=== PATIENT | female | born 1985 | race Caucasian/White ===

== ENCOUNTER 2021-04-01 01:41 | Emergency (ER) | payer MEDICAID, SELFPAY ==
--- NOTE | 2021-04-01 | ECG_ITS ---
Test Reason : CHEST PRESSURE Blood Pressure : / mmHG Vent. Rate : 072 BPM Atrial Rate : 072 BPM P-R Int : 154 ms QRS Dur : 072 ms QT Int : 384 ms P-R-T Axes : 022 015 022 degrees QTc Int : 420 ms Normal sinus rhythm Normal ECG No previous ECGs available Referred By: Sugar Lares Electronically Signed By:CINDY EASON
--- NOTE | ~2021-04-01 | XR_ITS ---
EXAMINATION: XR CHEST CLINICAL INFORMATION: Chest pain COMPARISON: None TECHNIQUE: Frontal view of the chest was obtained. FINDINGS: Multiple external artifacts overlie the thorax. The cardiomediastinal silhouette is normal in appearance. No effusions or pneumothoraces are visualized. A normal pattern of pulmonary vasculature is noted. No skeletal abnormalities identified. XR/XR chest 1V IMPRESSION: Normal chest.
[2021-04-01 02:39] VITALS: BP 148/74; PULSE 75; RESP 18; TEMP 37.2; O2SAT 98; BMI 29.2
--- NOTE | 2021-04-01 04:19 | ED_ITS ---
HPI - Chest Pain General Chief Complaint: Chest Pain Stated Complaint: Chest pressure Time Seen by Provider: 04/01/21 04:19 Source: patient and neighborhood coordinator Mode of arrival: ambulatory History of Present Illness HPI narrative: 35-year-old female who presents with complaints left-sided chest pain, nonradiating for 3 days and denies any association with fever, chills, shortness of breath, dizziness/headache but states that when she pushes on her chest it hurts more. Patient states that at approximately 1:00 a.m. this morning the pain became worse. She denies any associated GI symptoms such as nausea, vomiting, or diarrhea. Related Data Previous Rx's Medication Instructions Recorded omeprazole 40 mg capsule,delayed 40 mg PO DAILY 30 Days #30 cap 04/01/21 release Allergies Allergy/AdvReac Type Severity Reaction Status Date / Time No Known Allergies Allergy Unverified 04/01/21 04:21 Review of Systems Review of Systems: Pertinent positives and negatives as stated in HPI 10 point review of systems is otherwise negative. [facility] Past Medical History Source: nursing notes reviewed Social History Social History Alcohol intake: unknown Patient Tobacco Use Status: Never used Tobacco Use of substances other than those prescribed or required for medical reasons: No Advance Directives: No Patient : No Physical Exam Vital Signs: Vital Signs: Last Vital Signs Temp 98.9 F 04/01/21 02:39 Pulse 71 04/01/21 05:35 Resp 16 04/01/21 05:35 BP 134/66 04/01/21 05:35 Pulse Ox 97 04/01/21 05:35 Body Mass Index 29.2 VITAL SIGNS: Reviewed. GENERAL: Well developed, well nourished, in no acute distress. HEAD: Normocephalic/atraumatic EYES: PERRLA, EOMI LUNGS: Normal breath sounds. SpO2<97> CARDIOVASCULAR: Regular rate and rhythm without noted murmurs ABDOMEN: Soft, non-tender, non-distended with bowel sounds. SKIN: Inspection of the skin reveals no rashes NEUROLOGIC: Alert and oriented x 4. Course Course Course Narrative: 35-year-old female with history and clinical presentation suggestive of possible GERD/costochondritis but will rule out cardiopulmonary etiology. Low clinical suspicion for PE. On review of all investigations there are no acute findings to suggest infectious, anemia, or cardiac etiologies. Patient received a GI cocktail and noted improvement of her symptoms thereafter. Results were discussed with her bedside and she will be discharged home with a prescription for Protonix and recommendations to follow-up with her primary care provider. MDM - Chest Pain Lab Data Result diagrams: 04/01/21 04:37 04/01/21 04:37 Labs: Lab Results 04/01/21 04/01/21 04/01/21 Range/Units 04:37 04:37 04:37 WBC 7.0 (4.8-10.8) X10*3/uL RBC 4.46 (4.20-5.50) X10*6/uL Hgb 12.8 (12.0-16.0) g/dl Hct 37.5 (37-47) % MCV 84.1 (80-98) fL MCH 28.7 (27.0-33.0) pg MCHC 34.1 (31.0-35.0) g/dl RDW 11.8 (11.0-16.0) % Plt Count 278 (160-400) X10*3/uL MPV 10.3 (9.4-12.3) fL Immature Gran % (Auto) 0.3 (0.0-0.4) % Neut % (Auto) 50.9 (45-73) % Lymph % (Auto) 40.9 H (20-40) % [place] % (Auto) 6.3 (2-11) % Eos % (Auto) 1.3 (0-4) % Baso % (Auto) 0.3 (0-2) % Lymph # (Auto) 2.9 (1.2-4.9) X10*3/uL [place] # (Auto) 0.4 (0.1-1.2) X10*3/uL Eos # (Auto) 0.1 (0.0-0.4) X10*3/uL Baso # (Auto) 0.0 (0.0-0.2) X10*3/uL Abs Immat Gran (auto) 0.02 (0.00-0.03) X10*3/uL Absolute Neuts (auto) 3.5 (2.0-8.3) X10*3/uL Absolute Nucleated RBC 0.000 (0.0-0.012) X10*3/uL Nucleated RBC % (auto) 0.0 (0.0-0.2) /100WBC Sodium 141 (135-145) mmol/L Potassium 4.0 (3.3-5.1) mmol/L Chloride 109 H (96-108) mmol/L Carbon Dioxide 25 (22-29) mmol/L Anion Gap 11 L (12-20) BUN 12 (9-16) mg/dL Creatinine 0.75 (0.5-1.4) mg/dL Estim Creat Clear Calc 92.1 Estimated GFR > 60 Random Glucose 78 (60-115) mg/dL Calcium 9.3 (8.4-10.2) mg/dL Total Bilirubin 0.7 (0.0-1.0) mg/dL AST 12 (5-31) U/L ALT 17 (0-31) U/L Alkaline Phosphatase 54 (39-117) U/L Troponin I High Sens < 3.5 (<3.5-17.0) ng/L Total Protein 7.2 (6.5-8.0) g/dL Albumin 4.2 (3.5-5.0) g/dL Lipase 29 (8-78) U/L TSH 0.97 (0.32-4.0) uIU/mL Urine Color Urine Appearance Urine pH (5.0-8.0) Ur Specific [place] (1.005-1.025) Urine Protein (NEG-TRACE) MG/DL Urine Glucose (UA) (NEG) MG/DL Urine Ketones (NEG) MG/DL Urine Blood (NEG) Urine Nitrite (NEG) Ur Leukocyte Esterase (NEG) Urine Test (NEGATIVE) 04/01/21 04/01/21 Range/Units 05:49 05:49 WBC (4.8-10.8) X10*3/uL RBC (4.20-5.50) X10*6/uL Hgb (12.0-16.0) g/dl Hct (37-47) % MCV (80-98) fL MCH (27.0-33.0) pg MCHC (31.0-35.0) g/dl RDW (11.0-16.0) % Plt Count (160-400) X10*3/uL MPV (9.4-12.3) fL Immature Gran % (Auto) (0.0-0.4) % Neut % (Auto) (45-73) % Lymph % (Auto) (20-40) % [place] % (Auto) (2-11) % Eos % (Auto) (0-4) % Baso % (Auto) (0-2) % Lymph # (Auto) (1.2-4.9) X10*3/uL [place] # (Auto) (0.1-1.2) X10*3/uL Eos # (Auto) (0.0-0.4) X10*3/uL Baso # (Auto) (0.0-0.2) X10*3/uL Abs Immat Gran (auto) (0.00-0.03) X10*3/uL Absolute Neuts (auto) (2.0-8.3) X10*3/uL Absolute Nucleated RBC (0.0-0.012) X10*3/uL Nucleated RBC % (auto) (0.0-0.2) /100WBC Sodium (135-145) mmol/L Potassium (3.3-5.1) mmol/L Chloride (96-108) mmol/L Carbon Dioxide (22-29) mmol/L Anion Gap (12-20) BUN (9-16) mg/dL Creatinine (0.5-1.4) mg/dL Estim Creat Clear Calc Estimated GFR Random Glucose (60-115) mg/dL Calcium (8.4-10.2) mg/dL Total Bilirubin (0.0-1.0) mg/dL AST (5-31) U/L ALT (0-31) U/L Alkaline Phosphatase (39-117) U/L Troponin I High Sens (<3.5-17.0) ng/L Total Protein (6.5-8.0) g/dL Albumin (3.5-5.0) g/dL Lipase (8-78) U/L TSH (0.32-4.0) uIU/mL Urine Color STRAW Urine Appearance CLEAR Urine pH 6.0 (5.0-8.0) Ur Specific [place] 1.010 (1.005-1.025) Urine Protein NEG (NEG-TRACE) MG/DL Urine Glucose (UA) NEG (NEG) MG/DL Urine Ketones NEG (NEG) MG/DL Urine Blood NEG (NEG) Urine Nitrite NEG (NEG) Ur Leukocyte Esterase NEG (NEG) Urine Test NEGATIVE (NEGATIVE) ECG Data ECG #1: Attestation: I personally reviewed and interpreted this ECG as follows: Prior ECG tracings: not available for review Interpretation: Normal sinus rhythm, HR-72, no STEMI, MS/QRS/QTC are within normal limits. Discharge Plan Discharge Clinical Impression: Atypical chest pain, Gastroesophageal reflux disease Patient Disposition: Home, Self-Care Instructions: Diet for Stomach Ulcers and Gastritis (ED), Gastroesophageal Reflux Disease (ED) Additional Instructions: 1. Palak un seguimiento con balderrama proveedor de atenci?n primaria en los pr?ximos 1-2 d?as para oliver reevaluaci?n. Regrese a la holley de emergencias por un empeoramiento cassie de los s?ntomas. Prescriptions: New omeprazole 40 mg capsule,delayed release(DR/EC) 40 mg PO DAILY 30 Days Qty: 30 RF: 0 Referrals: Physician,Unknown [Primary Care Provider] - 2 days Print Language: Nepali
[2021-04-01 04:41] LABS: MANUAL DIFF FLAG NO
[2021-04-01 04:42] LABS: Basophils Percent Auto 0.3 % (0-2); Eosinophils Absolute Auto 0.1 X10*3/uL (0.0-0.4); Eosinophils Percent Auto 1.3 % (0-4); Hematocrit 37.5 % (37-47); Hemoglobin 12.8 g/dl (12.0-16.0); Imm Gran Abs Auto 0.02 X10*3/uL (0.00-0.03); Imm Gran Pct Auto 0.3 % (0.0-0.4); Lymphocytes Absolute Auto 2.9 X10*3/uL (1.2-4.9); Lymphocytes Percent Auto 40.9 % (20-40); Mean Corpuscular HGB Conc 34.1 g/dl (31.0-35.0); Mean Corpuscular Hemoglobin 28.7 pg (27.0-33.0); Mean Corpuscular Volume 84.1 fL (80-98); Mean Platelet Volume 10.3 fL (9.4-12.3); Monocytes Absolute Auto 0.4 X10*3/uL (0.1-1.2); Monocytes Percent Auto 6.3 % (2-11); Neutrophils Absolute Auto 3.5 X10*3/uL (2.0-8.3); Neutrophils Percent Auto 50.9 % (45-73); Platelet Count 278 X10*3/uL (160-400); Red Blood Count 4.46 X10*6/uL (4.20-5.50); Red Cell Distribution Width 11.8 % (11.0-16.0)
[2021-04-01 05:01] LABS: Troponin-I High Sensitivity < 3.5 ng/L (<3.5-17.0)
[2021-04-01 05:05] LABS: Alanine Aminotransferase 17 U/L (0-31); Albumin Level 4.2 g/dL (3.5-5.0); Alkaline Phosphatase 54 U/L (39-117); Anion Gap 11 (12-20); Aspartate Amino Transferase 12 U/L (5-31); Bilirubin Total 0.7 mg/dL (0.0-1.0); Blood Urea Nitrogen 12 mg/dL (9-16); Calcium 9.3 mg/dL (8.4-10.2); Carbon Dioxide 25 mmol/L (22-29); Chloride 109 mmol/L (96-108); Creatinine Clr Calc Pharmacy 92.1; Estimated Glomerular Filt Rate > 60; Glucose Random 78 mg/dL (60-115); Lipase 29 U/L (8-78); Sodium 141 mmol/L (135-145); Total Protein 7.2 g/dL (6.5-8.0)
[2021-04-01 05:24] LABS: Thyroid Stimulating Hormone 0.97 uIU/mL (0.32-4.0)
[2021-04-01] MEDS: Lidocaine HCl Viscous 2 % 15 ML SOLUTION 10 ML MUCOUS MEM (05:33)
[2021-04-01] MEDS: Magnesium Hydrox/Alum Hydrox 30 ML ORAL.SUSP PO (05:33)
[2021-04-01 05:35] VITALS: BP 134/66; PULSE 71; RESP 16; O2SAT 97
--- NOTE | 2021-04-01 05:37 | PC.NURSE ---
pt oob to the bathroom with a steady gait, no sob or dizziness.
[2021-04-01 06:08] LABS: Appearance Urine CLEAR; Color Urine STRAW; Glucose Urine UA NEG (NEG); Leukocyte Esterase Urine NEG (NEG); Nitrite Urine NEG (NEG); Urine Blood NEG (NEG); Urine Ketones NEG (NEG); Urine Protein NEG (NEG-TRACE)
[2021-04-01 06:10] LABS: UPreg QC Valid YES; Urine Pregnancy NEGATIVE (NEGATIVE)
[2021-04-01 07:26] VITALS: BP 111/59; PULSE 65; RESP 13; TEMP 36.7; O2SAT 97
== END 2021-04-01 07:27 | disposition home or self-care (01) ==
PROVIDERS: Emergency Provider Student in an Organized Health Care Education/Training Program
DX: R07.89 Other chest pain (principal); K21.9 Gastro-esophageal reflux disease without esophagitis; Z79.899 Other long term (current) drug therapy
CPT/HCPCS: 36415; 71045; 80053; 81003; 81025; 83690; 84443; 84484; 85025; 93005; 99283; 99284

== ENCOUNTER → 2021-06-21 14:03 | Outpatient (BNVA) | payer MEDICAID, SELFPAY | PROVIDERS: PCP Nurse Practitioner Family; Referring Provider Nurse Practitioner Family; Visit Provider Internal Medicine | DX: R07.2 Precordial pain (principal); I10 Essential (primary) hypertension; M62.442 Contracture of muscle, left hand; M62.441 Contracture of muscle, right hand; E89.0 Postprocedural hypothyroidism; Z90.49 Acquired absence of other specified parts of digestive tract; Z90.710 Acquired absence of both cervix and uterus; Z79.899 Other long term (current) drug therapy | CPT/HCPCS: 93005; 99202 ==

== ENCOUNTER → 2021-08-19 08:13 | Outpatient (REF) | payer MEDICAID, SELFPAY ==
--- NOTE | 2021-08-19 08:18 | CA_ITS ---
Transthoracic Echocardiogram Patient (Last, First, Middle): Janine Keller, Gender: Female Date of : 1985 Age: 36 Procedure Date: 08/19/2021 Procedure Type: Transthoracic Echocardiogram Location: OP Height: 154.94 cm Weight: 72.58 kg BSA: 1.72 m2 Heart Rate: bpm BP: 136 / 70 mmHg Registration Scheduling Specialist: ABBY Clemente MD: Drew Wyatt MD Manufacturing Director: Elmer Hall MD Symptoms: R07.2 - Precordial pain Study Quality: Good ECG Rhythm: Sinus Conclusions: - Normal study Findings Left Ventricle Normal left ventricular size, thickness, and systolic function. The visually estimated ejection fraction is between 60-65%. Spectral Doppler is indicative of a normal filling pattern. Calculated peak global longitudinal endocardial strain is -21.8%, within normal limits Right Ventricle Normal right ventricular cavity size and systolic function. Atria Both atria are normal in size. There is no evidence of interatrial shunt. Aortic Valve Normal aortic valve structure and function. There is no aortic valve stenosis. There is no aortic valve regurgitation. Mitral Valve Normal mitral valve structure and function. There is trace mitral valve regurgitation. There is no mitral valve stenosis. Pulmonic Valve The pulmonic valve is likely normal. Tricuspid Valve Normal tricuspid valve structure. There is trace tricuspid valve regurgitation. The right ventricular systolic pressure is normal. The right ventricular systolic pressure is 21 mmHg. Normal right atrial pressure. There is no evidence of pulmonary hypertension. Great Vessels All visible segments of the aorta are normal in size. The pulmonary artery was not well visualized. Venous The inferior vena cava is normal in size and collapses greater than 50% with inspiration. Pericardium/Pleural There is no evidence of pericardial effusion. Prior Study Comparison No prior study available for comparison. Measurements 2D Linear Measurements IVSd: 0.89 0.6-0.9/0.6-1.0 cm LVIDd: 4.25 3.9-5.3/4.2-5.9 cm LVIDd Index: 2.47 2.4-3.2/2.2-3.1 cm/m2 LVIDs: 2.53 2.0-3.6 cm LVPWd: 0.82 0.7-1.1 cm Ao Root: 2.80 2.1-3.5 cm LA Diam: 3.80 2.7-3.8/3.0-4.0 cm LAIDs Index: 2.21 1.5-2.3 cm/m2 LV Mass: 140.12 67-162/88-224 g LV Mass Index: 81.46 43-95/49-115 g/m2 LVOT Diam: 2.00 3.0+(-)1.3 cm 2D Systolic Function EF 4C: 59.60 >55% EF 2C: 59.60 >55% EF BiP: 60.20 >55% Mitral Valve MV Pk E: 0.84 MV PK A: 0.54 MV Decel Time: 218.00 E/A: 1.50 E'Lateral: 17.00 E'Medial: 10.40 E/E' Med: 8.00 E/E' Lat: 4.90 PHT: 64.00 MVA PHT: 3.44 Decel Hernando: 3.83 Aortic Valve AoV Pk Reddy: 1.42 AoV Mn Reddy: 0.89 AoV VTI: 0.27 AoV Pk Grad: 8.00 Aov Mn Grad: 4.00 SALAS Cont.VTI: 2.55 LVOT LVOT Pk Reddy: 1.14 LVOT Mn Reddy: 0.73 LVOT VTI: 0.22 LVOT Pk Grad: 5.00 LVOT Mn Grad: 3.00 LVOT Diam: 2.00 LVOT Area: 3.14 Diastolic Function MV Pk E: 0.84 MV Pk A: 0.54 E/A: 1.50 E'Medial: 10.40 E/E' Med: 8.00 E' Laterial: 17.00 E/E' Lat: 4.90 Right Ventricle TAPSE (mm): 21.00 TVS' Reddy: 17.20 Tricuspid Valve TR Pk Reddy: 2.14 TR Pk Grad: 18.00 RA Press: 3.00 RVSP: 21.00 Great Vessels Aorta Ao Root-2D: 2.80 2.0-3.7 cm Ao Asc: 2.80 2.1-3.4 cm Ao Arch: 2.40 Updated in Other Vendor System with Status of Final Elmer Hall MD electronically signed on 08/20/2021 8:36:13 AM with status of Final
== END ==
LOC: HO.CARD 08:13
PROVIDERS: Visit Provider Internal Medicine
DX: R07.2 Precordial pain (principal)
CPT/HCPCS: 93306; 93356

== ENCOUNTER → 2021-08-26 07:43 | Outpatient (REF) | payer MEDICAID, SELFPAY ==
--- NOTE | 2021-08-26 07:48 | CA_ITS ---
Acquisition Time: 2021-08-26 08:54:57 Total Exercise Time: 00:10:12 Test Indications: CP Medications: SEE CHART Protocol: RAMON Max HR: 162 BPM 89% of Pred: 182 BPM Max BP: 154/098 mmHG Max Work Load: 12.0 METS Exercise stress test with exercise 10 min 12 sec of Ramon protocol, without anginal symptoms, without arrythmia, with normotensive response to exercise, without EKG changes meeting criteria for ischemia. Early recovery, once sitting in chair, she reported a sharp pressure to left chest which lasted 3-4 minutes and then resolved. EKGs remained normal. She states this is the pain that spoke with Dr about. Test reviewed with Dr Wyatt. Referred By: Drew Wyatt Overread By: ARVIND MEZA
== END ==
LOC: HO.CARD 07:43
PROVIDERS: Visit Provider Internal Medicine
DX: R07.2 Precordial pain (principal)
CPT/HCPCS: 93017

== ENCOUNTER → 2021-08-30 14:10 | Outpatient (BNVA) | payer MEDICAID, SELFPAY | PROVIDERS: PCP Nurse Practitioner Family; Referring Provider Nurse Practitioner Family; Visit Provider Nurse Practitioner Family | DX: R07.2 Precordial pain (principal); I10 Essential (primary) hypertension | CPT/HCPCS: 99212 ==

== ENCOUNTER 2021-09-29 11:28 | Outpatient (REF) | payer MEDICAID, SELFPAY ==
[2021-09-30 14:25] LABS: H Pylori Breath Test Negative (Negative)
== END 2021-09-29 11:29 | disposition home or self-care (01) ==
LOC: HO.LNP 11:28
PROVIDERS: PCP Nurse Practitioner Family; Referring Provider Nurse Practitioner Family; Visit Provider Nurse Practitioner Family
DX: R13.12 Dysphagia, oropharyngeal phase (principal); R10.13 Epigastric pain; K21.9 Gastro-esophageal reflux disease without esophagitis; K59.04 Chronic idiopathic constipation
CPT/HCPCS: 83013; 99202

== ENCOUNTER 2021-10-05 21:06 | Emergency (ER) | payer MEDICAID, SELFPAY ==
[2021-10-05 21:16] VITALS: BP 138/81; PULSE 75; RESP 16; TEMP 36.7; O2SAT 98; BMI 29.8
--- NOTE | 2021-10-05 22:52 | ED_ITS ---
HPI - Dental/Oral General Chief complaint: Dental/Oral Stated complaint: teeth removed c/o of bleeding and pain Time Seen by Provider: 10/05/21 21:28 Source: patient Mode of arrival: ambulatory Limitations: no limitations History of Present Illness HPI Narrative: Patient is a 28-year-old female with history of hypertension. Reports having a root canal to 2 right upper molars at 1500 today, the history is unclear as to why to canals are needed however she reports there was concern of infection, and difficulty in removing 1 of the roots. She was sent home with a prescription for amoxicillin and ibuprofen. She presents to the emergency department for evaluation of 04/01 pain after numbness wore off and concern about the amount of bleeding, she is needing to use 2 x 2 gauze to absorb the bleeding. MD Complaint: tooth pain Related Data Home Medications Medication Instructions Recorded Confirmed carvedilol 3.125 mg tablet 3.125 mg PO BID 06/21/21 09/01/21 cholecalciferol (vitamin D3) 50 50 mcg PO DAILY 06/21/21 09/01/21 mcg (2,000 unit) capsule levothyroxine 112 mcg tablet 112 mcg PO DAILY 06/21/21 09/01/21 (Synthroid) losartan 100 mg tablet 100 mg PO DAILY 06/21/21 09/01/21 Previous Rx's Medication Instructions Recorded docusate sodium 100 mg capsule 100 mg PO BEDTIME #30 cap 09/29/21 hydrocortisone 2.5 % topical cream 1 appl HI BID-QID PRN #30 g 09/29/21 with perineal applicator (Proctosol HC) pantoprazole 40 mg tablet,delayed 40 mg PO DAILY #30 tab 09/29/21 release sennosides 8.6 mg tablet (Natural 8.6 mg PO BEDTIME #30 tab 09/29/21 Senna Laxative) hydrocodone 10 mg-acetaminophen 1 tab PO Q8H PRN #7 tab 10/05/21 300 mg tablet (Vicodin HP) Allergies Allergy/AdvReac Type Severity Reaction Status Date / Time No Known Allergies Allergy Verified 09/29/21 11:37 Review of Systems Review of Systems: Constitutional: No weight loss, fever, chills, weakness or fatigue. Skin: No rash or itching. Mouth: Dental pain/ bleeding Cardiovascular: No chest pain, chest pressure or chest discomfort. No palpitations or pedal edema. Respiratory: No shortness of breath, cough or sputum production. Gastrointestinal: No anorexia, nausea, vomiting or diarrhea. No abdominal pain or blood in stool. Genitourinary: No burning micturition. No urinary frequency or incontinence. Musculoskeletal: No muscle pain, back pain, joint pain or stiffness. Psychiatric: No depression or anxiety. [facility] Past Medical History Medical History Chest pain Hypertension Surgical History H/O thyroidectomy H/O: hysterectomy History of esophagogastroduodenoscopy (EGD) Hx of cholecystectomy Family History Family History Father Hypertension Hypercholesteremia Social History Social History Alcohol intake: never Patient Tobacco Use Status: Never used Tobacco Advance Directives: No Advance Directives Information Provided: No Patient : No Physical Exam Vital Signs: Vital Signs: Last Vital Signs Temp 98.1 F 10/05/21 21:16 Pulse 75 10/05/21 21:16 Resp 17 10/06/21 00:20 BP 138/81 10/05/21 21:16 Pulse Ox 98 10/05/21 21:16 BMI result Body Mass Index 29.8 Vital signs have been reviewed as normal and appeared to be correct. Blood pressure normal.? Heart rate normal.? Respiration rate normal. Temperature normal.? Oxygen saturation normal. Appearance: Alert.?Oriented to person, place and time. No acute distress.?Normal affect. Eyes: Pupils equal, round and reactive to light.? ENT: Tooth socket 4 and 5 with minimal bleeding, blood clot intact, sutures intact, localized swelling of the gums. No trismus. Pharynx normal.?? Neck: Normal inspection.? Neck supple.?? CVS: Heart sounds normal. Normal heart rate and rhythm.? Pulses normal.?? Respiratory: No respiratory distress.? Lung sounds clear to auscultation bilaterally?? Abdomen: Soft and non-tender. ? Skin: Skin warm and dry.? Normal skin color.? Normal skin turgor.?? Extremities: No lower extremity edema.? Neuro: Moves all extremities spontaneously. Sensation intact bilaterally. CN II- XII intact. No focal neuro deficits. Ambulates with normal steady gait. Course Course Course Narrative: Patient is a 36-year-old female being evaluated for dental pain after extraction today. She does appear uncomfortable, but is overall well, hemodynamically stable, afebrile, non tachycardic, bleeding is controlled on physical with no concern for alveolar osteitis, do not visualize any remainder of the tooth. Applied topical Benzocaine 20%. Took ibuprofen 4 hours prior to evaluation here. She is able to open and close her mouth without difficulty. No visible abscess. Will provide dose of oxycodone here, as she has a ride home. Discussed plan of care for discharge home, measures to avoid dry socket, leaving clot intact, discussed was to return to the emergency, advised to follow-up with dentist as scheduled, continue amoxicillin and ibuprofen as prescribed by dentist, provided a short course by Vicodin to use for severe pain only needed. Discharge Plan Discharge Clinical Impression: Pain, dental Patient Disposition: Home, Self-Care Instructions: Toothache (ED) Additional Instructions: Use amoxicillin and ibuprofen as prescribed by your dentist. You have been given a new prescription for Vicodin to use only as needed for severe pain, you must use caution while using this medication as can make you drowsy, do not drive while taking this medication, it is an opiate medication which can be addicting, again only use this for severe pain. Please contact your dentist tomorrow to schedule follow-up appointment 1-2 days. Return to emergency department for any new or worsening symptoms or concerns. Prescriptions: New hydrocodone-acetaminophen [Vicodin HP] 10-300 mg tablet 1 tab PO Q8H PRN (Reason: pain) Qty: 7 0RF No Action carvedilol 3.125 mg tablet 3.125 mg PO BID 0RF Rx Instructions: must administer with a meal/food losartan 100 mg tablet 100 mg PO DAILY 0RF cholecalciferol (vitamin D3) 50 mcg (2,000 unit) capsule 50 mcg PO DAILY 0RF levothyroxine [Synthroid] 112 mcg tablet 112 mcg PO DAILY 0RF docusate sodium 100 mg capsule 100 mg PO BEDTIME Qty: 30 3RF sennosides [Natural Senna Laxative] 8.6 mg tablet 8.6 mg PO BEDTIME Qty: 30 3RF pantoprazole 40 mg tablet,delayed release (DR/EC) 40 mg PO DAILY Qty: 30 2RF Rx Instructions: take one tablet half an hour before breakfast hydrocortisone [Proctosol HC] 2.5 % cream with perineal applicator 1 appl HI BID-QID PRN (Reason: hemorrhoids) Qty: 30 2RF Interventions: ED Discharge Assessment Last Done: 10/06/21 00:10 Discharge Date/Time: 10/06/21 00:20
[2021-10-05] MEDS: oxyCODONE HCl Immed Release 5 MG TABLET PO (23:09)
[2021-10-06 00:20] VITALS: RESP 17
== END 2021-10-06 00:20 | disposition home or self-care (01) ==
PROVIDERS: Emergency Provider Emergency Medicine
DX: K08.89 Other specified disorders of teeth and supporting structures (principal)
CPT/HCPCS: 99283; 99284

== ENCOUNTER 2021-11-01 13:26 | Outpatient (REF) | payer MEDICAID, SELFPAY ==
[2021-11-01 16:14] LABS: Vitamin B12 274 pg/mL (200-900)
[2021-11-02 21:16] LABS: Transglutaminase Ab IgG <1.0 U/mL; Transglutaminase IgA <1.0 U/mL
[2021-11-06 13:25] LABS: Vitamin D 25-OH, D2 <4 ng/mL; Vitamin D 25-OH, D3 27 ng/mL; Vitamin D 25-OH, Total 27 ng/mL (30-100)
== END 2021-11-01 13:27 | disposition home or self-care (01) ==
LOC: HO.LAB 13:26
PROVIDERS: Visit Provider Nurse Practitioner Family
DX: R10.13 Epigastric pain (principal); R10.9 Unspecified abdominal pain; R19.7 Diarrhea, unspecified; K21.9 Gastro-esophageal reflux disease without esophagitis; K59.04 Chronic idiopathic constipation; E55.9 Vitamin D deficiency, unspecified
CPT/HCPCS: 36415; 82306; 82607; 82746; 86364; 99212

== ENCOUNTER 2022-01-18 10:55 | Outpatient (REF) | payer MEDICAID, SELFPAY ==
--- NOTE | ~2022-01-18 | XR_ITS ---
EXAMINATION: XR CHEST CLINICAL INFORMATION: Chest pain COMPARISON: Chest 04/01/2021 TECHNIQUE: 2 views of the chest were obtained. FINDINGS: No significant abnormality is noted involving the heart, lungs, mediastinum, bony thorax or soft tissues. XR/XR chest 2V IMPRESSION: Unremarkable chest examination.
== END 2022-01-18 10:56 | disposition home or self-care (01) ==
LOC: HO.XRAY 10:55
PROVIDERS: Absent Provider Nurse Practitioner Family; PCP Nurse Practitioner Family; Visit Provider Emergency Medicine
DX: R07.9 Chest pain, unspecified (principal); R22.2 Localized swelling, mass and lump, trunk
CPT/HCPCS: 71046

== ENCOUNTER 2022-02-10 12:28 | Day surgery (SDC) | payer MEDICAID, SELFPAY ==
[2022-02-06 13:35] VITALS: BMI 29.8
--- NOTE | 2022-02-09 11:59 | HO.ANESPROP2 ---
Documented by User: Ally Champion NP 02/09/22 12:00 HPI - Anesthesia Eval Consult details Narrative: 36yo F for Upper Endoscopy 07/2021 cardiac w/u for atypical CP, no cardiac etiology and only prn f/u with cardiology [facility] Active Problems Active Problems: All Active Problems (Updated 02/06/22 @ 13:32 by Radha Mccullough RN) Precordial chest pain (Acute) Essential hypertension (Acute) Past Medical History Medical History (Updated 02/06/22 @ 13:32 by Radha Mccullough RN) Chest pain Hypertension Family History Family History Father Hypertension Hypercholesteremia Surgical History Surgical History H/O thyroidectomy H/O: hysterectomy History of esophagogastroduodenoscopy (EGD) Hx of cholecystectomy Social History Social History Alcohol intake: never Patient Tobacco Use Status: Never used Tobacco Second Hand Smoke Exposure: No Use of substances other than those prescribed or required for medical reasons: No Are you DNR?: No Advance Directives: No Advance Directives Information Provided: Yes Advance Directives on File: No Meds Allergies Allergy/AdvReac Type Severity Reaction Status Date / Time No Known Allergies Allergy Verified 11/01/21 13:29 Home Medications Medication Instructions Recorded Confirmed Last Taken Type carvedilol 3.125 mg tablet 3.125 mg PO BID 06/21/21 02/06/22 02/10/22 History levothyroxine 112 mcg tablet 112 mcg PO DAILY 06/21/21 02/06/22 02/10/22 History (Synthroid) losartan 100 mg tablet 100 mg PO DAILY 06/21/21 02/06/22 Unknown History cholecalciferol (vitamin D3) 50 50 mcg PO DAILY 11/01/21 02/06/22 Unknown History mcg (2,000 unit) tablet (Vitamin D3) Exam Exam Date and Time: February 09, 2022 1159 Height,Weight and Vital Signs: Height 5 ft 1 in Weight 71.668 kg Narrative Narrative: ECHO 07/2021 Conclusions: - Normal study? Exercise Stress 08/2021 Protocol: BILLY ? Max HR: 162 BPM? 89% of? Pred: 182 BPM Max BP: 154/098 mmHG Max Work Load: 12.0 METS ? Exercise stress test with exercise 10 min 12 sec of Billy protocol, without ?anginal symptoms, without arrythmia, with normotensive response? to exercise, ?without EKG changes meeting criteria for ischemia. Early recovery, once sitting ?in chair, she reported a sharp pressure to left chest which lasted 3-4 minutes ?and then resolved. EKGs remained normal.? She states this is the pain that ?spoke with Dr whitman. Test reviewed with Dr Wyatt. Assessment and Plan Assessment Anesthesia Assessment: Chart Reviewed Documented by User: Asa Llamas MD 02/10/22 13:42 [facility] Past Medical History Medical History (Updated 02/06/22 @ 13:32 by Radha Mccullough RN) Chest pain Hypertension Family History Family History Father Hypertension Hypercholesteremia Family history of problems with anesthesia: No Surgical History Surgical History H/O thyroidectomy H/O: hysterectomy History of esophagogastroduodenoscopy (EGD) Hx of cholecystectomy History of Problems with Anesthesia: No Social History Social History Alcohol intake: never Patient Tobacco Use Status: Never used Tobacco Second Hand Smoke Exposure: No Use of substances other than those prescribed or required for medical reasons: No Are you DNR?: No Advance Directives: No Advance Directives Information Provided: Yes Advance Directives on File: No Meds Allergies Allergy/AdvReac Type Severity Reaction Status Date / Time No Known Allergies Allergy Verified 11/01/21 13:29 Home Medications Medication Instructions Recorded Confirmed Last Taken Type carvedilol 3.125 mg tablet 3.125 mg PO BID 06/21/21 02/06/22 02/10/22 History levothyroxine 112 mcg tablet 112 mcg PO DAILY 06/21/21 02/06/22 02/10/22 History (Synthroid) losartan 100 mg tablet 100 mg PO DAILY 06/21/21 02/06/22 Unknown History cholecalciferol (vitamin D3) 50 50 mcg PO DAILY 11/01/21 02/06/22 Unknown History mcg (2,000 unit) tablet (Vitamin D3) Exam Airway Mallampati Class: II TM Dist: >3cm Neck ROM: Full Assessment and Plan Assessment Anesthesia Assessment: Anesthesia Plan Discussed Final Anesthetic Review Family History of Problems with Anesthesia: No History of Problems with Anesthesia: No NPO: Yes ASA Class: II Final Preanesthetic Review: No Changes in Pt Med Stat, Meds/Allgs Chart Reviewed, Consent Obtained/Reviewed and Anes Risks/Benef Reviewed Patient Risk: Low Procedure Risk: Low Anesthetic Plan Anesthetic Plan: MAC: Disposition: Standard PACU
[2022-02-10 12:45] VITALS: BP 126/68; PULSE 85; RESP 16; TEMP 37.2; O2SAT 97
[2022-02-10] MEDS: Lactated Ringers 1,000 ML 100 ML IVCONT (12:49)
--- NOTE | 2022-02-10 12:56 | MHC.SHP ---
Pre-Procedural Eval Section A Date of Service: 02/10/22 Section B Chief Complaint: reflux Details of Present Illness: GERD, dysphagia Relevant Family History (Specify if Yes): No Relevant Social History: None Present Medications: see Short Stay Collaborative assessment Medical History: Significant History (Chest pain Hypertension) History of Previous Operations: Relevant previous surgery/procedure and date(s) (H/O thyroidectomy H/O: hysterectomy History of esophagogastroduodenoscopy (EGD) Hx of cholecystectomy) Allergies: Allergies Allergy/AdvReac Type Severity Reaction Status Date / Time No Known Allergies Allergy Verified 11/01/21 13:29 Review of Systems Sugical H&P ROS: Negative: Constitution, Cardiovascular, Respiratory and Gastrointestinal Exam Surgical H&P Exam: Normal: Heart, Normal: Lungs, Normal: Extremities and Normal: Abdomen Plan Diagnosis/Plan: Unchanged I have reviewed the history and physical and performed a pertinent physical examination on my patient. No changes have occurred unless specified.
--- NOTE | 2022-02-10 13:01 | PM.OP ---
Brief Operative Note Date of Service: 02/10/22 Pre-op diagnosis: GERD, nausea, dysphagia Post-op diagnosis: other (GERD, gastritis, gastric polyps, gastric antral nodule) Procedure: FLEXIBLE TRANSORAL UPPER GASTROINTESTINAL ENDOSCOPY WITH BIOPSIES AND ESOPHAGEAL BALLOON DILATION Consent: Indications for the procedure and potential complications of bleeding, perforation, reaction to medications and missed diagnosis were discussed with the patient and informed consent was obtained. Instrument: Olympus GIF H 190 mid size upper endoscope Monitoring: Vital signs and clinical assessment, continuous EKG monitoring, Pulse oximetry, Carbon Dioxide monitoring and blood pressure monitoring were done throughout the procedure. Procedure: The patient was placed in the left lateral decubitis position and pre-procedure medications were administered and a bite block was placed. The endoscope was inserted into the mouth and advanced under direct vision to the third part of duodenum. A careful inspection was made as the upper endoscope was withdrawn including a retroflexed examination of the proximal stomach; Findings and interventions are described below. Findings: Larynx: Normal Esophagus: Mildly tortuous esophagus with increased tertiary contractions without stricture or ring. Biopsies were obtained from proximal esophagus to check for EOE. GE junction at 35 cms. No esophagitis or Geller's. Balloon dilation of LES was performed with a 20 mm CRE balloon x 60 seconds Stomach: Multiple 5 to 10 mm benign-appearing polyps in the gastric body and fundus - biopsied. Mild gastric erythema. Biopsies were obtained. A 12-15 mm benign appearing nodule with central erosion in the pre-pyloric area - biopsied. Grade 2 flap valve on retroflexed examination of the cardia. Duodenum: Normal bulb and descending duodenum. Biopsies were obtained from 3rd part of the duodenum to check for celiac sprue Intervention: Biopsies and esophageal balloon dilation as noted above Impression and Post Procedure Diagnosis: Endoscopy Findings: ESOPHAGUS: Mildly tortuous esophagus with increased tertiary contractions without stricture or ring. Biopsies were obtained from proximal esophagus to check for EOE. GE junction at 35 cms. No esophagitis or Geller's. Balloon dilation of LES was performed with a 20 mm CRE balloon x 60 seconds STOMACH: Multiple 5 to 10 mm benign-appearing polyps in the gastric body and fundus - biopsied. Mild gastric erythema. Biopsies were obtained. A 12-15 mm benign appearing nodule with central erosion in the pre-pyloric area - biopsied. DUODENUM: Normal - biopsied to check for celiac sprue. Dysphagia likely related to esophageal motility disorder. No etiology found for nausea - ? medications and pt denied Marijuana use Plan: Await pathology results Patient has an appointment on 02/24/22 in the GI Clinic with Pamela Luciano FNP-BC. Consider further evaluation with UGI with SBFT or Abd CT scan to rule out small bowel pathology Above findings were reviewed with the patient and GERD and Gastric Polyps handouts were given in the discharge area Surgeon: Chantale Pritchard MD Anesthesia: MAC Was an Library Services Assistant used for this Procedure?: Yes Library Services Assistant: Esdras Monk Estimated blood loss (mL): 0 Pathology: other (A: SMALL BOWEL BXS B: GASTRIC ANTRUM BXS R/O H PYLORI C: GASTRIC ANTRUM NODULE D: GASTRIC POLYPS E: PROXIMAL ESOPHAGUS R/O EOE) Condition: stable Disposition: PACU
[2022-02-10 14:19] VITALS: BP 98/49; PULSE 86; RESP 20; TEMP 36.1; O2SAT 96
[2022-02-10 14:34] VITALS: BP 108/52; PULSE 90; RESP 20; O2SAT 97
[2022-02-10 14:49] VITALS: BP 116/65; PULSE 91; RESP 20; O2SAT 100
[2022-02-10 15:04] VITALS: BP 120/68; PULSE 75; RESP 20; TEMP 36.1; O2SAT 100
--- NOTE | 2022-02-12 14:26 | P.OP_ITS ---
Operative Note Operative Note Date of Service: 02/10/22 Narrative: Pre-op diagnosis: GERD, nausea, dysphagia Post-op diagnosis:?other (GERD, gastritis, gastric polyps, gastric antral nodule) Procedure: FLEXIBLE TRANSORAL UPPER GASTROINTESTINAL ENDOSCOPY WITH BIOPSIES AND ESOPHAGEAL BALLOON DILATION Consent:?Indications for the procedure and potential complications of bleeding, perforation, reaction to medications and missed diagnosis were discussed with the patient and informed consent was obtained. Instrument:?Olympus GIF H 190 mid size upper endoscope Monitoring: Vital signs and clinical assessment, continuous EKG monitoring, Pulse oximetry, Carbon Dioxide monitoring and blood pressure monitoring were done throughout the procedure. Procedure:?The patient was placed in the left lateral decubitis position and pre-procedure medications were administered and a bite block was placed. The endoscope was inserted into the mouth and advanced under direct vision to the third part of duodenum. A careful inspection was made as the upper endoscope was withdrawn including a retroflexed examination of the proximal stomach; Findings and interventions are described below. Findings: Larynx:? Normal Esophagus: Mildly tortuous esophagus with increased tertiary contractions without stricture or ring.? Biopsies were obtained from proximal esophagus to check for EOE.? GE junction at 35 cms. No esophagitis or Geller's. Balloon dilation of LES was performed with a 20 mm CRE balloon x 60 seconds Stomach: Multiple 5 to 10 mm benign-appearing polyps in the gastric body and fundus - biopsied.? Mild gastric erythema. Biopsies were obtained. A 12-15 mm benign appearing nodule with central erosion in the pre-pyloric area - biopsied. Grade 2 flap valve on retroflexed examination of the cardia. Duodenum: Normal bulb and descending duodenum. Biopsies were obtained from 3rd part of the duodenum to check for celiac sprue Intervention: Biopsies and esophageal balloon dilation as noted above Impression and Post Procedure Diagnosis: Endoscopy Findings: ESOPHAGUS: Mildly tortuous esophagus with increased tertiary contractions without stricture or ring.? Biopsies were obtained from proximal esophagus to check for EOE.? GE junction at 35 cms. No esophagitis or Geller's. Balloon dilation of LES was performed with a 20 mm CRE balloon x 60 seconds STOMACH: Multiple 5 to 10 mm benign-appearing polyps in the gastric body and fundus - biopsied.? Mild gastric erythema. Biopsies were obtained. A 12-15 mm benign appearing nodule with central erosion in the pre-pyloric area - biopsied. DUODENUM: Normal - biopsied to check for celiac sprue. Dysphagia likely related to esophageal motility disorder.? No etiology found for nausea - ? medications and pt denied Marijuana use Plan: Await pathology results Patient has an appointment on 02/24/22 in the GI Clinic with Pamela Luciano FNP- BC. Consider further evaluation with UGI with SBFT or Abd CT scan to rule out small bowel pathology Above findings were reviewed with the patient and GERD and Gastric Polyps handouts were given in the discharge area Surgeon: Chantale Pritchard MD Anesthesia:?MAC Was an Leasing Representative used for this Procedure?:?Yes Leasing Representative:?Esdras Monk Estimated blood loss (mL):?0 Pathology:?other (A: SMALL BOWEL BXS? B: GASTRIC ANTRUM BXS R/O H PYLORI? C: GASTRIC ANTRUM NODULE? D: GASTRIC POLYPS? E: PROXIMAL ESOPHAGUS R/O EOE) Condition:?stable Disposition:?PACU
== END 2022-02-10 15:25 | disposition home or self-care (01) ==
PROVIDERS: PCP Nurse Practitioner Family; Visit Provider Internal Medicine Gastroenterology
PROC: 0DJ08ZZ Inspection of Upper Intestinal Tract, Via Natural or Artificial Opening Endoscopic (ICD-10-PCS; CPT 43235; principal; 2022-02-10 13:40)
DX: K21.9 Gastro-esophageal reflux disease without esophagitis (principal); R13.10 Dysphagia, unspecified; K22.89 Other specified disease of esophagus; K31.7 Polyp of stomach and duodenum; K29.50 Unspecified chronic gastritis without bleeding; K31.89 Other diseases of stomach and duodenum; I10 Essential (primary) hypertension; Z79.899 Other long term (current) drug therapy; Z90.49 Acquired absence of other specified parts of digestive tract
CPT/HCPCS: 43249; 43239; 88305; 88342; C1726

== ENCOUNTER → 2022-02-20 14:53 | Outpatient (BNVA) | payer MEDICAID, SELFPAY | PROVIDERS: PCP Nurse Practitioner Family; Visit Provider Surgery | DX: D17.1 Benign lipomatous neoplasm of skin and subcutaneous tissue of trunk (principal); M25.512 Pain in left shoulder; M79.602 Pain in left arm | CPT/HCPCS: 99202 ==

== ENCOUNTER → 2022-02-24 12:51 | Outpatient (BNVA) | payer MEDICAID, SELFPAY | PROVIDERS: PCP Nurse Practitioner Family; Visit Provider Nurse Practitioner Family | DX: R11.0 Nausea (principal); K21.9 Gastro-esophageal reflux disease without esophagitis; K59.00 Constipation, unspecified; K58.1 Irritable bowel syndrome with constipation | CPT/HCPCS: 99212 ==

== ENCOUNTER 2022-03-21 14:39 | Outpatient (REF) | payer MEDICAID, SELFPAY ==
--- NOTE | ~2022-03-21 | MM_ITS ---
EXAMINATION: MM DIAGNOSTIC DIGITAL BREAST TOMOSYNTHESIS, BILATERAL US DIAGNOSTIC ULTRASOUND BREAST, BILATERAL CLINICAL INFORMATION: 36-year-old with bilateral breast pain. Palpable area noted at time of clinical exam left breast. At time of appointment patient also notes small palpable area lateral right breast. Prior outside mammography from [place] currently unavailable. The lifetime risk of breast cancer based on the Tyrer-Cuzick Model is 9%. COMPARISON: None. TECHNIQUE: Digital mammography is performed in craniocaudal and mediolateral oblique views. Digital breast tomosynthesis is performed in implant-displaced craniocaudal and implant-displaced mediolateral oblique views. Synthesized 2D images are generated from the tomosynthesis. Computer-aided detection (CAD) is performed for this exam. Ultrasound of each breast is targeted to the areas of clinical concern. Additional imaging also performed posterior left breast from 11:00 through 3:00 position. Patient imaged supine, oblique, and semiupright. Grayscale imaging and color Doppler are performed without and with harmonics. FINDINGS: The breasts are heterogeneously dense, which may obscure small masses (ACR BI-RADS breast composition Category c). Left breast has focal bilobed nodular asymmetry with smooth margins posterior central breast, overall size approximately 1.2 cm in diameter. No definable mass on the right. Neither breast shows architectural abnormality or abnormal calcifications. The bilateral axilla and skin contours are unremarkable. There is no skin thickening or coarsening of the [place]'s ligaments. Ultrasound right breast demonstrates a small cyst at site of patient's palpable concern 10:00 position anterior mid depth, under 1 cm. There is a fine avascular internal septation. Margins are smooth and there is increased through-transmission of sound and no color flow. Remainder of the right breast ultrasound shows no cystic or solid mass or architectural abnormality. No focal duct ectasia. Ultrasound left breast shows no cystic or solid mass, architectural abnormality, or focal duct ectasia. There is no ultrasound correlate for the focal nodular asymmetry posterior central left breast. Results are discussed with the patient at time of visit, using an rehabilitation services aide. If patient is able to retrieve prior outside mammography, we will be able to make comparison in an addendum report. Otherwise, short interval six-month follow-up left mammography is recommended for the focal nodular asymmetry. MM/MM tomosynthesis diagnostic BI IMPRESSION: Right: -No mammographic evidence of malignancy. -Small cyst lateral breast near area of patient's palpable concern, under 1 cm. Left: -Smooth bilobed focal nodular asymmetry posterior central breast. No ultrasound correlate. ASSESSMENT: BI-RADS 3: Probably Benign RECOMMENDATION: -Diagnostic left mammography in 6 months. -Patient to attempt to retrieve prior outside mammography from [place] to allow for comparison in an addendum report. This patient's information was entered into a reminder system with a target due date for their next mammogram.
== END 2022-03-21 14:40 | disposition home or self-care (01) ==
LOC: HO.MAMMO 14:39
PROVIDERS: PCP Nurse Practitioner Family; Visit Provider Nurse Practitioner Family
DX: N63.15 Unspecified lump in the right breast, overlapping quadrants (principal); N64.4 Mastodynia
CPT/HCPCS: 76642; 77062; 77066

== ENCOUNTER 2022-06-21 08:48 | Outpatient (REF) | payer MEDICAID, SELFPAY ==
--- NOTE | ~2022-06-21 | FL_ITS ---
EXAMINATION: XR UPPER GI SERIES WITH SMALL BOWEL CLINICAL INFORMATION: Nausea COMPARISON: None. TECHNIQUE: Routine upper GI air-contrast study and upright and lying position followed by small bowel follow-through was performed. 2 cups of thin barium was administered and sequential images over the abdomen were obtained as part of small bowel series. FINDINGS: Upper GI: On dobby loom weaver images the is scattered stool in the colon without distention. There is evidence of previous cholecystectomy. A solitary staple is seen in the pelvis. No gross bony abnormality. Following oral administration of thick barium and effervescent granules there is normal propagation bolus from the oral cavity through the pharynx, esophagus into stomach without any evidence of obstruction, narrowing or stricture. On placing patient supine and prone lying there are multiple lung punctate barium findings surrounded by circular edema in body and the antrum of the stomach suggestive of gastric erosions. No ulceration suspected no increase secretions seen either. Small bowel: Visualized jejunum and ileal loops are normal caliber without distention or mucosal abnormality. The small bowel transit time is approximately greater than 1 hour. On spot images the ileocecal junction, and terminal ileum and the cecum appears unremarkable. Appendix is not visualized. FLUOROSCOPY TIME: 2.7 minutes DOSE AREA PRODUCT: 38.098 uGy-m2 (microgray-meter squared) FL/FL upper GI w air w SBFT IMPRESSION: Multiple gastric erosions in the body and antrum of the stomach. No definite ulceration seen. No increased gastric secretions. Normal small bowel transit time of just above 60 minutes. The small bowel barium pattern is unremarkable.
== END 2022-06-21 08:49 | disposition home or self-care (01) ==
LOC: HO.XRAY 08:48
PROVIDERS: PCP Nurse Practitioner Family; Visit Provider Nurse Practitioner Family
DX: K21.9 Gastro-esophageal reflux disease without esophagitis (principal); R11.0 Nausea
CPT/HCPCS: 74246; 74248

== ENCOUNTER → 2022-08-22 13:41 | Outpatient (BNVA) | payer MEDICAID, SELFPAY | PROVIDERS: PCP Nurse Practitioner Family; Visit Provider Nurse Practitioner Family | DX: G43.009 Migraine without aura, not intractable, without status migrainosus (principal); R41.3 Other amnesia; Z82.0 Family history of epilepsy and other diseases of the nervous system | CPT/HCPCS: 99202 ==

== ENCOUNTER 2022-09-20 13:27 | Outpatient (REF) | payer MEDICAID, SELFPAY ==
--- NOTE | ~2022-09-20 | MM_ITS ---
EXAMINATION: MM DIAGNOSTIC DIGITAL BREAST TOMOSYNTHESIS, LEFT CLINICAL INFORMATION: Six-month follow-up bilobed density deep superior left breast. COMPARISON: Mammography: November 19, 2021 TECHNIQUE: Digital breast tomosynthesis is performed in both the craniocaudal and mediolateral oblique views along with computer-aided detection (CAD). Synthesized 2D images are generated from the tomosynthesis. FINDINGS: The breasts are heterogeneously dense, which may obscure small masses (ACR BI-RADS breast composition Category c). There is a stable appearance of the left breast with deep superior bilobed density measuring approximately 1.3 x 0.9 cm in size. Continued 6 month follow-up bilateral mammogram suggested to ensure stability.. Results are provided to the patient at time of visit by the technologist. MM/MM tomosynthesis diagnostic LT IMPRESSION: There are no significant changes from prior study. ASSESSMENT: BI-RADS 3: Probably Benign RECOMMENDATION: Diagnostic mammography in 6 months. This patient's information was entered into a reminder system with a target due date for their next mammogram.
== END 2022-09-20 13:28 | disposition home or self-care (01) ==
LOC: HO.MAMMO 13:27
PROVIDERS: Visit Provider Nurse Practitioner Family
DX: R92.2 Inconclusive mammogram (principal)
CPT/HCPCS: 77061; 77065

== ENCOUNTER → 2022-11-03 13:06 | Outpatient (BNVA) | payer MEDICAID, SELFPAY | PROVIDERS: PCP Registered Nurse; Visit Provider Nurse Practitioner Family | DX: R41.3 Other amnesia (principal); G43.009 Migraine without aura, not intractable, without status migrainosus; I10 Essential (primary) hypertension; Z82.0 Family history of epilepsy and other diseases of the nervous system | CPT/HCPCS: 99212 ==

== ENCOUNTER → 2022-11-08 09:59 | Outpatient (BNVA) | payer MEDICAID, SELFPAY | PROVIDERS: PCP Registered Nurse; Visit Provider Nurse Practitioner Family | DX: K21.9 Gastro-esophageal reflux disease without esophagitis (principal); K58.1 Irritable bowel syndrome with constipation; Z90.49 Acquired absence of other specified parts of digestive tract; R11.0 Nausea | CPT/HCPCS: 99212 ==

== ENCOUNTER → 2023-01-03 10:40 | Outpatient (BNVA) | payer MEDICAID, SELFPAY | PROVIDERS: PCP Registered Nurse; Visit Provider Nurse Practitioner Family | DX: K59.04 Chronic idiopathic constipation (principal); K21.9 Gastro-esophageal reflux disease without esophagitis; K58.9 Irritable bowel syndrome, unspecified; R11.0 Nausea | CPT/HCPCS: 99212 ==

== ENCOUNTER 2023-02-15 14:17 | Outpatient (AMB) | payer MEDICAID, SELFPAY ==
[2023-02-15 14:26] VITALS: BP 130/78; PULSE 102; O2SAT 98; BMI 31.6
--- NOTE | 2023-02-15 14:26 | A.OFFVIS_ITS ---
Intake Vital Signs 02/15/23 14:26 Height 5 ft 1 in Weight 167 lb BMI 31.6 BP 130/78 Blood Pressure Location Rt brachial Position Sitting Pulse 102 H Pulse Source Pulse Oximeter Pulse Oximetry (%) 98 Oxygen Delivery Method Room Air Intake Visit Reasons: Follow up for Headaches Intake Note: Patient presents for follow up headaches. Allergies No Known Allergies Allergy (Verified 02/15/23 14:27) Medication List - Last Reconciled 02/15/23 by Judy Suárez MD acetaminophen 1,000 mg PO Q6H PRN amitriptyline 25 - 50 mg (1 - 2 x 25 mg) PO BEDTIME 30 days carvedilol 3.125 mg PO BID cholecalciferol (vitamin D3) (Vitamin D3) 50 mcg PO DAILY docusate sodium 100 mg PO BEDTIME fluticasone propionate 50 mcg/actuation 1 - 2 sprays intranasal DAILY PRN hydrocodone-acetaminophen 10-300 mg (Vicodin HP) 1 tab PO Q8H PRN hydrocortisone 2.5% (Proctosol HC) [address] BID-QID PRN levothyroxine (Synthroid) 112 mcg PO DAILY losartan 100 mg PO DAILY magnesium oxide 400 mg PO BEDTIME 30 days pantoprazole 40 mg PO DAILY riboflavin (vitamin B2) 400 mg PO DAILY 30 days sennosides (Natural Senna Laxative) 17.2 mg (2 x 8.6 mg) PO BEDTIME sucralfate 1 g PO BEDTIME sumatriptan succinate 50 - 100 mg orally at onset of headache, may repeat in 2 hrs PRN; max 2 tabs per day or 4 tabs/week (may take with Ibuprofen) 30 days HPI HPI Comments History of Present Illness Details 37-yr-old female presents for f/u visit. Pt denies any significant interval medical changes. Brain MRI showed only mild nonspecific white matter changes. Pt reports that she continues to be forgetful. She continues to have headaches, now about 4 times per week.she takes sumatriptan 50mg as needed- she usually waits for the headache is severe before she takes it. Sometimes during the headache her head feels empty. She is tolerating Amitriptyline 25mg, B2, Mag w/o s/e. Sumatriptan helps some. she also reports snoring, non restorative sleep, jaw pain and difficulty opening mouth . [facility] Medical History (Updated 02/15/23 @ 14:43 by Judy Suárez MD) Bruxism Chest pain Hypertension Snoring Surgical History H/O thyroidectomy H/O: hysterectomy History of esophagogastroduodenoscopy (EGD) Hx of cholecystectomy Family History Father Hypertension Hypercholesteremia Alzheimer disease Mother Diabetes Social History Alcohol intake: never Patient Tobacco Use Status: Never used Tobacco Second Hand Smoke Exposure: No Physical Exam Vital Signs: Last Vital Signs Pulse 102 H 02/15/23 14:26 BP 130/78 02/15/23 14:26 Pulse Ox 98 02/15/23 14:26 Oxygen Delivery Method Room Air 02/15/23 14:26 BMI result Body Mass Index 31.6 Const General: cooperative and no acute distress Orientation/consciousness: patient oriented x3 HEENT Head: Yes normocephalic Resp Effort & Inspection: normal respiratory effort and able to speak in complete sentences Neuro General: patient oriented x3, gait normal and CN's II-XI intact bilaterally Cognition (Neuro): normal cognition Motor exam (neuro): 5/5 motor strength present throughout Assessment & Plan Assessment & Plan (1) Migraine without aura: Code(s): G43.009 - Migraine without aura, not intractable, without status migrainosus (2) Family history of Alzheimer's disease: Code(s): Z82.0 - Family history of epilepsy and other diseases of the nervous system (3) Bruxism: Code(s): F45.8 - Other somatoform disorders Plan She did not get a call for neuropsych and she is concerned. Continue Sumatriptan 50 mg at onset of migraine. Previous acute migraine medication trials: OTC analgesics Acute migraine medication contraindications: None at this time: Continue Riboflavin 400mg qam Continue Magnesium 400mg qhs Continue Amitriptyline 50mg qhs Reviewed potential adverse effects of TCAs, including but not limited to fatigue, cardiac arrhythmias, mood changes. Previous migraine prevention medication trials: None Migraine prevention medication contraindications: BBs d/t asthma dx . Orders: Orders RT home sleep study Today F45.8 - Other somatoform disorders, R06.83 - Snoring Medications: New cyclobenzaprine 5 mg PO BEDTIME 30 tabs 1RF Changed From amitriptyline 25 - 50 mg (1 - 2 x 25 mg) PO BEDTIME 30 days 60 tabs 3RF To amitriptyline 25 mg PO BEDTIME 30 days 30 tabs 3RF Coding Level of Care Code Est Pt Level 4 (20422) Diagnoses Migraine without aura G43.009 Family history of Alzheimer's disease Z82.0 Bruxism F45.8
== END 2023-02-15 14:45 | disposition home or self-care (01) ==
PROVIDERS: PCP Registered Nurse; Visit Provider Psychiatry & Neurology Neurology
DX: G43.009 Migraine without aura, not intractable, without status migrainosus (principal); Z82.0 Family history of epilepsy and other diseases of the nervous system; F45.8 Other somatoform disorders
CPT/HCPCS: 99214

== ENCOUNTER → 2023-02-15 14:17 | Outpatient (BNVA) | payer MEDICAID, SELFPAY | PROVIDERS: PCP Registered Nurse; Visit Provider Nurse Practitioner Family | DX: G43.009 Migraine without aura, not intractable, without status migrainosus (principal); F45.8 Other somatoform disorders; Z82.0 Family history of epilepsy and other diseases of the nervous system | CPT/HCPCS: 99212 ==

== ENCOUNTER 2023-03-29 13:50 | Outpatient (REF) | payer MEDICAID, SELFPAY ==
--- NOTE | ~2023-03-29 | US_ITS ---
EXAMINATION: MM DIAGNOSTIC DIGITAL BREAST TOMOSYNTHESIS, BILATERAL US BREAST LIMITED, LEFT MAMMOGRAPHY: CLINICAL INFORMATION: 6 month Follow-up left breast nodules posterior one third seen along the nipple line. No ultrasonographic correlate. COMPARISON: Mammography: 03/29/2023, 09/20/2022, 03/21/2022. TECHNIQUE: Digital breast tomosynthesis is performed in both the craniocaudal and mediolateral oblique views along with computer-aided detection (CAD). Synthesized 2D images are generated from the tomosynthesis. In addition, a 3-D spot compression left cc view small paddle view was performed. FINDINGS: The breasts are heterogeneously dense, which may obscure small masses (ACR BI-RADS breast composition Category c). Within the left breast, posterior one third, behind the parenchymal cone, there is a stable bilobed focal asymmetry, which on spot compression view appears to dissipate mildly, favoring an island of parenchymal tissue. Otherwise, there are no suspicious masses, suspicious grouped calcifications, or areas of architectural distortion. The parenchymal pattern is stable from prior exams. ULTRASOUND: CLINICAL INFORMATION: Second Look ultrasound evaluation of posterior left breast bilobed nodule along the nipple line. COMPARISON: 03/21/2022 TECHNIQUE: Targeted sonographic evaluation from the 10:00 to 2:00 axis left breast was performed using a high frequency linear transducer. Selected archived documentation. FINDINGS: LEFT BREAST: There is a mixture of fatty and fibroglandular tissue. No suspicious mass is seen. There is no pathologic acoustic shadowing. There is no sonographic correlate to the bilobed abnormality seen in the posterior left breast. This is favored to represent an island of parenchyma. Six-month interval follow-up left breast mammography recommended to ensure stability. US/US breast LT limited mamm only IMPRESSION: There are no findings suspicious for malignancy in either breast. Bilobed masslike abnormality in the posterior left breast has no ultrasonographic correlate, and has an appearance on spot tomogram highly suggestive of island of normal tissue. This is probably benign. Six-month interval follow-up left mammography recommended to ensure stability. OVERALL ASSESSMENT: Mammography: BI-RADS 3 - Probably benign finding(s) - 6 month follow-up suggested Ultrasound: BI-RADS 3 - Probably benign finding(s) - 6 month follow-up suggested RECOMMENDATION: 6 Month F/U Results were provided to the patient at time of visit by the technologist. This patient's information was entered into a reminder system with a target due date for their next mammogram.
== END 2023-03-29 13:51 | disposition home or self-care (01) ==
LOC: HO.MAMMO 13:50
PROVIDERS: PCP Registered Nurse; Visit Provider Registered Nurse
DX: N63.25 Unspecified lump in the left breast, overlapping quadrants (principal)
CPT/HCPCS: 76642; 77062; 77066

== ENCOUNTER → 2023-03-29 14:30 | Outpatient (BNV) | payer MEDICAID, SELFPAY | PROVIDERS: PCP Registered Nurse; Visit Provider Radiology Diagnostic Radiology | DX: N63.20 Unspecified lump in the left breast, unspecified quadrant (principal) | CPT/HCPCS: 76642; 77062; 77066 ==

== ENCOUNTER → 2023-04-09 13:45 | Outpatient (REF) | payer MEDICAID, SELFPAY | LOC: HO.SL 13:45 | PROVIDERS: PCP Registered Nurse; Visit Provider Psychiatry & Neurology Neurology | DX: R06.83 Snoring (principal); F45.8 Other somatoform disorders | CPT/HCPCS: 95806 ==

== ENCOUNTER → 2023-04-09 13:57 | Outpatient (BNV) | payer MEDICAID, SELFPAY | PROVIDERS: PCP Registered Nurse; Visit Provider Psychiatry & Neurology Neurology | DX: R06.83 Snoring (principal) | CPT/HCPCS: 95806 ==

== ENCOUNTER 2023-04-16 14:06 | Outpatient (AMB) | payer MEDICAID, SELFPAY ==
--- NOTE | 2023-04-16 14:12 | MHC.OFFVIS ---
Intake Vital Signs 04/16/23 14:13 Height 5 ft 1 in Weight 164 lb 7.437 oz BMI 31.1 BP 115/55 L Blood Pressure Location Lt brachial Position Sitting Pulse 79 Intake Visit Reasons: 3 mnth follow up Intake Note: Janine presents in 3 months follow up of GERD. CC: Patient reports acid reflux, bloating, and epigastric burning and pain. She reports Pantoprazole helps with acid reflux but today she forgot to take it. Denies other GI symptoms or concerns today. Perinatal Director Required: Yes Perinatal Director Language: Sinhala Accompanied by: Self / Same As Patient Allergies No Known Allergies Allergy (Verified 04/16/23 14:18) HPI 3 mnth follow up HPI Details LAST VISIT Nausea Patient reports that she is feeling better now that she is taking pantoprazole in the morning and is sucralfate at bedtime. IBS (irritable bowel syndrome) Continue low FODMAP diet. GERD (gastroesophageal reflux disease) Continue current management with pantoprazole and sucralfate. Discussed with patient avoiding dietary triggers and late night snacking. Staying upright for minimum 3 hours after meals discussed with patient. Constipation Continue Colace and Senokot. Patient will call the office if she will continue to be constipated. We may need to order Linzess. Discussed with patient the importance of increasing fluid intake and activity to promote better bowel motility. I will see her in 3 months, sooner on as needed basis. Patient is agreeable to this plan and verbalizes understanding of instructions. She was given the opportunity to ask questions and all questions answered. TODAY'S VISIT Patient is here today for follow-up. Since the last time I have seen her patient has been doing better. Was able to have better bowel movements, however lately she states that she feels constipated despite taking Senokot and Colace. Patient reports that she has been doing better for the most part when she take pantoprazole and sucralfate. Patient forgot to take her medications this morning and reports to have epigastric discomfort. Patient denies any nausea or vomiting. Reports occasional dyspepsia without dysphagia or odynophagia. Patient denies any melena, hematochezia, unintentional weight loss or ribbon like stools. Patient reports occasional postprandial abdominal bloating especially when she does not have a bowel movement or when she is unable to empty her bowels completely. Patient try changing her diet. Trying to avoid food that is fried, avoiding fast food. FORMERLY [facility], LATER [facility] Medical History Bruxism Snoring Hypertension Chest pain Surgical History H/O colonoscopy History of esophagogastroduodenoscopy (EGD) Hx of cholecystectomy H/O: hysterectomy H/O thyroidectomy Family History Father Hypertension Hypercholesteremia Alzheimer disease Mother Diabetes Social History Alcohol intake: never Patient Tobacco Use Status: Never used Tobacco Second Hand Smoke Exposure: No Review of Systems Const Denies weight gain and Denies weight loss ENT Reports no additional complaints, Denies dysphagia and Denies odynophagia Card Reports no additional complaints Resp Reports no additional complaints GI Denies abdominal pain, Denies belching, Denies melena, Reports bloating, Denies change in bowel habits, Reports constipation, Denies dysphagia, Denies excessive flatus, Denies dyspepsia, Reports heartburn (Occasional), Denies diarrhea, Denies loose stools, Denies nausea, Denies odynophagia and Denies vomiting Reports no additional complaints Musc Reports no additional complaints Neuro Reports no additional complaints Psych Reports no additional complaints Endo Reports no additional complaints Physical Exam Vital Signs: Last Vital Signs Pulse 79 04/16/23 14:13 BP 115/55 L 04/16/23 14:13 BMI result Body Mass Index 31.1 Const General: healthy appearing, no acute distress and well developed Nutritional Appearance: obese Orientation/consciousness: patient oriented x3 HEENT Head: Yes normal to inspection, Yes normocephalic and Yes atraumatic Face and sinus: Yes normal facial exam Mouth: Normal oral and palatal mucosa present Throat: Yes posterior oropharynx normal, Yes tonsils normal and Yes uvula midline Eyes General: appearance normal, both eyes and all related structures Neck Neck: Yes normal visual inspection, Yes full ROM and Yes trachea midline Thyroid: Thyroid normal Resp Effort & Inspection: normal respiratory effort, able to speak in complete sentences, no tracheal deviation and symmetric chest movement Auscultation: clear to auscultation bilaterally Cardio Rate: regular rate Heart sounds: S1 normal heart sound present and S2 normal heart sound present GI Inspection: Yes normal to inspection, No distended and Yes obesity Palpation (GI): Soft to palpation, not firm, nontender and No hepatosplenomegaly present Auscultation: normal bowel sounds General: Yes no CVA tenderness Back/Spine/Pelvis Back: no CVA tenderness Skin General skin exam: elasticity normal, turgor normal and dry skin Neuro General: patient oriented x3 Psych Appearance: grossly normal Mental Status: mental status grossly normal Assessment & Plan Assessment & Plan (1) Nausea: Code(s): R11.0 - Nausea (2) IBS (irritable bowel syndrome): Code(s): K58.9 - Irritable bowel syndrome without diarrhea Qualifiers: Irritable bowel syndrome type: with constipation Qualified Code(s): K58.1 - Irritable bowel syndrome with constipation (3) GERD (gastroesophageal reflux disease): Code(s): K21.9 - Gastro-esophageal reflux disease without esophagitis Qualifiers: Esophagitis presence: esophagitis presence not specified Qualified Code(s): K21.9 - Gastro-esophageal reflux disease without esophagitis (4) Constipation: Code(s): K59.00 - Constipation, unspecified Qualifiers: Constipation type: slow transit constipation Qualified Code(s): K59.01 - Slow transit constipation Plan Continue pantoprazole every morning and sucralfate at bedtime. Patient was encouraged to avoid dietary triggers and late night snacking. Eating smaller meals and more often. Patient was encouraged not to lay down for minimum 3 hours after meals. Patient is still having trouble moving her bowels. Will start her on Linzess. She will call me in couple weeks if she continue to be constipated, we might need to increase that dose. Patient was also encouraged to increase fluid intake and activity to promote better bowel motility. Patient I wonder has nausea. Reports that she is able to swallow food without having any trouble I will see her in 5 weeks, sooner on as needed basis. Patient is agreeable to this plan and verbalizes understanding of instructions. She was given the opportunity to ask questions and all questions answered. Thank you for allowing me to participate in her care Medications: New linaclotide (Linzess) 145 mcg PO DAILY 30 caps 2RF Coding Level of Care Code Est Pt Level 4 (82262) Diagnoses Nausea R11.0 Irritable bowel syndrome with constipation K58.1 Irritable bowel syndrome type: with constipation Gastroesophageal reflux disease, unspecified whether esophagitis present K21.9 Esophagitis presence: esophagitis presence not specified Slow transit constipation K59.01 Constipation type: slow transit constipation Time Spent (min) 35 Comment 20 minutes spent with patient and additional 15 minutes spent reviewing her records.
[2023-04-16 14:13] VITALS: BP 115/55; PULSE 79; BMI 31.1
== END 2023-04-16 14:39 | disposition home or self-care (01) ==
PROVIDERS: PCP Registered Nurse; Visit Provider Nurse Practitioner Family
DX: R11.0 Nausea (principal); K58.1 Irritable bowel syndrome with constipation; K21.9 Gastro-esophageal reflux disease without esophagitis; K59.01 Slow transit constipation
CPT/HCPCS: 99214

== ENCOUNTER → 2023-04-16 14:06 | Outpatient (BNVA) | payer MEDICAID, SELFPAY | PROVIDERS: PCP Registered Nurse; Visit Provider Nurse Practitioner Family | DX: K58.1 Irritable bowel syndrome with constipation (principal); K21.9 Gastro-esophageal reflux disease without esophagitis; K59.01 Slow transit constipation; R11.0 Nausea | CPT/HCPCS: 99212 ==

== ENCOUNTER 2023-05-22 14:59 | Outpatient (AMB) | payer MEDICAID, SELFPAY ==
--- NOTE | 2023-05-22 15:06 | A.OFFVIS_ITS ---
Intake Vital Signs 05/22/23 15:08 Height 5 ft 1 in Weight 160 lb BMI 30.2 BP 124/64 Blood Pressure Location Lt brachial Position Sitting Pulse 76 Intake Visit Reasons: 5 weekfollow up Intake Note: Patient follow up for acid reflex. Patient cc: acid reflex with burning sensation, abdominal discomfort and some swallowing problems. Junior Project Coordinator Required: Yes Junior Project Coordinator Name: [facility] [facility] Accompanied by: Self / Same As Patient Allergies No Known Allergies Allergy (Verified 05/22/23 15:06) HPI 5 weekfollow up HPI Details LAST VISIT: Nausea IBS (irritable bowel syndrome) GERD (gastroesophageal reflux disease) Constipation Plan Continue pantoprazole every morning and sucralfate at bedtime. Patient was encouraged to avoid dietary triggers and late night snacking. Eating smaller meals and more often. Patient was encouraged not to lay down for minimum 3 hours after meals. Patient is still having trouble moving her bowels. Will start her on Linzess. She will call me in couple weeks if she continue to be constipated, we might need to increase that dose. Patient was also encouraged to increase fluid intake and activity to promote better bowel motility. Patient I wonder has nausea. Reports that she is able to swallow food without having any trouble I will see her in 5 weeks, sooner on as needed basis. Patient is agreeable to this plan and verbalizes understanding of instructions. She was given the opportunity to ask questions and all questions answered. ? Thank you for allowing me to participate in her care Medications New linaclotide (Linzess) 145 mcg PO DAILY 30 caps 2RF TODAY'S VISIT Patient is here today for follow-up. Patient reports that she has been doing little better, continues to have epigastric discomfort postprandially. Patient is taking pantoprazole in the morning and taking sucralfate 1 to twice a week at bedtime. Patient reports that she is moving her bowels better now that she is taking Linzess. Patient states that she takes Linzess every day. Patient admits to eating food fried and spicy. Sometimes patient eats later at night. Usually she goes to bed 1-2 hours after eating. Patient denies any nausea or vomiting. Patient denies any melena, hematochezia, unintentional weight loss or ribbon like stools. Patient reports occasional dyspepsia with occasional dysphagia without odynophagia. Patient denies any abdominal pain. Occasional postprandial abdominal bloating depending on what she eats. FORMERLY [facility] Medical History Bruxism Snoring Hypertension Chest pain Surgical History H/O colonoscopy History of esophagogastroduodenoscopy (EGD) Hx of cholecystectomy H/O: hysterectomy H/O thyroidectomy Family History Father Hypertension Hypercholesteremia Alzheimer disease Mother Diabetes Social History Alcohol intake: never Patient Tobacco Use Status: Never used Tobacco Second Hand Smoke Exposure: No Review of Systems Const Denies weight gain and Denies weight loss ENT Reports no additional complaints, Reports dysphagia (Occasionally) and Denies odynophagia Card Reports no additional complaints Resp Reports no additional complaints GI Denies abdominal pain, Denies belching, Denies melena, Reports bloating, Denies change in bowel habits, Reports dysphagia (Occasionally), Denies excessive flatus, Reports dyspepsia, Reports heartburn, Denies diarrhea, Denies loose stools, Denies nausea, Denies odynophagia and Denies vomiting Reports no additional complaints Musc Reports no additional complaints Neuro Reports no additional complaints Psych Reports no additional complaints Endo Reports no additional complaints Physical Exam Vital Signs: Last Vital Signs Pulse 76 05/22/23 15:08 BP 124/64 05/22/23 15:08 BMI result Body Mass Index 30.2 Const General: healthy appearing, no acute distress and well developed Nutritional Appearance: obese Orientation/consciousness: patient oriented x3 HEENT Head: Yes normal to inspection, Yes normocephalic and Yes atraumatic Face and sinus: Yes normal facial exam Mouth: Normal oral and palatal mucosa present Throat: Yes posterior oropharynx normal, Yes tonsils normal and Yes uvula midline Eyes General: appearance normal, both eyes and all related structures Neck Neck: Yes normal visual inspection, Yes full ROM and Yes trachea midline Thyroid: Thyroid normal Resp Effort & Inspection: normal respiratory effort, able to speak in complete sentences, no tracheal deviation and symmetric chest movement Auscultation: clear to auscultation bilaterally Cardio Rate: regular rate Heart sounds: S1 normal heart sound present and S2 normal heart sound present GI Inspection: Yes normal to inspection, No distended and Yes obesity Palpation (GI): Soft to palpation, not firm, nontender and No hepatosplenomegaly present Auscultation: normal bowel sounds General: Yes no CVA tenderness Back/Spine/Pelvis Back: no CVA tenderness Skin General skin exam: elasticity normal, turgor normal and dry skin Neuro General: patient oriented x3 Psych Appearance: grossly normal Mental Status: mental status grossly normal Assessment & Plan Assessment & Plan (1) Nausea: Code(s): R11.0 - Nausea (2) IBS (irritable bowel syndrome): Code(s): K58.9 - Irritable bowel syndrome without diarrhea Qualifiers: Irritable bowel syndrome type: without diarrhea Qualified Code(s): K58.9 - Irritable bowel syndrome without diarrhea (3) GERD (gastroesophageal reflux disease): Code(s): K21.9 - Gastro-esophageal reflux disease without esophagitis Qualifiers: Esophagitis presence: esophagitis presence not specified Qualified Code(s): K21.9 - Gastro-esophageal reflux disease without esophagitis (4) Constipation: Code(s): K59.00 - Constipation, unspecified Qualifiers: Constipation type: chronic idiopathic constipation Qualified Code(s): K59.04 - Chronic idiopathic constipation Plan Discussed with patient the importance of trying to change her diet. Avoid food that it is greasy or spicy or fried. Patient was encouraged to avoid dietary triggers and late night snacking. Staying upright for minimum 3 hours after meals discussed patient. Continue taking pantoprazole in the morning, patient can take sucralfate on as needed basis at bedtime. Continue taking Linzess daily. Patient was encouraged to increase fluid intake and activity to promote better bowel motility. I will see patient in 4 months, sooner on as needed basis. Patient is agreeable to this plan and verbalizes understanding of instructions. She was given the opportunity to ask questions and all questions answered. Thank you for allowing me to participate in her care Medications: Changed From sucralfate 1 g PO BEDTIME 30 tabs 2RF R19.7 - Diarrhea, unspecified To sucralfate 1 g PO BEDTIME PRN 30 tabs 2RF acid reflux R19.7 - Diarrhea, unspecified Refilled linaclotide (Linzess) 145 mcg PO DAILY 90 caps 2RF pantoprazole take one tablet half an hour before breakfast 40 mg PO DAILY 90 tabs 2RF K21.9 - Gastro-esophageal reflux disease without esophagitis Coding Level of Care Code Est Pt Level 4 (51362) Diagnoses Nausea R11.0 Irritable bowel syndrome without diarrhea K58.9 Irritable bowel syndrome type: without diarrhea Gastroesophageal reflux disease, unspecified whether esophagitis present K21.9 Esophagitis presence: esophagitis presence not specified Chronic idiopathic constipation K59.04 Constipation type: chronic idiopathic constipation Time Spent (min) 35 Comment 25 minutes spent with patient and additional 10 minutes spent reviewing her records
[2023-05-22 15:08] VITALS: BP 124/64; PULSE 76; BMI 30.2
== END 2023-05-22 15:38 | disposition home or self-care (01) ==
PROVIDERS: PCP Registered Nurse; Visit Provider Nurse Practitioner Family
DX: R11.0 Nausea (principal); K21.9 Gastro-esophageal reflux disease without esophagitis; K58.1 Irritable bowel syndrome with constipation
CPT/HCPCS: 99214

== ENCOUNTER → 2023-05-22 14:59 | Outpatient (BNVA) | payer MEDICAID, SELFPAY | PROVIDERS: PCP Registered Nurse; Visit Provider Nurse Practitioner Family | DX: K58.9 Irritable bowel syndrome, unspecified (principal); K21.9 Gastro-esophageal reflux disease without esophagitis; K59.04 Chronic idiopathic constipation; R11.0 Nausea | CPT/HCPCS: 99212 ==

== ENCOUNTER 2023-05-31 16:32 | Outpatient (REF) | payer MEDICAID, SELFPAY ==
[2023-06-07 03:59] LABS: HPV mRNA E6/E7 rflx Not Detected (Not Detected)
== END 2023-05-31 16:33 | disposition home or self-care (01) ==
LOC: HO.HHCLNP 16:32
PROVIDERS: Visit Provider Advanced Practice Midwife
DX: Z12.4 Encounter for screening for malignant neoplasm of cervix (principal); Z11.51 Encounter for screening for human papillomavirus (HPV)
CPT/HCPCS: 87624; 88142

== ENCOUNTER 2023-06-11 15:29 | Outpatient (AMB) | payer MEDICAID, SELFPAY ==
--- NOTE | 2023-06-11 15:34 | MHC.OFFVIS ---
Intake Vital Signs 06/11/23 15:36 Height 5 ft 1 in Weight 165 lb 4 oz BMI 31.2 BP 112/80 Blood Pressure Location Rt femoral Position Sitting Respiration 16 Pulse 87 Pulse Source Pulse Oximeter Pulse Oximetry (%) 98 Oxygen Delivery Method Room Air Intake Visit Reasons: 3 mo follow up -Headaches Intake Note: Pt presents to the office for a 3 month follow up for headaches. She c/o daily headaches. Ballpoint Pen Cartridge Tester Required: No Allergies No Known Allergies Allergy (Verified 06/11/23 15:35) Medication List - Last Reconciled 06/11/23 by Judy Suárez MD acetaminophen 1,000 mg PO Q6H PRN carvedilol 3.125 mg PO BID cholecalciferol (vitamin D3) (Vitamin D3) 50 mcg PO DAILY cyclobenzaprine 5 mg PO BEDTIME docusate sodium 100 mg PO BEDTIME fluticasone propionate 50 mcg/actuation 1 - 2 sprays intranasal DAILY PRN hydrocortisone 2.5% (Proctosol HC) 1 appl UT BID-QID PRN levothyroxine (Synthroid) 112 mcg PO DAILY losartan 100 mg PO DAILY magnesium oxide 400 mg PO BEDTIME 30 days pantoprazole 40 mg PO DAILY riboflavin (vitamin B2) 400 mg PO DAILY 30 days sennosides (Natural Senna Laxative) 17.2 mg (2 x 8.6 mg) PO BEDTIME sucralfate 1 g PO BEDTIME PRN sumatriptan succinate 50 - 100 mg orally at onset of headache, may repeat in 2 hrs PRN; max 2 tabs per day or 4 tabs/week (may take with Ibuprofen) 30 days HPI HPI Comments History of Present Illness Details 38-yr-old female presents for f/u visit. Pt denies any significant interval medical changes. Brain MRI showed only mild nonspecific white matter changes.Home sleep test was normal. Pt reports that she continues to be forgetful. She continues to have headaches, now about 4 times per week.she takes sumatriptan 50mg as needed- she usually waits for the headache is severe before she takes it. Sometimes during the headache her head feels empty. She is tolerating B2, Mag w/o s/e. when the amitriptyline was increased to 50mg - she had nausea and had dizziness so she stopped it. Sumatriptan helps some. she also reports snoring, non restorative sleep, jaw pain and difficulty opening mouth . PFSH Medical History Bruxism Snoring Hypertension Chest pain Surgical History H/O colonoscopy History of esophagogastroduodenoscopy (EGD) Hx of cholecystectomy H/O: hysterectomy H/O thyroidectomy Family History Father Hypertension Hypercholesteremia Alzheimer disease Mother Diabetes Social History Alcohol intake: never Patient Tobacco Use Status: Never used Tobacco Second Hand Smoke Exposure: No Physical Exam Vital Signs: Last Vital Signs Pulse 87 06/11/23 15:36 Resp 16 06/11/23 15:36 BP 112/80 06/11/23 15:36 Pulse Ox 98 06/11/23 15:36 Oxygen Delivery Method Room Air 06/11/23 15:36 BMI result Body Mass Index 31.2 Const General: cooperative and no acute distress Orientation/consciousness: patient oriented x3 HEENT Head: Yes normocephalic Neuro General: patient oriented x3, gait normal and CN's II-XI intact bilaterally Cognition (Neuro): normal cognition Motor exam (neuro): 5/5 motor strength present throughout Assessment & Plan Assessment & Plan (1) Migraine without aura: Code(s): G43.009 - Migraine without aura, not intractable, without status migrainosus (2) Family history of Alzheimer's disease: Code(s): Z82.0 - Family history of epilepsy and other diseases of the nervous system (3) Bruxism: Code(s): F45.8 - Other somatoform disorders Plan She did not get a call for neuropsych and she is concerned. Continue Sumatriptan 50 mg at onset of migraine. Continue Riboflavin 400mg qam Continue Magnesium 400mg qhs Increase cyclobenzaprine 7.5mg qhs I will trial her on topiramate 25mg qhs for prophylaxis Previous migraine prevention medication trials: AMitriptyline Migraine prevention medication contraindications: BBs d/t asthma dx . Orders: Orders PT Evaluation and Treatment Today F45.8 - Other somatoform disorders Medications: New topiramate 25 mg PO BEDTIME 30 tabs 6RF Changed From cyclobenzaprine 5 mg PO BEDTIME 30 tabs 1RF To cyclobenzaprine 7.5 mg PO BEDTIME 30 tabs 1RF Coding Level of Care Code Est Pt Level 4 (59311) Diagnoses Migraine without aura G43.009 Family history of Alzheimer's disease Z82.0 Bruxism F45.8
[2023-06-11 15:36] VITALS: BP 112/80; PULSE 87; RESP 16; O2SAT 98; BMI 31.2
== END 2023-06-11 16:08 | disposition home or self-care (01) ==
PROVIDERS: PCP Registered Nurse; Visit Provider Psychiatry & Neurology Neurology
DX: G43.009 Migraine without aura, not intractable, without status migrainosus (principal); Z82.0 Family history of epilepsy and other diseases of the nervous system; F45.8 Other somatoform disorders
CPT/HCPCS: 99214

== ENCOUNTER → 2023-06-11 15:29 | Outpatient (BNVA) | payer MEDICAID, SELFPAY | PROVIDERS: PCP Registered Nurse; Visit Provider Psychiatry & Neurology Neurology | DX: G43.009 Migraine without aura, not intractable, without status migrainosus (principal); F45.8 Other somatoform disorders; Z82.0 Family history of epilepsy and other diseases of the nervous system | CPT/HCPCS: 99212 ==

== ENCOUNTER 2023-06-26 15:49 | Emergency (ER) | payer MEDICAID, SELFPAY ==
--- NOTE | ~2023-06-26 | XR_ITS ---
EXAMINATION: LUMBAR SPINE, LEFT FOOT CLINICAL INFORMATION: Back and left foot pain COMPARISON: None available. TECHNIQUE: 3 views lumbosacral spine, 3 views left foot FINDINGS: Lumbosacral spine appears unremarkable. Vertebral heights and disc spaces are well preserved. No fractures or subluxations. No bony destructive lesions. Surgical clips are present in the gallbladder fossa with a single surgical clip in the pelvis. XR/XR lumbar spine 2-3V IMPRESSION: No evidence of an acute injury.
--- NOTE | ~2023-06-26 | XR_ITS ---
EXAMINATION: LUMBAR SPINE, LEFT FOOT CLINICAL INFORMATION: Back and left foot pain COMPARISON: None available. TECHNIQUE: 3 views lumbosacral spine, 3 views left foot FINDINGS: Lumbosacral spine appears unremarkable. Vertebral heights and disc spaces are well preserved. No fractures or subluxations. No bony destructive lesions. Surgical clips are present in the gallbladder fossa with a single surgical clip in the pelvis. XR/XR foot LT min 3V IMPRESSION: No evidence of an acute injury.
[2023-06-26 16:12] VITALS: BP 135/53; PULSE 80; RESP 18; TEMP 36.8; O2SAT 97; BMI 31.1
--- NOTE | 2023-06-26 16:12 | ED_ITS ---
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 no thinners. MD complaint: back/ankle pain Onset (ago): week(s) (1) Location: back, left and lower extremity Radiation: non-radiation Severity: mild Quality: aching Pain Consistency: intermittent Relieving factors: none Exacerbating factors: movement Associated symptoms: denies other symptoms Treatments prior to arrival: none Related Data Home Medications Medication Instructions Recorded Confirmed carvedilol 3.125 mg tablet 3.125 mg PO BID 06/21/21 06/11/23 levothyroxine 112 mcg tablet 112 mcg PO DAILY 06/21/21 06/11/23 (Synthroid) losartan 100 mg tablet 100 mg PO DAILY 06/21/21 06/11/23 cholecalciferol (vitamin D3) 50 50 mcg PO DAILY 11/01/21 06/11/23 mcg (2,000 unit) tablet (Vitamin D3) acetaminophen 500 mg tablet 1,000 mg PO Q6H PRN fever 02/24/22 06/11/23 fluticasone propionate 50 1 - 2 spray intranasal DAILY PRN 02/24/22 06/11/23 mcg/actuation nasal spray,suspension Previous Rx's Medication Instructions Recorded hydrocortisone 2.5 % topical cream 1 appl TN BID-QID PRN hemorrhoids 09/29/21 with perineal applicator #30 grams (Proctosol HC) magnesium oxide 400 mg (241.3 mg 400 mg PO BEDTIME 30 days #30 tabs 08/22/22 magnesium) tablet riboflavin (vitamin B2) 400 mg 400 mg PO DAILY 30 days #30 tabs 08/22/22 tablet sumatriptan succinate 100 mg tablet 50 - 100 mg (0.5 - 1 x 100 mg) PO 08/22/22 .COMPLEX PRN migraine headache 30 days #12 tabs docusate sodium 100 mg capsule 100 mg PO BEDTIME #30 caps 11/08/22 sennosides 8.6 mg tablet (Natural 17.2 mg (2 x 8.6 mg) PO BEDTIME 11/08/22 Senna Laxative) constipation #180 tabs pantoprazole 40 mg tablet,delayed 40 mg PO DAILY #90 tabs 05/22/23 release sucralfate 1 gram tablet 1 g PO BEDTIME PRN acid reflux #30 05/22/23 tabs topiramate 25 mg tablet 25 mg PO BEDTIME #30 tabs 06/11/23 cyclobenzaprine 5 mg tablet 7.5 mg (1.5 x 5 mg) PO BEDTIME 30 06/20/23 days #45 tabs cyclobenzaprine 10 mg tablet 10 mg PO TID PRN muscle spasm #20 06/26/23 tabs lidocaine 5 % topical patch 1 patch topical DAILY #30 ea 06/26/23 Allergies Allergy/AdvReac Type Severity Reaction Status Date / Time No Known Allergies Allergy Verified 06/11/23 15:35 Review of Systems Review of Systems: Constitutional : No Weight loss, No Fever, No Chills, ENT/Mouth : No Hearing loss, No Ear Pain, No Nasal Congestion, No Sinus Pain, No Hoarseness, No sore throat, No Rhinorrhea, No Swallowing Difficulty Cardiovascular : No Chest Pain, No SOB Respiratory : No Cough, No Dyspnea Gastrointestinal : No Nausea, No Vomiting, No Diarrhea, No abdominal Pain, No Hematochezia, No Melena Genitourinary : No Dysuria, No Urinary Frequency, No Hematuria, No Urinary Incontinence, Musculoskeletal : positive back pain, pos joint pain Skin : No Skin Lesions, No rash Neuro : No Weakness, No Numbness, No Paresthesias, no loss of bowel or bladder incontinence, no saddle anesthesia All other systems reviewed and are negative COUNT INCLUDES THE [facility] Past Medical History Attestation statement: The following information was validated with the patient. Source: old records reviewed Medical History Bruxism Snoring Hypertension Chest pain Surgical History H/O colonoscopy History of esophagogastroduodenoscopy (EGD) Hx of cholecystectomy H/O: hysterectomy H/O thyroidectomy Family History Family History Father Hypertension Hypercholesteremia Alzheimer disease Mother Diabetes Social History Social History Alcohol intake: never Patient Tobacco Use Status: Never used Tobacco Smoked in Last 30 Days: No Second Hand Smoke Exposure: No Use of substances other than those prescribed or required for medical reasons: No Advance Directives: No Advance Directives Information Provided: No Physical Exam ED Vital Signs: Vital Signs - 24 hr 06/26/23 16:12 06/26/23 22:18 Temperature 98.2 F Pulse Rate 80 74 Respiratory Rate 18 18 Blood Pressure 135/53 L 146/83 H Pulse Oximetry 97 98 Oxygen Delivery Method Room Air Room Air BMI result Body Mass Index 31.1 Appearance: Alert. Oriented X3. No acute distress. Eyes: Pupils equal, round and reactive to light. ENT: Pharynx normal. Neck: Normal inspection. Neck supple. CVS: Normal heart rate and rhythm. Pulses normal. Respiratory: No respiratory distress. Breath sounds normal. Back: mild ttp along both paraspinal areas no midline ttp Abdomen: Soft and nontender. Skin: Skin warm and dry. Normal skin color. Normal skin turgor. Extremities: No lower extremity edema. No calf ttp L ankle mild anterior soft boggy area no erythema or warmth mild ttp noted no signs of infection minimal swelling distal NV intact Neuro: Oriented X 3. No motor deficit. No sensory deficit. Course Course Course Narrative: This is a rapid medical exam: Additional HPI, ROS, PE not included below will be deferred to primary provider. Patient is a 38-year-old female presenting to the ED with complaint of left ankle pain and swelling for 3 days, as well as lower back pain radiating under left buttock for the past 3 weeks. Denies fall or other injury. Mild swelling to lateral aspect of left dorsal foot. Patient ambulating without difficulty. Plan: x-rays Medications Administered Discontinued Medications Generic Name Dose Route Start Last Admin Trade Name Freq PRN Reason Stop Dose Admin Ibuprofen 600 mg 06/26/23 21:49 06/26/23 21:54 Ibuprofen 600 Mg Tablet PO 06/26/23 21:50 600 mg ONCE ONE Administration Medical Decision Making Medical Decision Making MDM Narrative: 38 yo female with PMH of HTN, migraine here with c/o atraumatic back pain without saddle anesthesia or b/b incontinence seems MSK but hx of disc herniation and ds she has no radicular symptoms or red flag will start on lidocaine patches/flexeril and refer to PCP for PT. She also c/o L ankle bump near anterior lateral malleolus it is soft no signs of infection, distal NV intact, no other swelling doubt clot could be strained ligament vs cyst vs small lipomatous issue will refer to orthopedics as needed. Differential Diagnosis Differential Diagnoses: The differential diagnosis associated with the presentation includes strain, sprain, contusion, lipoma Independent Interpretation I performed an independent interpretation of an: Plain X-Ray (no acute fracture) Radiology Impression Discussion of test interpretation with radiology: I have reviewed the radiologist's reading. External Record Review External record reviewed: Inpatient record Prescription Management I considered prescription management with: Other Discharge Plan Discharge Clinical Impression: Acute lumbar back pain, Acute ankle pain Patient Disposition: Home, Self-Care Instructions: Acute Low Back Pain (ED) Additional Instructions: follow up with your doctor for you back pain and ask for physical therapy - return for numbness, weakness, loss of control of bowel or bladder. please see orthopedics for your ankle as well. [place] un seguimiento con balderrama m?dico por balderrama dolor de espalda y solicite fisioterapia; regrese si tiene entumecimiento, debilidad, p?rdida de control del intestino o la vejiga. Consulte tambi?n la ortopedia para balderrama tobillo. Prescriptions: New cyclobenzaprine 10 mg tablet 10 mg PO TID PRN (Reason: muscle spasm) Qty: 20 0RF lidocaine 5 % adhesive patch,medicated 1 patch topical DAILY Qty: 30 0RF Rx Instructions: leave on most painful area for up to 12 hrs No Action cyclobenzaprine 5 mg tablet 7.5 mg PO BEDTIME 30 Days Qty: 45 1RF carvedilol 3.125 mg tablet 3.125 mg PO BID Rx Instructions: must administer with a meal/food losartan 100 mg tablet 100 mg PO DAILY levothyroxine [Synthroid] 112 mcg tablet 112 mcg PO DAILY hydrocortisone [Proctosol HC] 2.5 % cream with perineal applicator 1 appl TN BID-QID PRN (Reason: hemorrhoids) Qty: 30 2RF fluticasone propionate 50 mcg/actuation spray,suspension 1 - 2 spray intranasal DAILY PRN acetaminophen 500 mg tablet 1,000 mg PO Q6H PRN (Reason: fever) cholecalciferol (vitamin D3) [Vitamin D3] 50 mcg (2,000 unit) tablet 50 mcg PO DAILY magnesium oxide 400 mg (241.3 mg magnesium) tablet 400 mg PO BEDTIME 30 Days Qty: 30 6RF Rx Instructions: may hold for loose stools sumatriptan succinate 100 mg tablet 50 - 100 mg PO .COMPLEX PRN (Reason: migraine headache) 30 Days Qty: 12 6RF Rx Instructions: 50 - 100 mg orally at onset of headache, may repeat in 2 hrs PRN; max 2 tabs per day or 4 tabs/week (may take with Ibuprofen) riboflavin (vitamin B2) 400 mg tablet 400 mg PO DAILY 30 Days Qty: 30 6RF pantoprazole 40 mg tablet,delayed release (DR/EC) 40 mg PO DAILY Qty: 90 2RF Rx Instructions: take one tablet half an hour before breakfast sucralfate 1 gram tablet 1 g PO BEDTIME PRN (Reason: acid reflux) Qty: 30 2RF docusate sodium 100 mg capsule 100 mg PO BEDTIME Qty: 30 3RF sennosides [Natural Senna Laxative] 8.6 mg tablet 17.2 mg PO BEDTIME Qty: 180 3RF topiramate 25 mg tablet 25 mg PO BEDTIME Qty: 30 6RF Stand Alone Forms: Work/School Release Interventions: ED Discharge Assessment Last Done: 06/26/23 22:19 Discharge Date/Time: 06/26/23 22:20
[2023-06-26] MEDS: Ibuprofen 600 MG TABLET PO (21:54)
[2023-06-26 22:18] VITALS: BP 146/83; PULSE 74; RESP 18; O2SAT 98
== END 2023-06-26 22:20 | disposition home or self-care (01) ==
PROVIDERS: Emergency Provider Emergency Medicine
DX: M54.50 Low back pain, unspecified (principal); M25.572 Pain in left ankle and joints of left foot; I10 Essential (primary) hypertension; Z79.899 Other long term (current) drug therapy
CPT/HCPCS: 72100; 73630; 99283; 99284

== ENCOUNTER 2023-07-04 16:05 | Outpatient (REF) | payer MEDICAID, SELFPAY ==
--- NOTE | ~2023-07-04 | XR_ITS ---
EXAMINATION: XR TEMPOROMANDIBULAR JOINT, BILATERAL CLINICAL INFORMATION: Unable to open mouth. COMPARISON: None available. TECHNIQUE: AP Aurelia as well as bilateral open and closed mouth views of the temporal mandibular joints. FINDINGS: No acute fracture or dislocation. Minimal anterior subluxation of the mandibular condyles on open-mouth views. No concerning lytic or blastic osseous lesion. The visualized paranasal sinuses and mastoid air cells are clear. No abnormal soft tissue calcification. XR/XR TMJ BI IMPRESSION: Minimal anterior subluxation of the mandibular condyles on open-mouth views.
== END 2023-07-04 16:06 | disposition home or self-care (01) ==
LOC: HO.XRAY 16:05
PROVIDERS: PCP Registered Nurse; Visit Provider Registered Nurse
DX: R25.2 Cramp and spasm (principal)
CPT/HCPCS: 70330

== ENCOUNTER 2023-07-11 13:57 | Outpatient (REF) | payer MEDICAID, SELFPAY ==
[2023-07-12 15:57] LABS: Influenza A PCR NEGATIVE (Negative); Influenza B PCR NEGATIVE (Negative); Resp Syncy Virus RNA Qual PCR NEGATIVE (Negative); SARS COV2 PCR INHOUSE NEGATIVE (Negative)
== END 2023-07-11 13:58 | disposition home or self-care (01) ==
LOC: HO.LNP 13:57
PROVIDERS: Visit Provider Emergency Medicine
DX: R68.89 Other general symptoms and signs (principal); Z11.52 Encounter for screening for COVID-19
CPT/HCPCS: 0241U

== ENCOUNTER 2023-07-15 18:52 | Emergency (ER) | payer MEDICAID, SELFPAY ==
--- NOTE | ~2023-07-15 | CT_ITS ---
EXAMINATION: CT ABDOMEN AND PELVIS WITH CONTRAST CLINICAL INFORMATION: Abdominal pain COMPARISON: None available. TECHNIQUE: Multidetector volumetric images were obtained from the superior aspect of the liver through the pubic symphysis following administration 85 mL of Omnipaque 350 intravenous contrast. Sagittal and coronal reformatted images were obtained on the technologist's workstation. Oral contrast: No This CT examination was performed using dose optimization techniques as appropriate, variously including the following: *Automated exposure control *Adjustment of mA and/or kV according to patient size (this includes techniques or standardized protocols for targeted exams where dose is matched to indication/reason for exam; i.e. extremities or head) *Use of iterative reconstruction technique DLP: 580 mGy-cm FINDINGS: LUNG BASES: The visualized lung bases are unremarkable. LIVER, GALLBLADDER, AND BILIARY TREE: The liver is mildly enlarged at 18 cm in greatest length and demonstrates decreased attenuation consistent with hepatic steatosis. No focal hepatic lesion or biliary ductal dilatation is present. Status post cholecystectomy PANCREAS: Unremarkable. SPLEEN: Minimally enlarged at 12.2 cm ADRENAL GLANDS: Unremarkable. KIDNEYS AND URETERS: The kidneys are normal in size, shape, and attenuation. No hydronephrosis, hydroureter, or calculi seen. No perinephric stranding. BLADDER: Unremarkable. GASTROINTESTINAL TRACT: The small and large bowel are unremarkable. The appendix is unremarkable. ABDOMINAL WALL: No significant hernia is appreciated. LYMPH NODES: Normal. VASCULAR: Unremarkable. PELVIC VISCERA: The uterus is not seen. There is a 1.7 cm benign simple cyst but appears to be the left ovary. This needs no follow-up. An abnormal adnexal mass is not detected. No free intraperitoneal fluid is present. OSSEOUS STRUCTURES: Unremarkable. CT/CT abdomen pelvis w IV con IMPRESSION: 1. A cause for the patient's abdominal pain has not been found. 2. Incidental note made of mildly enlarged fatty liver, cholecystectomy and hysterectomy. Fleischner guidelines were followed.
[2023-07-15 19:25] VITALS: BP 144/90; PULSE 111; RESP 20; TEMP 37.1; O2SAT 99; BMI 30.3
--- NOTE | 2023-07-15 19:49 | MHC.EDTECH ---
Patient brought into triage area,labs,Covid,and Flu obtained and sent to lab. Patient brought back to waiting room.
[2023-07-15 19:53] LABS: MANUAL DIFF FLAG NO
[2023-07-15 19:55] LABS: Basophils Percent Auto 0.1 % (0-2); Eosinophils Percent Auto 0.2 % (0-4); Hematocrit 42.7 % (37.0-47.0); Hemoglobin 14.7 g/dl (12.0-16.0); Imm Gran Abs Auto 0.02 X10*3/uL (0.00-0.03); Imm Gran Pct Auto 0.2 % (0.0-0.4); Mean Corpuscular HGB Conc 34.4 g/dl (31.0-35.0); Mean Corpuscular Hemoglobin 28.2 pg (27.0-33.0); Mean Platelet Volume 9.6 fL (9.4-12.3); Monocytes Absolute Auto 0.3 X10*3/uL (0.1-1.2); Monocytes Percent Auto 3.5 % (2-11); Neutrophils Absolute Auto 7.6 x10*3/uL (2.0-8.3); Platelet Count 299 X10*3/uL (160-400); Red Blood Count 5.21 X10*6/uL (4.20-5.50); Red Cell Distribution Width 11.7 % (11.0-16.0); White Blood Count 8.9 X10*3/uL (4.8-10.8)
[2023-07-15 20:17] LABS: Alanine Aminotransferase 37 U/L (0-31); Albumin Level 4.6 g/dL (3.5-5.0); Alkaline Phosphatase 62 U/L (39-117); Anion Gap 14 (12-20); Aspartate Amino Transferase 24 U/L (5-31); Bilirubin Total 1.3 mg/dL (0.0-1.0); Blood Urea Nitrogen 16 mg/dL (9-16); Calcium 9.3 mg/dL (8.4-10.2); Carbon Dioxide 25 mmol/L (22-29); Chloride 108 mmol/L (96-108); Creatinine Clr Calc Pharmacy 87.4; Estimated Glomerular Filt Rate > 60; Glucose Random 93 mg/dL (60-115); Lipase 19 U/L (8-78); Sodium 143 mmol/L (135-145)
[2023-07-15 20:27] LABS: HCG Quantitative < 2 mIU/mL
[2023-07-15 20:40] LABS: COVID-19 Test Negative (Negative); IDNOW Serial# 08D9AD1C; IDNOW Serial# BCCEAD1C; Influenza A Negative (Negative); Influenza B2 Negative (Negative)
[2023-07-15] MEDS: 0.9 % Sodium Chloride 1,000 ML 999 ML IV ×2 (22:17→22:32)
--- NOTE | 2023-07-15 22:30 | ED_ITS ---
HPI - General Adult General Chief complaint: Nausea/Vomiting/Diarrhea Stated complaint: vomiting,diarrhea,abd pain Time Seen by Provider: 07/15/23 21:56 Source: patient Mode of arrival: ambulatory Limitations: no limitations History of Present Illness HPI narrative: 38 yold female with pmh of HTN presents to the ED for abdominal pain, nuasea, vomittting, and diarrhea since yesterday after eating from [employer]. patient states no fever or chills. Patient staets no symptoms. Related Data Home Medications Medication Instructions Recorded Confirmed carvedilol 3.125 mg tablet 3.125 mg PO BID 06/21/21 06/11/23 levothyroxine 112 mcg tablet 112 mcg PO DAILY 06/21/21 07/15/23 (Synthroid) losartan 100 mg tablet 100 mg PO DAILY 06/21/21 06/11/23 cholecalciferol (vitamin D3) 50 50 mcg PO DAILY 11/01/21 06/11/23 mcg (2,000 unit) tablet (Vitamin D3) acetaminophen 500 mg tablet 1,000 mg PO Q6H PRN fever 02/24/22 07/15/23 fluticasone propionate 50 1 - 2 spray intranasal DAILY PRN 02/24/22 06/11/23 mcg/actuation nasal spray,suspension albuterol sulfate 2.5 mg/3 mL 2.5 mg inhalation Q6H PRN wheezing 07/15/23 07/16/23 (0.083 %) solution for nebulization albuterol sulfate 90 mcg/actuation 2 puff inhalation Q4H PRN wheezing 07/15/23 07/16/23 aerosol inhaler (Ventolin HFA) ibuprofen 400 mg tablet 400 mg PO Q6H PRN moderate pain 07/15/23 07/16/23 inhalational spacing device 07/15/23 07/16/23 ([employer]iChamber Lily [facility] spacer) lidocaine 5 % topical patch 1 patch topical DAILY PRN Pain 07/15/23 07/15/23 Previous Rx's Medication Instructions Recorded hydrocortisone 2.5 % topical cream 1 appl UT BID-QID PRN hemorrhoids 09/29/21 with perineal applicator #30 grams (Proctosol HC) magnesium oxide 400 mg (241.3 mg 400 mg PO BEDTIME 30 days #30 tabs 08/22/22 magnesium) tablet riboflavin (vitamin B2) 400 mg 400 mg PO DAILY 30 days #30 tabs 08/22/22 tablet sumatriptan succinate 100 mg tablet 50 - 100 mg (0.5 - 1 x 100 mg) PO 08/22/22 .COMPLEX PRN migraine headache 30 days #12 tabs docusate sodium 100 mg capsule 100 mg PO BEDTIME #30 caps 11/08/22 sennosides 8.6 mg tablet (Natural 17.2 mg (2 x 8.6 mg) PO BEDTIME 11/08/22 Senna Laxative) constipation #180 tabs pantoprazole 40 mg tablet,delayed 40 mg PO DAILY #90 tabs 05/22/23 release sucralfate 1 gram tablet 1 g PO BEDTIME PRN acid reflux #30 05/22/23 tabs topiramate 25 mg tablet 25 mg PO BEDTIME #30 tabs 06/11/23 cyclobenzaprine 5 mg tablet 7.5 mg (1.5 x 5 mg) PO BEDTIME 30 06/20/23 days #45 tabs cyclobenzaprine 10 mg tablet 10 mg PO TID PRN muscle spasm #20 06/26/23 tabs Allergies Allergy/AdvReac Type Severity Reaction Status Date / Time No Known Allergies Allergy Verified 07/16/23 00:33 Review of Systems 2 Review of Systems: nuase, vomitting, and diarrhea Yes all other systems are reviewed and are negative [facility] Past Medical History Medical History Bruxism Snoring Hypertension Chest pain Surgical History H/O colonoscopy History of esophagogastroduodenoscopy (EGD) Hx of cholecystectomy H/O: hysterectomy H/O thyroidectomy Family History Family History Father Hypertension Hypercholesteremia Alzheimer disease Mother Diabetes Social History Social History Alcohol intake: never Patient Tobacco Use Status: Never used Tobacco Smoked in Last 30 Days: No Second Hand Smoke Exposure: No Use of substances other than those prescribed or required for medical reasons: No Advance Directives: No Advance Directives Information Provided: No Patient : No Physical Exam ED Vital Signs: Vital Signs - 24 hr 07/15/23 19:25 07/15/23 23:22 07/16/23 00:32 Temperature 98.8 F 99.0 F 98.9 F Pulse Rate 111 H 90 93 Respiratory Rate 20 18 18 Blood Pressure 144/90 H 110/52 L 123/60 Pulse Oximetry 99 97 96 Oxygen Delivery Method Room Air Room Air Room Air BMI result Body Mass Index 30.3 Const General: cooperative, healthy appearing, comfortable, no acute distress, well developed, alert and awake Orientation/consciousness: oriented to person, oriented to place, oriented to time and patient oriented x3 [facility] Head: Yes normal to inspection, Yes No palpable skull fracture present, Yes normocephalic and Yes atraumatic Eyes General: appearance normal, both eyes and all related structures Neck Neck: Yes normal visual inspection, Yes full ROM, Yes no lymphadenopathy, Yes no meningeal signs, Yes trachea midline, No anterior neck swelling and No tender Chest Chest palpation & inspection: normal inspection of the chest and normal palpation of entire chest wall Resp Effort & Inspection: normal respiratory effort and able to speak in complete sentences Cardio Jugular venous distension: no JVD Heart sounds: S1 normal heart sound present and S2 normal heart sound present GI Inspection: Yes normal to inspection Palpation (GI): Soft to palpation, not firm, Tenderness to palpation present (GI) in the epigastrum (mild), no guarding and not rigid General: Yes no CVA tenderness Back/Spine/Pelvis Back: no CVA tenderness and No back tenderness Skin General skin exam: no rashes or lesions noted, elasticity normal and turgor normal Neuro General: oriented to person, oriented to place, oriented to time, patient oriented x3, gait normal, tone normal, moves all extremities, Normal light touch and pain sensation, no meningeal signs, no focal motor deficits, CN's II-XI intact bilaterally and normal sensation to monofilament Extrem General: Yes normal to inspection and Yes full ROM Psych Appearance: grossly normal, well kempt and not disheveled Medications Administered Discontinued Medications Generic Name Dose Route Start Last Admin Trade Name Freq PRN Reason Stop Dose Admin Famotidine 20 mg 07/15/23 22:23 07/15/23 22:32 Famotidine/Pf 20 Mg/2 Ml Vial IVPUSH 07/15/23 22:24 20 mg ONCE ONE Administration Sodium Chloride 1,000 mls @ 999 mls/hr 07/15/23 21:57 07/15/23 23:44 Ns IV 07/15/23 22:57 Infused .Q1H1M STA Infusion Sodium Chloride 1,000 mls @ 999 mls/hr 07/15/23 22:28 07/15/23 23:44 Ns IV 07/15/23 23:28 Infused .Q1H1M STA Infusion Iohexol 85 ml 07/15/23 22:55 07/15/23 22:56 Iohexol 350 Mg/Ml 100 Ml Infus..Btl IV 07/15/23 22:56 85 ml ONCE ONE Administration Ondansetron HCl 4 mg 07/15/23 22:23 07/15/23 22:32 Ondansetron Hcl 4 Mg/2 Ml Vial IVPUSH 07/15/23 22:24 4 mg ONCE ONE Administration Medical Decision Making Medical Decision Making [facility] Narrative: 38-year-old female presents to the for abdominal pain nausea vomiting diarrhea after eating [employer]. and her labs normal but due to abdominal tenderness sent for CT scan to make sure no abdominal/medical etiology. 12:17am: Patient labs are baseline. COVID influenza negative. urine normal labs are normal. CT scan is normal. Patient is safe for discharge gastroenterit Differential Diagnosis Differential Diagnoses: The differential diagnosis associated with the presentation includes ( COVID, influenza, gastroenteritis,) Admission/Observation Consideration of admission/observation: Escalation of care including admission/observation considered Lab Data MDM Lab Attestation statement: I reviewed the patient's lab results. 07/15/23 19:47 07/15/23 19:47 Labs: Lab Results 07/15/23 07/16/23 Range/Units 19:47 00:04 WBC 8.9 (4.8-10.8) X10*3/uL RBC 5.21 (4.20-5.50) X10*6/uL Hgb 14.7 (12.0-16.0) g/dl Hct 42.7 (37.0-47.0) % MCV 82.0 (80.0-98.0) fL MCH 28.2 (27.0-33.0) pg MCHC 34.4 (31.0-35.0) g/dl RDW 11.7 (11.0-16.0) % Plt Count 299 (160-400) X10*3/uL MPV 9.6 (9.4-12.3) fL Immature Gran % (Auto) 0.2 (0.0-0.4) % Neut % (Auto) 85.0 H (45-73) % Lymph % (Auto) 11.0 L (20-40) % [place] % (Auto) 3.5 (2-11) % Eos % (Auto) 0.2 (0-4) % Baso % (Auto) 0.1 (0-2) % Lymph # (Auto) 1.0 L (1.2-4.9) X10*3/uL [place] # (Auto) 0.3 (0.1-1.2) X10*3/uL Eos # (Auto) 0.0 (0.0-0.4) X10*3/uL Baso # (Auto) 0.0 (0.0-0.2) X10*3/uL Abs Immat Gran (auto) 0.02 (0.00-0.03) X10*3/uL Absolute Neuts (auto) 7.6 (2.0-8.3) x10*3/uL Absolute Nucleated RBC 0.000 (0.0-0.012) X10*3/uL Nucleated RBC % (auto) 0.0 (0.0-0.2) /100WBC Sodium 143 (135-145) mmol/L Potassium 4.0 (3.3-5.1) mmol/L Chloride 108 (96-108) mmol/L Carbon Dioxide 25 (22-29) mmol/L Anion Gap 14 (12-20) BUN 16 (9-16) mg/dL Creatinine 0.78 (0.5-1.4) mg/dL Estim Creat Clear Calc 87.4 Estimated GFR > 60 Random Glucose 93 (60-115) mg/dL Calcium 9.3 (8.4-10.2) mg/dL Total Bilirubin 1.3 H (0.0-1.0) mg/dL AST 24 (5-31) U/L ALT 37 H (0-31) U/L Alkaline Phosphatase 62 (39-117) U/L Total Protein 8.0 (6.5-8.0) g/dL Albumin 4.6 (3.5-5.0) g/dL Lipase 19 (8-78) U/L Beta HCG, Quant < 2 mIU/mL Urine Color Yellow Urine Appearance Clear Urine pH 6.5 (5.0-9.0) Ur Specific [place] >= 1.030 H (1.005-1.025) Urine Protein Negative (Neg-Trace) mg/dL Urine Glucose (UA) Negative (Negative) mg/dL Urine Ketones 15 (Negative) mg/dL Urine Blood Negative (Negative) Urine Nitrite Negative (Negative) Ur Leukocyte Esterase Negative (Negative) COVID-19 ([place]) Negative (Negative) COVID-19 Clin Com See Note Influenza Type A (IRINA) Negative (Negative) Influenza Type B (IRINA) Negative (Negative) Influenza A & B Note See Note Independent Interpretation I performed an independent interpretation of an: CT Scan Radiology Impression Discussion of test interpretation with radiology: I have reviewed the radiologist's reading. Independent Historian Clinical information obtained from an independent historian. History obtained from or confirmed by: Other External Record Review External record reviewed: Other (Prior visits) Prescription Management I considered prescription management with: Pain Medication Discharge Plan Discharge Clinical Impression: Gastroenteritis, Food poisoning Patient Disposition: Home, Self-Care Instructions: Gastroenteritis (ED), Food Poisoning (ED) Additional Instructions: Blood work and CT scan came back normal. Urine negative for infection. Your COVID and RSV swab came back negative. You have gastroenteritis versus food poisoning. Recommend oral hydration and rest. Please follow-up with primary care provider. Return to the ED immediately for any worsening abdominal pain, blood in stool, vomiting blood, chest pain, shortness of breath weakness, dizziness, trouble fever, or any other concerning symptoms. Los an?lisis de lori y la tomograf?a computarizada resultaron normales. Orina negativa para infecci?n. [place] hisopo de COVID y RSV result? negativo. Tienes gastroenteritis versus intoxicaci?n alimentaria. Recomendar hidrataci?n oral y reposo. [place] un seguimiento con el proveedor de atenci?n primaria. Regrese al servicio de urgencias de inmediato si el dolor abdominal empeora, lori en las heces, v?mitos con lori, dolor en el pecho, dificultad para respirar, mareos, fiebre o cualquier otro s?ntoma preocupante. Prescriptions: No Action cyclobenzaprine 5 mg tablet 7.5 mg PO BEDTIME 30 Days Qty: 45 1RF cyclobenzaprine 10 mg tablet 10 mg PO TID PRN (Reason: muscle spasm) Qty: 20 0RF lidocaine 5 % adhesive patch,medicated 1 patch topical DAILY PRN (Reason: Pain) Rx Instructions: leave on most painful area for up to 12 hrs albuterol sulfate 2.5 mg /3 mL (0.083 %) solution for nebulization 2.5 mg inhalation Q6H PRN (Reason: wheezing) ibuprofen 400 mg tablet 400 mg PO Q6H PRN (Reason: moderate pain) albuterol sulfate [Ventolin HFA] 90 mcg/actuation HFA aerosol inhaler 2 puff inhalation Q4H PRN (Reason: wheezing) (DME) Tate Bautista [facility] Spacer 1 ea MISCELLANEOUS Q4H carvedilol 3.125 mg tablet 3.125 mg PO BID Rx Instructions: must administer with a meal/food losartan 100 mg tablet 100 mg PO DAILY levothyroxine [Synthroid] 112 mcg tablet 112 mcg PO DAILY hydrocortisone [Proctosol HC] 2.5 % cream with perineal applicator 1 appl UT BID-QID PRN (Reason: hemorrhoids) Qty: 30 2RF fluticasone propionate 50 mcg/actuation spray,suspension 1 - 2 spray intranasal DAILY PRN acetaminophen 500 mg tablet 1,000 mg PO Q6H PRN (Reason: fever) cholecalciferol (vitamin D3) [Vitamin D3] 50 mcg (2,000 unit) tablet 50 mcg PO DAILY magnesium oxide 400 mg (241.3 mg magnesium) tablet 400 mg PO BEDTIME 30 Days Qty: 30 6RF Rx Instructions: may hold for loose stools sumatriptan succinate 100 mg tablet 50 - 100 mg PO .COMPLEX PRN (Reason: migraine headache) 30 Days Qty: 12 6RF Rx Instructions: 50 - 100 mg orally at onset of headache, may repeat in 2 hrs PRN; max 2 tabs per day or 4 tabs/week (may take with Ibuprofen) riboflavin (vitamin B2) 400 mg tablet 400 mg PO DAILY 30 Days Qty: 30 6RF pantoprazole 40 mg tablet,delayed release (DR/EC) 40 mg PO DAILY Qty: 90 2RF Rx Instructions: take one tablet half an hour before breakfast sucralfate 1 gram tablet 1 g PO BEDTIME PRN (Reason: acid reflux) Qty: 30 2RF docusate sodium 100 mg capsule 100 mg PO BEDTIME Qty: 30 3RF sennosides [Natural Senna Laxative] 8.6 mg tablet 17.2 mg PO BEDTIME Qty: 180 3RF topiramate 25 mg tablet 25 mg PO BEDTIME Qty: 30 6RF Stand Alone Forms: Work/School Release Interventions: ED Discharge Assessment Last Done: 07/16/23 00:33 Discharge Date/Time: 07/16/23 00:36 Print Language: Haitian
[2023-07-15] MEDS: Famotidine/PF 20 MG/2 ML VIAL IVPUSH (22:32)
[2023-07-15] MEDS: ondansetron HCL 4 MG/2 ML VIAL IVPUSH (22:32)
[2023-07-15] MEDS: iohexoL 350 MG/ML 100 ML INFUS..BTL 85 ML IV (22:56)
[2023-07-15 23:22] VITALS: BP 110/52; PULSE 90; RESP 18; TEMP 37.2; O2SAT 97
--- NOTE | 2023-07-15 23:45 | PC.NURSE ---
pt reports feeling better now with medications and fluids. pain 6/10 upper middle abd pain. no n/v since medication
[2023-07-16 00:10] LABS: Appearance Urine Clear; Color Urine Yellow; Glucose Urine UA Negative (Negative); Leukocyte Esterase Urine Negative (Negative); Nitrite Urine Negative (Negative); PH 6.5 (5.0-9.0); Specific Gravity - Urine >= 1.030 (1.005-1.025); Urine Blood Negative (Negative); Urine Ketones 15 mg/dL (Negative); Urine Protein Negative (Neg-Trace)
[2023-07-16 00:32] VITALS: BP 123/60; PULSE 93; RESP 18; TEMP 37.2; O2SAT 96
== END 2023-07-16 00:36 | disposition home or self-care (01) ==
PROVIDERS: Physician Assistant; Emergency Provider Emergency Medicine; PCP Registered Nurse
DX: A05.9 Bacterial foodborne intoxication, unspecified (principal); I10 Essential (primary) hypertension; Z11.52 Encounter for screening for COVID-19
CPT/HCPCS: 36415; 74177; 80053; 81003; 83690; 84702; 85025; 87502; 87635; 96361; 96374; 96375; 99284; J2405; Q9967

== ENCOUNTER 2023-08-16 14:59 | Outpatient (AMB) | payer MEDICAID, SELFPAY ==
--- NOTE | 2023-08-16 15:05 | A.OFFVIS_ITS ---
Intake Vital Signs 08/16/23 15:14 Height 5 ft 1 in Weight 166 lb 6 oz BMI 31.4 BP 120/70 Blood Pressure Location Rt brachial Position Sitting Pulse 74 Pulse Source Pulse Oximeter Pulse Oximetry (%) 97 Oxygen Delivery Method Room Air Intake Visit Reasons: 2 mo F/u -Headaches - CONF Intake Note: Patient presents Less headaches. Still having difficulty swallowing, talking and opening mouth. Allergies No Known Allergies Allergy (Verified 08/19/23 20:41) HPI HPI Comments History of Present Illness Details 38-yr-old female presents for f/u of bhavin vernell, memory loss and bruxism. Pt denies any significant interval medical changes. Brain MRI showed only mild nonspecific white matter changes. Home sleep test was normal. Pt reports that headache frequency has been improved with topiramate 25 mg qHS, and cyclobenzaprine 7.5 mg. sharron She gets migraine 1-2 times a week, however the intensity is still same. She is on magnesium 400 mg and vitamin B2 400 mg also for migraine prevention. She takes sumatriptan 500 mg as needed for acute migraine treatment and it usually helps to relieve the pain. Pt tried amitriptyline in the past, and when it was increased to 50mg - she had nausea and had dizziness so she stopped it. Pt continues has jaw pain and difficulty opening mouth and chewing. The x-ray of temporomandibular joint result was minimal anterior subluxation of the mandibular condyles on open mouth views. Pt was referred to physical therapy and mandibular joint specialist for bruxism but not evaluated yet. Pt also continues to endorse memory loss, forgetfulness and difficulty concentration. Pt referred to [facility] for neuropsychology evaluation, but also it is not schedule yet. [facility] Medical History Bruxism Snoring Hypertension Chest pain Surgical History H/O colonoscopy History of esophagogastroduodenoscopy (EGD) Hx of cholecystectomy H/O: hysterectomy H/O thyroidectomy Family History Father Hypertension Hypercholesteremia Alzheimer disease Mother Diabetes Social History Alcohol intake: never Patient Tobacco Use Status: Never used Tobacco Second Hand Smoke Exposure: No Advance Directives: No Advance Directives Information Provided: No Review of Systems Const All systems reviewed & are unremarkable except as noted in HPI and below Physical Exam Vital Signs: Last Vital Signs Pulse 74 08/16/23 15:14 BP 120/70 08/16/23 15:14 Pulse Ox 97 08/16/23 15:14 Oxygen Delivery Method Room Air 08/16/23 15:14 BMI result Body Mass Index 31.4 Const General: cooperative and no acute distress Orientation/consciousness: patient oriented x3 HEENT Head: Yes normocephalic Neuro General: patient oriented x3, gait normal and CN's II-XI intact bilaterally Cognition (Neuro): normal cognition Motor exam (neuro): 5/5 motor strength present throughout Assessment & Plan Assessment & Plan (1) Migraine without aura: Code(s): G43.009 - Migraine without aura, not intractable, without status migrainosus (2) Family history of Alzheimer's disease: Code(s): Z82.0 - Family history of epilepsy and other diseases of the nervous system (3) Bruxism: Code(s): F45.8 - Other somatoform disorders Plan She did not get a [facility]. Continue Sumatriptan 50 mg at onset of migraine. Continue Riboflavin 400mg qam and Magnesium 400mg qhs Contineu to take Cocyclobenzaprine 7.5mg qhs and topiramate 25mg qhs for prophylaxis Previous migraine prevention medication trials: Amitriptyline Migraine prevention medication contraindications: BBs d/t asthma dx. Also advised patient to call the mandibular joint specialist to schedule for evaluation. Coding Level of Care Code Est Pt Level 4 (00871) Diagnoses Migraine without aura G43.009 Family history of Alzheimer's disease Z82.0 Bruxism F45.8
[2023-08-16 15:14] VITALS: BP 120/70; PULSE 74; O2SAT 97; BMI 31.4
== END 2023-08-16 15:48 | disposition home or self-care (01) ==
PROVIDERS: PCP Registered Nurse; Visit Provider Nurse Practitioner Family
DX: G43.009 Migraine without aura, not intractable, without status migrainosus (principal); Z82.0 Family history of epilepsy and other diseases of the nervous system; F45.8 Other somatoform disorders
CPT/HCPCS: 99214

== ENCOUNTER → 2023-08-16 14:59 | Outpatient (BNVA) | payer MEDICAID, SELFPAY | PROVIDERS: PCP Registered Nurse; Visit Provider Nurse Practitioner Family | DX: G43.009 Migraine without aura, not intractable, without status migrainosus (principal); F45.8 Other somatoform disorders; Z82.0 Family history of epilepsy and other diseases of the nervous system | CPT/HCPCS: 99212 ==

== ENCOUNTER 2023-08-19 20:24 | Emergency (ER) | payer MEDICAID, SELFPAY ==
[2023-08-19 20:38] VITALS: BP 139/65; PULSE 95; RESP 16; TEMP 36.9; O2SAT 96; BMI 30.7
--- NOTE | 2023-08-19 22:09 | ED.GENADULT ---
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 Her pain got worse this morning. She denies any falls or trauma to the area. She states that she has a history of arthritis. Her pain is worse with external rotation per her report The pain is also worse with ambulating No calf pain or swelling. The patient reports her pain starts in her hip and radiates down to the front of her left knee. She denies any back pain Her pain is 7/10 Related Data Home Medications Medication Instructions Recorded Confirmed carvedilol 3.125 mg tablet 3.125 mg PO BID 06/21/21 06/11/23 levothyroxine 112 mcg tablet 112 mcg PO DAILY 06/21/21 07/15/23 (Synthroid) losartan 100 mg tablet 100 mg PO DAILY 06/21/21 06/11/23 cholecalciferol (vitamin D3) 50 50 mcg PO DAILY 11/01/21 06/11/23 mcg (2,000 unit) tablet (Vitamin D3) acetaminophen 500 mg tablet 1,000 mg PO Q6H PRN fever 02/24/22 07/15/23 fluticasone propionate 50 1 - 2 spray intranasal DAILY PRN 02/24/22 06/11/23 mcg/actuation nasal spray,suspension albuterol sulfate 2.5 mg/3 mL 2.5 mg inhalation Q6H PRN wheezing 07/15/23 07/16/23 (0.083 %) solution for nebulization albuterol sulfate 90 mcg/actuation 2 puff inhalation Q4H PRN wheezing 07/15/23 07/16/23 aerosol inhaler (Ventolin HFA) ibuprofen 400 mg tablet 400 mg PO Q6H PRN moderate pain 07/15/23 07/16/23 inhalational spacing device 07/15/23 07/16/23 ([facility] spacer) lidocaine 5 % topical patch 1 patch topical DAILY PRN Pain 07/15/23 07/15/23 Previous Rx's Medication Instructions Recorded hydrocortisone 2.5 % topical cream 1 appl PA BID-QID PRN hemorrhoids 09/29/21 with perineal applicator #30 grams (Proctosol HC) magnesium oxide 400 mg (241.3 mg 400 mg PO BEDTIME 30 days #30 tabs 08/22/22 magnesium) tablet riboflavin (vitamin B2) 400 mg 400 mg PO DAILY 30 days #30 tabs 08/22/22 tablet sumatriptan succinate 100 mg tablet 50 - 100 mg (0.5 - 1 x 100 mg) PO 08/22/22 .COMPLEX PRN migraine headache 30 days #12 tabs docusate sodium 100 mg capsule 100 mg PO BEDTIME #30 caps 11/08/22 sennosides 8.6 mg tablet (Natural 17.2 mg (2 x 8.6 mg) PO BEDTIME 11/08/22 Senna Laxative) constipation #180 tabs pantoprazole 40 mg tablet,delayed 40 mg PO DAILY #90 tabs 05/22/23 release sucralfate 1 gram tablet 1 g PO BEDTIME PRN acid reflux #30 05/22/23 tabs topiramate 25 mg tablet 25 mg PO BEDTIME #30 tabs 06/11/23 cyclobenzaprine 5 mg tablet 7.5 mg (1.5 x 5 mg) PO BEDTIME 30 06/20/23 days #45 tabs cyclobenzaprine 10 mg tablet 10 mg PO TID PRN muscle spasm #20 06/26/23 tabs naproxen 500 mg tablet 500 mg PO BID PRN pain #20 tabs 08/19/23 Allergies Allergy/AdvReac Type Severity Reaction Status Date / Time No Known Allergies Allergy Verified 08/19/23 20:41 Review of Systems Constitutional: Constitutional: Denies body ache(s), Denies chills and Denies frequent falls Cardiovascular: Cardiovascular: Denies chest pain and Denies dyspnea Respiratory: Respiratory: Denies cough and Denies dyspnea Gastrointestinal: Gastrointestinal: Denies abdominal pain, Denies nausea and Denies vomiting Musculoskeletal: Musculoskeletal: Reports arthralgias, Denies joint swelling and Denies limited range of motion Integumentary/Breasts: Skin/Breast: Denies rash Neurologic: Denies frequent falls [facility] Past Medical History Medical History Bruxism Snoring Hypertension Chest pain Surgical History H/O colonoscopy History of esophagogastroduodenoscopy (EGD) Hx of cholecystectomy H/O: hysterectomy H/O thyroidectomy Family History Family History Father Hypertension Hypercholesteremia Alzheimer disease Mother Diabetes Social History Social History Alcohol intake: never Patient Tobacco Use Status: Never used Tobacco Second Hand Smoke Exposure: No Advance Directives: No Advance Directives Information Provided: No Physical Exam ED Vital Signs: Vital Signs - 24 hr 08/19/23 20:38 Temperature 98.4 F Pulse Rate 95 Respiratory Rate 16 Blood Pressure 139/65 Pulse Oximetry 96 Oxygen Delivery Method Room Air BMI result Body Mass Index 30.7 Const General: healthy appearing, comfortable, no acute distress, alert and awake Nutritional Appearance: well nourished Orientation/consciousness: patient oriented x3 HENMT Head: Yes normocephalic and Yes atraumatic Eyes Eyelids: Yes eyelids normal Conjunctivae: conjunctivae normal Sclerae: sclerae normal Corneas: corneas normal Pupils: Equal, round and reactive pupils present EOM: EOMs intact bilaterally Neck Neck: Yes full ROM Resp Effort & Inspection: normal respiratory effort, able to speak in complete sentences and not labored Back/Spine/Pelvis Other: No lumbar vertebral or paraspinous muscle tenderness. Skin General skin exam: elasticity normal Neuro General: patient oriented x3 Cranial nerves: Yes Equal, round and reactive pupils present and Yes Bilaterally intact EOM present Cognition (Neuro): normal cognition Extrem Other: Patient has some mild tenderness to the left hip without any deformity. No shortening or rotation of the left lower extremity. No calf tenderness. Negative Homans sign. No palpable cords Medical Decision Making Medical Decision Making MDM Narrative: [age] old female presents for evaluation left hip pain. Her history and exam is consistent with left hip bursitis. She did not have any trauma to warrant x-ray imaging. She has no fevers or chills to suggest infectious causes. She has no risk factors for DVT. Plan for symptomatic treatment only Differential Diagnosis Differential Diagnoses: The differential diagnosis associated with the presentation includes Left hip bursitis Arthritis Hip pain Sciatica Radiculopathy Discharge Plan Discharge Clinical Impression: Hip bursitis, left Patient Disposition: Home, Self-Care Instructions: Hip Bursitis (ED) Additional Instructions: Your pain is most likely related to bursitis of the left hip. Use naproxen twice daily for pain. Avoid standing or walking for long periods Follow-up with your primary doctor Return for new or worsening symptoms Prescriptions: New naproxen 500 mg tablet 500 mg PO BID PRN (Reason: pain) Qty: 20 0RF No Action cyclobenzaprine 5 mg tablet 7.5 mg PO BEDTIME 30 Days Qty: 45 1RF cyclobenzaprine 10 mg tablet 10 mg PO TID PRN (Reason: muscle spasm) Qty: 20 0RF lidocaine 5 % adhesive patch,medicated 1 patch topical DAILY PRN (Reason: Pain) Rx Instructions: leave on most painful area for up to 12 hrs albuterol sulfate 2.5 mg /3 mL (0.083 %) solution for nebulization 2.5 mg inhalation Q6H PRN (Reason: wheezing) ibuprofen 400 mg tablet 400 mg PO Q6H PRN (Reason: moderate pain) albuterol sulfate [Ventolin HFA] 90 mcg/actuation HFA aerosol inhaler 2 puff inhalation Q4H PRN (Reason: wheezing) (DME) [facility]aut[facility] Spacer 1 ea MISCELLANEOUS Q4H carvedilol 3.125 mg tablet 3.125 mg PO BID Rx Instructions: must administer with a meal/food losartan 100 mg tablet 100 mg PO DAILY levothyroxine [Synthroid] 112 mcg tablet 112 mcg PO DAILY hydrocortisone [Proctosol HC] 2.5 % cream with perineal applicator 1 appl PA BID-QID PRN (Reason: hemorrhoids) Qty: 30 2RF fluticasone propionate 50 mcg/actuation spray,suspension 1 - 2 spray intranasal DAILY PRN acetaminophen 500 mg tablet 1,000 mg PO Q6H PRN (Reason: fever) cholecalciferol (vitamin D3) [Vitamin D3] 50 mcg (2,000 unit) tablet 50 mcg PO DAILY magnesium oxide 400 mg (241.3 mg magnesium) tablet 400 mg PO BEDTIME 30 Days Qty: 30 6RF Rx Instructions: may hold for loose stools sumatriptan succinate 100 mg tablet 50 - 100 mg PO .COMPLEX PRN (Reason: migraine headache) 30 Days Qty: 12 6RF Rx Instructions: 50 - 100 mg orally at onset of headache, may repeat in 2 hrs PRN; max 2 tabs per day or 4 tabs/week (may take with Ibuprofen) riboflavin (vitamin B2) 400 mg tablet 400 mg PO DAILY 30 Days Qty: 30 6RF pantoprazole 40 mg tablet,delayed release (DR/EC) 40 mg PO DAILY Qty: 90 2RF Rx Instructions: take one tablet half an hour before breakfast sucralfate 1 gram tablet 1 g PO BEDTIME PRN (Reason: acid reflux) Qty: 30 2RF docusate sodium 100 mg capsule 100 mg PO BEDTIME Qty: 30 3RF sennosides [Natural Senna Laxative] 8.6 mg tablet 17.2 mg PO BEDTIME Qty: 180 3RF topiramate 25 mg tablet 25 mg PO BEDTIME Qty: 30 6RF Stand Alone Forms: Work/School Release Interventions: ED Discharge Assessment Last Done: 08/19/23 22:35 Discharge Date/Time: 08/19/23 22:36
== END 2023-08-19 22:36 | disposition home or self-care (01) ==
PROVIDERS: Emergency Provider Emergency Medicine Emergency Medical Services; PCP Registered Nurse
DX: M70.72 Other bursitis of hip, left hip (principal); M79.605 Pain in left leg
CPT/HCPCS: 99282; 99283

== ENCOUNTER 2023-09-06 11:31 | Outpatient (REF) | payer MEDICAID, SELFPAY ==
[2023-09-06 13:48] LABS: Cholesterol 150 mg/dL (<200); HDL Cholesterol 44 mg/dL (>40); LDL Cholesterol Calculated 90 mg/dL (<100); Triglycerides 80 mg/dL (<150)
[2023-09-06 14:09] LABS: Thyroid Stimulating Hormone 0.33 uIU/mL (0.32-4.0)
== END 2023-09-06 11:32 | disposition home or self-care (01) ==
LOC: HO.HHCL 11:31
PROVIDERS: Visit Provider Registered Nurse
DX: E03.8 Other specified hypothyroidism (principal); E06.3 Autoimmune thyroiditis; I10 Essential (primary) hypertension
CPT/HCPCS: 36415; 80061; 84443

== ENCOUNTER 2023-09-11 14:53 | Outpatient (AMB) | payer MEDICAID, SELFPAY ==
[2023-09-11 15:03] VITALS: BP 125/59; PULSE 83; BMI 29.5
--- NOTE | 2023-09-11 15:03 | MHC.OFFVIS ---
Intake Vital Signs 09/11/23 15:03 Height 5 ft 1 in Weight 156 lb BMI 29.5 BP 125/59 L Blood Pressure Location Rt brachial Position Sitting Pulse 83 Pulse Source Monitor Intake Visit Reasons: 4 mnth follow up Intake Note: Patient states she has stomach pain on occasion but nothing like before. Automobile Mechanic Radiator Required: Yes Automobile Mechanic Radiator Name: [facility] Automobile Mechanic Radiator Accompanied by: Self / Same As Patient Allergies No Known Allergies Allergy (Verified 09/11/23 15:10) HPI 4 mnth follow up HPI Details LAST VISIT: Nausea IBS (irritable bowel syndrome) GERD (gastroesophageal reflux disease) Constipation Plan Discussed with patient the importance of trying to change her diet. Avoid food that it is greasy or spicy or fried. Patient was encouraged to avoid dietary triggers and late night snacking. Staying upright for minimum 3 hours after meals discussed patient. Continue taking pantoprazole in the morning, patient can take sucralfate on as needed basis at bedtime. Continue taking Linzess daily. Patient was encouraged to increase fluid intake and activity to promote better bowel motility. I will see patient in 4 months, sooner on as needed basis. Patient is agreeable to this plan and verbalizes understanding of instructions. She was given the opportunity to ask questions and all questions answered. ? Thank you for allowing me to participate in her care Medications Changed Changed From sucralfate 1 g PO BEDTIME 30 tabs 2RF R19.7 Changed To sucralfate 1 g PO BEDTIME PRN 30 tabs 2RF acid reflux R19.7 Refilled linaclotide (Linzess) 145 mcg PO DAILY 90 caps 2RF pantoprazole take one tablet half an hour before breakfast 40 mg PO DAILY 90 tabs 2RF K21.9 TODAY'S VISIT Patient is here today for follow-up. Patient reports that she has been moving her bowels better now. Takes pantoprazole in the morning and her symptoms of acid reflux are suppressed. Patient is having trouble swallowing and chewing. Has seen mandibular specialist and is going for MRI and more testing. Patient was also send to ENT specialist. Patient reports that she has not had appointment yet. Patient denies any abdominal pain or discomfort. Reports to be feeling fairly well. Patient reports that she take sucralfate at bedtime only on as needed basis. Patient denies any nausea or vomiting. Denies any other GI concerning symptoms. [facility] Medical History Bruxism Snoring Hypertension Chest pain Surgical History H/O colonoscopy History of esophagogastroduodenoscopy (EGD) Hx of cholecystectomy H/O: hysterectomy H/O thyroidectomy Family History Father Hypertension Hypercholesteremia Alzheimer disease Mother Diabetes Social History Alcohol intake: never Patient Tobacco Use Status: Never used Tobacco Second Hand Smoke Exposure: No Physical Exam Vital Signs: Last Vital Signs Pulse 83 09/11/23 15:03 BP 125/59 L 09/11/23 15:03 BMI result Body Mass Index 29.5 Assessment & Plan Assessment & Plan (1) Nausea: Code(s): R11.0 - Nausea (2) IBS (irritable bowel syndrome): Code(s): K58.9 - Irritable bowel syndrome without diarrhea Qualifiers: Irritable bowel syndrome type: without diarrhea Qualified Code(s): K58.9 - Irritable bowel syndrome without diarrhea (3) GERD (gastroesophageal reflux disease): Code(s): K21.9 - Gastro-esophageal reflux disease without esophagitis Qualifiers: Esophagitis presence: without esophagitis Qualified Code(s): K21.9 - Gastro-esophageal reflux disease without esophagitis (4) Constipation: Code(s): K59.00 - Constipation, unspecified Qualifiers: Constipation type: slow transit constipation Qualified Code(s): K59.01 - Slow transit constipation Plan Patient can continue taking pantoprazole in the morning. Patient reports that she is only taking sucralfate on as needed basis. Discussed with patient avoiding dietary triggers late night snacking. Staying upright for minimum 3 hours after meals discussed with patient. Patient can continue taking Senokot daily. I will see her in 6 months, sooner on as needed basis. Patient is agreeable to this plan and verbalizes understanding of instructions. She was given the opportunity to ask questions and all questions answered. Thank you for allowing me to participate in her care Medications: Refilled sennosides (Natural Senna Laxative) 17.2 mg (2 x 8.6 mg) PO BEDTIME 180 tabs 3RF constipation K59.00 - Constipation, unspecified pantoprazole take one tablet half an hour before breakfast 40 mg PO DAILY 90 tabs 2RF K21.9 - Gastro-esophageal reflux disease without esophagitis Coding Level of Care Code Est Pt Level 4 (22910) Diagnoses Nausea R11.0 Irritable bowel syndrome without diarrhea K58.9 Irritable bowel syndrome type: without diarrhea Gastroesophageal reflux disease without esophagitis K21.9 Esophagitis presence: without esophagitis Slow transit constipation K59.01 Constipation type: slow transit constipation Time Spent (min) 35 Comment 20 minutes spent with patient and additional 15 minutes spent reviewing her records
== END 2023-09-11 15:55 | disposition home or self-care (01) ==
PROVIDERS: PCP Registered Nurse; Visit Provider Nurse Practitioner Family
DX: R11.0 Nausea (principal); K58.9 Irritable bowel syndrome, unspecified; K21.9 Gastro-esophageal reflux disease without esophagitis; K59.01 Slow transit constipation
CPT/HCPCS: 99214

== ENCOUNTER → 2023-09-11 14:53 | Outpatient (BNVA) | payer MEDICAID, SELFPAY | PROVIDERS: PCP Registered Nurse; Visit Provider Nurse Practitioner Family | DX: K58.9 Irritable bowel syndrome, unspecified (principal); K21.9 Gastro-esophageal reflux disease without esophagitis; K59.01 Slow transit constipation; R11.0 Nausea | CPT/HCPCS: 99212 ==

== ENCOUNTER 2023-09-25 11:28 | Emergency (ER) | payer MEDICAID, SELFPAY ==
--- NOTE | ~2023-09-25 | CT_ITS ---
CT SOFT TISSUE NECK WITH CONTRAST CLINICAL INFORMATION: Difficulty swallowing/chewing. COMPARISON: None available. TECHNIQUE: Following the intravenous administration of 100 mL of Omnipaque 350 intravenous contrast, helical imaging was performed in the axial plane with generation of coronal and sagittal reformatted images. This CT examination was performed using dose optimization techniques as appropriate, variously including the following: *Automated exposure control *Adjustment of mA and/or kV according to patient size (this includes techniques or standardized protocols for targeted exams where dose is matched to indication/reason for exam; i.e. extremities or head) *Use of iterative reconstruction technique FINDINGS: Symmetric prominence of the palatine tonsils bilaterally that could reflect the presence of palatine tonsillitis. There is no peritonsillar abscess. Laryngeal structures are symmetric and normal. The orbital soft tissues, the parotid glands, the submandibular glands, and the thyroid gland are unremarkable. There is no cervical lymphadenopathy. Imaged upper lungs are clear. Laryngeal structures are symmetric and normal. No extrinsic compression of the pharynx is appreciated. Cervical arterial vasculature remains widely patent. Partially imaged intracranial compartment is unremarkable. Moderate mucosal thickening within the ethmoid air cells. Mastoid air cells are clear. CT/CT soft tissue neck w IV con IMPRESSION: Symmetric prominence of the palatine tonsils bilaterally that could reflect the presence of palatine tonsillitis. There is no peritonsillar abscess.
[2023-09-25 11:33] VITALS: BP 135/80; PULSE 86; RESP 18; TEMP 37.1; O2SAT 98; BMI 29.5
--- NOTE | 2023-09-25 11:39 | ED_ITS ---
HPI - General Adult General Chief complaint: General Medical Stated complaint: Facial Pain Time Seen by Provider: 09/25/23 11:50 Source: patient and freelance interpreter/translator Mode of arrival: ambulatory Limitations: language barrier History of Present Illness HPI narrative: Patient is a 38-year-old Citizen [place]-speaking female presenting to the emergency department with complaint of ongoing bilateral jaw pain for the past several months. Patient also reports difficulty with chewing and swallowing. States that she feels as though she has to force herself to swallow her own saliva. States that when she chews food, she feels as though she has to spit it out instead of swallowing. She denies foreign body sensation to esophagus and states the symptoms are more in the back of her mouth. Complains of decreased p.o. intake due to this which has caused her to feel lightheaded at times. She has seen a maxillofacial surgeon in [place] who recommended CT scan or MRI, was also referred to ENT who she saw a few days ago. She states ENT wanted her to have a swallow study, but as far as she knows, nothing is ordered. She has also seen neurology for bruxism and other complaints and had a brain MRI. She has been to PT for her TMJ dysfunction as well. States she has only been prescribed a topical cream for her TMJ which has not helped with her symptoms. MD complaint: jaw pain, trouble swallowing Onset (ago): month(s) Location: mouth Quality: dull and constant Treatments prior to arrival: other Related Data Home Medications Medication Instructions Recorded Confirmed carvedilol 3.125 mg tablet 3.125 mg PO BID 06/21/21 06/11/23 levothyroxine 112 mcg tablet 112 mcg PO DAILY 06/21/21 07/15/23 (Synthroid) losartan 100 mg tablet 100 mg PO DAILY 06/21/21 06/11/23 cholecalciferol (vitamin D3) 50 50 mcg PO DAILY 11/01/21 06/11/23 mcg (2,000 unit) tablet (Vitamin D3) acetaminophen 500 mg tablet 1,000 mg PO Q6H PRN fever 02/24/22 07/15/23 fluticasone propionate 50 1 - 2 spray intranasal DAILY PRN 02/24/22 06/11/23 mcg/actuation nasal spray,suspension albuterol sulfate 2.5 mg/3 mL 2.5 mg inhalation Q6H PRN wheezing 07/15/23 07/16/23 (0.083 %) solution for nebulization albuterol sulfate 90 mcg/actuation 2 puff inhalation Q4H PRN wheezing 07/15/23 07/16/23 aerosol inhaler (Ventolin HFA) ibuprofen 400 mg tablet 400 mg PO Q6H PRN moderate pain 07/15/23 07/16/23 inhalational spacing device 07/15/23 07/16/23 [facility] spacer) lidocaine 5 % topical patch 1 patch topical DAILY PRN Pain 07/15/23 07/15/23 Previous Rx's Medication Instructions Recorded hydrocortisone 2.5 % topical cream 1 appl MT BID-QID PRN hemorrhoids 09/29/21 with perineal applicator #30 grams (Proctosol HC) magnesium oxide 400 mg (241.3 mg 400 mg PO BEDTIME 30 days #30 tabs 08/22/22 magnesium) tablet riboflavin (vitamin B2) 400 mg 400 mg PO DAILY 30 days #30 tabs 08/22/22 tablet sumatriptan succinate 100 mg tablet 50 - 100 mg (0.5 - 1 x 100 mg) PO 08/22/22 .COMPLEX PRN migraine headache 30 days #12 tabs docusate sodium 100 mg capsule 100 mg PO BEDTIME #30 caps 11/08/22 sucralfate 1 gram tablet 1 g PO BEDTIME PRN acid reflux #30 05/22/23 tabs topiramate 25 mg tablet 25 mg PO BEDTIME #30 tabs 06/11/23 cyclobenzaprine 5 mg tablet 7.5 mg (1.5 x 5 mg) PO BEDTIME 30 06/20/23 days #45 tabs cyclobenzaprine 10 mg tablet 10 mg PO TID PRN muscle spasm #20 06/26/23 tabs naproxen 500 mg tablet 500 mg PO BID PRN pain #20 tabs 08/19/23 pantoprazole 40 mg tablet,delayed 40 mg PO DAILY #90 tabs 09/11/23 release sennosides 8.6 mg tablet (Natural 17.2 mg (2 x 8.6 mg) PO BEDTIME 09/11/23 Senna Laxative) constipation #180 tabs Allergies Allergy/AdvReac Type Severity Reaction Status Date / Time No Known Allergies Allergy Verified 09/11/23 15:10 Review of Systems 2 Review of Systems: As per HPI. Yes all other systems are reviewed and are negative Constitutional: Constitutional: Reports as per HPI [facility] Past Medical History Medical History Bruxism Snoring Hypertension Chest pain Surgical History H/O colonoscopy History of esophagogastroduodenoscopy (EGD) Hx of cholecystectomy H/O: hysterectomy H/O thyroidectomy Family History Family History Father Hypertension Hypercholesteremia Alzheimer disease Mother Diabetes Social History Social History Alcohol intake: never Patient Tobacco Use Status: Never used Tobacco Second Hand Smoke Exposure: No Advance Directives: No Physical Exam ED Vital Signs: Vital Signs - 24 hr 09/25/23 11:33 Temperature 98.8 F Pulse Rate 86 Respiratory Rate 18 Blood Pressure 135/80 Pulse Oximetry 98 Oxygen Delivery Method Room Air BMI result Body Mass Index 29.5 Vital signs have been reviewed and appear to be correct. Blood pressure normal. Heart rate normal. Respiratory rate normal. Temperature normal. Oxygen saturation normal. Const General: cooperative, healthy appearing and no acute distress Orientation/consciousness: oriented to person, oriented to place, oriented to time and patient oriented x3 Limitations: no limitations HENMT Head: Yes normocephalic and Yes atraumatic Ears: external ears normal, TM's normal bilaterally, EAC's normal and mastoids normal bilaterally General nose exam: Normal external nose present Face and sinus: Yes face symmetric Mouth: Normal oral and palatal mucosa present, lip normal, tongue normal, Normal salivary glands and ducts present, oropharynx normal, moist mucous membranes, no drooling, no muffled voice, abnormal TMJ (mild tenderness to palpation bilaterally), no trismus and No restricted motion Teeth and gingiva: dentition normal and gingiva normal Throat: Yes posterior oropharynx normal, Yes tonsils normal, Yes uvula midline and No uvular edema Eyes Pupils: Equal, round and reactive pupils present Neck Neck: Yes normal visual inspection, Yes full ROM, Yes no lymphadenopathy, Yes no meningeal signs, Yes trachea midline, Yes supple, No anterior neck swelling, No bilateral parotid enlargement and No submandibular swelling Lymphatic: no lymphadenopathy noted Resp Effort & Inspection: normal respiratory effort and able to speak in complete sentences Auscultation: clear to auscultation bilaterally Cardio Rate: regular rate Rhythm: regular rhythm Heart sounds: S1 normal heart sound present and S2 normal heart sound present GI Palpation (GI): Soft to palpation and nontender Auscultation: normoactive bowel sounds General: Yes no CVA tenderness Back/Spine/Pelvis Back: no CVA tenderness Skin General skin exam: elasticity normal and turgor normal Neuro General: oriented to person, oriented to place, oriented to time, patient oriented x3, moves all extremities, no meningeal signs, no focal motor deficits and CN's II-XI intact bilaterally Cranial nerves: Yes Equal, round and reactive pupils present Cognition (Neuro): normal cognition Extrem General: Yes full ROM, Yes no pedal edema and Yes no calf tenderness Psych Mental Status: mental status grossly normal Affect: normal affect Thought process: Normal thought process present Course Course Course Narrative: RME- 38 year old female presents for evaluation of mandible pain. She reports that it has been ongoing for the last 3 months. She had an abnormal mandible x- ray 07/04/23. She has seen specialists in [place]. She is requesting an MRI of her jaw that her oral surgeon reportedly wants. She was informed that we cannot do an emergent MRI for a chronic jaw issue. She is concerned that she is losing weight and feeling weak due to not eating. Plan for basic labs Medications Administered Discontinued Medications Generic Name Dose Route Start Last Admin Trade Name Freq PRN Reason Stop Dose Admin Iohexol 100 ml 09/25/23 14:36 09/25/23 14:36 Iohexol 350 Mg/Ml 100 Ml Infus..Btl IV 09/25/23 14:37 60 ml ONCE ONE Administration Medical Decision Making Medical Decision Making [facility] Narrative: Patient is a 38-year-old Citizen [place]-speaking female presenting to the emergency department with complaint of ongoing bilateral jaw pain for the past several months. Patient also reports difficulty with chewing and swallowing. On exam patient is awake, A+Ox3, VS WNL, afebrile, normal neurological exam without focal deficits, physical exam findings as above. Based on physical exam findings, feel symptoms are most likely related to TMJ dysfunction. Patient adamant about obtaining imaging at today's visit. A conversation on risk versus benefit was had, and patient continues to request CT scan. Labs unremarkable. Patient managing secretions without difficulty during assessment. CT notable for prominence of bilateral palatine tonsils. My interpretation is in agreement with the radiologist's interpretation. Given ongoing nature symptoms, and the fact that patient is afebrile, do not suspect palatine tonsillitis at this time. Results discussed with patient via freelance interpreter/translator and all questions answered. Instructed patient to follow-up with her oral maxillofacial surgeon. Return precautions discussed at bedside. Patient verbalized understanding of and agreement with plan. Differential Diagnosis Differential Diagnoses: The differential diagnosis associated with the presentation includes TMJ dysfunction mass malignancy esophageal narrowing Admission/Observation Consideration of admission/observation: Escalation of care including admission/observation considered Lab Data [facility] Lab Attestation statement: I reviewed the patient's lab results. As per [facility] 09/25/23 11:50 09/25/23 11:50 Labs: Lab Results 09/25/23 09/25/23 Range/Units 11:50 11:57 WBC 6.0 (4.8-10.8) X10*3/uL RBC 4.81 (4.20-5.50) X10*6/uL Hgb 13.7 (12.0-16.0) g/dl Hct 39.3 (37.0-47.0) % MCV 81.7 (80.0-98.0) fL MCH 28.5 (27.0-33.0) pg MCHC 34.9 (31.0-35.0) g/dl RDW 11.7 (11.0-16.0) % Plt Count 316 (160-400) X10*3/uL MPV 9.7 (9.4-12.3) fL Immature Gran % (Auto) 0.3 (0.0-0.4) % Neut % (Auto) 59.2 (45-73) % Lymph % (Auto) 33.8 (20-40) % [facility] % (Auto) 5.2 (2-11) % Eos % (Auto) 1.0 (0-4) % Baso % (Auto) 0.5 (0-2) % Lymph # (Auto) 2.0 (1.2-4.9) X10*3/uL [facility] # (Auto) 0.3 (0.1-1.2) X10*3/uL Eos # (Auto) 0.1 (0.0-0.4) X10*3/uL Baso # (Auto) 0.0 (0.0-0.2) X10*3/uL Abs Immat Gran (auto) 0.02 (0.00-0.03) X10*3/uL Absolute Neuts (auto) 3.5 (2.0-8.3) x10*3/uL Absolute Nucleated RBC 0.000 (0.0-0.012) X10*3/uL Nucleated RBC % (auto) 0.0 (0.0-0.2) /100WBC Sodium 139 (135-145) mmol/L Potassium 3.9 (3.3-5.1) mmol/L Chloride 110 H (96-108) mmol/L Carbon Dioxide 24 (22-29) mmol/L Anion Gap 9 L (12-20) BUN 11 (9-16) mg/dL Creatinine 0.76 (0.5-1.4) mg/dL Estim Creat Clear Calc 88.5 Estimated GFR > 60 Random Glucose 102 (60-115) mg/dL Calcium 9.3 (8.4-10.2) mg/dL Total Bilirubin 0.8 (0.0-1.0) mg/dL AST 14 (5-31) U/L ALT 16 (0-31) U/L Alkaline Phosphatase 57 (39-117) U/L Total Protein 7.4 (6.5-8.0) g/dL Albumin 4.3 (3.5-5.0) g/dL Lipase 24 (8-78) U/L Beta HCG, Quant < 2 mIU/mL Urine Color Yellow Urine Appearance Clear Urine pH 6.0 (5.0-9.0) Ur Specific [place] 1.020 (1.005-1.025) Urine Protein Negative (Neg-Trace) mg/dL Urine Glucose (UA) Negative (Negative) mg/dL Urine Ketones Negative (Negative) mg/dL Urine Blood Negative (Negative) Urine Nitrite Negative (Negative) Ur Leukocyte Esterase Trace H (Negative) Urine RBC 0-2 (0-2) /HPF Urine WBC 0-5 (0-5) /HPF Ur Squamous Epith Cells 3-5 (0-2) /HPF Urine Bacteria Trace (None Seen) Hyaline Casts 0-2 (0-2) /LPF Independent Interpretation I performed an independent interpretation of an: CT Scan Interpretation: Symmetric prominence of palatine tonsils bilaterally noted on CT soft tissue neck Radiology Impression Discussion of test interpretation with radiology: I have reviewed the radiologist's reading. Radiologist Impression: CT/CT soft tissue neck w IV con IMPRESSION: Symmetric prominence of the palatine tonsils bilaterally that could reflect the presence of palatine tonsillitis. There is no peritonsillar abscess. Discharge Plan Discharge Clinical Impression: Difficulty swallowing Patient Disposition: Home, Self-Care Additional Instructions: Hoy lo evaluaron en el departamento de emergencias por dificultad para tragar. [place] tomograf?a computarizada mostr? am?gdalas palatinas prominentes del por lo dem?s no fue nada especial. [place] un seguimiento con de la fuente cirujano maxilofacial o otorrinolaring?logo para oliver evaluaci?n y control adicionales de angelina s?ntomas. Regrese al departamento de emergencias si presenta dolor intenso, falta de aire o dificultad para respirar, no puede tragar de la fuente propia saliva, presenta fiebre de 100,4 ?F o m?s o cualquier otro s?ntoma preocupante. Prescriptions: No Action cyclobenzaprine 5 mg tablet 7.5 mg PO BEDTIME 30 Days Qty: 45 1RF cyclobenzaprine 10 mg tablet 10 mg PO TID PRN (Reason: muscle spasm) Qty: 20 0RF lidocaine 5 % adhesive patch,medicated 1 patch topical DAILY PRN (Reason: Pain) Rx Instructions: leave on most painful area for up to 12 hrs albuterol sulfate 2.5 mg /3 mL (0.083 %) solution for nebulization 2.5 mg inhalation Q6H PRN (Reason: wheezing) ibuprofen 400 mg tablet 400 mg PO Q6H PRN (Reason: moderate pain) albuterol sulfate [Ventolin HFA] 90 mcg/actuation HFA aerosol inhaler 2 puff inhalation Q4H PRN (Reason: wheezing) (ELIE) [facility] Spacer 1 ea MISCELLANEOUS Q4H naproxen 500 mg tablet 500 mg PO BID PRN (Reason: pain) Qty: 20 0RF carvedilol 3.125 mg tablet 3.125 mg PO BID Rx Instructions: must administer with a meal/food losartan 100 mg tablet 100 mg PO DAILY levothyroxine [Synthroid] 112 mcg tablet 112 mcg PO DAILY hydrocortisone [Proctosol HC] 2.5 % cream with perineal applicator 1 appl MT BID-QID PRN (Reason: hemorrhoids) Qty: 30 2RF fluticasone propionate 50 mcg/actuation spray,suspension 1 - 2 spray intranasal DAILY PRN acetaminophen 500 mg tablet 1,000 mg PO Q6H PRN (Reason: fever) cholecalciferol (vitamin D3) [Vitamin D3] 50 mcg (2,000 unit) tablet 50 mcg PO DAILY magnesium oxide 400 mg (241.3 mg magnesium) tablet 400 mg PO BEDTIME 30 Days Qty: 30 6RF Rx Instructions: may hold for loose stools sumatriptan succinate 100 mg tablet 50 - 100 mg PO .COMPLEX PRN (Reason: migraine headache) 30 Days Qty: 12 6RF Rx Instructions: 50 - 100 mg orally at onset of headache, may repeat in 2 hrs PRN; max 2 tabs per day or 4 tabs/week (may take with Ibuprofen) riboflavin (vitamin B2) 400 mg tablet 400 mg PO DAILY 30 Days Qty: 30 6RF sucralfate 1 gram tablet 1 g PO BEDTIME PRN (Reason: acid reflux) Qty: 30 2RF docusate sodium 100 mg capsule 100 mg PO BEDTIME Qty: 30 3RF topiramate 25 mg tablet 25 mg PO BEDTIME Qty: 30 6RF pantoprazole 40 mg tablet,delayed release (DR/EC) 40 mg PO DAILY Qty: 90 2RF Rx Instructions: take one tablet half an hour before breakfast sennosides [Natural Senna Laxative] 8.6 mg tablet 17.2 mg PO BEDTIME Qty: 180 3RF Stand Alone Forms: Work/School Release
[2023-09-25 11:55] LABS: MANUAL DIFF FLAG NO
[2023-09-25 12:00] LABS: Basophils Percent Auto 0.5 % (0-2); Eosinophils Absolute Auto 0.1 X10*3/uL (0.0-0.4); Hematocrit 39.3 % (37.0-47.0); Hemoglobin 13.7 g/dl (12.0-16.0); Imm Gran Abs Auto 0.02 X10*3/uL (0.00-0.03); Imm Gran Pct Auto 0.3 % (0.0-0.4); Lymphocytes Percent Auto 33.8 % (20-40); Mean Corpuscular HGB Conc 34.9 g/dl (31.0-35.0); Mean Corpuscular Hemoglobin 28.5 pg (27.0-33.0); Mean Corpuscular Volume 81.7 fL (80.0-98.0); Mean Platelet Volume 9.7 fL (9.4-12.3); Monocytes Absolute Auto 0.3 X10*3/uL (0.1-1.2); Monocytes Percent Auto 5.2 % (2-11); Neutrophils Absolute Auto 3.5 x10*3/uL (2.0-8.3); Neutrophils Percent Auto 59.2 % (45-73); Platelet Count 316 X10*3/uL (160-400); Red Blood Count 4.81 X10*6/uL (4.20-5.50); Red Cell Distribution Width 11.7 % (11.0-16.0)
[2023-09-25 12:06] LABS: Appearance Urine Clear; Color Urine Yellow; Glucose Urine UA Negative (Negative); Leukocyte Esterase Urine Trace (Negative); Nitrite Urine Negative (Negative); UMIC TRIGGER UACC YES; Urine Blood Negative (Negative); Urine Ketones Negative (Negative); Urine Protein Negative (Neg-Trace)
[2023-09-25 12:10] LABS: Bacteria Urine Trace (None Seen); Hyaline Casts Urine 0-2 /LPF (0-2); RBC Urine 0-2 /HPF (0-2); WBC Urine 0-5 /HPF (0-5)
[2023-09-25 12:25] LABS: Alanine Aminotransferase 16 U/L (0-31); Albumin Level 4.3 g/dL (3.5-5.0); Alkaline Phosphatase 57 U/L (39-117); Anion Gap 9 (12-20); Aspartate Amino Transferase 14 U/L (5-31); Bilirubin Total 0.8 mg/dL (0.0-1.0); Blood Urea Nitrogen 11 mg/dL (9-16); Calcium 9.3 mg/dL (8.4-10.2); Carbon Dioxide 24 mmol/L (22-29); Chloride 110 mmol/L (96-108); Creatinine Clr Calc Pharmacy 88.5; Estimated Glomerular Filt Rate > 60; Glucose Random 102 mg/dL (60-115); HCG Quantitative < 2 mIU/mL; Lipase 24 U/L (8-78); Potassium 3.9 mmol/L (3.3-5.1); Sodium 139 mmol/L (135-145); Total Protein 7.4 g/dL (6.5-8.0)
[2023-09-25 13:30] VITALS: BP 138/76; PULSE 88; RESP 16; TEMP 36.7; O2SAT 98
--- NOTE | 2023-09-25 13:42 | PC.NURSE ---
iv inserted, pt to ct scan
[2023-09-25] MEDS: iohexoL 350 MG/ML 100 ML INFUS..BTL IV (14:36)
[2023-09-25 16:26] VITALS: BP 132/77; PULSE 82; RESP 18; TEMP 36.7; O2SAT 98
== END 2023-09-25 16:34 | disposition home or self-care (01) ==
PROVIDERS: Physician Assistant; Emergency Provider Student in an Organized Health Care Education/Training Program; PCP Registered Nurse
DX: R51.9 Headache, unspecified (principal); R13.10 Dysphagia, unspecified; Z79.899 Other long term (current) drug therapy
CPT/HCPCS: 36415; 70491; 80053; 81001; 83690; 84702; 85025; 99284; Q9967

== ENCOUNTER → 2023-10-05 15:00 | Outpatient (BNV) | payer MEDICAID, SELFPAY | PROVIDERS: PCP Registered Nurse; Visit Provider Radiology Diagnostic Radiology | DX: N63.22 Unspecified lump in the left breast, upper inner quadrant (principal) | CPT/HCPCS: 77061; 77065 ==

== ENCOUNTER 2023-10-05 15:05 | Outpatient (REF) | payer MEDICAID, SELFPAY ==
--- NOTE | ~2023-10-05 | MM_ITS ---
EXAMINATION: MM DIAGNOSTIC DIGITAL BREAST TOMOSYNTHESIS, LEFT CLINICAL INFORMATION: Follow-up bilobed mass 11:00 axis left breast posterior one third, which has remained unchanged since 03/21/2022. 2 prior ultrasounds demonstrated no correlate, making this most likely a benign island of normal lobular tissue. Today will insure 1.5 years of stability if unchanged. COMPARISON: Mammography: 03/29/2023, 09/20/2022, 03/21/2022. Ultrasound: 03/29/2023 left, 03/21/2022 left. TECHNIQUE: Digital left breast tomosynthesis is performed in the following views: Full-field 3-D digital CC, MLO, and ML views. Computer-aided diagnosis was used for this study. Synthesized 2-D images are generated from the tomosynthesis. FINDINGS: The breasts are heterogeneously dense, which may obscure small masses (ACR BI-RADS breast composition Category c). In the 11:30 position of the far posterior left breast, there is a stable and unchanged bilobed circumscribed focal asymmetry/mass measuring 1.1 cm in diameter. This is entirely unchanged from prior exams in both size and morphology. This remains probably benign. Otherwise, there are no additional masses, suspicious grouped calcifications, or areas of architectural distortion in the left breast. The parenchymal pattern is stable from prior exams. MM/MM tomosynthesis diagnostic LT IMPRESSION: There are no significant changes from prior studies. No findings suspicious for malignancy left breast. Stable bilobed focal asymmetry at 11:30 o'clock with no correlate on prior ultrasound examinations. This is likely a benign island of breast tissue. Six-month interval follow-up mammography recommended to ensure stability of this probably benign finding, when the patient is due for bilateral screening, to establish a two-year stability/benignity. ASSESSMENT: BI-RADS BI-RADS 3 - Probably benign finding(s) - 6 month follow-up suggested RECOMMENDATION: 6 Month F/U Results were provided to the patient at time of visit by the technologist. This patient's information was entered into a reminder system with a target due date for their next mammogram.
== END 2023-10-05 15:06 | disposition home or self-care (01) ==
LOC: HO.MAMMO 15:05
PROVIDERS: PCP Registered Nurse; Visit Provider Registered Nurse
DX: N63.22 Unspecified lump in the left breast, upper inner quadrant (principal)
CPT/HCPCS: 77061; 77065

== ENCOUNTER 2023-10-22 16:00 | Outpatient (RCR) | payer MEDICAID, SELFPAY ==
--- NOTE | 2023-07-25 15:59 | MHC.PT.EP ---
[facility] [place] Office [place] Office [place] Office [address] Johnie Melgar [address] [phone] F: [phone] F: [phone] F: [phone] F: [phone] Physical Therapy Plan of Care Date of Evaluation: 07/25/23 Date of Surgery: N/A Diagnosis: bruxism (RL) Assessment: pt is a 38 y/o female presenting to physical therapy w/ referring diagnosis of bruxism. Her signs and symptoms are more consistent w/ TMJ dysfunction, cervicogenic DUVAL, and cervicogenic dizziness. Her nausea was reproduced w/ palpation to several cervical muscles. Impairments include pain, decreased range of motion, decreased strength, impaired functional mobility, impaired postural awareness, and altered ambulation mechanics. pt is a good candidate for skilled PT due to age, potential remediation of impairments, typical disease/condition progression and prognosis, comorbidities, and motivation. pt would benefit from skilled PT intervention to provide a tailored strengthening and stretching exercise program, functional training, gait training, postural re-training, neuromuscular re-education, modalities as needed for pain, equipment safety demonstration. Frequency and Duration: The patient will be seen 2x/wk for 4 wks Short Term Goals: pt will be I w/ HEP to promote self-management of condition. pt will demo proper sitting posture to promote neutral spine w/ seated ADLs. Public Health Epidemiologist Goals: pt will improve mouth opening to at least 3 cm to promote ease in chewing/eating. pt will report <2/10 B TMJ pain w/ chewing. Treatment Plan: Modalities to reduce pain, spasms and effusion. Manual therapy to restore motion and function. Therapeutic exercise to improve strength and flexibility. Neuromuscular re-education for posture and balance. Therapeutic activities to return to functional activities of daily living. Electronically signed by: Kimi Garcia PT, DPT Please sign and return to therapist. Thank you for your referral.
--- NOTE | 2023-11-19 15:26 | MHC.PT.DC ---
[facility] [place] Office [place] Office [place] Office [address] Johnie Melgar [address] [phone] F: [phone] F: [phone] F: [phone] F: [phone] Physical Therapy Discharge Report Diagnosis: bruxism (RL) Date of Surgery: N/A Date of Evaluation: 07/25/23 Date of Discharge: 11/19/23 Treatments to Date: 12 Cancellations to Date: 4 No Shows to Date: 3 Discharge Status: Improved Function Visit Non-compliance Discharge Summary: The patient overall continues has been reporting improved pain symptom severity; however, reports persistent bilateral jaw pain. She was reporting difficulty opening her mouth and swallowing at the time of her last attended appointment on 10/22/23. She has not attended any other appointments since then. She has a referral to an oral and maxillofacial surgeon soon. She was showing improved independence with her home exercise program, reduced cervical hypomobility, and muscular tension at time of last visit. Her current status is unknown. She is discharged from this physical therapy plan of care. Electronically signed by: Kimi Garcia PT, DPT Please sign and return to therapist. Thank you for your referral.
== END 2023-11-19 15:26 | disposition home or self-care (01) ==
LOC: HO.PT 16:00
PROVIDERS: PCP Registered Nurse; Visit Provider Psychiatry & Neurology Neurology
DX: F45.8 Other somatoform disorders (principal)
CPT/HCPCS: 97035; 97110; 97140; 97162

== ENCOUNTER 2024-02-13 13:43 | Outpatient (REF) | payer MEDICAID, SELFPAY ==
--- NOTE | ~2024-02-13 | FL_ITS ---
EXAMINATION: Modified Barium Swallow CLINICAL INFORMATION: Dysphagia COMPARISON: None TECHNIQUE: Modified barium swallow was performed under lateral fluoroscopy with patient in standing position. Barium mixed with solids and liquids of different consistencies was administered by the speech pathologist. Examination was recorded in the fluoroscopy suite. FINDINGS: No laryngeal penetration or aspiration was seen during this examination. FLUOROSCOPY TIME: 1 minute 50 seconds Number of Spot Images: N/A DOSE AREA PRODUCT: 588.8 uGy-m2 (microgray-meter squared) FL/FL barium swallow modified IMPRESSION: No laryngeal penetration or aspiration was seen during this examination. Refer to the speech therapy report for further clarification This procedure was performed by Dylon Grullon PA-C, and supervised by Dr. Ring
--- NOTE | 2024-02-15 14:30 | MHC.SL.IMP ---
Date of Plan of Treatment: 02/13/24 Onset of Symptoms/Illness: 09/17/23 Date Treatment Started: 02/13/24 Admitting Diagnosis: Trismus Primary Speech & Language Diagnosis: R13.11 Oral Phase Dysphagia Reason for Today's Visit: 23843 Modified Barium Swallow Study Pre-evaluation Dietary Consistencies: Regular Pre-evaluation Liquid Consistency: Thin Pre-evaluation Medication Administration: Whole with Liquid Medical History: Modified Barium Swallow Study Fluoroscopic Evaluation of Swallowing Function CPT Code 03383 Evaluation Year: 2023 Reason for Study: Patient reporting difficulty swallowing. Referring Physician: Jennifer Osullivan MD Evaluating Clinician: Gege Moy MA, CCC-SUPERIOR COURT JUDGE Study Number: 1 Patient Name: Janine Irby Status: Outpatient, Ambulatory Age: 38 Gender: Female Medical History Medical History Bruxism Snoring Hypertension Chest pain Surgical History H/O colonoscopy History of esophagogastroduodenoscopy (EGD) Hx of cholecystectomy H/O: hysterectomy H/O thyroidectomy Current (pre-evaluation) Intake/Diet: Route: PO Diet Grade: Regular Liquid Consistencies: Thin Pre-Study Functional Oral Intake Scale (FOIS): 7- Total oral intake with no restrictions Pain: None reported at time of study SUBJECTIVE: Patient is a 38 year old female referred for a modified barium swallow study (MBSS) by Jennifer Osullivan MD from the [facility]. Pertinent past medical history includes bruxism, TMJ dysfunction, and trismus, which was diagnosed after an MRI was ordered by a specialist at [facility], and treated by physical therapy here at [facility]. Patient is followed by oral surgery at [facility] as well. Patient had a prior barium swallow and endoscopy which were both negative. Patient reports difficulty chewing and needing to swallow with extra force in order to get food down. Food and Liquid Trials: Oral Impairment: Lip Closure: Did not test Oral Impairment: Tongue Control During Bolus Hold: 0=Cohesive bolus between tongue to palatal seal Oral Impairment: Bolus Preparation/Mastication: 1=Slow prolonged chewing/mashing with complete re-collection Oral Impairment: Bolus Transport/Lingual Motion: 0=Brisk tongue motion Oral Impairment: Oral Residue: 1=Trace residue lining oral structures Oral Impairment:Initiation of Pharyngeal Swallow: 2=Bolus head at posterior laryngeal surface of epiglottis Pharyngeal Impairment: Soft Palate Elevation: 0=No bolus between soft palate (SP)/pharyngeal wall (PW) Pharyngeal Impairment: Laryngeal Elevation: 0=Complete superior movement of thyroid cartilage (see description) Pharyngeal Impairment: Anterior Hyoid Excursion: 0=Complete anterior movement Pharyngeal Impairment: Epiglottic Movement: 0=Complete inversion Pharyngeal Impairment: Laryngeal Vestibular Closure:: 0=Complete: no air/contrast in laryngeal vestibule Pharyngeal Impairment: Pharyngeal Stripping Wave: 0=Present: complete Pharyngeal Impairment: Pharyngeal Contraction: Did not test Pharyngeal Impairment: Pharyngoesophageal Segment Openin=Complete distension and complete duration: no obstruction of flow Pharyngeal Impairment: Tongue Base (TB) Retraction: 0=No contrast between tongue base and posterior pharyngeal wall Pharyngeal Impairment: Pharyngeal Residue: 0=Complete pharyngeal clearance Pharyngeal Impairment: Esophageal Clearance Upright Position: Did not test Impressions and Recommendations Clinical Observations: OBJECTIVE: Time-out: performed at 14:45 Evaluation Start: 14:30; Stop: 14:35 Patient Positioning: Standing Viewing Planes: LAT & AP Contrast: MBSImP? Standardized Protocol using commercially prepared, standardized Barium viscosities, including: Varibar? THIN LIQUID (40% w/v, <15 cps) , 1/2 Shortbread Cookie (1 x1 x.25 ) MBSImP ID: [id number] [facility]: Lip closure for intraoral bolus containment could not be assessed due to logistical reasons not related to physiologic impairment. Tongue control during bolus hold maintained a cohesive bolus held between tongue to palate seal. Bolus preparation and mastication resulted in slow, prolonged chewing/mashing but with complete re-collection. Bolus transport/lingual motion was with brisk tongue motion. Oral residue was a trace, lining oral structures. Initiation of the pharyngeal swallow occurred as the bolus head was at the posterior laryngeal surface of the epiglottis. Soft palate elevation resulted in no bolus between the soft palate and the pharyngeal wall. Laryngeal elevation demonstrated complete superior movement of the thyroid cartilage with complete approximation of the arytenoids to the epiglottic petiole. Anterior hyoid excursion demonstrated complete anterior movement. Epiglottic movement resulted in complete inversion. Laryngeal vestibular closure was complete, as indicated by no air or contrast within the laryngeal vestibule at the height of the swallow. Pharyngeal stripping wave was present and complete. Pharyngeal contraction could not be determined due to logistical reasons not related to physiologic impairment. Pharyngoesophageal segment opening was completely distended for complete duration with no obstruction of bolus flow. Tongue base retraction allowed no contrast between the retracted tongue base and the posterior pharyngeal wall. Pharyngeal residue was not present. There was complete pharyngeal clearance. Esophageal clearance in the upright position could not be assessed due to logistical reasons not related to physiologic impairment. Oral Impairment Score: 3 (absence of score, component 1) Pharyngeal Impairment Score: 0 (absence of score, component 13) Esophageal Impairment Score: --- (absence of score, component 17) Laryngeal Penetration and Aspiration: Neither penetration nor aspiration was observed in today's study with Cookie, Thin. ASSESSMENT: Clinician Assessment: This exam was conducted by the radiologist and the speech pathologist. Patient was standing for lateral and AP views. She was able to feed herself without any difficulty and trialed the following liquid and solid consistencies: -Thin Liquid (via cup; individual sips and rapid sequential sips) -Puree (applesauce) -Regular Solid (shortbread cookie) Patient demonstrated good tongue control with no premature posterior spilling. Mastication was mildly slowed and prolonged, but resulted in good oral recollection. Brisk tongue motion noted. Pharyngeal swallow trigger initiated at the posterior laryngeal surface of the epiglottis. No evidence of nasopharyngeal reflux. Complete laryngeal elevation with complete epiglottic inversion. Good airway protection. No evidence of aspiration or penetration during this exam. There was complete pharyngeal clearance. Patient swallowed whole barium pill tablet with sips of water, which passed through the oral cavity, pharynx, and esophagus with no hang up. Liquid Intake Recommendation: Thin Liquid Intake Strategies: Unrestricted Dietary Recommendations: Regular Medication Administration: Whole with Liquid Please contact the pharmacy regarding appropriate crushable or liquid drug formulations that are available whenever modified delivery is recommended. Compensatory Strategies Recommended: Sitting Upright (90 deg), Small Bites and Sips. Alternate Liquids/Solids, Rate of Ingestion Change Supervision during eating and or drinking: None Needed Recommendation for Speech Therapy: Text Comment: PLAN: Intake Recommendations: Route: PO Diet Grade: Regular Liquid Consistencies: Thin Post-Study Functional Oral Intake Scale (FOIS): 7- Total oral intake with no restrictions No evidence of aspiration or penetration during this exam. Good oral and pharyngeal clearance. During the exam, patient complained she was getting fatigued while chewing solid food. Suggested Referrals: The patient might benefit from a referral to: General Physician, Physical Therapy Indication for Referral: Management of trismus PRN Therapy Recommendations: Therapy will be initiated Frequency per Week: 1 Number of Weeks: 1 Overall this exam was quite unremarkable. We did not see any evidence of penetration or aspiration. Patient evidenced good clearance of the oral cavity and the pharynx. Patient demonstrated a mildly prolonged period of mastication when consuming harder solids and did report feeling fatigued from chewing, which is likely secondary to her underlying trismus and TMJ dysfunction. To reduce fatigue at meal time, patient is recommended to take small bites, moisten foods with sauces and gravies, and alternate bites with sips of liquid. Additionally, patient may benefit from smaller, more frequent meals throughout the day; avoiding activities which may put additional stress on jaw muscles (i.e. chewing gum); and avoiding foods which are particularly hard or chewy. Patient is to be seen for follow-up with a speech pathologist at the request of the referring physician. Recommend 1 visit for continued patient education of MBSS results and these recommended behavioral strategies. Senior Care Goals: ? The patient and/or family will participate in further education for swallowing goals. Short Term Goals: ? Education - The patient will verbalize/demonstrate understanding of the results of this evaluation, the above recommendations, and the swallowing guidelines. Clinician - Supplemental, Miscellaneous Communication: It is important to note MBSS objective studies are snapshots in time and Patient function might vary with factors such as time of day or concomitant medical conditions. For this reason, the final treatment plan for this patient should rest with their medical care team. Additional recommendations should be considered with the totality of the Patient in mind. Thank for the opportunity to participate in the care of this patient. If you have any questions about the content of this report, please contact the Speech [facility] at [facility]. Education: Education regarding findings from today's study and plans for therapy were provided to Patient only through Verbal Instruction. Understanding was expressed by the Patient only Plastic Molder Clinician/Clinical Fellow: No Supervisory Statement: N/A Speech Language Pathologist: Gege Moy M.A., CCC-SUPERIOR COURT JUDGE
== END 2024-02-13 13:44 | disposition home or self-care (01) ==
LOC: HO.XRAY 13:43
PROVIDERS: PCP Registered Nurse; Visit Provider Internal Medicine
DX: R13.10 Dysphagia, unspecified (principal)
CPT/HCPCS: 74230; 92611; 99212

== ENCOUNTER → 2024-02-13 14:00 | Outpatient (BNV) | payer MEDICAID, SELFPAY | PROVIDERS: PCP Registered Nurse; Visit Provider Physician Assistant Surgical | DX: R13.10 Dysphagia, unspecified (principal) | CPT/HCPCS: 74230 ==

== ENCOUNTER 2024-02-13 14:45 | Outpatient (AMB) | payer MEDICAID, SELFPAY ==
--- NOTE | 2024-02-13 15:44 | MHC.OFFVIS ---
Vital Signs 02/13/24 15:45 Height 5 ft 1 in BP 116/78 Blood Pressure Location Rt brachial Position Sitting Pulse 72 Pulse Source Pulse Oximeter Pulse Oximetry (%) 98 Oxygen Delivery Method Room Air Intake Visit Reasons: 6 mo f/u for DUVAL and Bruxism -Conf Intake Note: Patient presents for 6 month follow up. Allergies No Known Allergies Allergy (Verified 02/13/24 15:54) Medication List - Last Reconciled 02/13/24 by MUNA Castanon acetaminophen 1,000 mg PO Q6H PRN albuterol sulfate 90 mcg/actuation (Ventolin HFA) 2 puffs inhalation Q4H PRN albuterol sulfate 2.5 mg inhalation Q6H PRN carvedilol 3.125 mg PO BID cholecalciferol (vitamin D3) (Vitamin D3) 50 mcg PO DAILY cyclobenzaprine 10 mg PO TID PRN cyclobenzaprine 7.5 mg (1.5 x 5 mg) PO BEDTIME 30 days docusate sodium 100 mg PO BEDTIME fluticasone propionate 50 mcg/actuation 1 - 2 sprays intranasal DAILY PRN hydrocortisone 2.5% (Proctosol HC) 1 appl IA BID-QID PRN ibuprofen 400 mg PO Q6H PRN inhalational spacing device ([facility] spacer) PRN levothyroxine (Synthroid) 112 mcg PO DAILY lidocaine 5% 1 patch topical DAILY PRN losartan 100 mg PO DAILY magnesium oxide 400 mg PO BEDTIME 30 days naproxen 500 mg PO BID PRN pantoprazole 40 mg PO DAILY riboflavin (vitamin B2) 400 mg PO DAILY 30 days sennosides (Natural Senna Laxative) 17.2 mg (2 x 8.6 mg) PO BEDTIME sucralfate 1 g PO BEDTIME PRN sumatriptan succinate 50 - 100 mg orally at onset of headache, may repeat in 2 hrs PRN; max 2 tabs per day or 4 tabs/week (may take with Ibuprofen) 30 days topiramate 25 mg PO BEDTIME HPI Comments Details: 38-yr-old female presents for f/u visit. Pt denies any significant interval medical changes. She wonders if there is a medication to prevent memory loss/dementia. Pt state she is having 3-4 strong migraine days per week. Pt states she has run out of her Sumatriptan which was previously helpful. Topiramate helps some but not fully. Still using cyclobenzaprine. Baseline headache characteristics: Severe Bilateral top of head. The headache is pressure and pain Associated symptoms? photophobia, phonophobia, osmophobia, nausea, internal dizziness, brain fog, fatigue, bilateral facial weakness. PFSH Medical History Bruxism Snoring Hypertension Chest pain Surgical History H/O colonoscopy History of esophagogastroduodenoscopy (EGD) Hx of cholecystectomy H/O: hysterectomy H/O thyroidectomy Family History Father Hypertension Hypercholesteremia Alzheimer disease Mother Diabetes Social History Alcohol intake: never Patient Tobacco Use Status: Never used Tobacco Second Hand Smoke Exposure: No Physical Exam Vital Signs: Last Vital Signs Pulse 72 02/13/24 15:45 BP 116/78 02/13/24 15:45 Pulse Ox 98 02/13/24 15:45 Oxygen Delivery Method Room Air 02/13/24 15:45 Const General: cooperative and no acute distress Orientation/consciousness: patient oriented x3 Resp Effort & Inspection: normal respiratory effort and able to speak in complete sentences Neuro General: patient oriented x3 Cranial nerves: Yes CN's II-XII intact bilaterally Cognition (Neuro): normal cognition Psych Appearance: grossly normal Mental Status: mental status grossly normal Speech and movement: Normal speech and movement present Affect: normal affect Attitude: cooperative Assessment & Plan Assessment & Plan (1) Migraine without aura: Code(s): G43.009 - Migraine without aura, not intractable, without status migrainosus Category: Medical (2) Bruxism: Code(s): F45.8 - Other somatoform disorders Category: Medical (3) Family history of Alzheimer's disease: Code(s): Z82.0 - Family history of epilepsy and other diseases of the nervous system Category: Medical (4) Memory difficulties: Code(s): R41.3 - Other amnesia Category: Medical Plan For concerns about risk for dementia d/t family h/o dementia: Request for neuropsych evaluation was denied by her insurance. Encouraged pt to increase physical activity, engage in regular cognitive and socially stimulating activities. ? For acute headache treatment: Continue Sumatriptan at onset of migraine. Previous acute migraine medication trials: OTC analgesics Acute migraine medication contraindications: None at this time ? For headache prevention medication: Continue Riboflavin 400mg qam Continue Magnesium 400mg qhs Increase Topiramate form 25mg qhs to 50mg qhs then 50mg bid. Continue Cyclobenzaprine 7.5mg qhs. Previous migraine prevention medication trials: Amitriptyline 25mg- ineffective, but 50mg caused dizziness. Migraine prevention medication contraindications: BBs d/t asthma dx. ? f/u in 3-4 months or sooner prn. Medications: Changed From topiramate 25 mg PO BEDTIME 30 tabs 6RF To topiramate 50 mg (2 x 25 mg) PO BID 30 days 120 tabs 6RF Refilled sumatriptan succinate (0.5 - 1 x 100 mg) 50 - 100 mg orally at onset of headache, may repeat in 2 hrs PRN; max 2 tabs per day or 4 tabs/week (may take with Ibuprofen) 30 days 12 tabs 6RF migraine headache magnesium oxide may hold for loose stools 400 mg PO BEDTIME 30 days 30 tabs 6RF riboflavin (vitamin B2) 400 mg PO DAILY 30 days 30 tabs 6RF cyclobenzaprine 7.5 mg (1.5 x 5 mg) PO BEDTIME 30 days 45 tabs 3RF Discontinued cyclobenzaprine Discontinued Reason: Duplicate 10 mg PO TID PRN 20 tabs 0RF muscle spasm Coding Level of Care Code Est Pt Level 4 (20895) Diagnoses Migraine without aura G43.009 Bruxism F45.8 Family history of Alzheimer's disease Z82.0 Memory difficulties R41.3
[2024-02-13 15:45] VITALS: BP 116/78; PULSE 72; O2SAT 98
== END 2024-02-13 16:21 | disposition home or self-care (01) ==
PROVIDERS: PCP Registered Nurse; Visit Provider Nurse Practitioner Family
DX: G43.009 Migraine without aura, not intractable, without status migrainosus (principal); F45.8 Other somatoform disorders; Z82.0 Family history of epilepsy and other diseases of the nervous system; R41.3 Other amnesia
CPT/HCPCS: 99214

== ENCOUNTER 2024-03-12 15:05 | Outpatient (AMB) | payer MEDICAID, SELFPAY ==
--- NOTE | 2024-03-12 15:06 | A.OFFVIS_ITS ---
Vital Signs 03/12/24 15:09 Height 5 ft 1 in Weight 153 lb 7.068 oz BMI 29.0 BP 108/56 L Blood Pressure Location Lt brachial Position Sitting Pulse 80 Pulse Source Pulse Oximeter Pulse Oximetry (%) 98 Oxygen Delivery Method Room Air Intake Visit Reasons: 6 month follow up Intake Note: Janine presents in office today for a scheduled 6 mos FUV. CC; Pt reports that they have been doing well since their last visit and deny any significant sx or concerns at this time. Pt does report needing a refill of their pantoprazole and their senna. Pt does not need any other refills at this time. Dubbing Machine Operator Required: Yes Dubbing Machine Operator Services: Dubbing Machine Operator Present Dubbing Machine Operator Name: [id number] Leanna Accompanied by: Family/Other Allergies No Known Allergies Allergy (Verified 03/12/24 15:07) HPI HPI 6 month follow up: Details: LAST VISIT: Nausea IBS (irritable bowel syndrome) GERD (gastroesophageal reflux disease) Constipation Plan Patient can continue taking pantoprazole in the morning. Patient reports that she is only taking sucralfate on as needed basis. Discussed with patient avoiding dietary triggers late night snacking. Staying upright for minimum 3 hours after meals discussed with patient. Patient can continue taking Senokot daily. I will see her in 6 months, sooner on as needed basis. Patient is agreeable to this plan and verbalizes understanding of instructions. She was given the opportunity to ask questions and all questions answered. ? Thank you for allowing me to participate in her care Medications Refilled sennosides (Natural Senna Laxative) 17.2 mg (2 x 8.6 mg) PO BEDTIME 180 tabs 3RF constipation K59.00 pantoprazole take one tablet half an hour before breakfast 40 mg PO DAILY 90 tabs 2RF K21.9 TODAY'S VISIT: Patient is here today for follow-up. Patient reports that she has been feeling better, however occasionally she still have acid reflux. Patient reports epigastric pain occasionally depending on what she eats. Patient takes pantoprazole daily and states that her symptoms are suppressed for the most part. Patient denies any symptoms at night time. Denies any nausea or vomiting. Denies dyspepsia, reports occasional dysphagia. Patient denies any melena, hematochezia. Patient is moving her bowels well, taking Senokot daily. [facility] Medical History Bruxism Snoring Hypertension Chest pain Surgical History H/O colonoscopy History of esophagogastroduodenoscopy (EGD) Hx of cholecystectomy H/O: hysterectomy H/O thyroidectomy Family History Father Hypertension Hypercholesteremia Alzheimer disease Mother Diabetes Social History Alcohol intake: never Patient Tobacco Use Status: Never used Tobacco Second Hand Smoke Exposure: No Review of Systems Const Denies weight gain and Denies weight loss ENT Reports no additional complaints, Reports dysphagia (Occasional) and Denies odynophagia Card Reports no additional complaints Resp Reports no additional complaints GI Denies abdominal pain, Denies belching, Denies melena, Denies bloating, Denies change in bowel habits, Denies constipation, Reports dysphagia (Occasional), Denies excessive flatus, Denies dyspepsia, Reports heartburn, Denies diarrhea, Denies loose stools, Denies nausea, Denies odynophagia and Denies vomiting Reports no additional complaints Musc Reports no additional complaints Neuro Reports no additional complaints Psych Reports no additional complaints Endo Reports no additional complaints Physical Exam Vital Signs: Last Vital Signs Pulse 80 03/12/24 15:09 BP 108/56 L 03/12/24 15:09 Pulse Ox 98 03/12/24 15:09 Oxygen Delivery Method Room Air 03/12/24 15:09 BMI result Body Mass Index 29.0 Const General: healthy appearing and no acute distress Nutritional Appearance: obese Orientation/consciousness: patient oriented x3 HEENT Head: Yes normal to inspection, Yes normocephalic and Yes atraumatic Face and sinus: Yes normal facial exam Mouth: Normal oral and palatal mucosa present Throat: Yes posterior oropharynx normal, Yes tonsils normal and Yes uvula midline Eyes General: appearance normal, both eyes and all related structures Neck Neck: Yes normal visual inspection, Yes full ROM and Yes trachea midline Thyroid: Thyroid normal Resp Effort & Inspection: normal respiratory effort, able to speak in complete sentences, no tracheal deviation and symmetric chest movement Auscultation: clear to auscultation bilaterally Cardio Rate: regular rate Heart sounds: S1 normal heart sound present and S2 normal heart sound present GI Inspection: Yes normal to inspection, No distended and Yes obesity Palpation (GI): Soft to palpation, not firm, nontender and No hepatosplenomegaly present Auscultation: normal bowel sounds General: Yes no CVA tenderness Back/Spine/Pelvis Back: no CVA tenderness Skin General skin exam: elasticity normal, turgor normal and dry skin Neuro General: patient oriented x3 Psych Appearance: grossly normal Mental Status: mental status grossly normal Assessment & Plan Assessment & Plan (1) IBS (irritable bowel syndrome): Code(s): K58.9 - Irritable bowel syndrome without diarrhea Qualifiers: Irritable bowel syndrome type: without diarrhea Qualified Code(s): K58.9 - Irritable bowel syndrome without diarrhea (2) GERD (gastroesophageal reflux disease): Code(s): K21.9 - Gastro-esophageal reflux disease without esophagitis Qualifiers: Esophagitis presence: esophagitis presence not specified Qualified Code(s): K21.9 - Gastro-esophageal reflux disease without esophagitis (3) Constipation: Code(s): K59.00 - Constipation, unspecified Qualifiers: Constipation type: slow transit constipation Qualified Code(s): K59.01 - Slow transit constipation Plan Continue avoiding dietary triggers. Continue taking pantoprazole daily. Take Senokot. Increase fluid intake and activity to promote better bowel motility. Patient reports occasional acid reflux occasional epigastric pain will send patient for upper GI series with barium swallow. Follow-up in 6 months, sooner on as needed basis. Patient is agreeable to this plan and verbalizes understanding of instructions. She was given the opportunity to ask questions and all questions answered. Thank you for allowing me to participate in her care Orders: Orders FL upper GI w Ba Swallow 03/12/24 R13.10 - Dysphagia, unspecified Medications: Refilled pantoprazole take one tablet half an hour before breakfast 40 mg PO DAILY 90 tabs 2RF K21.9 - Gastro-esophageal reflux disease without esophagitis sennosides (Natural Senna Laxative) 17.2 mg (2 x 8.6 mg) PO BEDTIME 180 tabs 3RF constipation K59.00 - Constipation, unspecified Coding Level of Care Code Est Pt Level 3 (84533) Diagnoses Irritable bowel syndrome without diarrhea K58.9 Irritable bowel syndrome type: without diarrhea Gastroesophageal reflux disease, unspecified whether esophagitis present K21.9 Esophagitis presence: esophagitis presence not specified Slow transit constipation K59.01 Constipation type: slow transit constipation Time Spent (min) 25 Comment 15 minutes spent with patient and additional 10 minutes spent reviewing her records
[2024-03-12 15:09] VITALS: BP 108/56; PULSE 80; O2SAT 98; BMI 29.0
== END 2024-03-12 15:40 | disposition home or self-care (01) ==
PROVIDERS: PCP Registered Nurse; Visit Provider Nurse Practitioner Family
DX: K58.9 Irritable bowel syndrome, unspecified (principal); K21.9 Gastro-esophageal reflux disease without esophagitis; K59.01 Slow transit constipation
CPT/HCPCS: 99213

== ENCOUNTER → 2024-03-12 15:05 | Outpatient (BNVA) | payer MEDICAID, SELFPAY | PROVIDERS: PCP Registered Nurse; Visit Provider Nurse Practitioner Family | DX: K21.9 Gastro-esophageal reflux disease without esophagitis (principal); K59.00 Constipation, unspecified | CPT/HCPCS: 99212 ==

== ENCOUNTER 2024-04-09 14:28 | Outpatient (REF) | payer MEDICAID, SELFPAY ==
--- NOTE | ~2024-04-09 | MM_ITS ---
EXAMINATION: MM DIAGNOSTIC DIGITAL BREAST TOMOSYNTHESIS, BILATERAL CLINICAL INFORMATION: Follow-up bilobed mass 11:00 axis left breast posterior one third, which has remained unchanged since 03/21/2022. 2 prior ultrasounds demonstrated no correlate, making this most likely a benign island of normal lobular tissue. Today will ensure 2 years of stability if unchanged. COMPARISON: Mammography: 10/05/2023, 03/29/2023, 09/20/2022, 03/21/2022 (BI-RADS 3). Ultrasound: 03/29/2023 left, 03/21/2022 left. TECHNIQUE: Digital breast tomosynthesis is performed in both the craniocaudal and mediolateral oblique views along with computer-aided detection (CAD). Synthesized 2D images are generated from the tomosynthesis. FINDINGS: The breasts are heterogeneously dense, which may obscure small masses (ACR BI-RADS breast composition Category c). In the 11:30 o'clock position of the far posterior left breast, there are stable and unchanged bilobed circumscribed focal asymmetry/mass measuring 1.1 cm in diameter. This is entirely unchanged from prior exams in both size and morphology. This is benign, stable over 2 years, consistent with an island of normal parenchymal tissue. Calcifications noted left greater than right in the retroareolar and upper breasts, anterior one third, has remained stable as well since 03/21/2022. These are benign. Otherwise, there are no suspicious masses, developing suspicious grouped calcifications, or areas of architectural distortion in either breast. The parenchymal pattern is stable from prior exams. There is no skin or axillary abnormality. MM/MM tomosynthesis diagnostic BI IMPRESSION: -There are no findings suspicious for malignancy in either breast. Stable examination. -There are benign findings as detailed above, stable over 2 years. No further follow-up recommended. -Recommend the patient return to routine annual screening in one year. ASSESSMENT: BI-RADS BI-RADS 2 - Benign Findings RECOMMENDATION: 1 year F/U Results were provided to the patient at time of visit by the technologist. This patient's information was entered into a reminder system with a target due date for their next mammogram. Electronically signed by: Valdemar Ring MD 04/09/2024 03:28 PM EDT
== END 2024-04-09 14:29 | disposition home or self-care (01) ==
LOC: HO.MAMMO 14:28
PROVIDERS: PCP Internal Medicine; Visit Provider Registered Nurse
DX: N63.22 Unspecified lump in the left breast, upper inner quadrant (principal)
CPT/HCPCS: 77062; 77066

== ENCOUNTER → 2024-04-09 14:30 | Outpatient (BNV) | payer MEDICAID, SELFPAY | PROVIDERS: PCP Internal Medicine; Visit Provider Radiology Diagnostic Radiology | DX: N63.22 Unspecified lump in the left breast, upper inner quadrant (principal) | CPT/HCPCS: 77062; 77066 ==

== ENCOUNTER 2024-04-23 09:52 | Outpatient (REF) | payer MEDICAID, SELFPAY ==
--- NOTE | ~2024-04-23 | FL_ITS ---
EXAMINATION: XR FLUOROSCOPY UPPER GI WITH AIR CLINICAL INFORMATION: Dysphagia. History of thyroidectomy. COMPARISON: Upper GI May 2022 TECHNIQUE: Fluoroscopic air contrast upper GI examination was performed utilizing standard techniques with thin and thick barium and effervescent granules. Numerous spot images were obtained. FINDINGS: Lateral cine images of the oropharynx and hypopharynx demonstrate normal swallow mechanism with normal epiglottic inversion and soft palate elevation. No tracheal penetration, glottic or subglottic aspiration identified. No nasopharyngeal reflux present. Hypopharyngeal structures appear normal without evidence of mass or diverticulum. There is mild cricopharyngeal achalasia present. Dual and single contrast images of the esophagus demonstrate normal caliber, contour, and mucosal pattern. No evidence of stricture, mass, or ulcerations identified. There is mild narrowing of the GE junction. Esophageal peristalsis is mildly disorganized. Cholecystectomy clips are present. A small type I hiatal hernia is present. No significant gastroesophageal reflux was seen during the course of the examination and on reflux views. Dual contrast and single contrast images of the stomach demonstrated a normal contour. The gastric rugal folds have a thickened appearance, suggestive of gastritis. There are multiple well-circumscribed filling defects in the body the stomach that likely represents small hyperplastic polyps. Contrast freely passed into the gastric antrum and duodenal bulb without delay. Single and air-contrast images of the duodenal bulb demonstrate no abnormality. The duodenal sweep has a normal appearance, course, and mucosal fold appearance. The imaged proximal jejunum has a normal fold pattern and caliber. FLUOROSCOPY TIME: 3 minutes 13 seconds DOSE AREA PRODUCT: 1552 uGy-m2 (microgray-meter squared) FL/FL upper GI w Ba Swallow IMPRESSION: 1. Mild cricopharyngeal achalasia. 2. Mildly disorganized esophageal peristalsis. 3. Mild narrowing of the GE junction that may represent achalasia, or benign stricture. Recommend correlation with EGD. 4. Small type I hiatal hernia. 5. Thickened appearance of the gastric rugal folds, suggestive of gastritis. 6. Multiple well-circumscribed filling defects in the body the stomach that likely represent small hyperplastic polyps. Recommend correlation of EGD. This procedure was performed by Dylon Grullon PA-C, and supervised by Dr. Ring Electronically signed by: Valdemar Ring MD 04/23/2024 03:05 PM EDT
== END 2024-04-23 09:53 | disposition home or self-care (01) ==
LOC: HO.XRAY 09:52
PROVIDERS: PCP Internal Medicine; Visit Provider Internal Medicine
DX: R13.10 Dysphagia, unspecified (principal)
CPT/HCPCS: 74240

== ENCOUNTER → 2024-04-23 09:54 | Outpatient (BNV) | payer MEDICAID, SELFPAY | PROVIDERS: PCP Internal Medicine; Visit Provider Radiology Diagnostic Radiology | DX: R13.10 Dysphagia, unspecified (principal) | CPT/HCPCS: 74246 ==

== ENCOUNTER 2024-05-27 13:45 | Outpatient (AMB) | payer MEDICAID, SELFPAY ==
[2024-05-27 13:51] VITALS: BP 116/66; PULSE 70; O2SAT 98; BMI 28.3
--- NOTE | 2024-05-27 13:51 | MHC.OFFVIS ---
Vital Signs 05/27/24 13:51 Height 5 ft 1 in Weight 149 lb 14.629 oz BMI 28.3 BP 116/66 Blood Pressure Location Rt brachial Position Sitting Pulse 70 Pulse Source Pulse Oximeter Pulse Oximetry (%) 98 Oxygen Delivery Method Room Air Intake Visit Reasons: FUV, discuss EGD Intake Note: PRESCRIPTIONS LAST GENERATED sennosides 8.6 mg tablet?(Natural Senna Laxative)?17.2 mg (2 x 8.6 mg) PO BEDTIME 180 tabs 3RF Pamela Luciano D 03/12/24 15:30 (Transmitted) Relevant Flags or Indicators ? Requires Natural Resource Specialist? Kary Mehta presents in office today for a scheduled ~ 4-5 mos FUV. Pt is here to discuss EGD. CC; No recent labs. Pt reports that they recently completed [place] [facility] Relevant GI Sx as reported per pt? Nausea ? Reflux ? Dysphagia / Painful Swallowing ? Abdominal Pain o?? Upper B/L. Very mild pain. ? Bloating ? Hx of any recent surgeries? None Natural Resource Specialist Required: Yes Natural Resource Specialist Services: Natural Resource Specialist Present Natural Resource Specialist Name: [id number] Puentes Information Interpreted: non-clinical & clinical Allergies No Known Allergies Allergy (Verified 06/11/24 15:49) HPI HPI FUV, discuss EGD: Details: LAST VISIT: IBS (irritable bowel syndrome) GERD (gastroesophageal reflux disease) Constipation Plan Continue avoiding dietary triggers. Continue taking pantoprazole daily. Take Senokot. Increase fluid intake and activity to promote better bowel motility. Patient reports occasional acid reflux occasional epigastric pain will send patient for upper GI series with barium swallow. Follow-up in 6 months, sooner on as needed basis. Patient is agreeable to this plan and verbalizes understanding of instructions. She was given the opportunity to ask questions and all questions answered. ? Thank you for allowing me to participate in her care Orders Orders FL upper GI w Ba Swallow 03/12/24 R13.10 Medications Refilled pantoprazole take one tablet half an hour before breakfast 40 mg PO DAILY 90 tabs 2RF K21.9 sennosides (Natural Senna Laxative) 17.2 mg (2 x 8.6 mg) PO BEDTIME 180 tabs 3RF constipation K59.00 TODAY'S VISIT Patient is here today for follow-up and to discuss upper GI series results. Abnormal findings of possible cricopharyngeal achalasia with disorganized esophageal motility and possible narrowing at the GE junction seen on the study. Patient will be book for upper endoscopy. Patient continues to feel nauseous, continues with dysphagia and dyspepsia. States that Nexium has been working better than other PPIs. She continues to take sucralfate. Patient reports that she is moving her bowels, however does not feel like she empties them completely. [facility] Medical History Bruxism Snoring Hypertension Chest pain Surgical History H/O colonoscopy History of esophagogastroduodenoscopy (EGD) Hx of cholecystectomy H/O: hysterectomy H/O thyroidectomy Family History Father Hypertension Hypercholesteremia Alzheimer disease Mother Diabetes Social History Are you a primary child care centre director to a significant other at home: No Do you presently have visiting nurse or other home services: No Alcohol intake: never Patient Tobacco Use Status: Never used Tobacco Second Hand Smoke Exposure: No Review of Systems Const Denies weight gain and Denies weight loss ENT Reports no additional complaints, Reports dysphagia (Occasional) and Denies odynophagia Card Reports no additional complaints Resp Reports no additional complaints GI Denies abdominal pain, Denies belching, Denies melena, Denies bloating, Denies change in bowel habits, Reports constipation, Reports dysphagia (Occasional), Denies excessive flatus, Denies dyspepsia, Reports heartburn, Denies diarrhea, Denies loose stools, Denies nausea, Denies odynophagia and Denies vomiting Reports no additional complaints Musc Reports no additional complaints Neuro Reports no additional complaints Psych Reports no additional complaints Endo Reports no additional complaints Physical Exam Vital Signs: Last Vital Signs Pulse 70 05/27/24 13:51 BP 116/66 05/27/24 13:51 Pulse Ox 98 05/27/24 13:51 Oxygen Delivery Method Room Air 05/27/24 13:51 BMI result Body Mass Index 28.3 Const General: healthy appearing and no acute distress Nutritional Appearance: obese Orientation/consciousness: patient oriented x3 HEENT Head: Yes normal to inspection, Yes normocephalic and Yes atraumatic Face and sinus: Yes normal facial exam Mouth: Normal oral and palatal mucosa present Throat: Yes posterior oropharynx normal, Yes tonsils normal and Yes uvula midline Eyes General: appearance normal, both eyes and all related structures Neck Neck: Yes normal visual inspection, Yes full ROM and Yes trachea midline Thyroid: Thyroid normal Resp Effort & Inspection: normal respiratory effort, able to speak in complete sentences, no tracheal deviation and symmetric chest movement Auscultation: clear to auscultation bilaterally Cardio Rate: regular rate Heart sounds: S1 normal heart sound present and S2 normal heart sound present GI Inspection: Yes normal to inspection, No distended and Yes obesity Palpation (GI): Soft to palpation, not firm, nontender and No hepatosplenomegaly present Auscultation: normal bowel sounds General: Yes no CVA tenderness Back/Spine/Pelvis Back: no CVA tenderness Skin General skin exam: elasticity normal, turgor normal and dry skin Neuro General: patient oriented x3 Psych Appearance: grossly normal Mental Status: mental status grossly normal Results Reviewed Results Reviewed: UPPER GI WITH BARIUM SWALLOW IMPRESSION: 1. Mild cricopharyngeal achalasia. 2. Mildly disorganized esophageal peristalsis. 3. Mild narrowing of the GE junction that may represent achalasia, or benign stricture. Recommend correlation with EGD. 4. Small type I hiatal hernia. 5. Thickened appearance of the gastric rugal folds, suggestive of gastritis. 6. Multiple well-circumscribed filling defects in the body the stomach that likely represent small hyperplastic polyps. Recommend correlation of EGD. Assessment & Plan Assessment & Plan (1) IBS (irritable bowel syndrome): Code(s): K58.9 - Irritable bowel syndrome, unspecified Qualifiers: Irritable bowel syndrome type: without diarrhea Qualified Code(s): K58.9 - Irritable bowel syndrome, unspecified (2) GERD (gastroesophageal reflux disease): Code(s): K21.9 - Gastro-esophageal reflux disease without esophagitis Qualifiers: Esophagitis presence: esophagitis presence not specified Qualified Code(s): K21.9 - Gastro-esophageal reflux disease without esophagitis (3) Constipation: Code(s): K59.00 - Constipation, unspecified Qualifiers: Constipation type: slow transit constipation Qualified Code(s): K59.01 - Slow transit constipation (4) Nausea: Code(s): R11.0 - Nausea (5) Dysphagia: Code(s): R13.10 - Dysphagia, unspecified Qualifiers: Dysphagia type: pharyngoesophageal phase Qualified Code(s): R13.14 - Dysphagia, pharyngoesophageal phase (6) Postprandial epigastric pain: Code(s): R10.13 - Epigastric pain (7) Postprandial abdominal bloating: Code(s): R14.0 - Abdominal distension (gaseous) Plan As mentioned above in HPI patient had abnormal upper GI series and this is the reason for her visit to discuss going for upper endoscopy. Patient will be sent to surgical schedulers to book the procedure. Patient continues to have dysphagia. Possible dilation will be performed. She can continue taking Nexium every morning half an hour before breakfast. Continue sucralfate at bedtime. Patient will avoid dietary triggers and late night snacking. Staying upright for minimum 3 hours after meals discussed with patient. Patient reports nausea can take Zofran on as needed basis. Script for Linzess will be sent as patient is complaining of feeling constipated. I will see patient after the procedure, sooner on as needed basis. She is agreeable to this plan and verbalizes understanding of instructions. She was given the opportunity to ask questions and all questions answered. Thank you for allowing me to participate in her care Medications: New linaclotide (Linzess) 145 mcg PO DAILY 30 caps 4RF K59.04 - Chronic idiopathic constipation ondansetron 4 mg PO Q8H PRN 20 tabs 0RF nausea and vomiting R11.0 - Nausea Coding Level of Care Code Est Pt Level 4 (74511) Diagnoses Irritable bowel syndrome without diarrhea K58.9 Irritable bowel syndrome type: without diarrhea Gastroesophageal reflux disease, unspecified whether esophagitis present K21.9 Esophagitis presence: esophagitis presence not specified Slow transit constipation K59.01 Constipation type: slow transit constipation Nausea R11.0 Pharyngoesophageal dysphagia R13.14 Dysphagia type: pharyngoesophageal phase Postprandial epigastric pain R10.13 Postprandial abdominal bloating R14.0 Time Spent (min) 40 Comment 25 minutes spent with patient and additional 15 minutes spent reviewing her records
== END 2024-05-27 14:39 | disposition home or self-care (01) ==
LOC: HO.HGI 13:45
PROVIDERS: PCP Internal Medicine; Visit Provider Nurse Practitioner Family
DX: K58.9 Irritable bowel syndrome, unspecified (principal); K21.9 Gastro-esophageal reflux disease without esophagitis; K59.01 Slow transit constipation; R11.0 Nausea; R13.14 Dysphagia, pharyngoesophageal phase; R10.13 Epigastric pain; R14.0 Abdominal distension (gaseous)
CPT/HCPCS: 99214

== ENCOUNTER → 2024-05-27 13:45 | Outpatient (BNVA) | payer MEDICAID, SELFPAY | PROVIDERS: PCP Internal Medicine; Visit Provider Nurse Practitioner Family | DX: K21.9 Gastro-esophageal reflux disease without esophagitis (principal); K58.1 Irritable bowel syndrome with constipation; K59.01 Slow transit constipation; R11.0 Nausea; R13.14 Dysphagia, pharyngoesophageal phase; R10.13 Epigastric pain; R14.0 Abdominal distension (gaseous) | CPT/HCPCS: 99212 ==

== ENCOUNTER 2024-05-29 12:56 | Day surgery (SDC) | payer MEDICAID, SELFPAY ==
--- NOTE | 2024-05-29 13:28 | MHC.SHP ---
Pre-Procedural Eval Section A - 24 Hr Update-Section A only Date of Service: 05/29/24 Section B - Complete if H&P > 30 days Chief Complaint: gerd,dysphagia Relevant Family History (Specify if Yes): No Relevant Social History: None Present Medications: see Short Stay Collaborative assessment Medical History: Significant History (Bruxism Snoring Hypertension Chest pain) History of Previous Operations: Relevant previous surgery/procedure and date(s) (H/O colonoscopy History of esophagogastroduodenoscopy (EGD) Hx of cholecystectomy H/O: hysterectomy H/O thyroidectomy) Allergies: Allergies Allergy/AdvReac Type Severity Reaction Status Date / Time No Known Allergies Allergy Verified 05/27/24 13:51 Review of Systems Sugical H&P ROS: Negative: Constitution, Cardiovascular, Respiratory, Neurological, Psychiatric, Hem-Onc, Allergic/Immunologic, Gastrointestinal, Genitourinary, Musculoskeletal, Integumentary, Endocrine and Eyes/Ears/Nose/Throat Exam Surgical H&P Exam: Normal: HEENT, Normal: Heart, Normal: Lungs, Normal: Extremities, Normal: Abdomen, Normal: Skin and Normal: Neurological Plan Diagnosis/Plan: Unchanged I have reviewed the history and physical and performed a pertinent physical examination on my patient. No changes have occurred unless specified. Time Spent With Patient Time: Total time managing care of this patient today ____ minutes.
[2024-05-29 13:54] VITALS: BP 130/71; PULSE 70; RESP 12; TEMP 36.8; O2SAT 99
[2024-05-29 13:57] VITALS: BMI 28.5
[2024-05-29] MEDS: Lactated Ringers 1,000 ML 100 ML IVCONT (14:01)
--- NOTE | 2024-05-29 14:05 | P.CONAN_ITS ---
Documented by User: Ally Champion NP 05/28/24 10:08 HPI - Anesthesia Eval Consult details Narrative: 39yo F for Upper Endoscopy with Balloon Dilitation PMFSH Active Problems Active Problems: All Active Problems Bruxism (Acute) Snoring (Acute) Migraine without aura (Acute) Family history of Alzheimer's disease (Acute) Memory difficulties (Acute) Left arm pain (Acute) Left shoulder pain (Acute) Lipoma of anterior chest wall (Acute) Precordial chest pain (Acute) Essential hypertension (Acute) Past Medical History Medical History Bruxism Snoring Hypertension Chest pain Family History Family History Father Hypertension Hypercholesteremia Alzheimer disease Mother Diabetes Family history of problems with anesthesia: No Surgical History Surgical History H/O colonoscopy History of esophagogastroduodenoscopy (EGD) Hx of cholecystectomy H/O: hysterectomy H/O thyroidectomy History of Problems with Anesthesia: No Social History Social History Are you a primary career development director to a significant other at home: No Do you presently have visiting nurse or other home services: No Alcohol intake: never Patient Tobacco Use Status: Never used Tobacco Second Hand Smoke Exposure: No Use of substances other than those prescribed or required for medical reasons: No Have you been hit, kicked, punched, or otherwise hurt by someone within the past year? If so, by whom?: No Are you DNR?: No Advance Directives: No Advance Directives Information Provided: Yes Recently lost weight without trying: No Nutrition Risks: No Nutritional Risk Patient : No Meds Allergies Allergy/AdvReac Type Severity Reaction Status Date / Time No Known Allergies Allergy Verified 05/29/24 13:50 Home Medications ?Medication ?Instructions ?Recorded ?Confirmed ?Last Taken ?Type carvedilol 3.125 mg tablet 3.125 mg PO BID 06/21/21 02/13/24 02/10/22 History levothyroxine 112 mcg tablet 112 mcg PO DAILY 06/21/21 05/29/24 05/29/24 History (Synthroid) losartan 100 mg tablet 100 mg PO DAILY 06/21/21 02/13/24 Unknown History cholecalciferol (vitamin D3) 50 50 mcg PO DAILY 11/01/21 02/13/24 Unknown History mcg (2,000 unit) tablet (Vitamin D3) acetaminophen 500 mg tablet 1,000 mg PO Q6H PRN fever 02/24/22 02/13/24 Unknown History fluticasone propionate 50 1 - 2 spray intranasal DAILY PRN 02/24/22 02/13/24 Unknown History mcg/actuation nasal spray,suspension albuterol sulfate 2.5 mg/3 mL 2.5 mg inhalation Q6H PRN wheezing 07/15/23 02/13/24 Unknown History (0.083 %) solution for nebulization albuterol sulfate 90 mcg/actuation 2 puff inhalation Q4H PRN wheezing 07/15/23 02/13/24 Unknown History aerosol inhaler (Ventolin HFA) ibuprofen 400 mg tablet 400 mg PO Q6H PRN moderate pain 07/15/23 02/13/24 Unknown History inhalational spacing device 07/15/23 02/13/24 Unknown History (Tate Baut[facility] spacer) lidocaine 5 % topical patch 1 patch topical DAILY PRN Pain 07/15/23 02/13/24 Unknown History amitriptyline 25 mg tablet 25 mg PO BEDTIME 03/12/24 Unknown History blood pressure test kit-large #1 ea 03/12/24 Unknown History Assessment and Plan Assessment Anesthesia Assessment: Chart Reviewed Final Anesthetic Review Family History of Problems with Anesthesia: No History of Problems with Anesthesia: No Documented by User: Jennifer Meza DO 05/29/24 14:10 [facility] Past Medical History Medical History Bruxism Snoring Hypertension Chest pain Family History Family History Father Hypertension Hypercholesteremia Alzheimer disease Mother Diabetes Family history of problems with anesthesia: No Surgical History Surgical History H/O colonoscopy History of esophagogastroduodenoscopy (EGD) Hx of cholecystectomy H/O: hysterectomy H/O thyroidectomy History of Problems with Anesthesia: No Social History Social History Are you a primary career development director to a significant other at home: No Do you presently have visiting nurse or other home services: No Alcohol intake: never Patient Tobacco Use Status: Never used Tobacco Second Hand Smoke Exposure: No Use of substances other than those prescribed or required for medical reasons: No Have you been hit, kicked, punched, or otherwise hurt by someone within the past year? If so, by whom?: No Are you DNR?: No Advance Directives: No Advance Directives Information Provided: Yes Recently lost weight without trying: No Nutrition Risks: No Nutritional Risk Patient : No Meds Allergies Allergy/AdvReac Type Severity Reaction Status Date / Time No Known Allergies Allergy Verified 05/29/24 13:50 Home Medications ?Medication ?Instructions ?Recorded ?Confirmed ?Last Taken ?Type carvedilol 3.125 mg tablet 3.125 mg PO BID 06/21/21 02/13/24 02/10/22 History levothyroxine 112 mcg tablet 112 mcg PO DAILY 06/21/21 05/29/24 05/29/24 History (Synthroid) losartan 100 mg tablet 100 mg PO DAILY 06/21/21 02/13/24 Unknown History cholecalciferol (vitamin D3) 50 50 mcg PO DAILY 11/01/21 02/13/24 Unknown History mcg (2,000 unit) tablet (Vitamin D3) acetaminophen 500 mg tablet 1,000 mg PO Q6H PRN fever 02/24/22 02/13/24 Unknown History fluticasone propionate 50 1 - 2 spray intranasal DAILY PRN 02/24/22 02/13/24 Unknown History mcg/actuation nasal spray,suspension albuterol sulfate 2.5 mg/3 mL 2.5 mg inhalation Q6H PRN wheezing 07/15/23 02/13/24 Unknown History (0.083 %) solution for nebulization albuterol sulfate 90 mcg/actuation 2 puff inhalation Q4H PRN wheezing 07/15/23 02/13/24 Unknown History aerosol inhaler (Ventolin HFA) ibuprofen 400 mg tablet 400 mg PO Q6H PRN moderate pain 07/15/23 02/13/24 Unknown History inhalational spacing device 07/15/23 02/13/24 Unknown History ([employer] [facility] spacer) lidocaine 5 % topical patch 1 patch topical DAILY PRN Pain 07/15/23 02/13/24 Unknown History amitriptyline 25 mg tablet 25 mg PO BEDTIME 03/12/24 Unknown History blood pressure test kit-large #1 ea 03/12/24 Unknown History Exam Exam Date and Time: 05/29/24 1402 Height,Weight and Vital Signs: Height 5 ft 1 in Weight 68.492 kg Vital Signs Temperature 98.2 F 05/29/24 13:54 Pulse Rate 70 05/29/24 13:54 Respiratory Rate 12 05/29/24 13:54 Blood Pressure 130/71 05/29/24 13:54 Pulse Oximetry 99 05/29/24 13:54 Oxygen Delivery Method Room Air 05/29/24 13:54 Temperature 98.2 F 05/29/24 13:54 Pulse Rate 70 05/29/24 13:54 Respiratory Rate 12 05/29/24 13:54 Blood Pressure 130/71 05/29/24 13:54 Pulse Oximetry 99 05/29/24 13:54 Oxygen Delivery Method Room Air 05/29/24 13:54 Airway Mallampati Class: II (small mouth opening) TM Dist: >3cm Neck ROM: Full Loose/Missing/Broken Teeth: No (patient denies any loose or broken teeth) Heart: S1S2 Lungs: CTAB Assessment and Plan Assessment Anesthesia Assessment: Anesthesia Plan Discussed and Chart Reviewed Final Anesthetic Review Family History of Problems with Anesthesia: No History of Problems with Anesthesia: No NPO: Yes ASA Class: II Final Preanesthetic Review: No Changes in Pt Med Stat, Meds/Allgs Chart Reviewed, Consent Obtained/Reviewed (high pressure boiler operator at bedside for translation) and Anes Risks/Benef Reviewed Patient Risk: Low Procedure Risk: Low Anesthetic Plan Anesthetic Plan: MAC: and Agree w/ Assess. and Plan Disposition: Standard PACU
--- NOTE | 2024-05-29 14:31 | W.PM.OPN ---
Operative Note Operative Note Date of Service: 05/29/24 Narrative: Procedure Description: EGD Indication: dysphagia Anesthesia: MAC FLEXIBLE TRANSORAL UPPER GASTROINTESTINAL ENDOSCOPY UPPER ENDOSCOPY Consent: Indications for the procedure and potential complications of bleeding, perforation, reaction to medications and missed diagnosis were discussed with the patient and informed consent was obtained. Instrument: Olympus GIF H 190 J mid size upper endoscope Monitoring: Vital signs and clinical assessment, continuous EKG monitoring, Pulse oximetry, Carbon Dioxide monitoring and blood pressure monitoring were done throughout the procedure. Procedure: The patient was placed in the left lateral decubitis position and pre-procedure medications were administered and a bite block was placed. The endoscope was inserted into the mouth and advanced under direct vision to the third part of duodenum. A careful inspection was made as the upper endoscope was withdrawn including a retroflexed examination of the proximal stomach; Findings and interventions are described below. Findings: Larynx:normal Esophagus: GE junction at 38 cm, diaphragm hiatus at 38 cm, mild esophagitis noted with schatzki ring, balloon dilation done to 20 mm at UES and LES--no tears seen, bx taken from GEJ, distal and proximal areas Stomach: mild erythema . Biopsies were obtained. Grade 2 flap valve on retroflexed examination of the cardia. There were several fundic gland appearing polyps noted, a few were 10-12 mm and removed with cold snare and retrieved with net Duodenum: Normal bulb and descending duodenum, Intervention: Biopsies as noted above, ballon dilation, cold snare and net Impression/Findings: mild esophagitis mild gastritis schatzki ring fundic gland polyps PLAN: await bx results GERD precautions
[2024-05-29 14:43] VITALS: BP 95/49; PULSE 85; RESP 18; TEMP 36.8; O2SAT 95
[2024-05-29 14:58] VITALS: BP 119/59; PULSE 85; RESP 18; O2SAT 97
[2024-05-29] MEDS: Mag&Al/Sim/Diphenhyd/Lidocaine 10 ML ORAL.SUSP PO (15:02)
[2024-05-29] MEDS: Acetaminophen 325 MG TABLET 975 MG PO (15:02)
[2024-05-29 15:13] VITALS: BP 128/91; PULSE 78; RESP 16; TEMP 36.9; O2SAT 97
== END 2024-05-29 15:34 | disposition home or self-care (01) ==
PROVIDERS: PCP Internal Medicine; Visit Provider Internal Medicine Gastroenterology
PROC: (CPT 43249; principal; 2024-05-29 14:40)
DX: K31.7 Polyp of stomach and duodenum (principal); K20.90 Esophagitis, unspecified without bleeding; K29.70 Gastritis, unspecified, without bleeding; K22.2 Esophageal obstruction; K21.9 Gastro-esophageal reflux disease without esophagitis; I10 Essential (primary) hypertension; Z79.899 Other long term (current) drug therapy
CPT/HCPCS: 43249; 43251; 43239; 88305; 88313; 88342; C1726; J2003; J2704

== ENCOUNTER → 2024-05-29 12:56 | Outpatient (BNV) | payer MEDICAID, SELFPAY | PROVIDERS: PCP Internal Medicine; Visit Provider Internal Medicine Gastroenterology | DX: K22.2 Esophageal obstruction (principal); K20.90 Esophagitis, unspecified without bleeding; K29.70 Gastritis, unspecified, without bleeding; K31.7 Polyp of stomach and duodenum | CPT/HCPCS: 43239; 43249; 43251 ==

== ENCOUNTER 2024-06-11 15:30 | Outpatient (AMB) | payer MEDICAID, SELFPAY ==
[2024-06-11 15:48] VITALS: BP 126/58; PULSE 70; O2SAT 99; BMI 29.3
--- NOTE | 2024-06-11 15:48 | A.OFFVIS_ITS ---
Vital Signs 06/11/24 15:48 Height 5 ft 1 in Weight 155 lb 3.287 oz BMI 29.3 BP 126/58 L Blood Pressure Location Rt brachial Position Sitting Pulse 70 Pulse Source Pulse Oximeter Pulse Oximetry (%) 99 Oxygen Delivery Method Room Air Intake Visit Reasons: s/p EGD; Dr. Jaramillo Intake Note: PRESCRIPTIONS LAST GENERATED sennosides 8.6 mg tablet?(Natural Senna Laxative)?17.2 mg (2 x 8.6 mg) PO BEDTIME 180 tabs 3RF Magali Lucianoa D 03/12/24 15:30 (Transmitted) Pt is still taking this medication without difficulty Relevant Flags or Indicators ? Requires Licensing And Registration Director? Kary Mehta presents in office today for a scheduled ~ 4-5 mos FUV s/p EGD. CC; No recent labs, diagnostics placed. ? Relevant GI Sx as reported per pt? Nausea - Pt states that this is a frequent issue and occurs almost everyday. Pt states that zofran is still producing a therapeutic result. ? Hx of any recent surgeries? EGD w/ TH Licensing And Registration Director Required: Yes Licensing And Registration Director Services: Licensing And Registration Director Present Licensing And Registration Director Name: [id number] [place] Information Interpreted: non-clinical & clinical Accompanied by: Self / Same As Patient Allergies No Known Allergies Allergy (Verified 06/11/24 15:49) HPI HPI s/p EGD; Dr. Jaramillo: Details: LAST VISIT: IBS (irritable bowel syndrome) GERD (gastroesophageal reflux disease) Constipation Plan Continue avoiding dietary triggers. Continue taking pantoprazole daily. Take Senokot. Increase fluid intake and activity to promote better bowel motility. Patient reports occasional acid reflux occasional epigastric pain will send patient for upper GI series with barium swallow. Follow-up in 6 months, sooner on as needed basis. Patient is agreeable to this plan and verbalizes understanding of instructions. She was given the opportunity to ask questions and all questions answered. ? Thank you for allowing me to participate in her care Orders Orders [place] upper GI w Ba Swallow 03/12/24 R13.10 Medications Refilled pantoprazole take one tablet half an hour before breakfast 40 mg PO DAILY 90 tabs 2RF K21.9 sennosides (Natural Senna Laxative) 17.2 mg (2 x 8.6 mg) PO BEDTIME 180 tabs 3RF constipation K59.00 ENDOSCOPY: Findings: Larynx:normal Esophagus: GE junction at 38 cm, diaphragm hiatus at 38 cm, mild esophagitis noted with schatzki ring, balloon dilation done to 20 mm at UES and LES--no tears seen, bx taken from GEJ, distal and proximal areas Stomach: mild erythema . Biopsies were obtained. Grade 2 flap valve on retroflexed examination of the cardia. There were several fundic gland appearing polyps noted, a few were 10-12 mm and removed with cold snare and retrieved with net Duodenum: Normal bulb and descending duodenum, Intervention: Biopsies as noted above, ballon dilation, cold snare and net Impression/Findings: mild esophagitis mild gastritis schatzki ring fundic gland polyps PLAN: await bx results GERD precautions PATHOLOGY RESULTS: Addendum #1 Immunostains for H. pylori on A and E are negative. Additional level with AB/PAS on B is negative for intestinal metaplasia. Controls stain appropriately. Electronically Signed By: Taya Renae 06/04/24 [id number] Diagnosis A. Stomach, biopsy: Gastric antral and body mucosa with minimal chronic inactive gastritis; negative for intestinal metaplasia and dysplasia. B. Gastroesophageal junction, biopsy: Squamocolumnar mucosa with mild inflammation and no intestinal metaplasia seen on initial levels; negative for dysplasia. C. Esophagus, distal, biopsy: Squamous mucosa with no specific change; no columnar mucosa present. D. Esophagus, proximal, biopsy: Squamous mucosa with no specific change; no columnar mucosa present. E. Stomach, fundic polyps: Fundic gland polyps with minimal chronic inactive inflammation; negative for intestinal metaplasia and dysplasia. Comment: (A and E): Immunostain for H. pylori pending; addendum to follow. (B): Additional level with AB/PAS stain pending; addendum to follow TODAY'S VISIT Patient is here today for follow-up and to discuss upper endoscopy results as well as biopsy results. Esophagus did not show any inflammation, no columnar mucosa present, no H pylori, stomach shows minimal chronic inactive inflammation. Patient was found to have Schatzki ring with mild inflammation that was ballooned to 20 mm without tears. Patient continues to have trouble swallowing and nausea. Reports that she is moving her bowels well now that she takes Linzess. States that Nexium and sucralfate are helping, however she continues to have symptoms. Patient in the past was checked for allergies. No eosinophilic count found, however patient might have sensitivity to certain food. She is not following any particular diet. She is not following lactose free, gluten free diet. Patient does admit to be feeling full quite early. [facility] Medical History Bruxism Snoring Hypertension Chest pain Surgical History H/O colonoscopy History of esophagogastroduodenoscopy (EGD) Hx of cholecystectomy H/O: hysterectomy H/O thyroidectomy Family History Father Hypertension Hypercholesteremia Alzheimer disease Mother Diabetes Social History Are you a primary primary care pediatrician to a significant other at home: No Do you presently have visiting nurse or other home services: No Alcohol intake: never Patient Tobacco Use Status: Never used Tobacco Second Hand Smoke Exposure: No Review of Systems Const Denies weight gain and Denies weight loss ENT Reports no additional complaints, Reports dysphagia and Denies odynophagia Card Reports no additional complaints Resp Reports no additional complaints GI Reports abdominal pain (Epigastric), Denies belching, Denies melena, Reports bloating, Denies change in bowel habits, Reports constipation, Reports dysphagia, Denies excessive flatus, Denies dyspepsia, Reports heartburn, Denies diarrhea, Denies loose stools, Denies nausea, Denies odynophagia and Denies vo miting Reports no additional complaints Musc Reports no additional complaints Neuro Reports no additional complaints Psych Reports no additional complaints Endo Reports no additional complaints Physical Exam Vital Signs: Last Vital Signs Pulse 70 06/11/24 15:48 BP 126/58 L 06/11/24 15:48 Pulse Ox 99 06/11/24 15:48 Oxygen Delivery Method Room Air 06/11/24 15:48 BMI result Body Mass Index 29.3 Const General: healthy appearing and no acute distress Nutritional Appearance: obese Orientation/consciousness: patient oriented x3 Resp Effort & Inspection: normal respiratory effort, able to speak in complete sentences, no tracheal deviation and symmetric chest movement Auscultation: clear to auscultation bilaterally Cardio Rate: regular rate GI Inspection: Yes normal to inspection, No distended and Yes obesity Palpation (GI): Soft to palpation, not firm, nontender and No hepatosplenomegaly present Auscultation: normal bowel sounds General: Yes no CVA tenderness Back/Spine/Pelvis Back: no CVA tenderness Skin General skin exam: elasticity normal, turgor normal and dry skin Neuro General: patient oriented x3 Psych Appearance: grossly normal Mental Status: mental status grossly normal Assessment & Plan Assessment & Plan (1) IBS (irritable bowel syndrome): Code(s): K58.9 - Irritable bowel syndrome, unspecified Qualifiers: Irritable bowel syndrome type: with constipation Qualified Code(s): K58.1 - Irritable bowel syndrome with constipation (2) GERD (gastroesophageal reflux disease): Code(s): K21.9 - Gastro-esophageal reflux disease without esophagitis Qualifiers: Esophagitis presence: without esophagitis Qualified Code(s): K21.9 - Gastro-esophageal reflux disease without esophagitis (3) Constipation: Code(s): K59.00 - Constipation, unspecified Qualifiers: Constipation type: slow transit constipation Qualified Code(s): K59.01 - Slow transit constipation (4) Nausea: Code(s): R11.0 - Nausea (5) Dysphagia: Code(s): R13.10 - Dysphagia, unspecified Qualifiers: Dysphagia type: esophageal phase Qualified Code(s): R13.19 - Other dysphagia (6) Postprandial epigastric pain: Code(s): R10.13 - Epigastric pain (7) Postprandial abdominal bloating: Code(s): R14.0 - Abdominal distension (gaseous) Plan Patient will continue taking Nexium and sucralfate. Avoid dietary triggers. Smaller meals and more often. Discussed with patient low FODMAP diet. List of food recommended as well as list of food to avoid given to patient. Will send patient for RAST allergen to food. Patient was checked for environmental allergies in the past. Will send her for gastric emptying study as she is reporting early satiety Patient will follow-up 2-3 months, sooner on as needed basis. She is agreeable to this plan and verbalizes understanding of instructions. She was given the opportunity to ask questions and all questions answered. Thank you for allowing me to participate in her care Orders: Orders NM gastric emptying study Today R68.81 - Early satiety Rast Allergen Today K21.9 - Gastro-esophageal reflux disease without esophagitis Coding Level of Care Code Est Pt Level 4 (95626) Complex EM visit Add On G2211 Diagnoses Irritable bowel syndrome with constipation K58.1 Irritable bowel syndrome type: with constipation Gastroesophageal reflux disease without esophagitis K21.9 Esophagitis presence: without esophagitis Slow transit constipation K59.01 Constipation type: slow transit constipation Nausea R11.0 Esophageal dysphagia R13.19 Dysphagia type: esophageal phase Postprandial epigastric pain R10.13 Postprandial abdominal bloating R14.0 Time Spent (min) 40 Comment 25 minutes spent with patient and additional 15 minutes spent reviewing her records
== END 2024-06-11 17:00 ==
PROVIDERS: PCP Internal Medicine; Visit Provider Nurse Practitioner Family
DX: K58.1 Irritable bowel syndrome with constipation (principal); K21.9 Gastro-esophageal reflux disease without esophagitis; K59.01 Slow transit constipation; R11.0 Nausea; R13.19 Other dysphagia; R10.13 Epigastric pain; R14.0 Abdominal distension (gaseous)
CPT/HCPCS: 99214

== ENCOUNTER 2024-06-11 15:30 | Outpatient (REF) | payer MEDICAID, SELFPAY | END 2024-06-11 15:31 | disposition home or self-care (01) | LOC: HO.LAB 15:30 | PROVIDERS: PCP Internal Medicine; Visit Provider Nurse Practitioner Family | DX: K21.9 Gastro-esophageal reflux disease without esophagitis (principal); K58.1 Irritable bowel syndrome with constipation; K59.01 Slow transit constipation; R11.0 Nausea; R10.13 Epigastric pain; R13.19 Other dysphagia; R14.0 Abdominal distension (gaseous) | CPT/HCPCS: 36415; 82785; 86003; 99212 ==

== ENCOUNTER → 2024-07-02 07:25 | Outpatient (REF) | payer MEDICAID, SELFPAY ==
--- NOTE | ~2024-07-02 | NM_ITS ---
EXAMINATION: RADIONUCLIDE SOLID FOOD GASTRIC EMPTYING 4-HOUR STUDY CLINICAL INFORMATION: Early satiety. COMPARISON: No previous gastric emptying study is available for comparison. TECHNIQUE: A standard meal consisting of 4 oz of Egg Beaters brand tagged with 1 mCi Tc-99m Sulfur Colloid, 8 oz water and 2 slices of toast with jelly was administered orally to the patient. Images were obtained using a dual head gamma camera in the anterior and posterior projections over of the stomach immediately post ingestion and at hourly intervals up to 3 hours post ingestion. Images were not obtained at 4 hours due to the minimal retention at 3 hours. The anterior and posterior counts at each time interval were averaged using the geometric mean and expressed as percentage of the immediate post ingestion counts. FINDINGS: There is good visualization of activity in the stomach immediately post ingestion. As the study progresses, there is good clearance of activity from the stomach and visualization of progressively increasing small bowel activity. By the end of the study, there is almost no retention noted in the stomach. Retention in the stomach at each time interval was: 1 hour 75% (normal 37%-90%) 2 hours 14% (normal 30%-60%) 3 hours 1% 4 hours (Not Obtained) (normal 0%-10%) NM/NM gastric emptying study IMPRESSION: Normal solid food gastric emptying study. Gastric emptying study grading per JNMT Consensus Recommendations in 2008: https://tech.snmjournals.org/content/36/1/44 Grade 1 (mild retention): 11-20% at 4 hours Grade 2 (moderate retention): 21-35% at 4 hours Grade 3 (severe retention): 36-50% at 4 hours Grade 4 (very severe retention): >50% retention at 4 hours Electronically signed by: Dariusz Daigle MD 07/02/2024 04:45 PM [facility]
== END ==
LOC: HO.NUCMED 07:25
PROVIDERS: PCP Internal Medicine; Visit Provider Nurse Practitioner Family
DX: R68.81 Early satiety (principal)
CPT/HCPCS: 78264; A9541

== ENCOUNTER 2024-09-04 15:00 | Outpatient (REF) | payer MEDICAID, SELFPAY ==
--- OUTSIDE RECORDS SUMMARY | 2024-09-04 15:41 | XMS_ITS | Encounter Summary ---
Author Organization [employer] Address [address] [facility] 7t [place] [address] Care Team Providers Care Forging Operator Name Role Phone [facility] Primary Care Provider [phone] Encounter Details Date Type Department Care Team ([facility] st Contact Info) Description 12/08/2022 Abstract [facility] [address] [place], [place] [phone] [facility] 230 [place] [address] Social History Tobacco Use Types Packs/Day Years [...] Mammo due in 6 months Comment:Diagnostic Left [place] st Mammogram Anatomical Region Laterality Modality Other us Historical Provider MD HEALTH MAINTENANCE Final Result documented in this encounter Visit Diagnoses Not on filedocumented in this encounter Additional Health Concerns Assessment Noted Time PHQ-9 Depression Total Score: 4 11/29/19 23 2:25 PM EDT documented as of this encounter Care Teams Forging Operator Relationship Specialty Start Date End Date Olivia Long FNP [address] [place] [id number] PCP - General Family Medicine 03/18/22 documented as of this encounter
--- OUTSIDE RECORDS SUMMARY | 2024-09-04 15:41 | XMS_ITS | Encounter Summary ---
Author Organization [employer] Address [address] [place] [address] 7t [place] [address] Care Team Providers Care Rn Womens Health Name Role Phone [facility] Primary Care Provider [phone] Encounter Details Date Type Department Care Team (Late st Contact Info) Description 01/15/2023 Abstract [facility] 230 [place], [place] [phone] Olivia Long [facility] 230 [place], [place] [phone] Social History Tobacco Use Types Packs/Day Years [...] documented as of this encounter Care Teams Rn Womens Health Relationship Specialty Start Date End Date Olivia Long FNP 230 [place] [address] PCP - General Family Medicine 03/18/22 documented as of this encounter
--- OUTSIDE RECORDS SUMMARY | 2024-09-04 15:41 | XMS_ITS | Encounter Summary ---
Author Organization [employer] Address [address] [place] [address] 7t [place] [address] Care Team Providers Care Corporate Communications Associate Name Role Phone [place] [facility] Primary Care Provider [phone] Reason for Visit * Reason Onset Date Comments Appointment Request 01/17/2023 Encounter Details Date Type Department Care Team ([facility] st Contact Info) Description 01/17/2023 Telephone [facility] 230 [place], [place] [phone] [facility] 230 [place] [address] Appointment Request Social History Tobacco Use Types [...] TP on 01/16/2023. Please contact pt at [phone] English Speaker documented in this encounter Plan of Treatment Not on file documented as of this encounter Visit Diagnoses Not on filedocumented in this encounter Additional Health Concerns Assessment Noted Time PHQ-9 Depression Total Score: 4 11/29/19 23 2:25 PM EDT documented as of this encounter Care Teams Corporate Communications Associate Relationship Specialty Start Date End Date Olivia Long FNP [address] [place] [id number] PCP - General Family Medicine 03/18/22 documented as of this encounter
--- OUTSIDE RECORDS SUMMARY | 2024-09-04 15:41 | XMS_ITS | Encounter Summary ---
Author Organization [employer] Address [address] [facility] 7t [place] [address] Care Team Providers Care Cargo Trimmer Name Role Phone [facility] Primary Care Provider [phone] Reason for Visit * Reason Onset Date Comments PT-1 04/04/2024 Encounter Details Date Type Department Care Team ([facility] st Contact Info) Description 04/04/2024 Telephone [facility] 230 [place], [place] [phone] [facility] 230 [place] [address] PT-1 Social History Tobacco Use Types Packs/Day [...] Y/N: Yes Provider name or facility name: [facility] Facility Address: [address] [place] [address] Escort needed: Y/N: Yes Do you have [...] documented as of this encounter Care Teams Cargo Trimmer Relationship Specialty Start Date End Date Olivia Long FNP [address] [place] [phone] PCP - General Family Medicine 03/18/22 documented as of this encounter
--- OUTSIDE RECORDS SUMMARY | 2024-09-04 15:41 | XMS_ITS | Encounter Summary ---
Author Organization [employer] Address [address] [facility] 7t [place] [address] Care Team Providers Care Women'S Soccer Coach Name Role Phone [place] [facility] Primary Care Provider [phone] Reason for Visit * Reason Onset Date Comments Nurse Triage 09/03/2024 Encounter Details Date Type Department Care Team ([facility] st Contact Info) Description 09/03/2024 Telephone [facility]INE 230 [place], [place] [phone] [facility] 230 [place] [address] Nurse Triage Social History Tobacco Use Types [...] 09/03/2024 2:51 PM EST Triage call [place] [facility] [place] [id number], [place]. Pt reports right eye twitching constantly [...] uncomfortable. Pt is advised to come to [facility] today for provider to see Pt . Pt agrees with this disposition. Hours of [facility] open till 8pm this evening. Unable to [...] documented as of this encounter Care Teams Women'S Soccer Coach Relationship Specialty Start Date End Date Olivia Long FNP [address] [place] [phone] PCP - General Family Medicine 03/18/22 documented as of this encounter
--- OUTSIDE RECORDS SUMMARY | 2024-09-04 15:41 | XMS_ITS | Encounter Summary ---
Author Organization [employer] Address [address] [facility] 7t [place] [address] Care Team Providers Care Household Coordinator Name Role Phone [place] [facility] Primary Care Provider [phone] Reason for Visit * Reason Onset Date Comments Order update 02/13/2024 Encounter Details Date Type Department Care Team ([facility] st Contact Info) Description 02/13/2024 Telephone [facility] 230 [place], [place] [phone] [facility] 230 [place] [address] Order update Social History Tobacco Use Types [...] documented as of this encounter Care Teams Household Coordinator Relationship Specialty Start Date End Date Olivia Long FNP [address] [place] [phone] PCP - General Family Medicine 03/18/22 documented as of this encounter
--- OUTSIDE RECORDS SUMMARY | 2024-09-04 15:41 | XMS_ITS | Clinical Summary ---
Author Organization [employer] Address [address] [facility] 7[address] [place] [address] Care Team Providers Care Histology Tech Name Role Phone Olivia Long [facility] Primary Care Provider [phone] Allergies No known active allergies Medications magnesium [...] kit 4 09/05/19 25 Active sodium chloride (Blaine Nasal Aurora) 0.65 % nasal spray Administer 1 spray [...] q 6 hours prn pain or fever croatian 60 capsule 4 Active levothyroxine (Synthroid, Levoxyl) 112 MCG tabletIndicatio ns:Hypothyroidi sm, unspecified type TAKE 1 TABLET BY MOUTH EVERY DAY 90 tablet 4 Active Active Problems Problem Noted Date Diagnosed Date Dysphagia 03/20/2024 Trismus 09/15/2023 Overview (09/15/2023): Dr. Uribe oral surgery [facility] Assessment & Plan (09/15/2023 9:43 AM EST): [...] pain 09/01/2021 Overview (12/08/2022): Seen by cardiology [id number], had echo, ekg, exercise stress test, all without cardiac explanation for cp. thought to be noncardiac. fu with cardiology PRN Hypertensive disorder 04/26/2021 Overview (09/15/2023): Losartan 100mg Carvedilol 3.125mg b.I.d Seen by cardiology [id number], had echo, ekg, exercise stress test, all [...] Type Department Care Team Description 09/03/[address] [facility] [address], [place] [phone] [place] [facility] Nurse Triage 07/10/2024 Refill [facility] [address], [place] [phone] [place] [facility] Hypothyroidism, unspecified type 06/30/[address] [facility] [address], [place] [phone] [place] [employer] Pre-visit Planning (SDVA screening completed on 09/05/2023) 06/11/2024 Orders Only [...] EST Narrative 07/02/2024 4:48 PM EST ? [facility] ?[address] ?[place] [address] ?Nuclear Medicine Report ? Signed ? Patient: Dhara IrbyJanine ?MR#: MM ?? [id number] ? : 1985 ?Acct:[id number] ? Age/Sex: 39 / F ?ADM Date: 07/02/24 ? Loc: HO.NUCMED ? Attending Dr: Pamela TORO-BC ? Ordering Physician: Pamela Luciano-BC ?? Date of Service: 07/02/24 ?? Procedure(s): NM gastric emptying study ?? Accession Number(s): [id number] ? cc: Jennifer Germain MD; Pamela Luciano-BC [...] DD/ 0727 ? TD/TT: 07/02/24 1134 ? Rn Ed: RR ? Procedure Note Cadence Patel - 07/02/[address] [place] [address] Nuclear Medicine Report Signed Patient: Astrid Keller#: [id number] : 1985Acct:[id number] Age/Sex: 39 / FADM Date: 07/02/24 Loc: [facility] Attending Dr: Pamela Luciano [facility] Ordering Physician: Pamela Luciano Date of Service: 07/02/24 Procedure(s): HI gastric emptying study Accession Number(s): [id number] cc: Jennifer Germain MD; Pamela Luciano [facility] [...] 1% 4 hours (Not Obtained) (normal 0%-10%) HI/HI gastric emptying study IMPRESSION: Normal solid food [...] 07/02/24 1645 DD/ 0727 TD/TT: 07/02/24 1134 Rn Ed: RR us [facility] External Provider IMG NM PROCEDURES Final Result * Rast Allergen (06/11/2024 5:00 PM EST) Rast Allergen SEE NOTE [facility] Comment:SEE SCANNED RESULTS IN EMR 06/11/2024 5:00 PM EST 06/11/2024 5:02 PM EST Generic External Data Provider HISTORICAL/NON OR DERABLE LABS Final Result Performing Organization Address City/[facility] Co de Phone Number [facility] [address] [place] [address] [phone] * BI Mammogram Diagnostic Tomosynthesis Bilateral (04/09/2024 2:30 PM EDT) Anatomical Region Laterality Modality Breast Bilateral Mammography 04/09/2024 2:30 PM EDT Narrative 04/09/2024 3:31 PM EDT ? [facility] ? [address] [facility] ?[place] [address] ? Mammography Report ? Signed ? Patient: Janine Keller ?MR#: MM ?? [id number] ? : 1985 ?Acct:[id number] ? Age/Sex: 38 / F ?ADM Date: 09/18/24 ? Loc: HO.MAMMO ? Attending Dr: Olivia Ethan [employer] ? Ordering Physician: [place] [employer] ?Results: 2Beni ?? gn Findings ? Date of Service: 04/09/24 ?Follow Up: 1 Year From Orig ?? inal Mammogram ? Procedure(s): MM tomosynthesis diagnostic BI ?? Accession Number(s): [id number] ? cc: Jennifer Germain MD; Olivia Long [...] DD/ 1430 ? TD/TT: 04/09/24 1500 ? Rn Ed: ? Procedure Note Jorge, Image - 04/09/2024 [facility] [address] [place] [address] Dr. Canales, [place] [address] Mammography Report Signed Patient: Sylvia KellerNaomie#: [id number] : 1985Acct:[id number] Age/Sex: 38 / FADM Date: 04/09/24 Loc: MAMMO Attending Dr: Olivia Long [employer] Ordering Physician: Olivia Long FNPResults: 2Beni gn Findings Date of Service: 04/09/24Follow Up: 1 Year From [facility] Mammogram Procedure(s): MM tomosynthesis diagnostic BI Accession Number(s): [id number] cc: Jennifer Germain MD; [facility] [employer] EXAMINATION: MM DIAGNOSTIC DIGITAL BREAST TOMOSYNTHESIS, BILATERAL [...] 04/09/2024 03:28 PM EDT Dictated By: Valdemar Ring MD Signed By: <Electronically signed by Valdemar Ring MD in OV> 04/09/24 1528 DD/ 1430 TD/TT: 04/09/24 1500 Rn Ed: [facility] IMG BI PROCEDURES Final Resul t * Lipid Panel, Standard (09/06/2023 11:33 AM EST) Triglycerides 80 <150 mg/dL [facility] Comment:Desirable Triglyceri de: less than 150 mg/dLBorderline High Triglyceride 150-199 mg/dLHigh Triglyceride: 200-499 mg/dLVery High Triglyceride: greater than or equal to 5OO mg/dL Cholesterol 150 <200 mg/dL [facility] Comment:Desirable Cholestero l: less than 200 mg/dLBorderline High Cholesterol: 200-239 mg/dLHigh Cholesterol: greater than 239 mg/dL LDL Cholesterol Calculated 90 <100 mg/dL [facility] Comment:Desirable LDL: less than 100 mg/dLNear Optimal/Above Optimal LDL: 110- 129 mg/dLBorderline High LDL: 130-159 mg/dLHigh LDL: 160-189 mg/dLVery High LDL: greater than or equal to 190 mg/dL HDL Cholesterol 44 >40 mg/dL [facility] Comment:Desirable HDL: great er than 40 mg/dL Note: This HDL assay may give artificially low results in patients with liver disease. Blood Venous blood specimen / Unknown 09/06/2023 11:33 AM EST 09/06/2023 1:03 PM EST [facility] LAB BLOOD ORDERABLES Final Re sult [facility] [address] [place] [phone] * HPV mRNA E6/E7 w/Reflex to HPV Genotypes 16, 18/45 (05/31/2023 2:20 PM EST) HPV nRNA E6/E7 Not Detected Not Detected [facility] Comment:Methodology: Transcr iption-Mediated AmplificationThis assay detects E6/E7 viral messenger RNA (mRNA) from 14high-risk HPV types (16,18,31,33,35,39,45,51,52,56,58,59,66,68).Cervical sources are required for HPV testing.If a vaginal source from a patient who has had atotal hysterectomy with removal of cervix wassubmitted, please contact the testing laboratoryfor alternative testing options.For additional information, please refer tohttp://education.MindBites/faq/QJD705a9(This link if provided for information/educational purposes only.)THIS TEST WAS PERFORMED AT:[employer] [place] [phone] SOUZA MD HPV mRNA E6/E7 [facility] HPV 16 RNA [facility] HPV 18/45 RNA [facility] 05/31/2023 2:20 PM EST 06/01/2023 8:10 AM EST Duane Gilliam [facility] CYTOLOGY ORDERABLES F inal Result [facility] [address] [place] [address] [phone] * Pap Smear (05/31/2023 2:20 PM EST) 05/31/2023 2:20 PM EST 06/01/2023 8:10 AM EST Narrative [facility] - 06/20/2023 4:44 PM EST ----- ------- Name: Janine Keller ? Age/Sex: 38/F ? : 1985 Unit#: [id number] ?? Attend Dr: DUANE GILLIAM CNM ?Re05/31/23 ?Status: DEP REF ? Location: HO.HHCLNP ? Disch: ? ----- ------- SPEC : [id number] ?RECD: 06/01/23 ? STATUS: ??SOUT ? REQ NUM: [id number] ? JUAN JOSÉ: 05/31/23-1419 ? SUBM DR: [...] 66, 68) ? HPV testing performed by [employer], [place], [place]. ??See reference laboratory ?? portion of the EMR for entire report. ?Clinical Information LMP: Unknown date Previous PAP test: 2019, WNL Other surgery:S/P hyst Other history: Cervix not well seen, pap done as precaution ? Material Received ?? ThinPrep-Vaginal/Cervical ----- ------- Signed (signature on file) Shannen Oh MD 06/20/23 3931 ? ----- ------- ? END OF REPORT ? Duane Gilliam CNM LAB CYTOLOGY ORDERABLES F inal Result Performing Organization Address City/[facility]/ZIP Co de Phone Number [facility] [address] [place] [address] [phone] * Hepatitis C Antibody with Reflex to HCV, RNA, Quantitative, Real-Time PCR (12/21/2022 12:03 PM EDT) Hepatitis C Antibody NON-REACT SETH NON-REACT SETH [facility] Index 0.07 <1.00 S[facility] Comment: HCV antibody was non-reactive. There is no laboratory evidence of HCV infection. In most cases, no further action is required. However, if recent HCV exposure is suspected, a test for HCV RNA (test code 85038) is suggested. For additional information please refer to http://education.MindBites/faq/PNP15x5 (This link is being provided for informational/ educational purposes only.) Blood Venous blood specimen / Unknown 12/21/2022 12:03 PM EDT 12/21/2022 12:04 PM EDT Narrative [facility] - 12/25/2022 1:25 PM EDT FASTING:YES FASTING: YES [facility] [employer] LAB BLOOD ORDERABLES Final Re sult Performing Organization Address City/[facility]/ZIP Co de Phone Number [facility] [address], [place] [phone] [employer] [place] [employer] [address] [place] [phone] * HIV 1/2 ANTIGEN/ANTIBODY,FOURTH GENERATION W/RFL (04/12/2022 11:21 AM EDT) HIV-1/2 ANTIGEN AND ANTIBODIES, 4TH GENERATION W/ REFLEX NON-REACT SETH NON-REACT SETH [facility] Comment: HIV-1 antigen and HIV-1/HIV-2 [...] ? For additional information please refer to http://education.MindBites/faq/NOE386 (This link is being provided for informational/ educational purposes only.) ? The performance of this assay has not been clinically validated in patients less than 2 years old. ?? 04/12/2022 11:2 1 AM EDT us Duane Gilliam [facility] BLOOD ORDERABLES Neelima wilson Result Performing Organization Address City/State/[facility] Co de Phone Number [facility] Anywhere [address] from Last 3 Months or Most Recently Relevant to Health Maintenance Insurance [facility] C3 Care Teams Histology Tech Relationship Specialty Start Date End Date Olivia Long FNP [address] [place] [phone] PCP - General Family Medicine 03/18/22
--- OUTSIDE RECORDS SUMMARY | 2024-09-04 15:41 | XMS_ITS | Encounter Summary ---
Author Organization [employer] Address [address] [place] [address] 7[address] [place] [address] Care Team Providers Care Furnace Room Supervisor Name Role Phone [facility] Primary Care Provider [phone] Reason for Visit * Reason Onset Date Comments Appointment Request 07/03/2022 Encounter Details Date Type Department Care Team ([facility] st Contact Info) Description 07/03/2022 Telephone [facility] [address] [place] [address] [facility] [address] [place] [address] Appointment Request Social History Tobacco Use Types [...] on filedocumented in this encounter Care Teams Furnace Room Supervisor Relationship Specialty Start Date End Date [place] [facility] [address] [place] [address] PCP - General Family Medicine 8/27/22 documented as of this encounter
[2024-09-04 17:36] LABS: MANUAL DIFF FLAG NO
[2024-09-04 17:42] LABS: Basophils Percent Auto 0.5 % (0-2); Eosinophils Absolute Auto 0.1 X10*3/uL (0.0-0.4); Hematocrit 37.1 % (37.0-47.0); Hemoglobin 13.1 g/dl (12.0-16.0); Imm Gran Abs Auto 0.02 X10*3/uL (0.00-0.03); Imm Gran Pct Auto 0.3 % (0.0-0.4); Lymphocytes Absolute Auto 2.2 X10*3/uL (1.2-4.9); Lymphocytes Percent Auto 35.8 % (20-40); Mean Corpuscular HGB Conc 35.3 g/dl (31.0-35.0); Mean Corpuscular Volume 82.3 fL (80.0-98.0); Monocytes Absolute Auto 0.3 X10*3/uL (0.1-1.2); Monocytes Percent Auto 5.1 % (2-11); Neutrophils Absolute Auto 3.5 x10*3/uL (2.0-8.3); Neutrophils Percent Auto 57.3 % (45-73); Platelet Count 313 X10*3/uL (160-400); Red Blood Count 4.51 X10*6/uL (4.20-5.50); Red Cell Distribution Width 11.8 % (11.0-16.0); White Blood Count 6.1 X10*3/uL (4.8-10.8)
[2024-09-04 18:03] LABS: Alanine Aminotransferase 23 U/L (0-31); Albumin Level 4.5 g/dL (3.5-5.0); Alkaline Phosphatase 50 U/L (39-117); Anion Gap 12 (12-20); Aspartate Amino Transferase 19 U/L (5-31); Bilirubin Total 0.5 mg/dL (0.0-1.0); Blood Urea Nitrogen 15 mg/dL (9-16); Calcium 9.5 mg/dL (8.4-10.2); Carbon Dioxide 26 mmol/L (22-29); Chloride 105 mmol/L (96-108); Estimated Glomerular Filt Rate > 60; Glucose Random 73 mg/dL (60-115); Magnesium 2.4 mg/dL (1.6-2.6); Potassium 3.9 mmol/L (3.3-5.1); Sodium 139 mmol/L (135-145); Total Protein 7.9 g/dL (6.5-8.0)
[2024-09-04 18:18] LABS: TSH reflex Free T4 0.44 uIU/mL (0.32-4.0)
[2024-09-04 18:31] LABS: Folate 11.9 ng/mL (> or = 4.0); Vitamin B12 272 pg/mL (200-900)
[2024-09-08 12:14] LABS: Vitamin D 25-OH, D2 <4 ng/mL; Vitamin D 25-OH, D3 21 ng/mL; Vitamin D 25-OH, Total 21 ng/mL (30-100)
[2024-09-14 15:48] LABS: Vitamin B6 15.6 ng/mL (2.1-21.7)
== END 2024-09-04 15:01 | disposition home or self-care (01) ==
LOC: HO.HKASLDS 15:00
PROVIDERS: PCP Internal Medicine; Visit Provider Nurse Practitioner Family
DX: D64.9 Anemia, unspecified (principal); R25.3 Fasciculation; R41.3 Other amnesia; I10 Essential (primary) hypertension; G43.009 Migraine without aura, not intractable, without status migrainosus; F45.8 Other somatoform disorders; Z82.0 Family history of epilepsy and other diseases of the nervous system
CPT/HCPCS: 36415; 80053; 82306; 82607; 82746; 83735; 84207; 84443; 85025; 99212

== ENCOUNTER 2024-09-04 15:00 | Outpatient (AMB) | payer MEDICAID, SELFPAY ==
--- NOTE | 2024-09-04 15:02 | A.OFFVIS_ITS ---
Vital Signs 09/04/24 15:07 Height 5 ft 1 in Weight 155 lb BMI 29.3 BP 120/82 Blood Pressure Location Lt brachial Position Sitting Pulse 84 Pulse Source Pulse Oximeter Pulse Oximetry (%) 96 Oxygen Delivery Method Room Air Intake Visit Reasons: Follow UP Accompanied by: Daughter Allergies No Known Allergies Allergy (Verified 09/04/24 15:06) Medication List - Last Reconciled 09/06/24 by MUNA Castanon acetaminophen 1,000 mg PO Q6H PRN albuterol sulfate 90 mcg/actuation (Ventolin HFA) 2 puffs inhalation Q4H PRN albuterol sulfate 2.5 mg inhalation Q6H PRN amitriptyline 25 mg PO BEDTIME blood pressure test kit-large As directed carvedilol 3.125 mg PO BID cholecalciferol (vitamin D3) (Vitamin D3) 50 mcg PO DAILY cyclobenzaprine 7.5 mg (1.5 x 5 mg) PO BEDTIME 30 days docusate sodium 100 mg PO BEDTIME esomeprazole magnesium (Nexium) 40 mg PO DAILY fluticasone propionate 50 mcg/actuation 1 - 2 sprays intranasal DAILY PRN hydrocortisone 2.5% (Proctosol HC) 1 appl [place] BID-QID PRN ibuprofen 400 mg PO Q6H PRN inhalational spacing device ([facility] spacer) PRN levothyroxine (Synthroid) 112 mcg PO DAILY lidocaine 5% 1 patch topical DAILY PRN linaclotide (Linzess) 145 mcg PO DAILY losartan 100 mg PO DAILY magnesium oxide 400 mg PO BEDTIME 30 days naproxen 500 mg PO BID PRN ondansetron 4 mg PO Q8H PRN riboflavin (vitamin B2) 400 mg PO DAILY 30 days sennosides (Natural Senna Laxative) 17.2 mg (2 x 8.6 mg) PO BEDTIME sucralfate 1 g PO BEDTIME PRN sumatriptan succinate 50 - 100 mg orally at onset of headache, may repeat in 2 hrs PRN; max 2 tabs per day or 4 tabs/week (may take with Ibuprofen) 30 days topiramate 50 mg (2 x 25 mg) PO BID 30 days HPI Comments Details: 39-yr-old female presents for f/u visit. Pt denies any significant interval medical changes. She has been noticing right eye lower eyelid twitching over the last couple of weeks. Pt state she is having 1-2 strong migraine days per week. Sumatriptan is helpful. Topiramate is helpful Still using cyclobenzaprine, which is helpful neck tightness. Baseline headache characteristics: Severe Bilateral top of head. The headache is pressure and pain Associated symptoms? photophobia, phonophobia, osmophobia, nausea, internal dizziness, brain fog, fatigue, bilateral facial weakness. PFSH Medical History (Updated 09/04/24 @ 15:34 by MUNA Castanon) Anemia Bruxism Snoring Hypertension Chest pain Surgical History H/O colonoscopy History of esophagogastroduodenoscopy (EGD) Hx of cholecystectomy H/O: hysterectomy H/O thyroidectomy Family History Father Hypertension Hypercholesteremia Alzheimer disease Mother Diabetes Social History Are you a primary manager managed care to a significant other at home: No Do you presently have visiting nurse or other home services: No Alcohol intake: never Patient Tobacco Use Status: Never used Tobacco Second Hand Smoke Exposure: No Physical Exam Vital Signs: Last Vital Signs Pulse 84 09/04/24 15:07 BP 120/82 09/04/24 15:07 Pulse Ox 96 09/04/24 15:07 Oxygen Delivery Method Room Air 09/04/24 15:07 BMI result Body Mass Index 29.3 Const General: cooperative and no acute distress Orientation/consciousness: patient oriented x3 Resp Effort & Inspection: normal respiratory effort and able to speak in complete sentences Neuro General: patient oriented x3 and deep tendon reflexes 2+ bilaterally Cranial nerves: Yes CN's II-XII intact bilaterally and Yes Nystagmus not present Cognition (Neuro): normal cognition Motor exam (neuro): 5/5 motor strength present throughout Psych Appearance: grossly normal Mental Status: mental status grossly normal Speech and movement: Normal speech and movement present Affect: normal affect Attitude: cooperative Assessment & Plan Assessment & Plan (1) Migraine without aura: Code(s): G43.009 - Migraine without aura, not intractable, without status migrainosus Category: Medical (2) Bruxism: Code(s): F45.8 - Other somatoform disorders Category: Medical (3) Family history of Alzheimer's disease: Code(s): Z82.0 - Family history of epilepsy and other diseases of the nervous system Category: Medical (4) Memory difficulties: Code(s): R41.3 - Other amnesia Category: Medical Plan For concerns about risk for dementia d/t family h/o dementia: Previous request for neuropsych evaluation was denied by her insurance. Continue to engage in regular physical activity, engage in regular cognitive and socially stimulating activities. For facial twitching: Check labs for common etiologies. ? For acute headache treatment: Continue Sumatriptan at onset of migraine. Previous acute migraine medication trials: OTC analgesics Acute migraine medication contraindications: None at this time ? For headache prevention medication: Continue Riboflavin 400mg qam Continue Magnesium 400mg qhs Continue Topiramate 50 mg daily at bedtime. Continue Cyclobenzaprine 7.5mg qhs. Previous migraine prevention medication trials: Amitriptyline 25mg- ineffective, but 50mg caused dizziness. Migraine prevention medication contraindications: BBs d/t asthma dx. ? Will follow-up upon review of above and patient to follow-up in clinic in 6 months or sooner prn. Orders: Orders Complete Blood Count Auto Diff 09/04/24 D64.9 - Anemia, unspecified, I10 - Essential (primary) hypertension, R25.3 - Fasciculation, R41.3 - Other amnesia Vitamin B12 and Folate 09/04/24 D64.9 - Anemia, unspecified, I10 - Essential (primary) hypertension, R25.3 - Fasciculation, R41.3 - Other amnesia Vitamin D 25-OH (D2 and D3) 09/04/24 D64.9 - Anemia, unspecified, I10 - Essential (primary) hypertension, R25.3 - Fasciculation, R41.3 - Other amnesia TSH reflex Free T4 09/04/24 D64.9 - Anemia, unspecified, I10 - Essential (primary) hypertension, R25.3 - Fasciculation, R41.3 - Other amnesia Magnesium 09/04/24 D64.9 - Anemia, unspecified, I10 - Essential (primary) hypertension, R25.3 - Fasciculation, R41.3 - Other amnesia Comprehensive Met. Panel 09/04/24 D64.9 - Anemia, unspecified, I10 - Essential (primary) hypertension, R25.3 - Fasciculation, R41.3 - Other amnesia Vitamin B6 09/04/24 D64.9 - Anemia, unspecified, I10 - Essential (primary) hypertension, R25.3 - Fasciculation, R41.3 - Other amnesia Medications: Changed From topiramate 50 mg (2 x 25 mg) PO BID 30 days 120 tabs 6RF To topiramate 50 mg (2 x 25 mg) PO BEDTIME 30 days 60 tabs 6RF Refilled sumatriptan succinate (0.5 - 1 x 100 mg) 50 - 100 mg orally at onset of headache, may repeat in 2 hrs PRN; max 2 tabs per day or 4 tabs/week (may take with Ibuprofen) 30 days 12 tabs 6RF migraine headache riboflavin (vitamin B2) 400 mg PO DAILY 30 days 30 tabs 6RF magnesium oxide may hold for loose stools 400 mg PO BEDTIME 30 days 30 tabs 6RF Coding Level of Care Code Est Pt Level 4 (03054) Diagnoses Migraine without aura G43.009 Bruxism F45.8 Family history of Alzheimer's disease Z82.0 Memory difficulties R41.3
--- OUTSIDE RECORDS SUMMARY | 2024-09-04 15:03 | XMS_ITS | Encounter Summary ---
Author Organization [employer] Address [address] [place] [address] [address] [place] [address] Care Team Providers Care Swing Manager Name Role Phone [place] [facility] Primary Care Provider [phone] Reason for Visit * Reason Onset Date Comments Appointment Request 01/17/2023 Encounter Details Date Type Department Care Team ([facility] st Contact Info) Description 01/17/2023 Telephone [facility] MEDICINE [address] [place], [place] [id number] [facility] [address] [place] [address] Appointment Request Social History Tobacco Use Types Packs/Day Years Used Date Smoking Tobacco: Never Smokeless Tobacco: Never Depression Answer Date Recorded Patient Health Questionnaire-9 Score 4 11/28/2022 Depression Answer Date Recorded Patient Health Questionnaire-2 Score 0 11/28/2022 Comments Unknown Sex and Gender Information Value Date Recorded Sex Assigned at Female 05/22/2022 10:38 AM EDT Legal Sex Female 10:38 AM EDT Gender Identity Female 05/22/2022 10:38 AM EDT Sexual Orientation Straight 05/22/2022 10 :38 AM EDT documented as of this encounter Miscellaneous Notes * Telephone Encounter - Dina Jaffe - 01/17/2023 12:46 PM EDT Tc from pt requesting to r/s appt for a TP on 01/16/2023. Please contact pt at [phone] Yoruba Speaker documented in this encounter Plan of Treatment Not on file documented as of this encounter Visit Diagnoses Not on filedocumented in this encounter Additional Health Concerns Assessment Noted Time PHQ-9 Depression Total Score: 4 11/29/19 23 2:25 PM EDT documented as of this encounter Care Teams Swing Manager Relationship Specialty Start Date End Date Olivia Long FNP [address] [place] [id number] PCP - General Family Medicine 03/18/22 documented as of this encounter
--- OUTSIDE RECORDS SUMMARY | 2024-09-04 15:03 | XMS_ITS | Encounter Summary ---
Author Organization [employer] Address [address] [place] [address] [address] [place] [address] Care Team Providers Care Respiratory Care Faculty Name Role Phone [facility] Primary Care Provider [phone] Reason for Visit * Reason Onset Date Comments Appointment Request 07/03/2022 Encounter Details Date Type Department Care Team ([facility] st Contact Info) Description 07/03/2022 Telephone [facility] MEDICINE [address] [place] [address] [place] [facility] [address] [place] [address] Appointment Request Social History Tobacco Use Types Packs/Day Years Used Date Smoking Tobacco: Never Assessed Comments Unknown Sex and Gender Information Value Date Recorded Sex Assigned at Female 05/22/2022 10:38 AM EDT Legal Sex Female 10:38 AM EDT Gender Identity Female 05/22/2022 10:38 AM EDT Sexual Orientation Straight 05/22/2022 10 :38 AM EDT documented as of this encounter Miscellaneous Notes * Telephone Encounter - Shwetha Irby - 07/03/2022 12:10 PM EST Tc from pt requesting an appt and lab results. documented in this encounter Plan of Treatment Not on file documented as of this encounter Visit Diagnoses Not on filedocumented in this encounter Care Teams Respiratory Care Faculty Relationship Specialty Start Date End Date [place] [facility] [address] [place] [address] PCP - General Family Medicine 8/27/22 documented as of this encounter
--- OUTSIDE RECORDS SUMMARY | 2024-09-04 15:03 | XMS_ITS | Encounter Summary ---
Author Organization [employer] Address [address] [facility] [address] [place] [address] Care Team Providers Care Client Services Manager Name Role Phone [facility] Primary Care Provider [phone] Encounter Details Date Type Department Care Team ([facility] st Contact Info) Description 12/08/2022 Abstract [facility] [address] [place], [place] [id number] [place] [facility] [address] [place] [address] Social History Tobacco Use Types Packs/Day Years [...] Orientation Straight 05/22/2022 10 :38 AM EDT COVID-19 Exposure Response Date Recorded In the last 10 days, have yo u been in contact with someone who was confirmed or suspected to have Coronavirus/COVID-19? No / Unsure 11/28/2022 2:00 PM EDT documented as of this encounter Plan of Treatment Not on file documented as of this encounter Procedures Procedure Name Priority Date/Time Associated Diagnosis Comments MAMMOGRAPHY Routine 09/20/2022 documented in this encounter Results * Mammography (09/20/2022) Mammogram Bi-rads 3: Probably benign. Diagnostic Mammo due in 6 months Comment:Diagnostic Left [place] st Mammogram Anatomical Region Laterality Modality Other us Historical Provider MD HEALTH MAINTENANCE Final Result documented in this encounter Visit Diagnoses Not on filedocumented in this encounter Additional Health Concerns Assessment Noted Time PHQ-9 Depression Total Score: 4 11/29/19 23 2:25 PM EDT documented as of this encounter Care Teams Client Services Manager Relationship Specialty Start Date End Date Olivia Long FNP [address] [place] [id number] PCP - General Family Medicine 03/18/22 documented as of this encounter
--- OUTSIDE RECORDS SUMMARY | 2024-09-04 15:03 | XMS_ITS | Encounter Summary ---
Author Organization [employer] Address [address] [place] [address] [address] [place] [address] Care Team Providers Care Circle Shear Operator Name Role Phone [facility] Primary Care Provider [phone] Encounter Details Date Type Department Care Team (Late st Contact Info) Description 01/15/2023 Abstract [facility] [address] [place], [place] [phone] Olivia Long [facility] [address] [place], [place] [phone] Social History Tobacco Use Types Packs/Day Years [...] AM EDT documented as of this encounter Plan of Treatment Not on file documented as of this encounter Visit Diagnoses Not on filedocumented in this encounter Additional Health Concerns Assessment Noted Time PHQ-9 Depression Total Score: 4 11/29/19 23 2:25 PM EDT documented as of this encounter Care Teams Circle Shear Operator Relationship Specialty Start Date End Date Olivia Long FNP [address] [place] [address] PCP - General Family Medicine 03/18/22 documented as of this encounter
--- OUTSIDE RECORDS SUMMARY | 2024-09-04 15:04 | XMS_ITS | Clinical Summary ---
Author Organization [employer] Address [address] [facility] [address] [place] [address] Care Team Providers Care Freelance Translator Name Role Phone Olivia Long [facility] Primary Care Provider [phone] Allergies No known active allergies Medications magnesium oxide (Mag-Ox) 400 (240 Mg) MG tablet TAKE 1 TABLET BY MOUTH AT BEDTIME. MAY HOLD FOR LOOSE STOOLS 3 Active riboflavin (Vitamin B-2) 400 MG tablet Take 1 tablet by mouth in the morning. 3 Active SUMAtriptan (Imitrex) 100 MG tablet PLEASE SEE ATTACHED FOR DETAILED DIRECTIONS 3 Active carvedilol (Coreg) 3.125 MG tablet Take 1 tablet by mouth every 12 (twelve) hours. 2 Active losartan (Cozaar) 100 MG tablet Take 1 tablet by mouth at bed time. 1 Active albuterol 108 (90 Base) MCG/ACT inhaler Inhale 2 puffs every 4 (four) hours if needed for wheezing or shortness of breath. 18 g 1 3 Active Spacer/Aero-Hol ding Chambers (OptiChamber Lily) misc 1 each every 4 (four) hours if needed (asthma). 1 each 3 Active ibuprofen 400 MG tablet Take 1 tablet (400 mg) by mouth every 6 (six) hours if needed for moderate pain or fever for up to 30 doses. 30 tablet 3 Active albuterol (2.5 MG/3ML) 0.083% nebulizer solution Take 3 mL (2.5 mg) by nebulization every 6 (six) hours if needed for wheezing or shortness of breath. 75 mL 1 3 Active Blood Pressure kit 1 each 2 times daily. 1 kit 4 09/05/19 25 Active sodium chloride (Cascade Nasal [place]) 0.65 % nasal spray Administer 1 spray into each nostril if needed for congestion. 30 mL 2 4 10/11/19 25 Active fluticasone (Flonase) 50 MCG/ACT nasal spray ADMINISTER 1 SPRAY INTO EACH NOSTRIL IN THE MORNING. SHAKE GENTLY. BEFORE FIRST USE, PRIME PUMP. AFTER USE, CLEAN TIP AND REPLACE CAP. 48 mL 4 Active acetaminophen (Tylenol) 325 MG capsule 1 tab po q 6 hours prn pain or fever chinese 60 capsule 4 Active levothyroxine (Synthroid, Levoxyl) 112 MCG tabletIndicatio ns:Hypothyroidi sm, unspecified type TAKE 1 TABLET BY MOUTH EVERY DAY 90 tablet 4 Active Active Problems Problem Noted Date Diagnosed Date Dysphagia 03/20/2024 Trismus 09/15/2023 Overview (09/15/2023): Dr. Uribe oral surgery [facility] Assessment & Plan (09/15/2023 9:43 AM EST): Will refer to speech language therapist as advised Follow up as scheduled with MRI and Dr. Uribe Patient verbalizes understanding and agrees to plan Migraine headache 07/20/2023 Overview (07/20/2023): previously rx'd magnesium, B2, sumatriptan. Does not take consistently. Followed by neurology. Negative brain MRI 08/2022 Chronic nasal congestion 07/11/2023 Mild intermittent asthma without complication Breast lump 11/24/2022 Overview (03/20/2024): In the 11:30 position of the far posterior left breast, there is a stable and unchanged bilobed circumscribed focal asymmetry/mass measuring 1.1 cm in diameter. Birads 3--09/2023 repeat 6 months History of thyroidectomy 11/24/2022 Hypothyroidism 11/24/2022 Overview (07/20/2023): ?? S/p thyroidectomy Assessment & Plan (09/15/2023 9:40 AM EST): Repeat TSH Vitamin D deficiency 11/24/2022 Disorder of tendon 03/17/2022 Non-cardiac chest pain 09/01/2021 Overview (12/08/2022): Seen by cardiology [id number], had echo, ekg, exercise stress test, all without cardiac explanation for cp. thought to be noncardiac. fu with cardiology PRN Hypertensive disorder 04/26/2021 Overview (09/15/2023): Losartan 100mg Carvedilol 3.125mg b.I.d Seen by cardiology [phone], had echo, ekg, exercise stress test, all without cardiac explanation for cp. thought to be noncardiac. fu with cardiology PRN Maintenance: - Aerobic exercise to reduce BP. Initial goal of 30 min walk 3-5x/week. Increase as tolerated. - low-sodium diet (goal: <2g/day) and heart healthy diet such as DASH to reduce BP and prevent ASCVD. - Home BP monitoring 1-2 x day with goal of <140/90. - Seek immediate medical attention for chest pain, palpitations, SOB, syncope, or sudden changes in mental status. - Do not change or discontinue current prescriptions without first consulting health care provider Assessment & Plan (10/11/2023 8:23 PM EDT): Mild elevated BP today Not took BP meds today -advised to be compliant Assessment & Plan (09/15/2023 9:41 AM EST): Well controlled Continue current regimen Resolved Problems Problem Noted Date Diagnosed Date Resolved Date Influenza B 10/11/2023 03/20/2024 Overview (10/11/2023): Assessment & Plan (10/11/2023 8:23 PM EDT): Pt w respiratory symptoms Flu positive here today Covid and strep are neg Chem 09/2023 wnl LFTS and renal fucntion -tamiflu prescribed today -pt w asthma hx and within window -cepacol,ocean nasal spray,cough syrup med -alarm signs and symptoms discussed -mask use advised and hand hygienes Acute intractable headache 09/06/2023 0 09/15/2023 H/O: hysterectomy 04/26/2021 03/20/2024 Encounters Date Type Department Care Team Description 09/03/2024 Telephone [facility] [address] [place], [place] [phone] [place] [facility] Nurse Triage 07/10/2024 Refill [facility] [address] [place], [place] [phone] [place] [facility] Hypothyroidism, unspecified type 06/30/2024 Patient Outreach [facility] [address] [place], [place] [phone] [place] GIN CLERK Pre-visit Planning (SDPA screening completed on 09/05/2023) 06/11/2024 Orders Only GENERIC EXTERNAL DATA DEPARTMENT Provider, Generic External Data from Last 3 Months Immunizations Name Administration Dates Next Due Moderna Covid-19 Vaccine 12+ 09/17/2020,08/20/19 21 Pneumococcal Conjugate PCV 20 03/14/2024 Tdap 12/30/2020 Social History Tobacco Use Types Packs/Day Years Used Date Smoking Tobacco: Never Smokeless Tobacco: Never Tobacco Cessation:Counseling Given: Not Answered Alcohol Use Standard Drinks/Week Comments Never 0 (1 standard drink = 0.6 oz pur e alcohol) Alcohol Answer Date Recorded Frequency of Alcohol Consumption Not on file 09/05/2023 Average Number of Drinks Not on file 024 Frequency of Binge Drinking Not on file 08/23 Score 0 09/05/2023 Depression Answer Date Recorded Patient Health Questionnaire-9 Score 0 03/14/2024 Patient Health Questionnaire-9 Score 0 03/14/2024 Last PHQ-9: Questionnaire Data Not on file 0 03/14/2024 Housing Stability Answer Date Recorded What is your housing situation today? I have celso ceballos 05/07/[address] you li ve. Do you have problems with any of the following? None of the above 05/07/2023 Food Insecurity Answer Date Recorded Within the past 12 months, y ou worried that your food would run out before you got money to buy more: Never True 09/05/2023 Within the past 12 months,th e food you bought just didn't last and you didn't have enough money to get more: Never True Transportation Answer Date Recorded In the past 12 months, has l ack of transportation kept you from medical appts, meetings, work or from getting things needed for daily living? No 09/05/2023 Utilities Answer Date Recorded In the past 12 months, has t he electric, gas, oil or water company threatened to shut off services in your home? No 05/07/2023 Depression Answer Date Recorded Patient Health Questionnaire-2 Score 0 03/14/2024 Comments No Sex and Gender Information Value Date Recorded Sex Assigned at Female 05/22/2022 10:38 AM EDT Legal Sex Female 10:38 AM EDT Gender Identity Female 05/22/2022 10:38 AM EDT Sexual Orientation Straight 05/22/2022 10 :38 AM EDT Last Filed Vital Signs Vital Sign Reading Time Taken Comments Blood Pressure 124/79 06/02/2024 2:14 PM EST Pulse 75 06/02/2024 2:14 PM EST Temperature 36.2 ??C (97.2 ??F) 06/02/2024 2:14 PM ES T Respiratory Rate 16 06/02/2024 2:14 PM EST Oxygen Saturation 99% 06/02/2024 2:14 PM EST Inhaled Oxygen Concentration - - Weight 68 kg (150 lb) 06/02/2024 2:14 PM EST Height 154.9 cm (5' 1 ) 06/02/2024 2:14 PM EST Body Mass Index 28.34 06/02/2024 2:14 PM EST Plan of Treatment Health Maintenance Due Date Last Done Comments Hepatitis B Vaccines (1 of 3 - 19+ 3-dose series) 2002 COVID-19 Vaccine ( season) 2024 06/02/2021, 09/17/2020, 08/20/2020 Influenza Vaccine (#1) 2024 Alcohol/Substance Use Screening 09/05/2024 09/05/2023 SDOH Screening 09/05/2024 09/05/2023 Depression Screening 03/14/2025 03/14/2024, 03/14/20 24 Mammogram 04/09/2025 04/09/2024, 03/11/2023, 03/29/2023, Additional history exists Family Planning (PISQ) 06/02/2025 06/02/2024 Tobacco Screening 06/02/2025 06/02/2024 HPV/Cotest 05/31/2026 05/31/2023 Pap Smear 05/31/2026 05/31/2023, 12/05/2018 Lipid Panel 09/06/2028 09/06/2023, 06/0 07/2022, 01/03/2021 DTaP/Tdap/Td Vaccines (2 - Td or Tdap) 12/30/2030 12/30/2020 Zoster Vaccines (1 of 2) 2033 RSV Patients and Patients Aged 60 years or older (1 - 1-dose 75+ series) 2058 HIV Screening Completed 04/12/2022, 01/03/2021 Hepatitis C Screening Completed 12/21/2022, 021 Pneumococcal Vaccine: Pediatrics (0 to 5 Years) and At-Risk Patients (6 to 49) Years) Completed 03/14/2024 HIB Vaccines Aged Out No longer eligi ble based on patient's age to complete this topic HPV Vaccines Aged Out No longer eligi ble based on patient's age to complete this topic Hepatitis A Vaccines Aged Out No long er eligible based on patient's age to complete this topic IPV Vaccines Aged Out No longer eligi ble based on patient's age to complete this topic Meningococcal Vaccine Aged Out No jair leonardo eligible based on patient's age to complete this topic RSV under 20 months Aged Out No longe r eligible based on patient's age to complete this topic Rotavirus Vaccines Aged Out No longer eligible based on patient's age to complete this topic Procedures Procedure Name Priority Date/Time Associated Diagnosis Comments NM GASTRIC EMPTYING SOLID Routine 07/02/2024 7:27 AM EST RAST ALLERGEN (NON ORDERABLE) Routine 06/11/2024 5:00 PM EST BI MAMMOGRAM DIAGNOSTIC TOMOSYNTHESIS BILATERAL Routine 04/09/2024 2:30 PM EDT LIPID PANEL, STANDARD Routine 09/06/2023 11:33 AM EST Primary hypertension HPV MRNA E6/E7 REFLEX TO HPV 16, 18/45 Routine 05/31/2023 2:20 PM EST PAP SMEAR Routine 05/31/2023 2:20 PM EST HEPATITIS C AB W/REFL TO HCV RNA, QN, PCR Routine 12/21/2022 12:03 PM EDT Healthcare maintenance HIV 1/2 ANTIGEN/ANTIBODY, FOURTH GENERATION W/RFL Routine 04/12/2022 11:21 AM EDT from Last 3 Months or Most Recently Relevant to Health Maintenance Results * NM Gastric Emptying Solid (07/02/2024 7:27 AM EST) Anatomical Region Laterality Modality Body Nuclear Medicine 07/02/2024 7:27 AM EST Narrative 07/02/2024 4:48 PM EST ? [facility] ?[address] ?[place] [address] ?Nuclear Medicine Report ? Signed ? Patient: Dhara IrbyJanine ?MR#: MM ?? [id number] ? : 1985 ?Acct:[id number] ? Age/Sex: 39 / F ?ADM Date: 07/02/24 ? Loc: HO.NUCMED ? Attending Dr: Pamela TORO-BC ? Ordering Physician: Pamela Luciano-BC ?? Date of Service: 07/02/24 ?? Procedure(s): NM gastric emptying study ?? Accession Number(s): [id number] ? cc: Jennifer Germain MD; Pamela Luciano-BC ? EXAMINATION: ?? RADIONUCLIDE SOLID FOOD GASTRIC EMPTYING 4-HOUR STUDY ? CLINICAL INFORMATION: ?? Early satiety. ? COMPARISON: ?? No previous gastric emptying study is available for comparison. ? TECHNIQUE: ?? A standard meal consisting of 4 oz of Egg Beaters brand tagged with 1 ?? mCi Tc-99m Sulfur Colloid, 8 oz water and 2 slices of toast with jelly ?? was administered orally to the patient. Images were obtained using a ?? dual head gamma camera in the anterior and posterior projections over ?? of the stomach immediately post ingestion and at hourly intervals up to ?? 3 hours post ingestion. Images were not obtained at 4 hours due to the ?? minimal retention at 3 hours. The anterior and posterior counts at each ?? time interval were averaged using the geometric mean and expressed as ?? percentage of the immediate post ingestion counts. ? FINDINGS: ?? There is good visualization of activity in the stomach immediately post ?? ingestion. As the study progresses, there is good clearance of activity ?? from the stomach and visualization of progressively increasing small ?? bowel activity. By the end of the study, there is almost no retention ?? noted in the stomach. ? Retention in the stomach at each time interval was: ?? 1 hour 75% (normal 37%-90%) ?? 2 hours 14% (normal 30%-60%) ?? 3 hours 1% ?? 4 hours (Not Obtained) (normal 0%-10%) ? NM/NM gastric emptying study ?? IMPRESSION: ?? Normal solid food gastric emptying study. ? Gastric emptying study grading per JNMT Consensus Recommendations in ?? 2008: ??https://tech.snmjournals.org/content/36/44 ?? Grade 1 (mild retention): 11-20% at 4 hours ?? Grade 2 (moderate retention): 21-35% at 4 hours ?? Grade 3 (severe retention): 36-50% at 4 hours ?? Grade 4 (very severe retention): >50% retention at 4 hours ? Electronically signed by: ??Dariusz Daigle MD ??07/02/2024 04:45 PM EST ?? RP ? Dictated By: ?Dariusz Daigle MD ? Signed By: ?<Electronically signed by Dariusz Daigle MD in OV> ? 07/02/24 1645 ? DD/ 0727 ? TD/TT: 07/02/24 1134 ? Lap Runner: RR ? Procedure Note Cadence Patel - 07/02/[address] [place] [address] Nuclear Medicine Report Signed Patient: Astrid Keller#: [id number] : 1985Acct:[id number] Age/Sex: 39 / FADM Date: 07/02/24 Loc: [facility] Attending Dr: Pamela Luciano [facility] Ordering Physician: Pamela Luciano Date of Service: 07/02/24 Procedure(s): NE gastric emptying study Accession Number(s): [id number] cc: Jennifer Germain MD; Pamela Luciano [facility] EXAMINATION: RADIONUCLIDE SOLID FOOD GASTRIC EMPTYING 4-HOUR STUDY CLINICAL INFORMATION: Early satiety. COMPARISON: No previous gastric emptying study is available for comparison. TECHNIQUE: A standard meal consisting of 4 oz of Egg Beaters brand tagged with 1 mCi Tc-99m Sulfur Colloid, 8 oz water and 2 slices of toast with jelly was administered orally to the patient. Images were obtained using a dual head gamma camera in the anterior and posterior projections over of the stomach immediately post ingestion and at hourly intervals up to 3 hours post ingestion. Images were not obtained at 4 hours due to the minimal retention at 3 hours. The anterior and posterior counts at each time interval were averaged using the geometric mean and expressed as percentage of the immediate post ingestion counts. FINDINGS: There is good visualization of activity in the stomach immediately post ingestion. As the study progresses, there is good clearance of activity from the stomach and visualization of progressively increasing small bowel activity. By the end of the study, there is almost no retention noted in the stomach. Retention in the stomach at each time interval was: 1 hour 75% (normal 37%-90%) 2 hours 14% (normal 30%-60%) 3 hours 1% 4 hours (Not Obtained) (normal 0%-10%) NE/NE gastric emptying study IMPRESSION: Normal solid food gastric emptying study. Gastric emptying study grading per JNMT Consensus Recommendations in 2008: https://tech.snmjournals.org/content/36/44 Grade 1 (mild retention): 11-20% at 4 hours Grade 2 (moderate retention): 21-35% at 4 hours Grade 3 (severe retention): 36-50% at 4 hours Grade 4 (very severe retention): >50% retention at 4 hours Electronically signed by: Dariusz Daigle MD 07/02/2024 04:45 PM EST RP Dictated By: Dariusz Daigle MD Signed By: <Electronically signed by Dariusz Daigle MD inOV> 07/02/24 1645 DD/ 0727 TD/TT: 07/02/24 1134 Lap Runner: RR us [facility] External Provider IMG NM PROCEDURES Final Result * Rast Allergen (06/11/2024 5:00 PM EST) Rast Allergen SEE NOTE [facility] Comment:SEE SCANNED RESULTS IN EMR 06/11/2024 5:00 PM EST 06/11/2024 5:02 PM EST Generic External Data Provider HISTORICAL/NON OR DERABLE LABS Final Result Performing Organization Address City/[facility] Co de Phone Number [facility] [address] [place] [address] [phone] * BI Mammogram Diagnostic Tomosynthesis Bilateral (04/09/2024 2:30 PM EDT) Anatomical Region Laterality Modality Breast Bilateral Mammography 04/09/2024 2:30 PM EDT Narrative 04/09/2024 3:31 PM EDT ? [facility] ? [address] [facility] ?[place] [address] ? Mammography Report ? Signed ? Patient: Janine Keller ?MR#: MM ?? [id number] ? : 1985 ?Acct:[id number] ? Age/Sex: 38 / F ?ADM Date: 09/18/24 ? Loc: HO.MAMMO ? Attending Dr: Olivia Ethan GIN CLERK ? Ordering Physician: [place],Olivia GIN CLERK ?Results: 2Beni ?? gn Findings ? Date of Service: 04/09/24 ?Follow Up: 1 Year From Orig ?? inal Mammogram ? Procedure(s): MM tomosynthesis diagnostic BI ?? Accession Number(s): [id number] ? cc: Jennifer Germain MD; Olivia Long ? EXAMINATION: ?? MM DIAGNOSTIC DIGITAL BREAST TOMOSYNTHESIS, BILATERAL ? CLINICAL INFORMATION: ? Follow-up bilobed mass 11:00 axis left breast posterior one third, ?? which has remained unchanged since 03/21/2022. 2 prior ultrasounds ?? demonstrated no correlate, making this most likely a benign island of ?? normal lobular tissue. Today will ensure 2 years of stability if ?? unchanged. ? COMPARISON: ?? Mammography: 10/05/2023, 03/29/2023, 09/20/2022, 03/21/2022 (BI-RADS 3). ?? Ultrasound: 03/29/2023 left, 03/21/2022 left. ? TECHNIQUE: ?? Digital breast tomosynthesis is performed in both the craniocaudal and ?? mediolateral oblique views along with computer-aided detection (CAD). ?? Synthesized 2D images are generated from the tomosynthesis. ? FINDINGS: ?? The breasts are heterogeneously dense, which may obscure small masses ?? (ACR BI-RADS breast composition Category c). ? In the 11:30 o'clock position of the far posterior left breast, there ?? are stable and unchanged bilobed circumscribed focal asymmetry/mass ?? measuring 1.1 cm in diameter. This is entirely unchanged from prior ?? exams in both size and morphology. This is benign, stable over 2 years, ?? consistent with an island of normal parenchymal tissue. ? Calcifications noted left greater than right in the retroareolar and ?? upper breasts, anterior one third, has remained stable as well since ?? 03/21/2022. These are benign. ? Otherwise, there are no suspicious masses, developing suspicious ?? grouped calcifications, or areas of architectural distortion in either ?? breast. The parenchymal pattern is stable from prior exams. There is no ?? skin or axillary abnormality. ? MM/MM tomosynthesis diagnostic BI ?? IMPRESSION: ?? -There are no findings suspicious for malignancy in either breast. ?? Stable examination. ? -There are benign findings as detailed above, stable over 2 years. No ?? further follow-up recommended. ? -Recommend the patient return to routine annual screening in one year. ? ASSESSMENT: ? BI-RADS BI-RADS 2 - Benign Findings ? RECOMMENDATION: ?? 1 year F/U ? Results were provided to the patient at time of visit by the ?? technologist. ? This patient's information was entered into a reminder system with a ?? target due date for their next mammogram. ? Electronically signed by: ??Valdemar Ring MD ??04/09/2024 03:28 PM EDT RP ? Dictated By: ?Valdemar Ring MD ? Signed By: ?<Electronically signed by Valdemar Ring MD in OV> ?04/09/24 1528 ? DD/ 1430 ? TD/TT: 04/09/24 1500 ? Lap Runner: ? Procedure Note Jorge, Image - 04/09/2024 [facility] [address] [place] [address] Dr. Canales, ELVIRA [address] Mammography Report Signed Patient: Sylvia KellerNaomie#: MM [id number] : 1985Acct:[id number] Age/Sex: 38 / FADM Date: 04/09/24 Loc: MAMMO Attending Dr: Olivia Long GIN CLERK Ordering Physician: Olivia Long FNPResults: 2Beni gn Findings Date of Service: 04/09/24Follow Up: 1 Year From [facility] Mammogram Procedure(s): MM tomosynthesis diagnostic BI Accession Number(s): [id number] cc: Jennifer Germain MD; [facility] GIN CLERK EXAMINATION: MM DIAGNOSTIC DIGITAL BREAST TOMOSYNTHESIS, BILATERAL CLINICAL INFORMATION: Follow-up bilobed mass 11:00 axis left breast posterior one third, which has remained unchanged since 03/21/2022. 2 prior ultrasounds demonstrated no correlate, making this most likely a benign island of normal lobular tissue. Today will ensure 2 years of stability if unchanged. COMPARISON: Mammography: 10/05/2023, 03/29/2023, 09/20/2022, 03/21/2022 (BI-RADS 3). Ultrasound: 03/29/2023 left, 03/21/2022 left. TECHNIQUE: Digital breast tomosynthesis is performed in both the craniocaudal and mediolateral oblique views along with computer-aided detection (CAD). Synthesized 2D images are generated from the tomosynthesis. FINDINGS: The breasts are heterogeneously dense, which may obscure small masses (ACR BI-RADS breast composition Category c). In the 11:30 o'clock position of the far posterior left breast, there are stable and unchanged bilobed circumscribed focal asymmetry/mass measuring 1.1 cm in diameter. This is entirely unchanged from prior exams in both size and morphology. This is benign, stable over 2 years, consistent with an island of normal parenchymal tissue. Calcifications noted left greater than right in the retroareolar and upper breasts, anterior one third, has remained stable as well since 03/21/2022. These are benign. Otherwise, there are no suspicious masses, developing suspicious grouped calcifications, or areas of architectural distortion in either breast. The parenchymal pattern is stable from prior exams. There is no skin or axillary abnormality. MM/MM tomosynthesis diagnostic BI IMPRESSION: -There are no findings suspicious for malignancy in either breast. Stable examination. -There are benign findings as detailed above, stable over 2 years. No further follow-up recommended. -Recommend the patient return to routine annual screening in one year. ASSESSMENT: BI-RADS BI-RADS 2 - Benign Findings RECOMMENDATION: 1 year F/U Results were provided to the patient at time of visit by the technologist. This patient's information was entered into a reminder system with a target due date for their next mammogram. Electronically signed by: Valdemar Ring MD 04/09/2024 03:28 PM EDT Dictated By: Valdemar Rign MD Signed By: <Electronically signed by Valdemar Ring MD in OV> 04/09/24 1528 DD/ 1430 TD/TT: 04/09/24 1500 Lap Runner: [facility] IMG BI PROCEDURES Final Resul t * Lipid Panel, Standard (09/06/2023 11:33 AM EST) Triglycerides 80 <150 mg/dL [facility] Comment:Desirable Triglyceri de: less than 150 mg/dLBorderline High Triglyceride 150-199 mg/dLHigh Triglyceride: 200-499 mg/dLVery High Triglyceride: greater than or equal to 5OO mg/dL Cholesterol 150 <200 mg/dL [facility] Comment:Desirable Cholestero l: less than 200 mg/dLBorderline High Cholesterol: 200-239 mg/dLHigh Cholesterol: greater than 239 mg/dL LDL Cholesterol Calculated 90 <100 mg/dL [facility] Comment:Desirable LDL: less than 100 mg/dLNear Optimal/Above Optimal LDL: 110- 129 mg/dLBorderline High LDL: 130-159 mg/dLHigh LDL: 160-189 mg/dLVery High LDL: greater than or equal to 190 mg/dL HDL Cholesterol 44 >40 mg/dL [facility] Comment:Desirable HDL: great er than 40 mg/dL Note: This HDL assay may give artificially low results in patients with liver disease. Blood Venous blood specimen / Unknown 09/06/2023 11:33 AM EST 09/06/2023 1:03 PM EST [facility] BLOOD ORDERABLES Final Re sult [facility] [address] [place] [phone] * HPV mRNA E6/E7 w/Reflex to HPV Genotypes 16, 18/45 (05/31/2023 2:20 PM EST) HPV nRNA E6/E7 Not Detected Not Detected [facility] Comment:Methodology: Transcr iption-Mediated AmplificationThis assay detects E6/E7 viral messenger RNA (mRNA) from 14high-risk HPV types (16,18,31,33,35,39,45,51,52,56,58,59,66,68).Cervical sources are required for HPV testing.If a vaginal source from a patient who has had atotal hysterectomy with removal of cervix wassubmitted, please contact the testing laboratoryfor alternative testing options.For additional information, please refer [email or web address].Videoflot/faq/YZZ873c0(This link if provided for information/educational purposes only.)THIS TEST WAS PERFORMED AT:[employer] [place] [id number] SOUZA MD HPV mRNA E6/E7 [facility] HPV 16 RNA [facility] HPV 18/45 RNA [facility] 05/31/2023 2:20 PM EST 06/01/2023 8:10 AM EST Duane iGlliam [facility] CYTOLOGY ORDERABLES F inal Result [facility] [address] [place] [address] [phone] * Pap Smear (05/31/2023 2:20 PM EST) 05/31/2023 2:20 PM EST 06/01/2023 8:10 AM EST Narrative [facility] - 06/20/2023 4:44 PM EST ----- ------- Name: Janine Keller ? Age/Sex: 38/F ? : 1985 Unit#: [id number] ?? Attend Dr: DUANE GILLIAM CNM ?Re05/31/23 ?Status: DEP REF ? Location: HO.HHCLNP ? Disch: ? ----- ------- SPEC : [id number] ?RECD: 06/01/23 ? STATUS: ??SOUT ? REQ NUM: [id number] ? JUAN JOSÉ: 05/31/23-1419 ? SUBM DR: DUANE GILLIAM CNM ? ENTERED: ??06/01/23 ?SP TYPE: Pap Smr ?OTHR : ? ORDERED: ??Pap Smear, PAP path review ? Interpretation ?? General Category: ?? Epithelial cell abnormality. ?? Adequacy: ? Endocervical component present. ?? Interpretation: ? Atypical squamous cells of undetermined significance. ?? Coccobacilli consistent with shift in vaginal clyde. ? HPV mRNA E6/E7: ?NOT DETECTED ? This assay detects E6/E7 viral messenger RNA (mRNA) from 14 high-risk HPV types (16, 18, ?? 31, 33, 35, 39, 45, 51, 52, 56, 58, 59, 66, 68) ? HPV testing performed by [facility], [place], [place]. ??See reference laboratory ?? portion of the EMR for entire report. ?Clinical Information LMP: Unknown date Previous PAP test: 2019, WNL Other surgery:S/P hyst Other history: Cervix not well seen, pap done as precaution ? Material Received ?? ThinPrep-Vaginal/Cervical ----- ------- Signed (signature on file) Shannen Oh MD 06/20/23 9511 ? ----- ------- ? END OF REPORT ? Duane Gilliam CNM LAB CYTOLOGY ORDERABLES F inal Result Performing Organization Address City/[facility]/ZIP Co de Phone Number [facility] [address] [place] [address] [phone] * Hepatitis C Antibody with Reflex to HCV, RNA, Quantitative, Real-Time PCR (12/21/2022 12:03 PM EDT) Hepatitis C Antibody NON-REACT SETH NON-REACT SETH [facility] Index 0.07 <1.00 [facility] Comment: HCV antibody was non-reactive. There is no laboratory evidence of HCV infection. In most cases, no further action is required. However, if recent HCV exposure is suspected, a test for HCV RNA (test code 89780) is suggested. For additional information please refer to http://education.[employer]/faq/BCB97r1 (This link is being provided for informational/ educational purposes only.) Blood Venous blood specimen / Unknown 12/21/2022 12:03 PM EDT 12/21/2022 12:04 PM EDT Narrative [facility] - 12/25/2022 1:25 PM EDT FASTING:YES FASTING: YES [facility] GIN CLERK LAB BLOOD ORDERABLES Final Re sult Performing Organization Address City/[facility]/ZIP Co de Phone Number [facility] [address], [place] [address] [facility] [place] [facility] [address] [place] [address] * HIV 1/2 ANTIGEN/ANTIBODY,FOURTH GENERATION W/RFL (04/12/2022 11:21 AM EDT) HIV-1/2 ANTIGEN AND ANTIBODIES, 4TH GENERATION W/ REFLEX NON-REACT SETH NON-REACT SETH [facility] Comment: HIV-1 antigen and HIV-1/HIV-2 antibodies were not detected. There is no laboratory evidence of HIV infection. ?? PLEASE NOTE: This information has been disclosed to you from records whose confidentiality may be protected by state law. ??If your state requires such protection, then the state law prohibits you from making any further disclosure of the information without the specific written consent of the person to whom it pertains, or as otherwise permitted by law. A general authorization for the release of medical or other information is NOT sufficient for this purpose. ? For additional information please refer to http://education.Videoflot/faq/HCL058 (This link is being provided for informational/ educational purposes only.) ? The performance of this assay has not been clinically validated in patients less than 2 years old. ?? 04/12/2022 11:2 1 AM EDT us Duane Gilliam [facility] BLOOD ORDERABLES Neelima wilson Result Performing Organization Address City/State/[facility] Co de Phone Number [facility] Anywhere [address] from Last 3 Months or Most Recently Relevant to Health Maintenance Insurance [facility] C3 Care Teams Freelance Translator Relationship Specialty Start Date End Date Olivia Long FNP [address] [place] [id number] PCP - General Family Medicine 03/18/22
--- OUTSIDE RECORDS SUMMARY | 2024-09-04 15:04 | XMS_ITS | Encounter Summary ---
Author Organization [employer] Address [address] [facility] 7t [place] [address] Care Team Providers Care Paper Inserter Name Role Phone [facility] Primary Care Provider [phone] Reason for Visit * Reason Onset Date Comments Order update 02/13/2024 Encounter Details Date Type Department Care Team ([facility] st Contact Info) Description 02/13/2024 Telephone [facility] [address] [place], [place] [phone] [facility] 230 [place] [address] Order update Social History Tobacco Use Types Packs/Day Years Used Date Smoking Tobacco: Never Smokeless Tobacco: Never Alcohol Use Standard Drinks/Week Comments Never 0 (1 standard drink = 0.6 oz pur e alcohol) Alcohol Answer Date Recorded Frequency of Alcohol Consumption Not on file 09/05/2023 Average Number of Drinks Not on file 024 Frequency of Binge Drinking Not on file 08/23 Score 0 09/05/2023 Depression Answer Date Recorded Patient Health Questionnaire-9 Score 0 09/05/2023 Patient Health Questionnaire-9 Score 0 09/05/2023 Last PHQ-9: Questionnaire Data Not on file 0 09/05/2023 Housing Stability Answer Date Recorded What is [...] Date Recorded Patient Health Questionnaire-2 Score 0 09/05/2023 Comments No Sex and Gender Information Value [...] Assessment Noted Time PHQ-9 Depression Total Score: 0 09/05/19 24 2:53 PM EST documented as of this encounter Care Teams Paper Inserter Relationship Specialty Start Date End Date Olivia Long FNP [address] [place] [phone] PCP - General Family Medicine 03/18/22 documented as of this encounter
--- OUTSIDE RECORDS SUMMARY | 2024-09-04 15:04 | XMS_ITS | Encounter Summary ---
Author Organization [employer] Address [address] [facility] 7t [place] [address] Care Team Providers Care Admissions Advisor Name Role Phone [facility] Primary Care Provider [phone] Reason for Visit * Reason Onset Date Comments Nurse Triage 09/03/2024 Encounter Details Date Type Department Care Team ([facility] st Contact Info) Description 09/03/[address] [facility] 230 [place], [place] [phone] [facility] [address] [place] [address] Nurse Triage Social History Tobacco Use Types Packs/Day Years [...] encounter Miscellaneous Notes * Telephone Encounter - Katelyn Mcginnis RN - 09/03/2024 2:51 PM EST Triage call with [facility] [place] [id number], [place]. Pt reports right eye twitching constantly for last 2 weeks. Pt denies injury, pain, drainage, fall.Pt reports headaches often, migraines mainly. Pt drinks coffee 2x/week maybe for headaches, cola once in a while no energy drinks. Pt doesn't have headache or twitching eye at time of call but, reports last night both were present and Pt was uncomfortable. Pt is advised to come to [facility] today for provider to see Pt . Pt agrees with this disposition. Hours of [facility] open till 8pm this evening. Unable to verify insurance computer error. Protocol Used: Headache (Adult) Protocol-Based Disposition: See in Office or Video Visit within 3 Days Video visit not offered Positive Triage Question: * Mild - Moderate headache present > 3 days (72 hours) * All higher-acuity triage questions were negative Care Advice Discussed: * Reassurance and Education - Migraine Headache * Pain Medicines * Rest for Migraine Headache * Reasons To Call Back - Severe headache lasts over 2 hours after pain medicine - Headache lasts over 72 hours - Stiff neck occurs (can't touch chin to chest) - You become worse * Telephone Encounter - Corey Xiao - 09/03/2024 2:35 PM EST Symptom: Eyelid Twitching Outcome: Schedule an urgent appointment (within 1 hour) or talk to a nurse or provider soon Reason: Feels like something is in the eye The caller accepted this outcome. documented in this encounter Plan of Treatment Not on file documented as of this encounter Visit Diagnoses Not on filedocumented in this encounter Additional Health Concerns Assessment Noted Time PHQ-9 Depression Total Score: 0 03/14/20 24 3:40 PM EDT documented as of this encounter Care Teams Admissions Advisor Relationship Specialty Start Date End Date Olivia Long FNP [address] [place] [id number] PCP - General Family Medicine 03/18/22 documented as of this encounter
--- OUTSIDE RECORDS SUMMARY | 2024-09-04 15:04 | XMS_ITS | Encounter Summary ---
Author Organization [employer] Address [address] [facility] 7t [place] [address] Care Team Providers Care Music Therapist Name Role Phone [facility] Primary Care Provider [phone] Reason for Visit * Reason Onset Date Comments PT-1 04/04/2024 Encounter Details Date Type Department Care Team ([facility] st Contact Info) Description 04/04/2024 Telephone [facility] 230 [place], [place] [phone] [facility] 230 [place] [address] PT-1 Social History Tobacco Use Types Packs/Day Years [...] encounter Miscellaneous Notes * Telephone Encounter - Alexander Glaser - 04/04/2024 1:57 PM EDT Patient calling requesting PT1 Home Address verified: Y/N: Yes Provider name or facility name: [facility] Facility Address: [address] [place] [address] Escort needed: Y/N: Yes Do you have a wheelchair: Y/N: No If yes- Manual or electric: N/A Visits: once a month documented in this encounter Plan of Treatment Not on file documented as of this encounter Visit Diagnoses Not on filedocumented in this encounter Additional Health Concerns Assessment Noted Time PHQ-9 Depression Total Score: 0 03/14/20 24 3:40 PM EDT documented as of this encounter Care Teams Music Therapist Relationship Specialty Start Date End Date Olivia Long FNP [address] [place] [phone] PCP - General Family Medicine 03/18/22 documented as of this encounter
[2024-09-04 15:07] VITALS: BP 120/82; PULSE 84; O2SAT 96; BMI 29.3
== END 2024-09-04 15:47 | disposition home or self-care (01) ==
LOC: HO.HSMS 15:00
PROVIDERS: PCP Internal Medicine; Visit Provider Nurse Practitioner Family
DX: G43.009 Migraine without aura, not intractable, without status migrainosus (principal); F45.8 Other somatoform disorders; Z82.0 Family history of epilepsy and other diseases of the nervous system; R41.3 Other amnesia
CPT/HCPCS: 99214

== ENCOUNTER 2024-10-08 18:19 | Emergency (ER) | payer MEDICAID, SELFPAY ==
--- NOTE | ~2024-10-08 | CT_ITS ---
CLINICAL HISTORY: Headache CT head without contrast Comparison: None available Findings: No acute intracranial hemorrhage. No midline shift or hydrocephalus. Andersen matter-white matter differentiation is adequate for technique and artifacts. No large arterial territorial infarction by CT. Posterior fossa arachnoid cyst measures 4 mm. Ventral scalp thickening versus scar versus sebaceous cysts or small hematoma. No acute skull fracture. 3 mm calcification is nonspecific of the left lateral scalp abutting temporalis musculature. Mild mucosal thickening of the imaged paranasal sinuses. Imaged mastoid air cells are well aerated. IMPRESSION: 1. No acute intracranial abnormality by CT. This document has been electronically signed by: Carmelo Esparza MD on 10/08/2024 22:53:15
[2024-10-08 18:31] VITALS: BP 160/76; PULSE 83; RESP 18; TEMP 37.2; O2SAT 97; BMI 29.1
--- NOTE | 2024-10-08 18:47 | ED.GENADULT ---
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 Canseco HPI narrative: 39-year-old female presented with symptoms of generalized body ache and headache patient is with history of chronic headache, daughter is diagnosed with RSV. Patient also have other multiple complaints Complaining of left side weakness for 1 year left upper extremity more than the left lower extremity. No fever, no chills, no body ache. +cough with no production. Related Data Home Medications ?Medication ?Instructions ?Recorded ?Confirmed carvedilol 3.125 mg tablet 3.125 mg PO BID 06/21/21 09/06/24 levothyroxine 112 mcg tablet 112 mcg PO DAILY 06/21/21 09/06/24 (Synthroid) losartan 100 mg tablet 100 mg PO DAILY 06/21/21 09/06/24 acetaminophen 500 mg tablet 1,000 mg PO Q6H PRN fever 02/24/22 09/06/24 fluticasone propionate 50 1 - 2 spray intranasal DAILY PRN 02/24/22 09/06/24 mcg/actuation nasal spray,suspension albuterol sulfate 2.5 mg/3 mL 2.5 mg inhalation Q6H PRN wheezing 07/15/23 09/06/24 (0.083 %) solution for nebulization albuterol sulfate 90 mcg/actuation 2 puff inhalation Q4H PRN wheezing 07/15/23 09/06/24 aerosol inhaler (Ventolin HFA) ibuprofen 400 mg tablet 400 mg PO Q6H PRN moderate pain 07/15/23 09/06/24 inhalational spacing device 07/15/23 09/06/24 ([employer] [facility] spacer) lidocaine 5 % topical patch 1 patch topical DAILY PRN Pain 07/15/23 09/06/24 amitriptyline 25 mg tablet 25 mg PO BEDTIME 03/12/24 09/06/24 blood pressure test kit-large #1 ea 03/12/24 09/06/24 Previous Rx's ?Medication ?Instructions ?Recorded hydrocortisone 2.5 % topical cream 1 appl SC BID-QID PRN hemorrhoids 09/29/21 with perineal applicator #30 grams (Proctosol HC) docusate sodium 100 mg capsule 100 mg PO BEDTIME #30 caps 11/08/22 sucralfate 1 gram tablet 1 g PO BEDTIME PRN acid reflux #30 05/22/23 tabs naproxen 500 mg tablet 500 mg PO BID PRN pain #20 tabs 08/19/23 cyclobenzaprine 5 mg tablet 7.5 mg (1.5 x 5 mg) PO BEDTIME 30 02/13/24 days #45 tabs sennosides 8.6 mg tablet (Natural 17.2 mg (2 x 8.6 mg) PO BEDTIME 03/12/24 Senna Laxative) constipation #180 tabs esomeprazole magnesium 40 mg 40 mg PO DAILY #30 caps 05/01/24 capsule,delayed release (Nexium) linaclotide 145 mcg capsule 145 mcg PO DAILY #30 caps 05/27/24 (Linzess) ondansetron 4 mg disintegrating 4 mg PO Q8H PRN nausea and 05/27/24 tablet vomiting #20 tabs magnesium oxide 400 mg (241.3 mg 400 mg PO BEDTIME 30 days #30 tabs 09/06/24 magnesium) tablet riboflavin (vitamin B2) 400 mg 400 mg PO DAILY 30 days #30 tabs 09/06/24 tablet sumatriptan succinate 100 mg tablet 50 - 100 mg (0.5 - 1 x 100 mg) PO 09/06/24 .COMPLEX PRN migraine headache 30 days #12 tabs topiramate 25 mg tablet 50 mg (2 x 25 mg) PO BEDTIME 30 09/06/24 days #60 tabs cholecalciferol (vitamin D3) 1,250 1,250 mcg PO QWEEK 12 days #12 caps 09/08/24 mcg (50,000 unit) capsule Allergies Allergy/AdvReac Type Severity Reaction Status Date / Time No Known Allergies Allergy Verified 10/08/24 18:32 Review of Systems Review of Systems: All other systems are reviewed and are negative Constitutional: Reports as per HPI and Reports no additional constitutional complaints Eyes: Reports as per HPI and Reports no additional eye complaints Reports system reviewed and no additional complaints, except as documented Cardiovascular: Reports as per HPI and Reports no additional cardiovascular complaints Respiratory: Reports as per HPI and Reports no additional respiratory complaints Gastrointestinal: Reports as per HPI and Reports no additional gastrointestinal complaints Genitourinary: Reports no additional female genitourinary complaints Musculoskeletal: Reports no additional musculoskeletal complaints Skin/Breast: Reports system reviewed and no additional complaints, except as docu Psychiatric: Reports no additional psychiatric complaints Endocrine: Reports no additional endocrine complaints Hematologic/Lymphatic: Reports no additional hematologic/lymphatic complaints Allergic/Immunologic: Reports no additional allergic/immunologic complaints Reports system reviewed and no additional complaints, except as documented and Reports Abnormal speech present [facility] Past Medical History Medical History Anemia Bruxism Snoring Hypertension Chest pain Surgical History H/O colonoscopy History of esophagogastroduodenoscopy (EGD) Hx of cholecystectomy H/O: hysterectomy H/O thyroidectomy Family History Family History Father Hypertension Hypercholesteremia Alzheimer disease Mother Diabetes Social History Social History Are you a primary home care attendant to a significant other at home: No Do you presently have visiting nurse or other home services: No Alcohol intake: never Patient Tobacco Use Status: Never used Tobacco Second Hand Smoke Exposure: No Advance Directives: No Advance Directives Information Provided: No Physical Exam ED Vital Signs: Vital Signs - 24 hr 10/08/24 18:31 10/08/24 22:06 Temperature 99.0 F 98.0 F Pulse Rate 83 71 Respiratory Rate 18 18 Blood Pressure 160/76 H 139/65 Pulse Oximetry 97 97 Oxygen Delivery Method Room Air Room Air BMI result Body Mass Index 29.1 Vital signs have been reviewed and appear to be correct. Blood pressure elevated. Heart rate normal. Respiratory rate normal. Temperature normal. Oxygen saturation normal. Appearance: Alert. Oriented X3. No acute distress. Head: Normal external exam. Normocephalic. Atraumatic. No Edwards signs noted. No raccoon eyes noted Eyes: PERRLA. EOMI. Conjunctiva and sclera normal. Eyelids normal. ENT: TM's Normal. Pharynx normal. Uvula midline. Moist mucous membranes. No trismus noted. No drooling noted. No muffled voice noted. Neck: Normal inspection. Neck supple. FROM. No adenopathy. Thyroid Normal. No meningeal signs. No neck mass noted. CVS: Normal heart rate and rhythm. Heart sound normal. No murmurs noted. Pulses normal throughout. Respiratory: No respiratory distress. Painless inspiration. Breath sounds normal. No wheezes/rales/rhonchi noted. Chest nontender. No accessory muscle usage noted or decreased air movement noted. Abdomen: Soft and nontender. Bowel sounds normal in all 4 quadrants. No distention noted. No organomegaly noted. No visible injury noted. Back: No CVA tenderness. Full range of motion noted. Skin: Skin warm and dry. Normal skin color. Normal skin turgor. No rashes/lesions/lacerations noted. Extremities: No lower extremity edema. Extremities exhibit normal range of motion. Extremities nontender. Neuro: Mental status: Normal attention, orientation, memory, and affect. Cranial nerves: Pupils are equal, round and reactive to light, EOMI, visual borrego are fall, face is symmetric, facial sensations are normal. Motor examination normal muscle tone, strength to 4 extremities. DTR are +2, planter's are flexor. Sensory exam; normal coordination, no ataxia, gait stable. Cerebellar exam: [id number] and [id number]-hp-cytf is normal. Extrapyramidal system: No tremors, no rigidity with normal facial expressions. Pronator drift not present NIH Stroke Scale Time: 22:04 Level of Consciousness: Alert Level of Consciousness Questions: Answers both questions correctly Level of Consciousness Commands: Performs both tasks correctly Best Gaze: Normal Visual: No visual loss Facial Palsy: Normal Motor Arm (Right): No drift Motor Arm (Left): No drift Motor Leg (Right): No drift Motor Leg (Left): No drift Limb Ataxia: Absent Sensory: Normal Best Language: No aphasia Dysarthia: Normal Extinction and Inattention: No abnormality Score: 0 Course Course Course Narrative: This is a rapid medical exam performed by Radha Lindsay PA-C. The patient is a 39-year-old female with a history of hypertension, bruxism, muscle twitching, migraine, cognitive impairment in regard to her memory, who presents with numerous complaints that have been going on for a week to a year. Patient states she has had a headache with dizziness that is right-sided for a week. Patient states she has been treated with therapy for her bruxism. Patient states she has been having left-sided weakness of the body for over a year. On exam I am not appreciating any weakness, the patient's strength is equal both upper and lower extremities there was no facial droop there was no speech impediment. Her symptoms are highly subjective. We will screen basic labs. The patient can return to the waiting room pending her full medical assessment. Reevaluation(s) Reevaluation #1: Acute on chronic headache, positive for RSV, normal neuro exam, NIH of 0, head CT is unremarkable for acute. Feels better after IV fluids and IV Tylenol. Will discharge to follow-up with PCP. Time: 00:00 Medications Administered Generic Name Dose Route Start Last Admin Trade Name Freq PRN Reason Stop Dose Admin Acetaminophen 1,000 mg in 100 mls @ 400 mls/hr 10/08/24 22:00 10/08/24 22:58 Ofirmev IV 10/09/24 16:14 Infused Q6H ROSANA Infusion Discontinued Medications Generic Name Dose Route Start Last Admin Trade Name Freq PRN Reason Stop Dose Admin Sodium Chloride 1,000 mls @ 999 mls/hr 10/08/24 21:56 10/08/24 22:35 Ns IV 10/08/24 22:56 999 mls/hr .Q1H1M ONE Administration Medical Decision Making Differential Diagnosis Differential Diagnoses: The differential diagnosis associated with the presentation includes (Intracranial bleed, CVA, RSV, influenza, COVID, electrolyte derangement, severe anemia.) Admission/Observation Consideration of admission/observation: Escalation of care including admission/observation considered Lab Data MDM Lab Attestation statement: I reviewed the patient's lab results. 10/08/24 20:04 10/08/24 20:04 Labs: Lab Results 10/08/24 10/08/24 Range/Units 20:04 21:47 WBC 8.2 (4.8-10.8) X10*3/uL RBC 4.32 (4.20-5.50) X10*6/uL Hgb 12.5 (12.0-16.0) g/dl Hct 35.4 L (37.0-47.0) % MCV 81.9 (80.0-98.0) fL MCH 28.9 (27.0-33.0) pg MCHC 35.3 H (31.0-35.0) g/dl RDW 11.8 (11.0-16.0) % Plt Count 275 (160-400) X10*3/uL MPV 9.8 (9.4-12.3) fL Immature Gran % (Auto) 0.4 (0.0-0.4) % Neut % (Auto) 52.6 (45-73) % Lymph % (Auto) 40.2 H (20-40) % [place] % (Auto) 5.7 (2-11) % Eos % (Auto) 0.9 (0-4) % Baso % (Auto) 0.2 (0-2) % Lymph # (Auto) 3.3 (1.2-4.9) X10*3/uL [place] # (Auto) 0.5 (0.1-1.2) X10*3/uL Eos # (Auto) 0.1 (0.0-0.4) X10*3/uL Baso # (Auto) 0.0 (0.0-0.2) X10*3/uL Abs Immat Gran (auto) 0.03 (0.00-0.03) X10*3/uL Absolute Neuts (auto) 4.3 (2.0-8.3) x10*3/uL Absolute Nucleated RBC 0.000 (0.0-0.012) X10*3/uL Nucleated RBC % (auto) 0.0 (0.0-0.2) /100WBC Sodium 142 (135-145) mmol/L Potassium 3.8 (3.3-5.1) mmol/L Chloride 108 (96-108) mmol/L Carbon Dioxide 27 (22-29) mmol/L Anion Gap 11 L (12-20) BUN 13 (9-16) mg/dL Creatinine 0.75 (0.5-1.4) mg/dL Estim Creat Clear Calc 88.1 Estimated GFR > 60 Random Glucose 78 (60-115) mg/dL Calcium 9.4 (8.4-10.2) mg/dL Magnesium 2.2 (1.6-2.6) mg/dL Beta HCG, Quant < 2 mIU/mL Influenza Type A (PCR) NEGATIVE (Negative) Influenza Type B (PCR) NEGATIVE (Negative) RSV RNA Qual (PCR) NEGATIVE (Negative) SARS-CoV-2 RNA (RT-PCR) NEGATIVE (Negative) Independent Interpretation I performed an independent interpretation of an: CT Scan (Head: No acute intracranial pathology.) Radiology Impression Discussion of test interpretation with radiology: I have reviewed the radiologist's reading. Discharge Plan Discharge Clinical Impression: Headache Patient Disposition: Home, Self-Care Instructions: General Headache (ED) Prescriptions: No Action esomeprazole magnesium [Nexium] 40 mg capsule,delayed release(DR/EC) 40 mg PO DAILY Qty: 30 5RF cholecalciferol (vitamin D3) 1,250 mcg (50,000 unit) capsule 1,250 mcg PO QWEEK 12 Days Qty: 12 0RF lidocaine 5 % adhesive patch,medicated 1 patch topical DAILY PRN (Reason: Pain) Rx Instructions: leave on most painful area for up to 12 hrs albuterol sulfate 2.5 mg /3 mL (0.083 %) solution for nebulization 2.5 mg inhalation Q6H PRN (Reason: wheezing) ibuprofen 400 mg tablet 400 mg PO Q6H PRN (Reason: moderate pain) albuterol sulfate [Ventolin HFA] 90 mcg/actuation HFA aerosol inhaler 2 puff inhalation Q4H PRN (Reason: wheezing) (DME) [facility]aut[facility] Spacer 1 ea MISCELLANEOUS Q4H naproxen 500 mg tablet 500 mg PO BID PRN (Reason: pain) Qty: 20 0RF carvedilol 3.125 mg tablet 3.125 mg PO BID Rx Instructions: must administer with a meal/food losartan 100 mg tablet 100 mg PO DAILY levothyroxine [Synthroid] 112 mcg tablet 112 mcg PO DAILY hydrocortisone [Proctosol HC] 2.5 % cream with perineal applicator 1 appl SC BID-QID PRN (Reason: hemorrhoids) Qty: 30 2RF fluticasone propionate 50 mcg/actuation spray,suspension 1 - 2 spray intranasal DAILY PRN acetaminophen 500 mg tablet 1,000 mg PO Q6H PRN (Reason: fever) sucralfate 1 gram tablet 1 g PO BEDTIME PRN (Reason: acid reflux) Qty: 30 2RF amitriptyline 25 mg tablet 25 mg PO BEDTIME (DME) blood pressure test kit-large Kit See Rx Instructions .ROUTE BID Qty: 1 Rx Instructions: As directed sennosides [Natural Senna Laxative] 8.6 mg tablet 17.2 mg PO BEDTIME Qty: 180 3RF sumatriptan succinate 100 mg tablet 50 - 100 mg PO .COMPLEX PRN (Reason: migraine headache) 30 Days Qty: 12 6RF Rx Instructions: 50 - 100 mg orally at onset of headache, may repeat in 2 hrs PRN; max 2 tabs per day or 4 tabs/week (may take with Ibuprofen) topiramate 25 mg tablet 50 mg PO BEDTIME 30 Days Qty: 60 6RF riboflavin (vitamin B2) 400 mg tablet 400 mg PO DAILY 30 Days Qty: 30 6RF magnesium oxide 400 mg (241.3 mg magnesium) tablet 400 mg PO BEDTIME 30 Days Qty: 30 6RF Rx Instructions: may hold for loose stools docusate sodium 100 mg capsule 100 mg PO BEDTIME Qty: 30 3RF cyclobenzaprine 5 mg tablet 7.5 mg PO BEDTIME 30 Days Qty: 45 3RF Linzess 145 mcg capsule 145 mcg PO DAILY Qty: 30 4RF ondansetron 4 mg tablet,disintegrating 4 mg PO Q8H PRN (Reason: nausea and vomiting) Qty: 20 0RF Referrals: Jennifer Germain MD [Primary Care Provider] - Print Language: Latvian
[2024-10-08 20:11] LABS: MANUAL DIFF FLAG NO
[2024-10-08 20:12] LABS: Basophils Percent Auto 0.2 % (0-2); Eosinophils Absolute Auto 0.1 X10*3/uL (0.0-0.4); Eosinophils Percent Auto 0.9 % (0-4); Hematocrit 35.4 % (37.0-47.0); Hemoglobin 12.5 g/dl (12.0-16.0); Imm Gran Abs Auto 0.03 X10*3/uL (0.00-0.03); Imm Gran Pct Auto 0.4 % (0.0-0.4); Lymphocytes Absolute Auto 3.3 X10*3/uL (1.2-4.9); Lymphocytes Percent Auto 40.2 % (20-40); Mean Corpuscular HGB Conc 35.3 g/dl (31.0-35.0); Mean Corpuscular Hemoglobin 28.9 pg (27.0-33.0); Mean Corpuscular Volume 81.9 fL (80.0-98.0); Mean Platelet Volume 9.8 fL (9.4-12.3); Monocytes Absolute Auto 0.5 X10*3/uL (0.1-1.2); Monocytes Percent Auto 5.7 % (2-11); Neutrophils Absolute Auto 4.3 x10*3/uL (2.0-8.3); Neutrophils Percent Auto 52.6 % (45-73); Platelet Count 275 X10*3/uL (160-400); Red Blood Count 4.32 X10*6/uL (4.20-5.50); Red Cell Distribution Width 11.8 % (11.0-16.0); White Blood Count 8.2 X10*3/uL (4.8-10.8)
[2024-10-08 20:36] LABS: Anion Gap 11 (12-20); Blood Urea Nitrogen 13 mg/dL (9-16); Calcium 9.4 mg/dL (8.4-10.2); Carbon Dioxide 27 mmol/L (22-29); Chloride 108 mmol/L (96-108); Creatinine Clr Calc Pharmacy 88.1; Estimated Glomerular Filt Rate > 60; Glucose Random 78 mg/dL (60-115); Magnesium 2.2 mg/dL (1.6-2.6); Potassium 3.8 mmol/L (3.3-5.1); Sodium 142 mmol/L (135-145)
[2024-10-08 20:37] LABS: HCG Quantitative < 2 mIU/mL
[2024-10-08 22:06] VITALS: BP 139/65; PULSE 71; RESP 18; TEMP 36.7; O2SAT 97
[2024-10-08 22:30] LABS: Influenza A PCR NEGATIVE (Negative); Influenza B PCR NEGATIVE (Negative); Resp Syncy Virus RNA Qual PCR NEGATIVE (Negative); SARS COV2 PCR INHOUSE NEGATIVE (Negative)
[2024-10-08] MEDS: Acetaminophen 1,000 MG/100 ML PIGGYBACK 400 MG IV (22:35)
[2024-10-08] MEDS: 0.9 % Sodium Chloride 1,000 ML 999 ML IV (22:35)
[2024-10-08 23:30] VITALS: BP 117/68; PULSE 86; RESP 16; TEMP 36.5; O2SAT 97
--- NOTE | 2024-10-08 23:45 | PC.NURSE ---
reviewed discharge instruction with pt, pt verbalized understanding, no sign of distress upon discharge, pt has a steady gait upon discharge.
[2024-10-08 23:49] VITALS: BP 117/68; PULSE 86; RESP 16; TEMP 36.5; O2SAT 97
== END 2024-10-08 23:50 | disposition home or self-care (01) ==
PROVIDERS: Physician Assistant Medical; Emergency Provider Emergency Medicine; PCP Internal Medicine
DX: R51.9 Headache, unspecified (principal); M79.10 Myalgia, unspecified site; R53.1 Weakness; R42 Dizziness and giddiness; R05.9 Cough, unspecified; Z79.899 Other long term (current) drug therapy; Z03.818 Encounter for observation for suspected exposure to other biological agents ruled out
CPT/HCPCS: 0241U; 36415; 70450; 80048; 83735; 84702; 85025; 96361; 96374; 99284; J0131

== ENCOUNTER → 2024-10-08 21:56 | Outpatient (BNV) | payer MEDICAID, SELFPAY | PROVIDERS: Emergency Provider Emergency Medicine; PCP Internal Medicine; Visit Provider Radiology Neuroradiology | DX: R51.9 Headache, unspecified (principal) | CPT/HCPCS: 70450 ==

== ENCOUNTER 2025-03-02 15:00 | Outpatient (REF) | payer MEDICAID, SELFPAY ==
[2025-03-06 15:28] LABS: Vitamin D 25-OH, D2 <4 ng/mL; Vitamin D 25-OH, D3 37 ng/mL; Vitamin D 25-OH, Total 37 ng/mL (30-100)
== END 2025-03-02 15:01 | disposition home or self-care (01) ==
LOC: HO.HKASLDS 15:00
PROVIDERS: PCP Internal Medicine; Visit Provider Nurse Practitioner Family
DX: G43.009 Migraine without aura, not intractable, without status migrainosus (principal); F45.8 Other somatoform disorders; E55.9 Vitamin D deficiency, unspecified; R41.3 Other amnesia; Z82.0 Family history of epilepsy and other diseases of the nervous system; Z79.899 Other long term (current) drug therapy; Z79.51 Long term (current) use of inhaled steroids
CPT/HCPCS: 36415; 82306; 99212

== ENCOUNTER 2025-03-02 15:00 | Outpatient (AMB) | payer MEDICAID, SELFPAY ==
[2025-03-02 15:03] VITALS: BP 116/82; PULSE 98; O2SAT 97; BMI 29.9
--- NOTE | 2025-03-02 15:03 | A.OFFVIS_ITS ---
Vital Signs 03/02/25 15:03 Height 5 ft 1 in Weight 158 lb 8 oz BMI 29.9 BP 116/82 Blood Pressure Location Rt brachial Position Sitting Pulse 98 Pulse Source Pulse Oximeter Pulse Oximetry (%) 97 Oxygen Delivery Method Room Air Intake Visit Reasons: 6mon follow-up Intake Note: Patient presents follow up migraine medication. Labs in chart. 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 Required: Yes 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 Language: Ecuadorean Accompanied by: Daughter Allergies No Known Allergies Allergy (Verified 03/02/25 15:05) Medication List - Last Reconciled 03/02/25 by MUNA Castanon acetaminophen 1,000 mg PO Q6H PRN albuterol sulfate 90 mcg/actuation (Ventolin HFA) 2 puffs inhalation Q4H PRN albuterol sulfate 2.5 mg inhalation Q6H PRN amitriptyline 25 mg PO BEDTIME blood pressure test kit-large As directed carvedilol 3.125 mg PO BID cholecalciferol (vitamin D3) 1,250 mcg PO QWEEK 12 days cyclobenzaprine 7.5 mg (1.5 x 5 mg) PO BEDTIME 30 days docusate sodium 100 mg PO BEDTIME esomeprazole magnesium (Nexium) 40 mg PO DAILY fluticasone propionate 50 mcg/actuation 1 - 2 sprays intranasal DAILY PRN hydrocortisone 2.5% (Proctosol HC) 1 appl [place] BID-QID PRN ibuprofen 400 mg PO Q6H PRN inhalational spacing device ([facility] spacer) PRN levothyroxine (Synthroid) 112 mcg PO DAILY lidocaine 5% 1 patch topical DAILY PRN linaclotide (Linzess) 145 mcg PO DAILY losartan 100 mg PO DAILY magnesium oxide 400 mg PO BEDTIME 30 days naproxen 500 mg PO BID PRN ondansetron 4 mg PO Q8H PRN riboflavin (vitamin B2) 400 mg PO DAILY 30 days sennosides (Natural Senna Laxative) 17.2 mg (2 x 8.6 mg) PO BEDTIME sucralfate 1 g PO BEDTIME PRN sumatriptan succinate 50 - 100 mg orally at onset of headache, may repeat in 2 hrs PRN; max 2 tabs per day or 4 tabs/week (may take with Ibuprofen) 30 days topiramate 50 mg (2 x 25 mg) PO BEDTIME 30 days HPI Comments Details: 39-yr-old female presents for f/u visit. Pt denies any significant interval medical changes. Interval labs were unremarkable, outside of vitamin-D deficiency. Upon review of labs, patient was started on vitamin supplement, which she is tolerating well She states her right eye lower eyelid twitching has subsided. Pt states she is scheduled for neuro-psych testing soon- ? at [facility]. States her memory is variable Pt state she is having 2-3 strong migraine days per week. Sumatriptan is helpful. Topiramate and B2/Mag is helpful Still using cyclobenzaprine, which is helpful neck tightness. Using amitriptyline- prescribed by outside provider at times. Tolerating these well. However, she asks for a smaller version of Mag- as it is hard to swallow. Baseline headache characteristics: Severe Bilateral top of head. The headache is pressure and pain Associated symptoms: photophobia, phonophobia, osmophobia, nausea, internal dizziness, brain fog, fatigue, bilateral facial weakness. PFSH Medical History Anemia Bruxism Snoring Hypertension Chest pain Surgical History H/O colonoscopy History of esophagogastroduodenoscopy (EGD) Hx of cholecystectomy H/O: hysterectomy H/O thyroidectomy Family History Father Hypertension Hypercholesteremia Alzheimer disease Mother Diabetes Social History Are you a primary care asst to a significant other at home: No Do you presently have visiting nurse or other home services: No Alcohol intake: never Patient Tobacco Use Status: Never used Tobacco Second Hand Smoke Exposure: No Physical Exam Vital Signs: Last Vital Signs Pulse 98 03/02/25 15:03 BP 116/82 03/02/25 15:03 Pulse Ox 97 03/02/25 15:03 Oxygen Delivery Method Room Air 03/02/25 15:03 BMI result Body Mass Index 29.9 Const General: cooperative and no acute distress Resp Effort & Inspection: normal respiratory effort and able to speak in complete sentences Neuro Other: Alert and oriented x3, mild STM lapses related to medications and medical information Cranial nerves: Yes CN's II-XII intact bilaterally Cognition (Neuro): normal cognition Motor exam (neuro): 5/5 motor strength present throughout Psych Appearance: grossly normal Speech and movement: Normal speech and movement present Affect: normal affect Attitude: cooperative Assessment & Plan Assessment & Plan (1) Migraine without aura: Code(s): G43.009 - Migraine without aura, not intractable, without status migrainosus Category: Medical Qualifiers: Status migrainosus presence: without status migrainosus Intractability: not intractable Qualified Code(s): G43.009 - Migraine without aura, not intractable, without status migrainosus (2) Bruxism: Code(s): F45.8 - Other somatoform disorders Category: Medical (3) Family history of Alzheimer's disease: Code(s): Z82.0 - Family history of epilepsy and other diseases of the nervous system Category: Medical (4) Memory difficulties: Code(s): R41.3 - Other amnesia Category: Medical Plan For concerns about risk for dementia d/t family h/o dementia: Neuropsych evaluation as scheduled- ? at [facility] Continue to engage in regular physical activity, engage in regular cognitive and socially stimulating activities. For facial twitching: Labs- unremarkable other then low vit D level. For vit D Deficiency: Recheck vit D level today. Continue vit D ? For acute headache treatment: Continue Sumatriptan at onset of migraine. Previous acute migraine medication trials: OTC analgesics Acute migraine medication contraindications: None at this time ? For headache prevention medication: Discussed increasing topiramate dose- however pt declines at this time. Continue Riboflavin 400mg qam Continue Magnesium 400mg qhs- will adjust to Mag glycinate 100mg cap- 4 caps daily at bedtime Continue Topiramate 50 mg daily at bedtime- adjsuted order form 2 25mg tabs to 1 50mg tab. Continue Cyclobenzaprine 7.5mg qhs. Previous migraine prevention medication trials: Amitriptyline 25mg- ineffective, but 50mg caused dizziness. Migraine prevention medication contraindications: BBs d/t asthma dx. ? Will follow-up upon review of above and patient to follow-up in clinic in 6 months or sooner prn. Medications: New topiramate (Topamax) 50 mg PO BEDTIME 90 tabs 1RF 90 days magnesium glycinate 400 mg (4 x 100 mg magnesium) PO BEDTIME 360 caps 3RF 90 days Changed From riboflavin (vitamin B2) 400 mg PO DAILY 30 days 30 tabs 6RF To riboflavin (vitamin B2) 400 mg PO DAILY 90 tabs 3RF 90 days Refilled sumatriptan succinate 50 - 100 mg orally at onset of headache, may repeat in 2 hrs PRN; max 2 tabs per day or 4 tabs/week (may take with Ibuprofen) 12 tabs 6RF migraine headache 30 days cholecalciferol (vitamin D3) 1,250 mcg PO QWEEK 12 caps 0RF 12 days E55.9 - Vitamin D deficiency, unspecified cyclobenzaprine 7.5 mg (1.5 x 5 mg) PO BEDTIME 45 tabs 6RF 30 days Discontinued topiramate Discontinued Reason: Doctor's Order 50 mg (2 x 25 mg) PO BEDTIME 30 days 60 tabs 6RF magnesium oxide may hold for loose stools Discontinued Reason: Doctor's Order 400 mg PO BEDTIME 30 days 30 tabs 6RF Coding Level of Care Code Est Pt Level 4 (98547) Diagnoses Migraine without aura and without status migrainosus, not intractable G43.009 Status migrainosus presence: without status migrainosus Intractability: not intractable Bruxism F45.8 Family history of Alzheimer's disease Z82.0 Memory difficulties R41.3
--- OUTSIDE RECORDS SUMMARY | 2025-03-02 15:22 | XMS_ITS | Encounter Summary ---
Author Organization [employer] Address [address] [place] [id number] Care Team Providers Care Concrete Sculptor Name Role Phone [facility] Primary Care Provider [phone] Reason for Visit * Reason Onset Date Comments Appointment Request 07/03/2022 Encounter Details Date Type Department Care Team (Late st Contact Info) Description 07/03/[address] [phone] [facility] [address] [place], [place] [phone] Appointment Request Social History Tobacco Use Types [...] documented in this encounter Plan of Treatment Upcoming Encounters Date Type Department Care Team (Late st Contact Info) Description 03/09/2025 10:30 AM EDT Office Visit [facility] [address] [place] [address] [phone] [facility] [address] [place], [place] [phone] 04/16/2025 2:30 PM EDT Office Visit [facility] [address] [place], [place] [phone] Catherine Ornelas, OD [address] [place], [place] [phone] documented as of this encounter Visit Diagnoses Not on filedocumented in this encounter Care Teams Concrete Sculptor Relationship Specialty Start Date End Date Olivia Long FNP [address] [place], [place] [phone] PCP - General Family Medicine 03/18/22 documented as of this encounter
== END 2025-03-02 15:44 | disposition home or self-care (01) ==
LOC: HO.HSMS 15:00
PROVIDERS: PCP Internal Medicine; Visit Provider Nurse Practitioner Family
DX: G43.009 Migraine without aura, not intractable, without status migrainosus (principal); F45.8 Other somatoform disorders; Z82.0 Family history of epilepsy and other diseases of the nervous system; R41.3 Other amnesia
CPT/HCPCS: 99214

== ENCOUNTER 2025-03-20 17:37 | Emergency (ER) | payer MEDICAID, SELFPAY ==
[2025-03-20 17:45] VITALS: BP 169/86; PULSE 82; RESP 18; TEMP 36.8; O2SAT 98
--- NOTE | 2025-03-20 17:45 | ED.GENADULT ---
HPI - General Adult General Chief complaint: General Medical Stated complaint: Pain all over body Time Seen by Provider: 03/20/25 18:04 History of Present Illness ED Provider: Ryan Pack MD HPI narrative: 39-year-old female with a history of hypertension, essential, migraine, vitamin-D deficiency with diffuse body pain patient has diffuse pain particularly in bony areas like the right anterior shoulder and right upper arm she points ulcers to the left shoulder and left lateral malleolar region on the ankle she is describing generalized diffuse discomfort no real myalgias denies angina or pleuritic chest pain. No difficulty breathing no nausea vomiting she reports a history of thyroidectomy and chronic levothyroxine she is not on a statin no injuries Related Data Home Medications ?Medication ?Instructions ?Recorded ?Confirmed carvedilol 3.125 mg tablet 3.125 mg PO BID 06/21/21 03/02/25 levothyroxine 112 mcg tablet 112 mcg PO DAILY 06/21/21 03/02/25 (Synthroid) losartan 100 mg tablet 100 mg PO DAILY 06/21/21 03/02/25 acetaminophen 500 mg tablet 1,000 mg PO Q6H PRN fever 02/24/22 03/02/25 fluticasone propionate 50 1 - 2 spray intranasal DAILY PRN 02/24/22 03/02/25 mcg/actuation nasal spray,suspension albuterol sulfate 2.5 mg/3 mL 2.5 mg inhalation Q6H PRN wheezing 07/15/23 03/02/25 (0.083 %) solution for nebulization albuterol sulfate 90 mcg/actuation 2 puff inhalation Q4H PRN wheezing 07/15/23 03/02/25 aerosol inhaler (Ventolin HFA) ibuprofen 400 mg tablet 400 mg PO Q6H PRN moderate pain 07/15/23 03/02/25 inhalational spacing device 07/15/23 03/02/25 (OptiChamber Lily [employer] spacer) lidocaine 5 % topical patch 1 patch topical DAILY PRN Pain 07/15/23 03/02/25 amitriptyline 25 mg tablet 25 mg PO BEDTIME 03/12/24 03/02/25 blood pressure test kit-large #1 ea 03/12/24 03/02/25 Previous Rx's ?Medication ?Instructions ?Recorded hydrocortisone 2.5 % topical cream 1 appl [place] BID-QID PRN hemorrhoids 03/10/22 with perineal applicator #30 grams (Proctosol HC) docusate sodium 100 mg capsule 100 mg PO BEDTIME #30 caps 11/08/22 sucralfate 1 gram tablet 1 g PO BEDTIME PRN acid reflux #30 05/22/23 tabs naproxen 500 mg tablet 500 mg PO BID PRN pain #20 tabs 08/19/23 sennosides 8.6 mg tablet (Natural 17.2 mg (2 x 8.6 mg) PO BEDTIME 03/12/24 Senna Laxative) constipation #180 tabs esomeprazole magnesium 40 mg 40 mg PO DAILY #30 caps 05/01/24 capsule,delayed release (Nexium) linaclotide 145 mcg capsule 145 mcg PO DAILY #30 caps 05/27/24 (Linzess) ondansetron 4 mg disintegrating 4 mg PO Q8H PRN nausea and 05/27/24 tablet vomiting #20 tabs cholecalciferol (vitamin D3) 1,250 1,250 mcg PO QWEEK 12 days #12 caps 03/02/25 mcg (50,000 unit) capsule cyclobenzaprine 5 mg tablet 7.5 mg (1.5 x 5 mg) PO BEDTIME 30 03/02/25 days #45 tabs magnesium glycinate 400 mg (4 x 100 mg magnesium) PO 03/02/25 BEDTIME 90 days #360 caps riboflavin (vitamin B2) 400 mg 400 mg PO DAILY 90 days #90 tabs 03/02/25 tablet sumatriptan succinate 100 mg tablet 50 - 100 mg (0.5 - 1 x 100 mg) PO 03/02/25 .COMPLEX PRN migraine headache 30 days #12 tabs topiramate 50 mg tablet (Topamax) 50 mg PO BEDTIME 90 days #90 tabs 03/02/25 methocarbamol 750 mg tablet 750 mg PO Q8H PRN spasm #10 tabs 03/20/25 naproxen 375 mg tablet 375 mg PO BID PRN pain #14 tabs 03/20/25 Allergies Allergy/AdvReac Type Severity Reaction Status Date / Time No Known Allergies Allergy Verified 03/20/25 17:46 [facility] Past Medical History Medical History Anemia Bruxism Snoring Hypertension Chest pain Surgical History H/O colonoscopy History of esophagogastroduodenoscopy (EGD) Hx of cholecystectomy H/O: hysterectomy H/O thyroidectomy Family History Family History Father Hypertension Hypercholesteremia Alzheimer disease Mother Diabetes Social History Social History Are you a primary personal care worker to a significant other at home: No Do you presently have visiting nurse or other home services: No Alcohol intake: never Patient Tobacco Use Status: Never used Tobacco Smoked in Last 30 Days: No Second Hand Smoke Exposure: No Use of substances other than those prescribed or required for medical reasons: No Advance Directives: No Advance Directives Information Provided: No Physical Exam ED Exam Exam: EXAM: Gen: Alert, awake, well appearing, well hydrated. Head: Atraumatic Eyes: Anicteric, Normal conjunctiva. ENT: Moist mucosa, no pallor. ? Neck: Supple. Skin: ?No observable rash or bruising on exposed or examined skin Respiratory: Breathing comfortably, No distress.Clear to auscultation bilaterally, symmetric chest expansion, No wheeze, rales, ronchi. Cardiovascular: Regular rate and rhythm. No murmurs or rub. Well perfused periphery, warm extremities. No edema. ? Abdominal: No focal tenderness. Soft, no objective distension. No palpable masses or obvious organomegaly. ?No guarding, no rebound tenderness or other peritoneal findings. : No flank tenderness. Neuro: Alert. Gross movement of all extremities intact. ? Psych: Calm. Cooperative. MSK: No grossly visible deformity. Subjective tenderness without deformity overlying skin changes bony irregularities or any abnormality noted of the right shoulder left ankle exquisitely tender rib margins parasternal bilateral no crepitus or bruising Vital signs: See flowsheet Vital Signs: Vital Signs - 24 hr 03/20/25 17:45 03/20/25 19:58 03/20/25 20:08 Temperature 98.3 F 98.2 F 98.2 F Pulse Rate 82 78 78 Respiratory Rate 18 16 16 Blood Pressure 169/86 H 134/56 L 134/56 L Pulse Oximetry 98 98 98 Oxygen Delivery Method Room Air Room Air Room Air BMI result Body Mass Index 30.0 Course Course Course Narrative: RME, this is a rapid medical exam performed by Bhavik Hernandez please refer to primary provider for complete H&P- 39 year old female presents for evaluation of diffuse body aches. She complains of pain to her bones, hands, feet, back. Plan for basic labs with inflammtory markers and a CPK. Denies URI symptoms or GI/ symptoms Medications Administered Discontinued Medications Generic Name Dose Route Start Last Admin Trade Name Yoly PRN Reason Stop Dose Admin Acetaminophen 975 mg 03/20/25 19:49 03/20/25 19:56 Acetaminophen 325 Mg Tablet PO 03/20/25 19:50 975 mg ONCE ONE Administration Ketorolac Tromethamine 30 mg 03/20/25 19:49 03/20/25 19:56 Ketorolac Tromethamine 30 Mg/Ml Vial IM 03/20/25 19:50 30 mg ONCE ONE Administration Methocarbamol 750 mg 03/20/25 19:49 03/20/25 19:56 Methocarbamol 750 Mg Tablet PO 03/20/25 19:50 750 mg ONCE ONE Administration Medical Decision Making Medical Decision Making MDM Narrative: Medical Decision Makin-year-old female with mostly musculoskeletal regions of pain of unclear cause there was no injury bruising crepitus bony deformity no indication for x-ray or other bony imaging. Certainly not suggestive of ACS PE dissection pneumothorax or other cardiopulmonary emergent disorder. She looks quite well but is emotional about her pain, goal of care after shared decision-making would be analgesia close follow up with her PCP. Toradol muscle relaxant provided Not clinically relevant CPK elevation. CBC and chemistry otherwise normal Preliminary Favored Differential Diagnosis: Myalgia, fibromyalgia, arthritis, viral syndrome among additional considered etiologies Testing Interpreted Independently: ?See below for details Radiology or Lab testing Results Reviewed: ?See below for details Consults: ?See below for details Independent Historians/External Chart Reviews: ?See below for details Social Determinants of Health Impacting MDM/Planning: ?See below for details Lab Data MDM Lab Attestation statement: I reviewed the patient's lab results. 03/20/25 18:04 03/20/25 18:04 Labs: Lab Results 03/20/25 03/20/25 Range/Units 18:04 19:02 WBC 7.2 (4.8-10.8) X10*3/uL RBC 4.45 (4.20-5.50) X10*6/uL Hgb 12.9 (12.0-16.0) g/dl Hct 36.4 L (37.0-47.0) % MCV 81.8 (80.0-98.0) fL MCH 29.0 (27.0-33.0) pg MCHC 35.4 H (31.0-35.0) g/dl RDW 11.9 (11.0-16.0) % Plt Count 283 (160-400) X10*3/uL MPV 10.0 (9.4-12.3) fL Immature Gran % (Auto) 0.4 (0.0-0.4) % Neut % (Auto) 53.4 (45-73) % Lymph % (Auto) 39.6 (20-40) % [place] % (Auto) 5.4 (2-11) % Eos % (Auto) 0.8 (0-4) % Baso % (Auto) 0.4 (0-2) % Lymph # (Auto) 2.9 (1.2-4.9) X10*3/uL [place] # (Auto) 0.4 (0.1-1.2) X10*3/uL Eos # (Auto) 0.1 (0.0-0.4) X10*3/uL Baso # (Auto) 0.0 (0.0-0.2) X10*3/uL Abs Immat Gran (auto) 0.03 (0.00-0.03) X10*3/uL Absolute Neuts (auto) 3.9 (2.0-8.3) x10*3/uL Absolute Nucleated RBC 0.000 (0.0-0.012) X10*3/uL Nucleated RBC % (auto) 0.0 (0.0-0.2) /100WBC ESR 7 (0-20) MM/HR Sodium 140 (135-145) mmol/L Potassium 3.8 (3.3-5.1) mmol/L Chloride 110 H (96-108) mmol/L Carbon Dioxide 24 (22-29) mmol/L Anion Gap 10 L (12-20) BUN 14 (9-16) mg/dL Creatinine 0.73 (0.5-1.4) mg/dL Estim Creat Clear Calc 92.1 Estimated GFR > 60 Random Glucose 117 H (60-115) mg/dL Calcium 9.4 (8.4-10.2) mg/dL Total Bilirubin 0.5 (0.0-1.0) mg/dL AST 21 (5-31) U/L ALT 29 (0-31) U/L Alkaline Phosphatase 45 (39-117) U/L Total Creatine Kinase 177 H (26-140) U/L C-Reactive Protein 0.11 (< or = 0.50) mg/dL Total Protein 7.3 (6.5-8.0) g/dL Albumin 4.7 (3.5-5.0) g/dL Lipase 42 (8-78) U/L Beta HCG, Quant < 2 mIU/mL Urine Color Yellow Urine Appearance Clear Urine pH 6.5 (5.0-9.0) Ur Specific [place] <= 1.005 (1.005-1.025) Urine Protein Negative (Neg-Trace) mg/dL Urine Glucose (UA) Negative (Negative) mg/dL Urine Ketones Negative (Negative) mg/dL Urine Blood Negative (Negative) Urine Nitrite Negative (Negative) Ur Leukocyte Esterase Negative (Negative) Urine RBC 0-2 (0-2) /HPF Urine WBC 0-5 (0-5) /HPF Ur Squamous Epith Cells 0-2 (0-2) /HPF Urine Bacteria None Seen (None Seen) Hyaline Casts 0-2 (0-2) /LPF Discharge Plan Discharge Clinical Impression: Myalgia, Arthralgia, Acute costochondritis Patient Disposition: Home, Self-Care Instructions: Costochondritis (ED), Arthralgia (ED) Additional Instructions: DISCHARGE DIAGNOSES: Arthralgia pain in the joints and bones unclear cause HISTORY OF PRESENTATION: ?Pain in the joints and bones ankle chest shoulder EMERGENCY DEPARTMENT COURSE,TESTS, TREATMENTS: While in the ED today basic lab with with blood counts blood chemistries normal and reassuring DISCHARGE MEDICATIONS: ?[We have made no changes to your regular medication regimen] we have added muscle relaxant do not drive after taking this as it can make you sleepy and nonsteroidal anti-inflammatory medication FOLLOW-UP: ?Call your primary or general physician soon as possible to discuss your symptoms, your ED visit and to discuss follow up plans Call your PCP for follow up INSTRUCTIONS ?& RETURN PRECAUTIONS: If any symptoms change first call your primary physician, if it is after-hours your primary doctors office should have a provider director of regional sales you can speak with. If the symptoms are severe or very concerning to you then call 911 or return to the ED. Ryan Pack MD Emergency Physician [facility] Prescriptions: New methocarbamol 750 mg tablet 750 mg PO Q8H PRN (Reason: spasm) Qty: 10 0RF naproxen 375 mg tablet 375 mg PO BID PRN (Reason: pain) Qty: 14 0RF No Action esomeprazole magnesium [Nexium] 40 mg capsule,delayed release(DR/EC) 40 mg PO DAILY Qty: 30 5RF lidocaine 5 % adhesive patch,medicated 1 patch topical DAILY PRN (Reason: Pain) Rx Instructions: leave on most painful area for up to 12 hrs albuterol sulfate 2.5 mg /3 mL (0.083 %) solution for nebulization 2.5 mg inhalation Q6H PRN (Reason: wheezing) ibuprofen 400 mg tablet 400 mg PO Q6H PRN (Reason: moderate pain) albuterol sulfate [Ventolin HFA] 90 mcg/actuation HFA aerosol inhaler 2 puff inhalation Q4H PRN (Reason: wheezing) (DME) Tate Bautista [employer] Spacer 1 ea MISCELLANEOUS Q4H naproxen 500 mg tablet 500 mg PO BID PRN (Reason: pain) Qty: 20 0RF carvedilol 3.125 mg tablet 3.125 mg PO BID Rx Instructions: must administer with a meal/food losartan 100 mg tablet 100 mg PO DAILY levothyroxine [Synthroid] 112 mcg tablet 112 mcg PO DAILY hydrocortisone [Proctosol HC] 2.5 % cream with perineal applicator 1 appl TX BID-QID PRN (Reason: hemorrhoids) Qty: 30 2RF fluticasone propionate 50 mcg/actuation spray,suspension 1 - 2 spray intranasal DAILY PRN acetaminophen 500 mg tablet 1,000 mg PO Q6H PRN (Reason: fever) sucralfate 1 gram tablet 1 g PO BEDTIME PRN (Reason: acid reflux) Qty: 30 2RF amitriptyline 25 mg tablet 25 mg PO BEDTIME (DME) blood pressure test kit-large Kit See Rx Instructions .ROUTE BID Qty: 1 Rx Instructions: As directed sennosides [Natural Senna Laxative] 8.6 mg tablet 17.2 mg PO BEDTIME Qty: 180 3RF docusate sodium 100 mg capsule 100 mg PO BEDTIME Qty: 30 3RF Linzess 145 mcg capsule 145 mcg PO DAILY Qty: 30 4RF ondansetron 4 mg tablet,disintegrating 4 mg PO Q8H PRN (Reason: nausea and vomiting) Qty: 20 0RF sumatriptan succinate 100 mg tablet 50 - 100 mg PO .COMPLEX PRN (Reason: migraine headache) 30 Days Qty: 12 6RF Rx Instructions: 50 - 100 mg orally at onset of headache, may repeat in 2 hrs PRN; max 2 tabs per day or 4 tabs/week (may take with Ibuprofen) riboflavin (vitamin B2) 400 mg tablet 400 mg PO DAILY 90 Days Qty: 90 3RF topiramate [Topamax] 50 mg tablet 50 mg PO BEDTIME 90 Days Qty: 90 1RF cholecalciferol (vitamin D3) 1,250 mcg (50,000 unit) capsule 1,250 mcg PO QWEEK 12 Days Qty: 12 0RF magnesium glycinate 100 mg magnesium capsule 400 mg PO BEDTIME 90 Days Qty: 360 3RF cyclobenzaprine 5 mg tablet 7.5 mg PO BEDTIME 30 Days Qty: 45 6RF Interventions: ED Discharge Assessment Last Done: 03/20/25 20:08 Discharge Date/Time: 03/20/25 20:14 Print Language: Persian
[2025-03-20 18:11] LABS: MANUAL DIFF FLAG NO
[2025-03-20 18:18] LABS: Hematocrit 36.4 % (37.0-47.0); Hemoglobin 12.9 g/dl (12.0-16.0); Imm Gran Abs Auto 0.03 X10*3/uL (0.00-0.03); Imm Gran Pct Auto 0.4 % (0.0-0.4); Lymphocytes Absolute Auto 2.9 X10*3/uL (1.2-4.9); Mean Corpuscular HGB Conc 35.4 g/dl (31.0-35.0); Mean Corpuscular Hemoglobin 29.0 pg (27.0-33.0); Mean Corpuscular Volume 81.8 fL (80.0-98.0); NRBC Abs Auto 0.000 X10*3/uL (0.0-0.012); NRBC Pct Auto 0.0 /100WBC (0.0-0.2); Platelet Count 283 X10*3/uL (160-400); Red Blood Count 4.45 X10*6/uL (4.20-5.50); White Blood Count 7.2 X10*3/uL (4.8-10.8)
[2025-03-20 18:42] LABS: Alanine Aminotransferase 29 U/L (0-31); Albumin Level 4.7 g/dL (3.5-5.0); Alkaline Phosphatase 45 U/L (39-117); Anion Gap 10 (12-20); Aspartate Amino Transferase 21 U/L (5-31); Blood Urea Nitrogen 14 mg/dL (9-16); Calcium 9.4 mg/dL (8.4-10.2); Carbon Dioxide 24 mmol/L (22-29); Chloride 110 mmol/L (96-108); Creatinine Clr Calc Pharmacy 92.1; Estimated Glomerular Filt Rate > 60; Lipase 42 U/L (8-78); Potassium 3.8 mmol/L (3.3-5.1); Sodium 140 mmol/L (135-145); Total Protein 7.3 g/dL (6.5-8.0)
[2025-03-20 19:09] LABS: Appearance Urine Clear; Glucose Urine UA Negative (Negative); PH 6.5 (5.0-9.0); Specific Gravity - Urine <= 1.005 (1.005-1.025)
--- NOTE | 2025-03-20 19:42 | PC.NURSE ---
assumed care of pt, pt complains of body aches all over, denies tingling sensation more aches, Dr Velazquez at bedside.
[2025-03-20 19:58] VITALS: BP 134/56; PULSE 78; RESP 16; TEMP 36.8; O2SAT 98
--- NOTE | 2025-03-20 20:03 | PC.NURSE ---
pt medicated per MAR.
[2025-03-20 20:08] VITALS: BP 134/56; PULSE 78; RESP 16; TEMP 36.8; O2SAT 98
[2025-03-23 22:43] LABS: Lyme Disease DNA PCR NOT DETECTED (NOT DETECTED)
[2025-03-24 22:58] LABS: Lyme Abs Screen <0.90 index
== END 2025-03-20 20:14 | disposition home or self-care (01) ==
PROVIDERS: Physician Assistant; Emergency Provider Emergency Medicine
DX: M79.10 Myalgia, unspecified site (principal); R07.9 Chest pain, unspecified; M25.50 Pain in unspecified joint; M94.0 Chondrocostal junction syndrome [Tietze]
CPT/HCPCS: 36415; 80053; 81001; 82550; 83690; 84702; 85025; 85652; 86140; 86617; 86618; 96372; 99284; J1885

== ENCOUNTER 2025-04-08 15:37 | Outpatient (REF) | payer MEDICAID, SELFPAY ==
--- OUTSIDE RECORDS SUMMARY | 2025-04-08 15:15 | XMS_ITS | Encounter Summary ---
Author Organization [employer] Address [address] [place] [address] Care Team Providers Care Chef Passenger Vessel Name Role Phone Ethan [facility] Primary Care Provider [phone] Encounter Details Date Type Department Care Team (Latest Contact Info) Description 04/08/2025 3:15 PM EDT Office Visit [facility] [address] [place] [address] Jennifer Germain MD [address] [place] [address] Polyarthralgia (Primary Dx); Diffuse pain Social History Tobacco Use Types Packs/Day Years Used Date Smoking Tobacco: Never Smokeless Tobacco: Never Alcohol Use Standard Drinks/Week Comments Never 0 (1 standard drink = 0.6 oz pur e alcohol) Depression Answer Date Recorded Patient Health Questionnaire-9 Score 4 03/09/2025 Patient Health Questionnaire-9 Score 4 03/09/2025 Last PHQ-9: Questionnaire Data Not on file 0 03/09/2025 Housing Stability Answer Date Recorded What is your housing situation today? I have celso ceballos 02/27/[address] you li ve. Do you have problems with any of the following? None of the above 02/27/2025 Food Insecurity Answer Date Recorded Within the past 12 months, y ou worried that your food would run out before you got money to buy more: Sometimes True 2024 Within the past 12 months,th e food you bought just didn't last and you didn't have enough money to get more: Sometimes True 02/27/2025 Transportation Answer Date Recorded In the past 12 months, has l ack of transportation kept you from medical appts, meetings, work or from getting things needed for daily living? No 02/27/2025 Utilities Answer Date Recorded In the past 12 months, has t he electric, gas, oil or water company threatened to shut off services in your home? No 02/27/2025 Depression Answer Date Recorded Patient Health Questionnaire-2 Score 1 03/09/2025 Internet Access Answer Date Recorded Internet Access Q1 Yes 02/27/2025 Internet Access Q2 Not on file 02/27/2025 Comments No Sex and Gender Information Value Date Recorded Sex Assigned at Female 05/22/2022 10:38 AM EDT Legal Sex Female 10:38 AM EDT Gender Identity Female 05/22/2022 10:38 AM EDT Sexual Orientation Straight 05/22/2022 10 :38 AM EDT documented as of this encounter Last Filed Vital Signs Vital Sign Reading Time Taken Comments Blood Pressure 126/92 04/08/2025 2:53 PM EDT Pulse 86 04/08/2025 2:53 PM EDT Temperature 36 C (96.8 F) 04/08/2025 2:53 PM EDT Respiratory Rate 18 04/08/2025 2:53 PM EDT Oxygen Saturation 97% 04/08/2025 2:53 PM EDT Inhaled Oxygen Concentration - - Weight 74 kg (163 lb 3.2 oz) 04/08/2025 2:53 PM EDT Height 154.9 cm (5' 1 ) 04/08/2025 2:53 PM EDT Body Mass Index 30.84 04/08/2025 2:53 PM EDT documented in this encounter Progress Notes * Jennifer Osullivan MD - 04/08/2025 3:15 PM EDT SUBJECTIVE: Janine Irby is a 39 y.o. year old female who presents for ED f/u appointment . Acute Concerns: Patient reports that for some time now she has been having pain throughout her body, pain is described as bone pain , she went to the emergency room for this extensive workup done results reviewed with patient they are normal, patient is continue to complain about this pain that is always in a different part of her body and sometimes is even challenging for her to do her regular activities, thispain events have been worse for the past month. 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 Problem List[1] Breast lump Disorder of tendon History of thyroidectomy Hypertensive disorder Hypothyroidism Non-cardiac chest pain Vitamin D deficiency Chronic nasal congestion Mild intermittent asthma without complication Migraine headache Trismus Dysphagia Polyarthralgia Diffuse pain Family History[2] Review of Systems Constitutional: Negative. HENT: Negative. Respiratory: Negative. Cardiovascular: Negative. Musculoskeletal: Positive for arthralgias and myalgias. OBJECTIVE: Vitals: 04/08/25 1453 BP: (!) 126/92 BP Location: Left arm Patient Position: Sitting BP Cuff Size: Adult Pulse: 86 Resp: 18 Temp: 96.8 ??F (36 ??C) TempSrc: Oral SpO2: 97% Weight: 163 lb 3.2 oz (74 kg) Height: 5' 1 (1.549 m) Physical Exam Constitutional: Appearance: Normal appearance. Cardiovascular: Rate and Rhythm: Normal rate and regular rhythm. Pulmonary: Effort: Pulmonary effort is normal. Breath sounds: Normal breath sounds. Abdominal: General: Abdomen is flat. Palpations: Abdomen is soft. Musculoskeletal: Right lower leg: No edema. Left lower leg: No edema. Neurological: Mental Status: She is alert. Follow Up: No follow-ups on file. Medications Ordered Prior to Encounter[3] Problem List Items Addressed This Visit Polyarthralgia - Primary Additional workup will be ordered today to rule out Lupus, rheumatoid arthritis etc. most likely her diagnosis is fibromyalgia I explained to her the nature of the condition, I will contact her back with results, extensive counseling done today Relevant Orders C-reactive Protein Cyclic Citrullinated Peptide (CCP) Antibody (IgG) ANDI Screen,IFA, with Reflex to Titer and Pattern Diffuse pain Relevant Orders C-reactive Protein Cyclic Citrullinated Peptide (CCP) Antibody (IgG) ANDI Screen,IFA, with Reflex to Titer and Pattern [1] Patient Active Problem List Diagnosis Breast lump Disorder of tendon History of thyroidectomy Hypertensive disorder Hypothyroidism Non-cardiac chest pain Vitamin D deficiency Chronic nasal congestion Mild intermittent asthma without complication Migraine headache Trismus Dysphagia Polyarthralgia Diffuse pain [2] No family history on file. [3] Current Outpatient Medications on File Prior to Visit Medication Sig Dispense Refill albuterol (2.5 MG/3ML) 0.083% nebulizer solution Take 3 mL (2.5 mg) by nebulization every 6 (six) hours if needed for wheezing or shortness of breath. 75 mL 1 albuterol 108 (90 Base) MCG/ACT inhaler Inhale 2 puffs every 4 (four) hours if needed for wheezing or shortness of breath. 18 g 1 amitriptyline (Elavil) 10 MG tablet Take 1 tablet (10 mg) by mouth at bedtime. 30 tablet 0 Blood Pressure kit 1 each 2 times daily. 1 kit 0 carvedilol (Coreg) 3.125 MG tablet Take 1 tablet by mouth every 12 (twelve) hours. Diclofenac Sodium 1 % gel Apply 2 g topically if needed in the morning, at noon, in the evening, and at bedtime (pain). 150 g 1 fluticasone (Flonase) 50 MCG/ACT nasal spray ADMINISTER 1 SPRAY INTO EACH NOSTRIL IN THE MORNING. SHAKE GENTLY. BEFORE FIRST USE, PRIME PUMP. AFTER USE, CLEAN TIP AND REPLACE CAP. 48 mL 0 levothyroxine (Synthroid, Levoxyl) 112 MCG tablet TAKE 1 TABLET BY MOUTH EVERY DAY 90 tablet 0 losartan (Cozaar) 100 MG tablet Take 1 tablet by mouth at bed time. magnesium oxide (Mag-Ox) 400 (240 Mg) MG tablet TAKE 1 TABLET BY MOUTH AT BEDTIME. MAY HOLD FOR LOOSE STOOLS naproxen (Naprosyn) 500 MG tablet Take 1 tablet (500 mg) by mouth if needed in the morning and at bedtime for mild pain or headaches. 40 tablet 1 riboflavin (Vitamin B-2) 400 MG tablet Take 1 tablet by mouth in the morning. Spacer/Aero-Holding Chambers (OptiChamber Lily) misc 1 each every 4 (four) hours if needed (asthma). 1 each 0 SUMAtriptan (Imitrex) 100 MG tablet PLEASE SEE ATTACHED FOR DETAILED DIRECTIONS No current facility-administered medications on file prior to visit. documented in this encounter Miscellaneous Notes * Assessment & Plan Note - Jennifer Osullivan MD - 04/08/2025 4:15 PM EDT Associated Problem(s): Polyarthralgia Additional workup will be ordered today to rule out Lupus, rheumatoid arthritis etc. most likely her diagnosis is fibromyalgia I explained to her the nature of the condition, I will contact her back with results, extensive counseling done today documented in this encounter Plan of Treatment Upcoming Encounters Date Type Department Care Team (Late st Contact Info) Description 04/16/2025 2:30 PM EDT Office Visit [facility] [address] [place] [address] Johnson, Catherine, OD [address] [place] [address] 06/03/2025 2:45 PM EST Office Visit [facility] [address] [place] [address] [place], Olivia, PRESCHOOL DIRECTOR [address] [place] [address] Scheduled Orders Name Type Priority Associated Diagnoses Orde r Schedule Cyclic Citrullinated Peptide (CCP) Antibody (IgG) Lab Routine Polyarthralgia Diffuse pain Expected: 04/08/2025 (Approximate), Expires: 04/08/2026 ANDI Screen,IFA, with Reflex to Titer and Pattern Lab Routine Polyarthralgia Diffuse pain Expected: 04/08/2025 (Approximate), Expires: 04/08/2026 documented as of this encounter Procedures Procedure Name Priority Date/Time Associated Diagnosis Comments C-REACTIVE PROTEIN Routine 04/08/2025 3 :43 PM EDT Polyarthralgia Diffuse pain documented in this encounter Results * C-reactive Protein (04/08/2025 3:43 PM EDT) C Reactive Protein 0.11 < or = 0.50 mg/dL [facility] Blood Venous blood specimen / Unknown 04/08/2025 3:43 PM EDT 04/08/2025 4:03 PM EDT us Jennifer Osullivan MD LAB BLOOD ORDERABLES Final Result [facility] [address] [place] [address] [phone] documented in this encounter Visit Diagnoses Diagnosis Polyarthralgia- Primary Pain in joint, multiple sites Diffuse pain documented in this encounter Additional Health Concerns Assessment Noted Time PHQ-9 Depression Total Score: 4 03/09/20 25 11:23 AM EDT documented as of this encounter Care Teams Chef Passenger Vessel Relationship Specialty Start Date End Date Olivia Long FNP [address] [place] [id number] PCP - General Family Medicine 03/18/22 documented as of this encounter
--- OUTSIDE RECORDS SUMMARY | 2025-04-08 19:00 | XMS_ITS | Encounter Summary ---
Author Organization [employer] Address [address] [place] [address] 7 [place] [address] Care Team Providers Care Topography Technician Name Role Phone [facility] Primary Care Provider [phone] Reason for Visit * Reason Onset Date Comments Nov Recall 04/03/2025 Encounter Details Date Type Department Care Team ([facility] st Contact Info) Description 04/03/2025 Telephone [facility] [address] [place], [place] [phone] [facility] [address] [place] [address] Nov Recall Social History Tobacco Use Types Packs/Day Years [...] your housing situation today? I have celso ceabllos 02/27/[address] you li [...] encounter Miscellaneous Notes * Telephone Encounter - Cassi Weiner RN - 04/03/2025 2:52 PM EDT [facility] note from 03/20/25 reviewed, pt. Presented with generalized musculoskeletal pain, labs WNL and pt. Dx arthralgia, prescribed naproxen 375mg bid prn and methocarbamol 750mg q. 8 hours prn. TC placed to pt., pt. Reports she no longer has the all over body/ joint pain but has had constant pain in feet and ankles to knees x 4 days. Reports she has trialled taking the medications prescribed in the ED without positive effect. Pt. Reports pain is made worse with walking. Pt. Denies any swelling, discoloration or abnormal warmth. Pt. Agrees to a f/up appt. 04/08/25 at 3:15pm with Dr. Collier * Telephone Encounter - Chanelle Vargas MA - 04/03/2025 2:10 PM EDT Telephone call to patient to schedule the following recall: Visit type: Office visit Appointment notes: Conditions Patient agree to appointment on 06/03 at 2:45 PM with Delphos . Pt stated that she would like to triaged due to generalized pain all over body. Also ankle pain x3days, denies any injuries. Pt seen in the ED for body aches on 03/20/25. Red team nurses made aware and will contact pt. documented in this encounter Plan of Treatment Upcoming Encounters Date Type Department Care Team (Late st Contact Info) Description 04/16/2025 2:30 PM EDT Office Visit [facility] OPT[facility] [address] [place] [address] JohnsonCatherine chin, OD [address] [place] [address] 06/03/2025 2:45 PM EST Office Visit [facility] [address] [place] [address] Olivia Long FNP [address] [place] [address] documented as of this encounter Visit Diagnoses Not on filedocumented in this encounter Additional Health Concerns Assessment Noted Time PHQ-9 Depression Total Score: 4 03/09/20 25 11:23 AM EDT documented as of this encounter Care Teams Topography Technician Relationship Specialty Start Date End Date Olivia Long FNP [address] [place] [address] PCP - General Family Medicine 03/18/22 documented as of this encounter
--- OUTSIDE RECORDS SUMMARY | 2025-04-08 19:00 | XMS_ITS | Encounter Summary ---
Author Organization [employer] Address [address] [place] [address] 7 [place] [address] Care Team Providers Care Agriculture Science Teacher Name Role Phone [facility] Primary Care Provider [phone] Reason for Visit * Reason Onset Date Comments Nurse Triage 09/03/2024 Encounter Details Date Type Department Care Team ([facility] st Contact Info) Description 09/03/2024 Telephone [facility] MED[facility]INE [address] [place], [place] [phone] [facility] [address] [place] [address] Nurse Triage Social History Tobacco Use Types [...] 09/03/2024 2:51 PM EST Triage call with [facility] [place] [id number], [place]. Pt reports right eye twitching constantly [...] uncomfortable. Pt is advised to come to [facility] today for provider to see Pt . Pt agrees with this disposition. Hours of [facility] open till 8pm this evening. Unable [...] become worse * Telephone Encounter - Corey Dameon - 09/03/2024 2:35 PM EST Symptom: Eyelid Twitching Outcome: Schedule an urgent appointment (within 1 hour) or talk to a nurse or provider soon Reason: Feels like something is in the eye The caller accepted this outcome. documented in this encounter Plan of Treatment Upcoming Encounters Date Type Department Care Team (Late st Contact Info) Description 04/16/2025 2:30 PM EDT Office Visit [facility] OPTOMETRY [address] [place], [place] [phone] Catherine Ornelas, OD [address] [place] [address] 06/03/2025 2:45 PM EST Office Visit [facility] [address] [place] [address] Olivia Long FNP [address] [place] [address] documented as of this encounter Visit Diagnoses Not on filedocumented in this encounter Additional Health Concerns Assessment Noted Time PHQ-9 Depression Total Score: 0 03/14/20 24 3:40 PM EDT documented as of this encounter Care Teams Agriculture Science Teacher Relationship Specialty Start Date End Date Olivia Long FNP [address] [place] [address] PCP - General Family Medicine 03/18/22 documented as of this encounter
--- OUTSIDE RECORDS SUMMARY | 2025-04-08 19:00 | XMS_ITS | Encounter Summary ---
Author Organization [facility] [employer] Address [address] [place] [address] Care Team Providers Care Senior Java Programmer Analyst Name Role Phone [facility] Primary Care Provider [phone] Reason for Visit * Reason Onset Date Comments Appointment Request 01/17/2023 Encounter Details Date Type Department Care Team ([facility] st Contact Info) Description 01/17/2023 Telephone [facility] MEDICINE [address] [place], [place] [phone] [facility] [address] [place], [place] [phone] Appointment Request Social History Tobacco Use Types [...] TP on 01/16/2023. Please contact pt at [phone] Luxembourgish Speaker documented in this encounter Plan of Treatment Upcoming Encounters Date Type Department Care Team (Late st Contact Info) Description 04/16/2025 2:30 PM EDT Office Visit [facility] OPTOMETRY [address] [place] [address] Catherine Ornelas, OD [address] [place] [address] 06/03/2025 2:45 PM EST Office Visit [facility] MEDICINE [address] [place] [address] Olivia Long FNP [address] [place] [address] documented as of this encounter Visit Diagnoses Not on filedocumented in this encounter Additional Health Concerns Assessment Noted Time PHQ-9 Depression Total Score: 4 11/29/19 23 2:25 PM EDT documented as of this encounter Care Teams Senior Java Programmer Analyst Relationship Specialty Start Date End Date Olivia Long FNP [address] [place] [address] PCP - General Family Medicine 03/18/22 documented as of this encounter
--- OUTSIDE RECORDS SUMMARY | 2025-04-08 19:00 | XMS_ITS | Encounter Summary ---
Author Organization [employer] Address [address] [place] [address] Care Team Providers Care Oracle Reports Developer Name Role Phone [facility] Primary Care Provider [phone] Reason for Visit * Reason Onset Date Comments Appointment Request 07/03/2022 Encounter Details Date Type Department Care Team (Late st Contact Info) Description 07/03/2022 Telephone [facility] [address] [place], [place] [phone] [facility] [address] [place] [address] Appointment Request Social History Tobacco Use Types [...] Office Visit [facility] OPTOMETRY [address] [place], [place] [phone] Catherine Ornelas, OD [address] [place] [address] 06/03/2025 2:45 PM EST Office Visit [facility] MEDICINE [address] [place] [address] Olivia Long FNP [address] [place] [address] documented as of this encounter Visit Diagnoses Not on filedocumented in this encounter Care Teams Oracle Reports Developer Relationship Specialty Start Date End Date [place] [address] PCP - General Family Medicine 03/18/22 documented as of this encounter
--- OUTSIDE RECORDS SUMMARY | 2025-04-08 19:00 | XMS_ITS | Encounter Summary ---
Author Organization [employer] Address [address] [place] [address] 7 [place] [address] Care Team Providers Care Accounts Receivable Processor Name Role Phone [place] [facility] Primary Care Provider [phone] Encounter Details Date Type Department Care Team (Late st Contact Info) Description 12/08/2022 Abstract [facility] MED[facility] [address] [place] [address] [place] [facility] [address] [place] [address] Social History Tobacco Use Types Packs/Day Years [...] as of this encounter Plan of Treatment Upcoming Encounters Date Type Department Care Team (Late st Contact Info) Description 04/16/2025 2:30 PM EDT Office Visit [facility] OPTOMETRY [address] [place], [place] [phone] Catherine Ornelas, OD [address] [place] [address] 06/03/2025 2:45 PM EST Office Visit [facility] MEDICINE [address] [place] [address] EthanOlivia tavaresMUNA [address] [place] [address] documented as of this encounter Procedures Procedure Name Priority Date/Time Associated Diagnosis Comments MAMMOGRAPHY Routine 09/20/2022 documented in this encounter Results * Mammography (09/20/2022) Mammogram Bi-rads 3: Probably benign. Diagnostic Mammo due in 6 months Comment:Diagnostic Left [address] st Mammogram Anatomical Region Laterality Modality Other us Historical Provider HEALTH MAINTENANCE Final Result documented in this encounter Visit Diagnoses Not on filedocumented in this encounter Additional Health Concerns Assessment Noted Time PHQ-9 Depression Total Score: 4 11/29/19 23 2:25 PM EDT documented as of this encounter Care Teams Accounts Receivable Processor Relationship Specialty Start Date End Date Ethan MUNA Baker [address] [facility] [place] [address] PCP - General Family Medicine 03/18/22 documented as of this encounter
--- OUTSIDE RECORDS SUMMARY | 2025-04-08 19:00 | XMS_ITS | Encounter Summary ---
Author Organization [employer] Address [address] [place] [address] 7 [place] [address] Care Team Providers Care Asic Design Engineer Name Role Phone [facility] Primary Care Provider [phone] Reason for Visit * Reason Onset Date Comments PT-1 04/04/2024 Encounter Details Date Type Department Care Team ([facility] st Contact Info) Description 04/04/2024 Telephone [facility] [address] [place], [place] [phone] [facility] [address] [place], [place] [phone] PT-1 Social History Tobacco Use Types Packs/Day [...] Y/N: Yes Provider name or facility name: [facility] Facility Address: [address] [place] [address] Escort needed: Y/N: Yes Do you have a wheelchair: Y/N: No If yes- Manual or electric: N/A Visits: once a month documented in this encounter Plan of Treatment Upcoming Encounters Date Type Department Care Team (Late st Contact Info) Description 04/16/2025 2:30 PM EDT Office Visit [facility] [address] [place] [address] Johnson, Catherine, OD [address] [place] [address] 06/03/2025 2:45 PM EST Office Visit [facility] [address] [place] [address] LenoraOlivia FNP [address] [place] [address] documented as of this encounter Visit Diagnoses Not on filedocumented in this encounter Additional Health Concerns Assessment Noted Time PHQ-9 Depression Total Score: 0 03/14/20 24 3:40 PM EDT documented as of this encounter Care Teams Asic Design Engineer Relationship Specialty Start Date End Date LenoraOlivia FNP [address] [place] [address] PCP - General Family Medicine 03/18/22 documented as of this encounter
--- OUTSIDE RECORDS SUMMARY | 2025-04-08 19:00 | XMS_ITS | Clinical Summary ---
Author Organization [employer] Address [address] [place] [address] 7[address] [place] [address] Care Team Providers Care Die Technician Name Role Phone Olivia Long [facility] Primary Care Provider [phone] Allergies No known active allergies Medications magnesium [...] by mouth at bed time. 1 Active fluticasone (Flonase) 50 MCG/ACT nasal spray ADMINISTER 1 SPRAY INTO EACH NOSTRIL IN THE MORNING. SHAKE GENTLY. BEFORE FIRST USE, PRIME PUMP. AFTER USE, CLEAN TIP AND REPLACE CAP. 48 mL 4 Active amitriptyline (Elavil) 10 MG tablet Take 1 tablet (10 mg) by mouth at bedtime. 30 tablet 5 Active naproxen (Naprosyn) 500 MG tablet Take 1 tablet (500 mg) by mouth if needed in the morning and at bedtime for mild pain or headaches. 40 tablet 1 5 09/18/19 26 Active Diclofenac Sodium 1 % gel Apply 2 g topically if needed in the morning, at noon, in the evening, and at bedtime (pain). 150 g 1 5 Active albuterol 108 (90 Base) MCG/ACT inhaler Inhale 2 puffs every 4 (four) hours if needed for wheezing or shortness of breath. 18 g 1 5 12/04/19 26 Active albuterol (2.5 MG/3ML) 0.083% nebulizer solution Take 3 mL (2.5 mg) by nebulization every 6 (six) hours if needed for wheezing or shortness of breath. 75 mL 1 5 12/04/19 26 Active Spacer/Aero-Hol ding Chambers (OptiChamber Lily) misc 1 each every 4 (four) hours if needed (asthma). 1 each 5 Active Blood Pressure kit 1 each 2 times daily. 1 kit 5 12/04/19 26 Active levothyroxine (Synthroid, Levoxyl) 112 MCG tabletIndicatio ns:Hypothyroidi sm, unspecified type TAKE 1 TABLET BY MOUTH EVERY DAY 90 tablet 5 Active Active Problems Problem Noted Date Diagnosed Date Polyarthralgia 04/08/2025 Assessment & Plan (04/08/2025 4:16 PM EDT): Additional workup will be ordered today to rule out Lupus, rheumatoid arthritis etc. most likely her diagnosis is fibromyalgia I explained to her the nature of the condition, I will contact her back with results, extensive counseling done today Diffuse pain 04/08/2025 Dysphagia 03/20/2024 Trismus 09/15/2023 Overview (09/15/2023): Dr. Uribe oral surgery [facility] Assessment & Plan (09/15/2023 9:43 AM [...] of thyroidectomy 11/24/2022 Hypothyroidism 11/24/2022 Overview (07/20/2023): S/p thyroidectomy Assessment & Plan (09/15/2023 9:40 AM EST): Repeat TSH Vitamin D deficiency 11/24/2022 Disorder of tendon 03/17/2022 Non-cardiac chest pain 09/01/2021 Overview (12/08/2022): Seen by cardiology [phone], had echo, ekg, exercise stress test, all without cardiac explanation for cp. thought to be noncardiac. fu with cardiology PRN Hypertensive disorder 04/26/2021 Overview (09/15/2023): Losartan 100mg Carvedilol 3.125mg b.I.d Seen by cardiology [phone], had echo, ekg, exercise stress test, all [...] Encounters Date Type Department Care Team Description 04/08/2025 3:15 PM EDT Office Visit [address] [address] Jennifer Germain MD Polyarthralgia (Primary Dx); Diffuse pain 04/08/2025 Travel 04/03/[address] [address] Olivia Long FNP Nov Recall 03/20/2025 Orders Only GENERIC EXTERNAL DATA DEPARTMENT Provider, Generic External Data 03/09/2025 10:30 AM EDT Office Visit [address] [address] Olivia Long FNP Bilateral hearing loss, unspecified hearing loss type (Primary Dx) 03/09/2025 Travel 03/06/[address] [address] Olivia Long FNP Chart Prep 03/02/2025 Orders Only GENERIC EXTERNAL DATA DEPARTMENT Provider, Generic External Data 03/02/2025 Travel 02/27/2025 Patient Outreach [address] [address] Olivia Long FNP Care Coordination (CHW outreach for SDOH PT-1 and food needs-referral completed /) 02/27/2025 Patient Outreach [facility] MEDICINE [address] [place] [address] Leon Olivia, [facility] Pre-visit Planning (SDOH screening positive and tobacco screening negative) 01/25/[address] [facility] [address] [facility] [place] [address] Leon Olivia, [facility] Hypothyroidism, unspecified type from Last 3 Months Immunizations Immunization Administration Dates Next Due Moderna Covid-19 Vaccine [...] Mass Index 30.84 04/08/2025 2:53 PM EDT Plan of Treatment Upcoming Encounters Date Type Department Care Team (Late st Contact Info) Description 04/16/2025 2:30 PM EDT Office Visit [facility] OPTOMETRY [address] [place] [address] Johnson, Catherine, OD [address] [place] [address] 06/03/2025 2:45 PM EST Office Visit [facility] MEDICINE [address] [place] [address] Ethan, Olivia, [employer]ANTING [employer]OVER [address] [place] [address] Health Maintenance Due Date Last Done Comments Alcohol/Substance Use Screening 1995 HPV Vaccines (1 - 3-dose series) 1998 Hepatitis B Vaccines (1 of 3 - 19+ 3-dose series) 2002 COVID-19 Vaccine ( - season) 2025 06/02/2021, 09/17/2020, 08/20/2020 Influenza Vaccine (#1) 2025 Mammogram 04/09/2025 04/09/2024, 09/20, 03/29/2023, Additional history exists Family Planning (PISQ) 06/02/2025 06/02/2024 SDOH Screening 02/27/2026 02/27/2025 Disability Screening 03/02/2026 03/02/2025 Depression Screening 03/09/2026 03/09/2025, 03/09/20 25 Tobacco Screening 04/08/2026 04/08/2025 HPV/Cotest 05/31/2026 05/31/2023 Pap Smear 05/31/2026 05/31/2023, 12/05/2018 Lipid Panel 09/06/2028 09/06/2023, 06/07/2022, 01/03/2021 DTaP/Tdap/Td Vaccines (2 - Td or Tdap) 12/30/2030 12/30/2020 Zoster Vaccines (1 of 2) 2033 RSV Patients and Patients Aged 60 years or older (1 - 1-dose 75+ series) 2058 HIV Screening Completed 04/12/2022, 01/03/2021 Hepatitis C Screening Completed 12/21/2022, 021 Pneumococcal Vaccine: Pediatrics (0 to 5 Years) and At-Risk Patients (6 to 49) Years Completed 03/14/2024 HIB Vaccines Aged Out No longer eligi ble based on patient's age to complete this topic Hepatitis A Vaccines Aged Out No long er eligible based on patient's age to complete this topic IPV Vaccines Aged Out No longer eligi ble based on patient's age to complete this topic Meningococcal B Vaccine Aged Out No l onger eligible based on patient's age to complete [...] Associated Diagnosis Comments C-REACTIVE PROTEIN Routine 04/08/2025 3: 43 PM EDT Polyarthralgia Diffuse pain URINALYSIS, COMPLETE, WITH REFLEX TO CULTURE Routine 03/20/2025 7:02 PM EDT LYME DISEASE AB W/REFL TO BLOT (IGG, IGM) Routine 03/20/2025 6:04 PM EDT LYME DISEASE (BORRELIA SPP)DNA,QL RT PCR,MISC Routine 03/20/2025 6:04 PM EDT SED RATE BY MODIFIED WESTERGREN Routine 03/20/2025 6:04 PM EDT HCG, TOTAL, QN Routine 03/20/2025 6:04 PM EDT LIPASE Routine 03/20/2025 6:04 PM EDT C-REACTIVE PROTEIN Routine 03/20/2025 6: 04 PM EDT CREATINE KINASE, TOTAL Routine 03/20/2025 6:04 PM EDT COMPREHENSIVE METABOLIC PANEL Routine 03/20/2025 6:04 PM EDT CBC WITH AUTO DIFFERENTIAL Routine 03/20/2025 6:04 PM EDT VITAMIN D 25-OH (D2 AND D3) Routine 03/02/2025 3:43 PM EDT BI MAMMOGRAM DIAGNOSTIC TOMOSYNTHESIS BILATERAL Routine 04/09/2024 [...] Recently Relevant to Health Maintenance Results * C-reactive Protein (04/08/2025 3:43 PM EDT) Only the most recent of2 resultswithin the time period is included. C Reactive Protein 0.11 < or = 0.50 mg/dL [facility] Blood Venous blood specimen / Unknown 04/08/2025 3:43 PM EDT 04/08/2025 4:03 PM EDT Jennifer Osullivan MD LAB BLOOD ORDERABLES Final Result [facility] [address] [place] [phone] * Urinalysis, Complete, with Reflex to Culture (03/20/2025 7:02 PM EDT) Color Urine Yellow [facility] Appearance Urine Clear [facility] PH 6.5 5.0 - 9.0 [facility] Glucose Urine UA Negative Negative mg/dL [facility] Urine Blood Negative Negative [facility] Specific [place] - Urine <=1.005 1.005 - 1.025 [facility] Urine Protein Negative Neg-Trace mg/dL [facility] Urine Ketones Negative Negative mg/dL [facility] Nitrite Urine Negative Negative [facility] Leukocyte Esterase Urine Negative Negative [facility] RBC Urine 0-2 0 - 2 /HPF [facility] Urine WBC 0-5 0 - 5 /HPF [facility] Urine Squamous Epithelial Cell 0-2 0 - 2 /HPF [facility] Urine Bacteria None Seen None Seen [facility] Hyaline Casts, Urine 0-2 0 - 2 /LPF [facility] 03/20/2025 7:02 PM EDT 03/20/2025 7:05 PM EDT Narrative [facility] - 03/20/2025 7:20 PM EDT Urine, Clean Catch us Generic External Data Provider LAB URINE ORDERAB LES Final Result Performing Organization Address [facility] Co de Phone Number [facility] [address] [place] [phone] * Lyme Disease Ab with Reflex to Blot (IgG, IgM) (03/20/2025 6:04 PM EDT) [facility] Lyme Antibody Screen <0.90 index [facility] Comment:Index Interpretation ----- < 0.90 Negative 0.90-1.09 Equivocal > 1.09 PositiveAs recommended by the Food and Drug Administration(FDA), all samples with positive or equivocalresults in a Borrelia burgdorferi antibody screenwill be tested using a blot method. Positive orequivocal screening test results should not beinterpreted as truly positive until verified as suchusing a supplemental assay (e.g., B. burgdorferi blot).The screening test and/or blot for B. burgdorferiantibodies may be falsely negative in early stagesof Lyme disease, including the period when erythemamigrans is apparent.THIS TEST WAS PERFORMED AT:[employer] [place] [phone] SOUZA MD Lyme Blot [facility] 03/20/2025 6:04 PM EDT 03/20/2025 6:08 PM EDT us Generic External Data Provider LAB BLOOD ORDERAB LES Final Result Performing Organization Address [facility]/ZIP Co de Phone Number [facility] [address] [place] [phone] * (ABNORMAL) CBC auto differential (03/20/2025 6:04 PM EDT) [facility] White Blood Count 7.2 4.8 - 10.8 X10*3/uL [facility] Red Blood Count 4.45 4.20 - 5.50 X10*6/uL [facility] Hemoglobin 12.9 12.0 - 16.0 g/dl [facility] Hematocrit 36.4(L) 37.0 - 47.0 % [facility] Mean Corpuscular Volume 81.8 80.0 - 98.0 fL [facility] Mean Corpuscular Hemoglobin 29.0 27.0 - 33.0 pg [facility] Mean Corpuscular HGB Conc 35.4(H) 31.0 - 35.0 g/dl [facility] Red Cell Distribution Width 11.9 11.0 - 16.0 % [facility] Platelet Count 283 160 - 400 X10*3/uL [facility] Mean Platelet Volume 10.0 9.4 - 12.3 fL [facility] Neutrophils Percent Auto 53.4 45 - 73 % [facility] Imm Gran Pct Auto 0.4 0.0 - 0.4 % [facility] Lymphocytes Percent Auto 39.6 20 - 40 % [facility] Monocytes Percent Auto 5.4 2 - 11 % [facility] Eosinophils Percent Auto 0.8 0 - 4 % [facility] Basophils Percent Auto 0.4 0 - 2 % [facility] NRBC Pct Auto 0.0 0.0 - 0.2 /100WBC [facility] Neutrophils Absolute Auto 3.9 2.0 - 8.3 x10*3/uL [facility] Imm Gran Abs Auto 0.03 0.00 - 0.03 X10*3/uL [facility] Lymphocytes Absolute Auto 2.9 1.2 - 4.9 X10*3/uL [facility] Monocytes Absolute Auto 0.4 0.1 - 1.2 X10*3/uL [facility] Eosinophils Absolute Auto 0.1 0.0 - 0.4 X10*3/uL [facility] Basophils Absolute Auto 0.0 0.0 - 0.2 X10*3/uL [facility] NRBC Abs Auto 0.000 0.0 - 0.012 X10*3/uL [facility] 03/20/2025 6:04 PM EDT 03/20/2025 6:08 PM EDT Generic External Data Provider LAB BLOOD ORDERAB LES Final Result Performing Organization Address [facility] Co de Phone Number [facility] [address] [place] [phone] * Borrelia Species DNA, Qualitative Real-Time PCR, Miscellaneous (03/20/2025 6:04 PM EDT) Borrelia Species DNA, QL Real Time PCR, Misc NOT DETECTED NOT DETECTED [facility] Comment:This test was develo ped and its analytical performancecharacteristics have been determined by [employer]. It has not been cleared or approved by theA. This assay has been validated pursuant to the CLIAregulations and is used for clinical purposes.For additional information, please refer tohttps://education.[employer](INOR)/faq/zmg386(This link is being provided for informational/educational purposes only.)THIS TEST WAS PERFORMED AT:[employer] [place] [phone] SOUZA MD 03/20/2025 6:04 PM EDT 03/20/2025 6:08 PM EDT Generic External Data Provider LAB BLOOD ORDERAB LES Final Result Performing Organization Address [facility] Co de Phone Number [facility] [address] [place] [phone] * Sed Rate by Modified Gisella (03/20/2025 6:04 PM EDT) Pathologist [facility] Erythrocyte Sedimentation Rate 7 0 - 20 MM/HR [facility] Comment:Patients with polycy themia and many hemoglobin abnormalitiesmay have depressed sed rates whereas patients with anemiamay have elevated sed rates. 03/20/2025 6:04 PM EDT 03/20/2025 6:08 PM EDT us Generic External Data Provider LAB BLOOD ORDERAB LES Final Result Performing Organization Address City/[facility]/ZIP Co de Phone Number [facility] [address] [place] [phone] * hCG, Total, Quantitative (03/20/2025 6:04 PM EDT) HCG Quantitative <2 mIU/mL [facility] Comment:Weeks post LMP Appr oximate hCG(Last Menstrual Period) Range (mIU/ml)3 - 4 weeks 9 - 1304 - 5 weeks 75 - 2,6005 - 6 weeks 850 - 20,8006 - 7 weeks 4000 - 100,2007 - 12 weeks 11,500 - 289,16300 - 16 weeks 18,300 - 137,93092 - 29 weeks (2nd trimester) 1,400 - 53,40711 - 41 weeks (3rd trimester) 940 - 60,000The Dove B- hCG assay is used for the early detection ofpregnancy; it cannot be used to diagnose any conditionunrelated to . If a B-hCG level is not supportedby the clinical evidence, results should be confirmed by analternative method (qualitative urine hCG, for example). 03/20/2025 6:04 PM EDT 03/20/2025 6:08 PM EDT Generic External Data Provider LAB BLOOD ORDERAB LES Final Result Performing Organization Address [facility] Co de Phone Number [facility] [address] [place] [phone] * Lipase (03/20/2025 6:04 PM EDT) Lipase 42 8 - 78 U/L [facility] 03/20/2025 6:04 PM EDT 03/20/2025 6:08 PM EDT Generic External Data Provider LAB BLOOD ORDERAB LES Final Result Performing Organization Address City/[facility]/ZIP Co de Phone Number [facility] [address] [place] [phone] * (ABNORMAL) Creatine Kinase, Total (03/20/2025 6:04 PM EDT) Creatine Kinase Total 177(H) 26 - 140 U/L [facility] 03/20/2025 6:04 PM EDT 03/20/2025 6:08 PM EDT us Generic External Data Provider LAB BLOOD ORDERAB LES Final Result [facility] [address] [place] [phone] * (ABNORMAL) Comprehensive Metabolic Panel (03/20/2025 6:04 PM EDT) Pathologist [facility] Sodium 140 135 - 145 mmol/L [facility] Potassium 3.8 3.3 - 5.1 mmol/L [facility] Chloride 110(H) 96 - 108 mmol/L [facility] Carbon Dioxide 24 22 - 29 mmol/L [facility] Anion Gap 10(L) 12 - 20 [facility] Urea Nitrogen (BUN) 14 9 - 16 mg/dL [facility] Creatinine, Serum 0.73 0.5 - 1.4 mg/dL [facility] Creatinine Clr Calc Pharmacy 92.1 [facility] Comment:Provided height and weight: 154.94 cm,72.1 kg.eGFR (calculated from the MDRD study equation) and eCrCl(calculated from the Cockcroft-Gault equation) are based ondifferent parameters and may not yield comparable results.If eCrCl result is absurd, please check patient'sheight/weight. Estimated Glomerular Filt Rate >60 [facility] Comment:Chronic Kidney Disea se: Estimated GFR < 60 mL/min/1.22c1Zybwch Kidney Disease: Estimated GFR < 15 mL/min/1.73m2 Glucose 117(H) 60 - 115 mg/dL [facility] Calcium 9.4 8.4 - 10.2 mg/dL [facility] Bilirubin, Total 0.5 0.0 - 1.0 mg/dL [facility] Aspartate Amino Transferase 21 5 - 31 U/L [facility] Alanine Aminotransferase 29 0 - 31 U/L [facility] Total Protein 7.3 6.5 - 8.0 g/dL [facility] Albumin Level 4.7 3.5 - 5.0 g/dL [facility] Alkaline Phosphatase 45 39 - 117 U/L [facility] 03/20/2025 6:04 PM EDT 03/20/2025 6:08 PM EDT us Generic External Data Provider LAB BLOOD ORDERAB LES Final Result [facility] [address] [place] [phone] * VITAMIN D 25-OH (D2 AND D3) (03/02/2025 3:43 PM EDT) Vitamin D, 25-OH, D2 <4 ng/mL [facility] Comment:This test was develo ped and its analytical performancecharacteristics have been determined by [employer] [place], [place]. It hasnot been cleared or approved by the U.S. Food and DrugAdministration. This assay has been validated pursuantto the CLIA regulations and is used for clinicalpurposes.THIS TEST WAS PERFORMED AT:[employer] [id number] [place] [phone] SINGH MD,PHD Vitamin D, 25-OH, D3 37 ng/mL [facility] Comment:This test was develo ped and its analytical performancecharacteristics have been determined by [employer] [place], [place]. It hasnot been cleared or approved by the U.S. Food and DrugAdministration. This assay has been validated pursuantto the CLIA regulations and is used for clinicalpurposes. Vitamin D, 25-OH, Total 37 30 - 100 ng/mL [facility] Comment:Vitamin D, 25-Hydrox y reports concentrations of twocommon forms, 25-OHD2 and 25-OHD3. 25-OHD3 indicatesboth endogenous production and supplementation.25-OHD2 is an indicator of exogenous sources such asdiet or supplementation. Therapy is based onmeasurement of Total 25-OHD, with levels <20 ng/mLindicative of Vitamin D deficiency, while levelsbetween 20 ng/mL and 30 ng/mL suggest insufficiency.Optimal levels are > or = 30 ng/mL.For additional information, please refer tohttp://education.Quantance/faq/ZTW467(This link is being provided for informational/educational purposes only.) 03/02/2025 3:43 PM EDT 03/02/2025 5:28 PM EDT us Generic External Data Provider LAB BLOOD ORDERAB LES Final Result [facility] [address] [place] [phone] * BI Mammogram Diagnostic Tomosynthesis Bilateral (04/09/2024 2:30 PM EDT) Anatomical Region Laterality Modality Breast Bilateral Mammography 04/09/2024 2:30 PM EDT Narrative 04/09/2024 3:31 PM EDT [facility] [address] 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 [employer] REMOVER IMG BI PROCEDURES Final Resul t * Lipid Panel, Standard (09/06/2023 11:33 AM EST) Triglycerides 80 <150 mg/dL [facility] Comment:Desirable Triglyceri de: less than 150 mg/dLBorderline High Triglyceride 150-199 mg/dLHigh Triglyceride: 200-499 mg/dLVery High Triglyceride: greater than or equal to 5OO mg/dL Cholesterol 150 <200 mg/dL [facility] Comment:Desirable Cholestero l: less than 200 mg/dLBorderline High Cholesterol: 200-239 mg/dLHigh Cholesterol: greater than 239 mg/dL LDL Cholesterol Calculated 90 <100 mg/dL [facility] Comment:Desirable LDL: less than 100 mg/dLNear Optimal/Above Optimal LDL: 110- 129 mg/dLBorderline High LDL: 130-159 mg/dLHigh LDL: 160-189 mg/dLVery High LDL: greater than or equal to 190 mg/dL HDL Cholesterol 44 >40 mg/dL [facility] Comment:Desirable HDL: great er than 40 mg/dL Note: This HDL assay may give artificially low results in patients with liver disease. Blood Venous blood specimen / Unknown 09/06/2023 11:33 AM EST 09/06/2023 1:03 PM EST [employer] LAB BLOOD ORDERABLES Final Re sult [facility] [address] [place] [phone] * HPV mRNA E6/E7 w/Reflex to HPV Genotypes 16, 18/45 (05/31/2023 2:20 PM EST) HPV nRNA E6/E7 Not Detected Not Detected [facility] Comment:Methodology: Transcr iption-Mediated AmplificationThis assay detects E6/E7 viral messenger RNA (mRNA) from 14high-risk HPV types (16,18,31,33,35,39,45,51,52,56,58,59,66,68).Cervical sources are required for HPV testing.If a vaginal source from a patient who has had atotal hysterectomy with removal of cervix wassubmitted, please contact the testing laboratoryfor alternative testing options.For additional information, please refer tohttp://education.International Network [employer] Outcomes Research(INOR)/faq/QIA493v8(This link if provided for information/educational purposes only.)THIS TEST WAS PERFORMED AT:[employer] [place] [phone] SOUZA MD HPV mRNA E6/E7 [facility] HPV 16 RNA [facility] HPV 18/45 RNA [facility] 05/31/2023 2:20 PM EST 06/01/2023 8:10 AM EST us Duane Gilliam CNM LAB CYTOLOGY ORDERABLES F inal Result [facility] [address] [place] [phone] * Pap Smear (05/31/2023 2:20 PM EST) 05/31/2023 2:20 PM EST 06/01/2023 8:10 AM EST Narrative [facility] - 06/20/2023 4:44 PM EST ----- ------- Name: Janine Keller Age/Sex: 38/F : 1985 Unit#: [id number] Attend Dr: DUANE GILLIAM CNM Re05/31/[address] [facility] ----- ------- SPEC : [id number] RECD: 06/01/23 STATUS: DIPTI SEGUNDO NUM: [id number] JUAN JOSÉ: 05/31/[address]: DUANE GILLIAM CNM ENTERED: 06/01/23-1056 SP TYPE: Pap Smr OTHR DR: ORDERED: Pap Smear, PAP path review Interpretation General Category: Epithelial cell abnormality. Adequacy: Endocervical component present. Interpretation: Atypical squamous cells of undetermined significance. Coccobacilli consistent with shift in vaginal clyde. HPV mRNA E6/E7: NOT DETECTED This assay detects E6/E7 viral messenger RNA (mRNA) from 14 high-risk HPV types (16, 18, 31, 33, 35, 39, 45, 51, 52, 56, 58, 59, 66, 68) HPV testing performed by [facility], [place], [place]. See reference laboratory portion of the EMR for entire report. Clinical Information LMP: Unknown date Previous PAP test: 2019, WNL Other surgery:S/P hyst Other history: Cervix not well seen, pap done as precaution Material Received ThinPrep-Vaginal/Cervical ----- ------- Signed (signature on file) Shannen Oh MD 06/20/23 1644 ----- ------- END OF REPORT us Duane Gilliam [facility] CYTOLOGY ORDERABLES F inal Result [facility] [address] [place] [phone] * Hepatitis C Antibody with Reflex to HCV, RNA, Quantitative, Real-Time PCR (12/21/2022 12:03 PM EDT) Hepatitis C Antibody NON-REACT SETH NON-REACT SETH [facility] [place] [employer] Index 0.07 <1.00 [facility] [place] [facility] Comment: HCV antibody was non-reactive. There is no laboratory evidence of HCV infection. In most cases, no further action is required. However, if recent HCV exposure is suspected, a test for HCV RNA (test code 07582) is suggested. For additional information please refer to http://sigmacare.[employer](INOR)/faq/HRI79u4 (This link is being provided for informational/ educational purposes only.) Blood Venous blood specimen / Unknown 12/21/2022 12:03 PM EDT 12/21/2022 12:04 PM EDT Narrative [facility] - 12/25/2022 1:25 PM EDT FASTING:YES FASTING: YES [facility] LAB BLOOD ORDERABLES Final Re sult [facility] [address], [place] [address] [facility] [place] [facility] [address] [place] [address] * HIV 1/2 ANTIGEN/ANTIBODY,FOURTH GENERATION W/RFL (04/12/2022 11:21 AM EDT) [facility] HIV-1/2 ANTIGEN AND ANTIBODIES, 4TH GENERATION W/ REFLEX NON-REACT SETH NON-REACT SETH [facility] Comment: HIV-1 antigen and HIV-1/HIV-2 antibodies were not detected. There is no laboratory evidence of HIV infection. PLEASE NOTE: This information has been disclosed to you from records whose confidentiality may be protected by state law. If your state requires such protection, then the state law prohibits you from making any further disclosure of the information without the specific written consent of the person to whom it pertains, or as otherwise permitted by law. A general authorization for the release of medical or other information is NOT sufficient for this purpose. For additional information please refer to http://sigmacare.[employer](INOR)/faq/EAF585 (This link is being provided for informational/ educational purposes only.) The performance of this assay has not been clinically validated in patients less than 2 years old. 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
--- OUTSIDE RECORDS SUMMARY | 2025-04-08 19:00 | XMS_ITS | Encounter Summary ---
Author Organization [employer] Address [address] [place] [address] 7 [place] [address] Care Team Providers Care Child Care Coordinator Name Role Phone [facility] Primary Care Provider Reason for Visit * Reason Onset Date Comments Order update 02/13/2024 Encounter Details Date Type Department Care Team ([facility] st Contact Info) Description 02/13/[address] [facility] [address] [place], [place] [phone] [facility] [address] [place] [address] Order update Social History Tobacco Use Types [...] Description 04/16/2025 2:30 PM EDT Office Visit [facility] [address] [place] [address] Johnson, Catherine, OD 230 [place] [address] 06/03/2025 2:45 PM EST Office Visit [facility] [address] [place] [address] Olivia Long FNP 230 [place] [address] documented as of this encounter Visit Diagnoses Not on filedocumented in this encounter Additional Health Concerns Assessment Noted Time PHQ-9 Depression Total Score: 0 09/05/19 24 2:53 PM EST documented as of this encounter Care Teams Child Care Coordinator Relationship Specialty Start Date End Date Olivia Long FNP [address] [place] [address] PCP - General Family Medicine 03/18/22 documented as of this encounter
--- OUTSIDE RECORDS SUMMARY | 2025-04-08 19:00 | XMS_ITS | Encounter Summary ---
Author Organization [employer] Address [address] [facility] [address] [place] [address] Care Team Providers Care I&C Technician Name Role Phone Olivia Long [facility] Primary Care Provider Encounter Details Date Type Department Care Team (Latest Contact Info) Description 04/08/2025 Travel Social History Tobacco Use Types Packs/Day Years [...] Description 04/16/2025 2:30 PM EDT Office Visit [facility] [address] [place] [address] Johnson, Catherine, OD 230 [place] [address] 06/03/2025 2:45 PM EST Office Visit [facility] 230 [place] [address] Olivia Long FNP [address] [place] [address] documented as of this encounter Visit Diagnoses Not on filedocumented in this encounter Additional Health Concerns Assessment Noted Time PHQ-9 Depression Total Score: 4 03/09/20 25 11:23 AM EDT documented as of this encounter Care Teams I&C Technician Relationship Specialty Start Date End Date Olivia Long FNP [address] [place] [address] PCP - General Family Medicine 03/18/22 documented as of this encounter
--- OUTSIDE RECORDS SUMMARY | 2025-04-08 19:00 | XMS_ITS | Encounter Summary ---
Author Organization [employer] Address [address] [place] [address] [place], [place] [address] Care Team Providers Care Locker Operator Name Role Phone [facility] Primary Care Provider [phone] Encounter Details Date Type Department Care Team (Late Contact Info) Description 01/15/2023 Abstract [facility] [address] [place] [address] [facility] [address] [place] [address] Social History Tobacco Use Types Packs/Day Years [...] Description 04/16/2025 2:30 PM EDT Office Visit [facility] [address] [place], [place] [phone] Catherine Ornelas, OD [address] [place] [address] 06/03/2025 2:45 PM EST Office Visit [facility] [address] [place] [address] Olivia Long FNP [address] [place] [address] documented as of this encounter Visit Diagnoses Not on filedocumented in this encounter Additional Health Concerns Assessment Noted Time PHQ-9 Depression Total Score: 4 11/29/19 23 2:25 PM EDT documented as of this encounter Care Teams Locker Operator Relationship Specialty Start Date End Date Olivia Long FNP [address] [place] [address] PCP - General Family Medicine 03/18/22 documented as of this encounter
[2025-04-10 08:45] LABS: Anti Nuclear Antibody Pattern Nuclear, Speckled; Anti Nuclear Antibody Screen POSITIVE (NEGATIVE); Anti Nuclear Antibody Titer 1:40 titer
== END 2025-04-08 15:38 | disposition home or self-care (01) ==
LOC: HO.HHCL 15:37
PROVIDERS: PCP Internal Medicine; Visit Provider Internal Medicine
DX: Z01.84 Encounter for antibody response examination (principal); M25.50 Pain in unspecified joint
CPT/HCPCS: 36415; 86038; 86039; 86140; 86200

== ENCOUNTER 2025-04-13 14:48 | Outpatient (REF) | payer MEDICAID, SELFPAY ==
--- NOTE | ~2025-04-13 | MM_ITS ---
EXAMINATION: MM SCREENING DIGITAL BREAST TOMOSYNTHESIS, BILATERAL CLINICAL INFORMATION: Screening. Asymptomatic. COMPARISON: Comparison made to multiple prior, most recent April 09, 2024, and most remote March 21, 2022. TECHNIQUE: Digital breast tomosynthesis is performed in mediolateral oblique and craniocaudal views along with computer-aided detection (CAD). Synthesized 2D images are generated from the tomosynthesis. FINDINGS: BREAST COMPOSITION: The breasts are heterogeneously dense, which may obscure small masses. RIGHT BREAST: No significant masses, suspicious calcifications or other abnormalities are seen. LEFT BREAST: Grouped calcifications in the upper outer quadrant middle depth at approximately 3.5-4.5 cm from the nipple, associated with possible underlying asymmetry on the CC view. MM/MM tomosynthesis screening BI IMPRESSION: RIGHT BREAST: Negative, no mammographic evidence of malignancy. Normal interval follow-up is recommended in 12 months. LEFT BREAST: Grouped calcifications in the upper outer quadrant middle depth, associated with possible asymmetry on the CC view. ASSESSMENT: BI-RADS: Category 0: Incomplete - Need additional Imaging Evaluation RECOMMENDATION: Routine annual mammography screening. FOLLOW-UP: 1 year F/U This examination should not preclude the clinical evaluation of a suspicious palpable abnormality. This patient's information was entered into a reminder system with a target due date for their next mammogram. Electronically signed by: Heather Harvey MD 04/14/2025 07:21 PM EDT
--- OUTSIDE RECORDS SUMMARY | 2025-04-13 17:22 | XMS_ITS | Encounter Summary ---
Demographics Address [address] [place] [id number]
== END 2025-04-13 14:49 | disposition home or self-care (01) ==
LOC: HO.MAMMO 14:48
PROVIDERS: PCP Internal Medicine; Visit Provider Internal Medicine
DX: Z12.31 Encounter for screening mammogram for malignant neoplasm of breast (principal)
CPT/HCPCS: 77063; 77067

== ENCOUNTER → 2025-04-13 15:15 | Outpatient (BNV) | payer MEDICAID, SELFPAY | PROVIDERS: PCP Internal Medicine; Visit Provider Radiology Body Imaging | DX: Z12.31 Encounter for screening mammogram for malignant neoplasm of breast (principal) | CPT/HCPCS: 77063; 77067 ==

== ENCOUNTER 2025-05-19 13:23 | Outpatient (REF) | payer MEDICAID, SELFPAY ==
--- OUTSIDE RECORDS SUMMARY | 2025-05-15 11:15 | XMS_ITS | Encounter Summary ---
Author Organization [employer] Address [address] [facility] 7t [place] [address] Care Team Providers Care Tunnel Kiln Operator Name Role Phone Olivia Long [facility] Primary Care Provider [phone] Encounter Details Date Type Department Care Team ([facility] st Contact Info) Description 05/15/2025 11:15 AM EDT Office Visit [facility] [address] [place] [address] Johnson, Catherine, OD [address] [place] [address] Regular astigmatism of both eyes (Primary Dx) Social History Tobacco Use Types Packs/Day Years [...] AM EDT documented as of this encounter Progress Notes * Catherine Ornelas OD - 05/15/2025 11:15 AM EDT MH glasses were dispensed. documented in this encounter Plan of Treatment Upcoming Encounters Date Type Department Care Team (Late st Contact Info) Description 06/03/2025 2:45 PM EST Office Visit [facility] 230 [place] [address] Olivia Long FNP [address] [place] [address] documented as of this encounter Visit Diagnoses Diagnosis Regular astigmatism of both eyes- Primary documented in this encounter Additional Health Concerns Assessment Noted Time PHQ-9 Depression Total Score: 4 03/09/20 25 11:23 AM EDT documented as of this encounter Care Teams Tunnel Kiln Operator Relationship Specialty Start Date End Date Olivia Long FNP [address] [place] [address] PCP - General Family Medicine 03/18/22 documented as of this encounter
--- NOTE | ~2025-05-19 | MM_ITS ---
EXAMINATION(S): MM DIAGNOSTIC DIGITAL BREAST TOMOSYNTHESIS, LEFT CLINICAL INFORMATION: Callback from screening for left breast grouped calcifications in the upper outer quadrant at 3.5-4.5 cm from the nipple associated with possible underlying asymmetry on the CC view. COMPARISON: Comparison made to multiple prior, most recent April 13, 2025, and most remote March 21, 2022. TECHNIQUE: Digital breast tomosynthesis is performed in full field ML 90 degrees along with computer-aided detection (CAD). Synthesized 2D images are generated from the tomosynthesis. Spot compression tomosynthesis and spot magnified compression views were obtained. FINDINGS: BREAST COMPOSITION: The breasts are heterogeneously dense, which may obscure small masses. RIGHT BREAST: Grouped amorphous calcifications in the upper outer quadrant centered at approximately 4-5 cm from the nipple changes in morphology in the differential views. Some of these calcifications layer on the spot magnified 90 degrees, which favors milk of calcium. No underlying asymmetry persists with spot compression. MM/MM tomosynthesis added views L IMPRESSION: RIGHT BREAST: Grouped amorphous calcifications in the upper outer quadrant associated approximately 4 to 5 cm from the nipple. Probably benign. A 6-month follow-up mammogram is recommended. ASSESSMENT: BI-RADS: Category 3: Probably benign RECOMMENDATION: 6 Month F/U Results were provided to the patient at time of visit by the technologist. This patient's information was entered into a reminder system with a target due date for their next mammogram. Electronically signed by: Heather Harvey MD 05/19/2025 04:50 PM EDT
--- OUTSIDE RECORDS SUMMARY | 2025-05-19 17:15 | XMS_ITS | Encounter Summary ---
Author Organization [employer] Address [address] [place] [address] 7 [place] [address] Care Team Providers Care Investigations Chief Name Role Phone [facility] Primary Care Provider [phone] Reason for Visit * Reason Comments Med Refill Encounter Details Date Type Department Care Team ([facility] st Contact Info) Description 05/13/2025 Refill [facility] [address] [place], [place] [phone] [facility] [address] [place] [address] Hypothyroidism, unspecified type Social History Tobacco Use Types Packs/Day Years [...] Description 06/03/2025 2:45 PM EST Office Visit [facility] [address] [place] [address] Olivia Long FNP [address] [place] [address] documented as of this encounter Visit Diagnoses Diagnosis Hypothyroidism, unspecified type documented in this encounter Additional Health Concerns Assessment Noted Time PHQ-9 Depression Total Score: 4 03/09/20 25 11:23 AM EDT documented as of this encounter Care Teams Investigations Chief Relationship Specialty Start Date End Date Olivia Long FNP [address] [place] [address] PCP - General Family Medicine 03/18/22 documented as of this encounter
--- OUTSIDE RECORDS SUMMARY | 2025-05-19 17:15 | XMS_ITS | Encounter Summary ---
Author Organization [employer] Address [address] [place] [address] 7 [place] [address] Care Team Providers Care Browning Processor Name Role Phone [facility] Primary Care Provider [phone] Reason for Visit * Reason Onset Date Comments Order update 02/13/2024 Encounter Details Date Type Department Care Team ([facility] st Contact Info) Description 02/13/2024 Telephone [facility] [address] [place], [place] [phone] [facility] 230 [place], [place] [phone] Order update Social History Tobacco Use Types [...] Description 06/03/2025 2:45 PM EST Office Visit [facility] [address] [place] [address] Olivia Long FNP [address] [place] [address] documented as of this encounter Visit Diagnoses Not on filedocumented in this encounter Additional Health Concerns Assessment Noted Time PHQ-9 Depression Total Score: 0 09/05/19 24 2:53 PM EST documented as of this encounter Care Teams Browning Processor Relationship Specialty Start Date End Date Olivia Long FNP [address] [place] [address] PCP - General Family Medicine 03/18/22 documented as of this encounter
--- OUTSIDE RECORDS SUMMARY | 2025-05-19 17:15 | XMS_ITS | Encounter Summary ---
Author Organization [employer] Address [address] [place] [address] Care Team Providers Care Coding And Reimbursement Specialist Name Role Phone [place] [facility] Primary Care Provider [phone] Encounter Details Date Type Department Care Team (Late st Contact Info) Description 01/15/2023 Abstract [facility] [address] [place], [place] [phone] [place] [address] [phone] Social History Tobacco Use Types Packs/Day Years [...] Description 06/03/2025 2:45 PM EST Office Visit [facility] [address] [place] [phone] [place] [address] [phone] documented as of this encounter Visit Diagnoses Not on filedocumented in this encounter Additional Health Concerns Assessment Noted Time PHQ-9 Depression Total Score: 4 11/29/19 23 2:25 PM EDT documented as of this encounter Care Teams Coding And Reimbursement Specialist Relationship Specialty Start Date End Date Olivia Long FNP [address] [place] [address] PCP - General Family Medicine 03/18/22 documented as of this encounter
--- OUTSIDE RECORDS SUMMARY | 2025-05-19 17:15 | XMS_ITS | Clinical Summary ---
Author Organization [employer] Address [address] [place] [address] [address] [place] [address] Care Team Providers Care Associate Scientist Name Role Phone Olivia Long [facility] Primary Care Provider [phone] Allergies No known active allergies Medications riboflavin (Vitamin B-2) 400 MG tablet Take 1 tablet by mouth in the morning. 08/22/19 23 Active SUMAtriptan (Imitrex) 100 MG tablet PLEASE SEE ATTACHED FOR DETAILED DIRECTIONS 08/22/19 23 Active carvedilol (Coreg) 3.125 MG tablet Take 1 tablet by mouth every 12 (twelve) hours. 03/07/20 22 Active losartan (Cozaar) 100 MG tablet Take 1 tablet by mouth at bed time. 05/24/20 21 Active fluticasone (Flonase) 50 MCG/ACT nasal spray ADMINISTER 1 SPRAY INTO EACH NOSTRIL IN THE MORNING. SHAKE GENTLY. BEFORE FIRST USE, PRIME PUMP. AFTER USE, CLEAN TIP AND REPLACE CAP. 48 mL 10/15/19 24 Active amitriptyline (Elavil) 10 MG tablet Take 1 tablet (10 mg) by mouth at bedtime. 30 tablet 09/18/19 25 Active albuterol 108 (90 Base) MCG/ACT inhaler Inhale 2 puffs every 4 (four) hours if needed for wheezing or shortness of breath. 18 g 1 12/04/19 25 026 Active albuterol (2.5 MG/3ML) 0.083% nebulizer solution Take 3 mL (2.5 mg) by nebulization every 6 (six) hours if needed for wheezing or shortness of breath. 75 mL 1 12/04/19 25 05/14/2 026 Active Spacer/Aero-Ho lding Chambers (OptiChamber [facility] 1 each every 4 (four) hours if needed (asthma). 1 each 12/04/19 25 Active Blood Pressure kit 1 each 2 times daily. 1 kit 12/04/19 25 026 Active cholecalcifero l (Vitamin D-3) 1.25 MG (63334 UT) capsule TOME 1 C PSULA POR V A ORAL EVERY WEEK 03/11/20 25 Active cyclobenzaprin e (Flexeril) 5 MG tablet TAKE 7.5 MG (1.5 X 5 MG) ORALLY BEDTIME 03/02/20 25 Active Magnesium Glycinate 100 MG capsule TOME CUATRO C PSULAS POR V A ORAL AL ACOSTARSE 03/02/20 25 Active meloxicam (Mobic) 15 MG tablet Take 15 mg by mouth Once per day. 02/24/20 25 Active methocarbamol (Robaxin) 750 MG tablet TAKE 1 TABLET BY MOUTH EVERY 8 HOURS NEEDED FOR SPASM 03/20/20 25 Active tiZANidine (Zanaflex) 2 MG tablet Take 2 mg by mouth at bedtime. 02/24/20 25 Active topiramate 50 MG tablet TOME VI TABLETA POR V A ORAL A DIARIO AL ACOSTARSE 03/02/20 25 Active naproxen (Naprosyn) 375 MG tablet TOME VI TABLETA POR V A ORAL DOS VECES AL D A CUANDO SEA NECESARIO PARA DOLOR 03/20/20 25 Active levothyroxine (Synthroid, Levoxyl) 112 MCG tabletIndicati ons:Hypothyroi dism, unspecified type TAKE 1 TABLET BY MOUTH EVERY DAY 90 tablet 05/14/20 25 Active levothyroxine (Synthroid, Levoxyl) 112 MCG tabletIndicati ons:Hypothyroi dism, unspecified type TAKE 1 TABLET BY MOUTH EVERY DAY 90 tablet 01/27/20 25 025 Discontinued Active Problems Problem Noted Date Diagnosed Date [...] 09/15/2023 Overview (09/15/2023): Dr. Uribe oral surgery [facility] Assessment & Plan (09/15/2023 9:43 AM [...] pain 09/01/2021 Overview (12/08/2022): Seen by cardiology [phone], had echo, ekg, exercise stress test, all without cardiac explanation for cp. thought to be noncardiac. fu with cardiology PRN Hypertensive disorder 04/26/2021 Overview (09/15/2023): Losartan 100mg Carvedilol 3.125mg b.I.d Seen by cardiology [phone], had echo, ekg, exercise stress test, all [...] Encounters Date Type Department Care Team Description 05/19/2025 Orders Only [facility] [address] [place] [address] Jennifer Germain MD 05/15/2025 11:15 AM EDT Office Visit [facility] OPTOMETRY [address] [place] [address] Johnson, Catherine, OD Regular astigmatism of both eyes (Primary Dx) 05/13/2025 Refill [facility] [address] [place] [address] Olivia Long FNP Hypothyroidism, unspecified type 04/16/2025 2:30 PM EDT Office Visit [facility] OPTOMETRY [address] [place] [address] Catherine Ornelas, OD Encounter for examination of eyes and vision without abnormal findings (Primary Dx); Presbyopia 04/16/2025 Travel 2025 Results Follow-Up [facility] [address] [place] [address] Jennifer Germain MD C-reactive Protein, Cyclic Citrullinated Peptide (CCP) Antibody (IgG), ANDI Screen,IFA, with Reflex to Titer and Pattern 2025 Orders Only [address] [address] Jennifer Germain MD 04/13/2025 Orders Only [facility] [place] [address] Jennifer Germain MD 04/08/2025 3:15 PM EDT Office Visit [facility] [place] [address] Jennifer Germain MD Polyarthralgia (Primary Dx); Diffuse pain 04/08/2025 Travel 04/03/2025 Telephone [facility] [place] [address] Olivia Long FNP Nov Recall 03/20/2025 Orders Only GENERIC EXTERNAL DATA DEPARTMENT Provider, Generic External Data 03/09/2025 10:30 AM EDT Office Visit [facility] [place] [address] Olivia Long FNP Bilateral hearing loss, unspecified hearing loss type (Primary Dx) 03/09/2025 Travel 03/06/[address] [place] [address] Olivia Long FNP Chart Prep 03/02/2025 Orders Only GENERIC EXTERNAL DATA DEPARTMENT Provider, Generic External Data 03/02/2025 Travel 02/27/2025 Patient Outreach [address] [address] Olivia Long FNP Care Coordination (CHW outreach for SDOH PT-1 and food needs-referral completed /) 02/27/2025 Patient Outreach [facility] [address] [place] [phone] Olivia Long FNP Pre-visit Planning (SDOH screening positive and tobacco screening negative) from Last 3 Months Immunizations Immunization Administration [...] Description 06/03/2025 2:45 PM EST Office Visit [facility] [address] [place] [address] [facility], [facility] [address] [place] [address] Health Maintenance Due Date Last Done Comments Alcohol/Substance Use Screening 1995 HPV Vaccines (1 - 3-dose series) 1998 Hepatitis B Vaccines (1 of 3 - 19+ 3-dose series) 2002 COVID-19 Vaccine ( season) 2025 06/02/2021, 09/17/2020, 08/20/2020 Influenza Vaccine (#1) 2025 Family Planning (PISQ) 06/02/2025 06/02/2024 SDOH Screening 02/27/2026 02/27/2025 Disability Screening 03/02/2026 03/02/2025 Depression Screening 03/09/2026 03/09/2025, 03/09/20 25 Mammogram 04/13/2026 04/13/2025, 03/23, 10/05/2023, Additional history exists Tobacco Screening 04/16/2026 04/16/2025 HPV/Cotest 05/31/2026 05/31/2023 Pap Smear 05/31/2026 05/31/2023, [...] Procedure Name Priority Date/Time Associated Diagnosis Comments BI MAMMOGRAM DIAGNOSTIC TOMOSYNTHESIS ADDED VIEW LEFT Routine 05/19/2025 2:10 PM EDT BI MAMMOGRAM SCREENING TOMOSYNTHESIS BILATERAL Routine 04/13/2025 2:52 PM EDT ANDI SCREEN, IFA, W/REFL TITER AND PATTERN Routine 04/08/2025 3:43 PM EDT Polyarthralgia Diffuse pain CYCLIC CITRULLINATED PEPTIDE (CCP) AB (IGG) Routine 04/08/2025 3:43 PM EDT Polyarthralgia Diffuse pain C-REACTIVE PROTEIN Routine 04/08/2025 3: 43 PM [...] AND D3) Routine 03/02/2025 3:43 PM EDT LIPID PANEL, STANDARD Routine 09/06/2023 [...] Recently Relevant to Health Maintenance Results * BI Mammogram Diagnostic Tomosynthesis added left (05/19/2025 2:10 PM EDT) Anatomical Region Laterality Modality Breast Left Mammography 05/19/2025 2:10 PM EDT Narrative 05/19/2025 4:53 PM EDT [facility] [place] [address] Mammography Report Signed Patient: Janine Keller MR#: [id number] : 1985 Acct:[id number] Age/Sex: 40 / F ADM Date: 05/19/25 Loc: HO.MAMMO Attending Dr: Jennifer Osullivan MD Ordering Physician: Jennifer Germain MD Results: 3Probably Benign Date of Service: 05/19/25 Follow Up: 6 Month F/U Procedure(s): MM tomosynthesis added views L Accession Number(s): [id number] cc: Jennifer Germain MD Reason For Exam: LT BR AV US FOR CALS. ?ASYMMETRY EXAMINATION(S): MM DIAGNOSTIC DIGITAL BREAST TOMOSYNTHESIS, LEFT CLINICAL INFORMATION: Callback from screening for left breast grouped calcifications in the upper outer quadrant at 3.5-4.5 cm from the nipple associated with possible underlying asymmetry on the CC view. COMPARISON: Comparison made to multiple prior, most recent April 13, 2025, and most remote March 21, 2022. TECHNIQUE: Digital breast tomosynthesis is performed in full field ML 90 degrees along with computer-aided detection (CAD). Synthesized 2D images are generated from the tomosynthesis. Spot compression tomosynthesis and spot magnified compression views were obtained. FINDINGS: BREAST COMPOSITION: The breasts are heterogeneously dense, which may obscure small masses. RIGHT BREAST: Grouped amorphous calcifications in the upper outer quadrant centered at approximately 4-5 cm from the nipple changes in morphology in the differential views. Some of these calcifications layer on the spot magnified 90 degrees, which favors milk of calcium. No underlying asymmetry persists with spot compression. MM/MM tomosynthesis added views L IMPRESSION: RIGHT BREAST: Grouped amorphous calcifications in the upper outer quadrant associated approximately 4 to 5 cm from the nipple. Probably benign. A 6-month follow-up mammogram is recommended. ASSESSMENT: BI-RADS: Category 3: Probably benign RECOMMENDATION: 6 Month F/U Results were provided to the patient at time of visit by the technologist. This patient's information was entered into a reminder system with a target due date for their next mammogram. Electronically signed by: Heather Harvey MD 05/19/2025 04:50 PM EDT Dictated By: Heather Harvey MD Signed By: <Electronically signed by Heather Harvey MD in OV> 05/19/25 1650 DD/ 1410 TD/TT: 05/19/25 1422 Communication Analyst: Procedure Note Donotuseinterpreter, Image - 05/19/20[facility] [address] [place] [address] Mammography Report Signed Patient: Astrid Keller#: [id number] : 1985Acct:[id number] Age/Sex: 40 / FADM Date: 05/19/25 Loc: HO.MAMMO Attending Dr: Jennifer Osullivan MD Ordering Physician: Jennifer Germain MDResults: 3Probably Benign Date of Service: 05/19/25Follow Up: 6 Month F/U Procedure(s): MM tomosynthesis added views L Accession Number(s): [id number] cc: Jennifer Germain MD Reason For Exam: LT BR AV US FOR CALS. ?ASYMMETRY EXAMINATION(S): MM DIAGNOSTIC DIGITAL BREAST TOMOSYNTHESIS, LEFT CLINICAL INFORMATION: Callback from screening for left breast grouped calcifications in the upper outer quadrant at 3.5-4.5 cm from the nipple associated with possible underlying asymmetry on the CC view. COMPARISON: Comparison made to multiple prior, most recent April 13, 2025, and most remote March 21, 2022. TECHNIQUE: Digital breast tomosynthesis is performed in full field ML 90 degrees along with computer-aided detection (CAD). Synthesized 2D images are generated from the tomosynthesis. Spot compression tomosynthesis and spot magnified compression views were obtained. FINDINGS: BREAST COMPOSITION: The breasts are heterogeneously dense, which may obscure small masses. RIGHT BREAST: Grouped amorphous calcifications in the upper outer quadrant centered at approximately 4-5 cm from the nipple changes in morphology in the differential views. Some of these calcifications layer on the spot magnified 90 degrees, which favors milk of calcium. No underlying asymmetry persists with spot compression. MM/MM tomosynthesis added views L IMPRESSION: RIGHT BREAST: Grouped amorphous calcifications in the upper outer quadrant associated approximately 4 to 5 cm from the nipple. Probably benign. A 6-month follow-up mammogram is recommended. ASSESSMENT: BI-RADS: Category 3: Probably benign RECOMMENDATION: 6 Month F/U Results were provided to the patient at time of visit by the technologist. This patient's information was entered into a reminder system with a target due date for their next mammogram. Electronically signed by: Heather Harvey MD 05/19/2025 04:50 PM EDT Dictated By: Heather Harvey MD Signed By: <Electronically signed by Heather Harvey MD in OV> 05/19/25 1650 DD/ 1410 TD/TT: 05/19/25 1422 Communication Analyst: us Jennifer Osullivan MD IMG BI PROCEDURES Fin al Result * BI Mammogram Screening Tomosynthesis Bilateral (04/13/2025 2:52 PM EDT) Anatomical Region Laterality Modality Breast Bilateral Mammography 04/13/2025 2:52 PM EDT Narrative 2025 7:24 PM EDT [facility] [address] [place], [place] [address] Mammography Report Signed with Addenda Patient: Janine Keller MR#: [id number] : 1985 Acct:[id number] Age/Sex: 39 / F ADM Date: 04/13/25 Loc: HO.MAMMO Attending Dr: Jennifer Osullivan MD Ordering Physician: Jennifer Germain MD Results: 0Incomplete: Needs Additional Imaging Evaluation Date of Service: 04/13/25 Follow Up: Additional Imagi ng Procedure(s): MM tomosynthesis screening BI Accession Number(s): [id number] cc: Jennifer Germain MD Reason For Exam: SCREENING ADDENDUM ADDENDUM #1 ADDENDUM: Addendum created to correct the recommendation and follow-up OVERALL ASSESSMENT: Category 0: Incomplete - Need additional Imaging Evaluation RECOMMENDATION: 1. Additional views of the left breast 2. Targeted ultrasound if warranted after review of the additional views. 3. Radiology department staff will contact the patient for additional imaging. FOLLOW-UP: Additional Imaging required Electronically signed by: Heather Harvey MD 2025 07:28 PM EDT Addendum Dictated By: Heather Harvey MD Addendum Signed By: <Electronically signed by Heather Harvey MD in OV> 04/14/251927 Addendum Cosigned By: DD/ TD/TT: 04/13/25 EXAMINATION: MM SCREENING DIGITAL BREAST TOMOSYNTHESIS, BILATERAL CLINICAL INFORMATION: Screening. Asymptomatic. COMPARISON: Comparison made to multiple prior, most recent April 09, 2024, and most remote March 21, 2022. TECHNIQUE: Digital breast tomosynthesis is performed in mediolateral oblique and craniocaudal views along with computer-aided detection (CAD). Synthesized 2D images are generated from the tomosynthesis. FINDINGS: BREAST COMPOSITION: The breasts are heterogeneously dense, which may obscure small masses. RIGHT BREAST: No significant masses, suspicious calcifications or other abnormalities are seen. LEFT BREAST: Grouped calcifications in the upper outer quadrant middle depth at approximately 3.5-4.5 cm from the nipple, associated with possible underlying asymmetry on the CC view. MM/MM tomosynthesis screening BI IMPRESSION: RIGHT BREAST: Negative, no mammographic evidence of malignancy. Normal interval follow-up is recommended in 12 months. LEFT BREAST: Grouped calcifications in the upper outer quadrant middle depth, associated with possible asymmetry on the CC view. ASSESSMENT: BI-RADS: Category 0: Incomplete - Need additional Imaging Evaluation RECOMMENDATION: Routine annual mammography screening. FOLLOW-UP: 1 year F/U This examination should not preclude the clinical evaluation of a suspicious palpable abnormality. This patient's information was entered into a reminder system with a target due date for their next mammogram. Electronically signed by: Heather Harvey MD 2025 07:21 PM EDT Dictated By: Heather Harvey MD Signed By: <Electronically signed by Heather Harvey MD in OV> 04/14/25 1921 DD/ 1452 TD/TT: 04/13/25 1515 Communication Analyst: Procedure Note Donotuseinterpreter, Image - 2025 [place] [facility] [address] [place] [address] Mammography Report Signed with Addenda Patient: Astrid Keller#: [id number] : 1985Acct:[id number] Age/Sex: 39 / FADM Date: 04/13/25 Loc: HO.MAMMO Attending Dr: Jennifer Osullivan MD Ordering Physician: Jennifer Germain MD Results: 0Incomplete: Needs Additional Imaging Evaluation Date of Service: 04/13/25Follow Up: Additional Imagi ng Procedure(s): MM tomosynthesis screening BI Accession Number(s): [id number] cc: Jennifer Germain MD Reason For Exam: SCREENING ADDENDUM ADDENDUM #1 ADDENDUM: Addendum created to correct the recommendation and follow-up OVERALL ASSESSMENT: Category 0: Incomplete - Need additional Imaging Evaluation RECOMMENDATION: 1. Additional views of the left breast 2. Targeted ultrasound if warranted after review of the additional views. 3. Radiology department staff will contact the patient for additional imaging. FOLLOW-UP: Additional Imaging required Electronically signed by: Heather Harvey MD 2025 07:28 PM EDT RP Addendum Dictated By: Heather Harvey MD Addendum Signed By: <Electronically signed by MD Augie in OV> 04/14/251927 Addendum Cosigned By: DD/ TD/TT: 04/13/25 EXAMINATION: MM SCREENING DIGITAL BREAST TOMOSYNTHESIS, BILATERAL CLINICAL INFORMATION: Screening. Asymptomatic. COMPARISON: Comparison made to multiple prior, most recent April 09, 2024, and most remote March 21, 2022. TECHNIQUE: Digital breast tomosynthesis is performed in mediolateral oblique and craniocaudal views along with computer-aided detection (CAD). Synthesized 2D images are generated from the tomosynthesis. FINDINGS: BREAST COMPOSITION: The breasts are heterogeneously dense, which may obscure small masses. RIGHT BREAST: No significant masses, suspicious calcifications or other abnormalities are seen. LEFT BREAST: Grouped calcifications in the upper outer quadrant middle depth at approximately 3.5-4.5 cm from the nipple, associated with possible underlying asymmetry on the CC view. MM/MM tomosynthesis screening BI IMPRESSION: RIGHT BREAST: Negative, no mammographic evidence of malignancy. Normal interval follow-up is recommended in 12 months. LEFT BREAST: Grouped calcifications in the upper outer quadrant middle depth, associated with possible asymmetry on the CC view. ASSESSMENT: BI-RADS: Category 0: Incomplete - Need additional Imaging Evaluation RECOMMENDATION: Routine annual mammography screening. FOLLOW-UP: 1 year F/U This examination should not preclude the clinical evaluation of a suspicious palpable abnormality. This patient's information was entered into a reminder system with a target due date for their next mammogram. Electronically signed by: Heather Harvey MD 2025 07:21 PM EDT Dictated By: Heather Harvey MD Signed By: <Electronically signed by Heather Harvey MD in OV> 04/14/25 1921 DD/ 1452 TD/TT: 04/13/25 1515 Communication Analyst: Jennifer Osullivan MD IMG BI PROCEDURES Bk charo Result - Final * Cyclic Citrullinated Peptide (CCP) Antibody (IgG) (04/08/2025 3:43 PM EDT) [facility] Cyclic Citrullinated Peptide <16 UNITS [facility] Comment:Reference RangeNegat seth: <20Weak Positive: 20-39Moderate Positive: 40-59Strong Positive: >59THIS TEST WAS PERFORMED AT:[facility] [place] [phone] SOUZA MD Blood Venous blood specimen / Unknown 04/08/2025 3:43 PM EDT 04/08/2025 4:03 PM EDT Jennifer Osullivan MD LAB BLOOD ORDERABLES Final Result Performing Organization Address [facility] Co de Phone Number [facility] [address] [place] [phone] * C-reactive Protein (04/08/2025 3:43 PM EDT) Only the most recent of2 resultswithin the time period is included. [facility] C Reactive Protein 0.11 < or = 0.50 mg/dL [facility] Blood Venous blood specimen / Unknown 04/08/2025 3:43 PM EDT 04/08/2025 4:03 PM EDT Jennifer Osullivan MD LAB BLOOD ORDERABLES Final Result Performing Organization Address [facility] Co de Phone Number [facility] [address] [place] [phone] * (ABNORMAL) ANDI Screen,IFA, with Reflex to Titer and Pattern (04/08/2025 3:43 PM EDT) Anti Nuclear Antibody Screen POSITIVE (A) NEGATIVE [facility] Comment:ANDI IFA is a first l ine screen for detecting thepresence of up to approximately 150 autoantibodies invarious autoimmune diseases. A positive ANDI IFA resultis suggestive of autoimmune disease and reflexes totiter and pattern. Further laboratory testing may beconsidered if clinically indicated.For additional information, please refer [email or web address](This link is being provided for informational/educational purposes only.) ANDI Titer 1:40(A) titer [facility] Comment:A low level ANDI tite r may be present in pre-clinicalautoimmune diseases and normal individuals. Reference Range <1:40 Negative 1:40-1:80 Low Antibody Level >1:80 Elevated Antibody Level ANDI Pattern Nuclear, Speckled (A) [facility] Comment:Speckled pattern is associated with mixed connectivetissue disease (MCTD), systemic lupus erythematosus(SLE), Sjogren's syndrome, dermatomyositis, andsystemic sclerosis/polymyositis overlap.AC-2,4,5,29: SpeckledInternational Consensus on ANDI Patterns(https://doi.org/10.1515/bbwm-2055-3006)THIS TEST WAS PERFORMED AT:[facility] [place] [phone] SOUZA MD ANDI TITER 2 (REF LAB) [facility] ANDI Pattern 2 [facility] ANDI TITER 3 [facility] ANDI PATTERN 3 [facility] Blood Venous blood specimen / Unknown 04/08/2025 3:43 PM EDT 04/08/2025 4:03 PM EDT Jennifer Osullivan MD LAB BLOOD ORDERABLES Final Result [facility] [address] [place] [phone] * Urinalysis, Complete, with Reflex to Culture (03/20/2025 7:02 PM EDT) Color Urine Yellow [facility] Appearance Urine Clear [facility] PH 6.5 5.0 - 9.0 [facility] Glucose Urine UA Negative Negative mg/dL [facility] Urine Blood Negative Negative [facility] Specific [place] - Urine <=1.005 1.005 - 1.025 [facility] Urine Protein Negative Neg-Trace mg/dL [facility] Urine Ketones Negative Negative mg/dL [facility] Nitrite Urine Negative Negative [facility] Leukocyte Esterase Urine Negative Negative [facility] RBC Urine 0-2 0 - 2 /HPF [facility] Urine WBC 0-5 0 - 5 /HPF [facility] Urine Squamous Epithelial Cell 0-2 0 - 2 /HPF [facility] Urine Bacteria None Seen None Seen [facility] Hyaline Casts, Urine 0-2 0 - 2 /LPF [facility] 03/20/2025 7:02 PM EDT 03/20/2025 7:05 PM EDT Narrative [facility] - 03/20/2025 7:20 PM EDT Urine, Clean Catch us Generic External Data Provider LAB URINE ORDERAB LES Final Result [facility] [address] [place] [phone] * Lyme Disease Ab with Reflex to Blot (IgG, IgM) (03/20/2025 6:04 PM EDT) Lyme Antibody Screen <0.90 index [facility] Comment:Index Interpretatio n ----- < 0.90 Negative 0.90-1.09 Equivocal > [...] when erythemamigrans is apparent.THIS TEST WAS PERFORMED AT:[facility] [place] [phone] SOUZA MD Lyme Blot TNP [facility] 03/20/2025 6:04 PM EDT 03/20/2025 6:08 PM EDT us Generic External Data Provider LAB BLOOD ORDERAB LES Final Result [facility] [address] [place] [phone] * (ABNORMAL) CBC auto differential (03/20/2025 6:04 PM EDT) White Blood Count 7.2 4.8 - 10.8 X10*3/uL [facility] Red Blood Count 4.45 4.20 - 5.50 X10*6/uL [facility] Hemoglobin 12.9 12.0 - 16.0 g/dl [facility] Hematocrit 36.4(L) 37.0 - 47.0 % [facility] Mean Corpuscular Volume 81.8 80.0 - 98.0 fL [facility] Mean Corpuscular Hemoglobin 29.0 27.0 - 33.0 pg [facility] Mean Corpuscular HGB Conc 35.4(H) 31.0 - 35.0 g/dl [facility] Red Cell Distribution Width 11.9 11.0 - 16.0 % [facility] Platelet Count 283 160 - 400 X10*3/uL [facility] Mean Platelet Volume 10.0 9.4 - 12.3 fL [facility] Neutrophils Percent Auto 53.4 45 - 73 % [facility] Imm Gran Pct Auto 0.4 0.0 - 0.4 % [facility] Lymphocytes Percent Auto 39.6 20 - 40 % [facility] Monocytes Percent Auto 5.4 2 - 11 % [facility] Eosinophils Percent Auto 0.8 0 - 4 % [facility] Basophils Percent Auto 0.4 0 - 2 % [facility] NRBC Pct Auto 0.0 0.0 - 0.2 /100WBC [facility] Neutrophils Absolute Auto 3.9 2.0 - 8.3 x10*3/uL [facility] Imm Gran Abs Auto 0.03 0.00 - 0.03 X10*3/uL [facility] Lymphocytes Absolute Auto 2.9 1.2 - 4.9 X10*3/uL [facility] Monocytes Absolute Auto 0.4 0.1 - 1.2 X10*3/uL [facility] Eosinophils Absolute Auto 0.1 0.0 - 0.4 X10*3/uL [facility] Basophils Absolute Auto 0.0 0.0 - 0.2 X10*3/uL [facility] NRBC Abs Auto 0.000 0.0 - 0.012 X10*3/uL [facility] 03/20/2025 6:04 PM EDT 03/20/2025 6:08 PM EDT us Generic External Data Provider LAB BLOOD ORDERAB LES Final Result [facility] [address] [place] [phone] * Borrelia Species DNA, Qualitative Real-Time PCR, Miscellaneous (03/20/2025 6:04 PM EDT) Borrelia Species DNA, QL Real Time PCR, Misc NOT DETECTED NOT DETECTED [facility] Comment:This test was develo ped and its analytical performancecharacteristics have been determined by [employer]. It has not been cleared or approved by theA. This assay has been validated pursuant to the CLIAregulations and is used for clinical purposes.For additional information, please refer tohttps://education.[employer]/faq/uee025(This link is being provided for informational/educational purposes only.)THIS TEST WAS PERFORMED AT:[employer] [place] [phone] SOUZA MD 03/20/2025 6:04 PM EDT 03/20/2025 6:08 PM EDT Generic External Data Provider LAB BLOOD ORDERAB LES Final Result Performing Organization Address [facility] Co de Phone Number [facility] [address] [place] [phone] * Sed Rate by Modified Reinaldoergren (03/20/2025 6:04 PM EDT) Pathologist [facility] Erythrocyte Sedimentation Rate 7 0 - 20 MM/HR [facility] Comment:Patients with polycy themia and many hemoglobin abnormalitiesmay have depressed sed rates whereas patients with anemiamay have elevated sed rates. 03/20/2025 6:04 PM EDT 03/20/2025 6:08 PM EDT Generic External Data Provider LAB BLOOD ORDERAB LES Final Result Performing Organization Address [facility] de Phone Number [facility] [address] [place] [phone] * hCG, Total, Quantitative (03/20/2025 6:04 PM EDT) HCG Quantitative <2 mIU/mL [facility] Comment:Weeks post LMP Appro ximate hCG(Last Menstrual Period) Range (mIU/ml)3 - 4 weeks 9 - 1304 - 5 weeks 75 - 2,6005 - 6 weeks 850 - 20,8006 - 7 weeks 4000 - 100,2007 - 12 weeks 11,500 - 289,03418 - 16 weeks 18,300 - 137,80838 - 29 weeks (2nd trimester) 1,400 - 53,26231 - 41 weeks (3rd trimester) 940 - [...] ORDERAB LES Final Result Performing Organization Address City/[facility]/ZIP Co de Phone Number [facility] [address] [place] [phone] * Lipase (03/20/2025 6:04 PM EDT) Pathologist [facility] Lipase 42 8 - 78 U/L [facility] 03/20/2025 6:04 PM EDT 03/20/2025 6:08 PM EDT Generic External Data Provider LAB BLOOD ORDERAB LES Final Result Performing Organization Address [facility] Co de Phone Number [facility] [address] [place] [address] [phone] * (ABNORMAL) Creatine Kinase, Total (03/20/2025 6:04 PM EDT) Creatine Kinase Total 177(H) 26 - 140 U/L [facility] 03/20/2025 6:04 PM EDT 03/20/2025 6:08 PM EDT Generic External Data Provider LAB BLOOD ORDERAB LES Final Result Performing Organization Address [facility] Co de Phone Number [facility] [address] [place] [phone] * (ABNORMAL) Comprehensive Metabolic Panel (03/20/2025 6:04 PM EDT) Sodium 140 135 - 145 mmol/L [facility] Potassium 3.8 3.3 - 5.1 mmol/L [facility] Chloride 110(H) 96 - 108 mmol/L [facility] Carbon Dioxide 24 22 - 29 mmol/L [facility] Anion Gap 10(L) 12 - 20 [facility] Urea Nitrogen (BUN) 14 9 - 16 mg/dL [facility] Creatinine, Serum 0.73 0.5 - 1.4 mg/dL [facility] Creatinine Clr Calc Pharmacy 92.1 [facility] Comment:Provided height and weight: 154.94 cm,72.1 kg.eGFR (calculated from the MDRD study equation) and eCrCl(calculated from the Cockcroft-Gault equation) are based ondifferent parameters and may not yield comparable results.If eCrCl result is absurd, please check patient'sheight/weight. Estimated Glomerular Filt Rate >60 [facility] Comment:Chronic Kidney Disea se: Estimated GFR < 60 mL/min/1.58k3Izskyo Kidney Disease: Estimated GFR < 15 mL/min/1.73m2 Glucose 117(H) 60 - 115 mg/dL [facility] Calcium 9.4 8.4 - 10.2 mg/dL [facility] Bilirubin, Total 0.5 0.0 - 1.0 mg/dL [facility] Aspartate Amino Transferase 21 5 - 31 U/L [facility] Alanine Aminotransferase 29 0 - 31 U/L [facility] Total Protein 7.3 6.5 - 8.0 g/dL [facility] Albumin Level 4.7 3.5 - 5.0 g/dL [facility] Alkaline Phosphatase 45 39 - 117 U/L [facility] 03/20/2025 6:04 PM EDT 03/20/2025 6:08 PM EDT us Generic External Data Provider LAB BLOOD ORDERAB LES Final Result [facility] [address] [place] [phone] * VITAMIN D 25-OH (D2 AND D3) (03/02/2025 3:43 PM EDT) Vitamin D, 25-OH, D2 <4 ng/mL [facility] Comment:This test was develo ped and its analytical performancecharacteristics have been determined by [employer] [place], [place]. It hasnot been cleared or approved by the .S. Food and DrugAdministration. This assay has been validated pursuantto the CLIA regulations and is used for clinicalpurposes.THIS TEST WAS PERFORMED AT:[employer] [id number] [place] [address]RYHRSCXJOHN SINGH MD,PHD Vitamin D, 25-OH, D3 37 ng/mL [facility] Comment:This test was develo ped and its analytical performancecharacteristics have been determined by [employer] [place], [place]. It hasnot been cleared or approved by the U.S. Food and DrugAdministration. This assay has been validated pursuantto the CLIA regulations and is used for clinicalpurposes. Vitamin D, 25-OH, Total 37 30 - 100 ng/mL [facility] Comment:Vitamin D, 25-Hydrox y reports concentrations [...] = 30 ng/mL.For additional information, please refer tohttp://education.[employer]/faq/TAK672(This link is being provided for informational/educational purposes only.) 03/02/2025 3:43 PM EDT 03/02/2025 5:28 PM EDT us Generic External Data Provider LAB BLOOD ORDERAB LES Final Result [facility] [address] [place] [phone] * Lipid Panel, Standard (09/06/2023 11:33 AM EST) Triglycerides 80 <150 mg/dL [facility] Comment:Desirable Triglyceri de: less than 150 mg/dLBorderline High Triglyceride 150-199 mg/dLHigh Triglyceride: 200-499 mg/dLVery High Triglyceride: greater than or equal to 5OO mg/dL Cholesterol 150 <200 mg/dL [facility] Comment:Desirable Cholestero l: less than 200 mg/dLBorderline High Cholesterol: 200-239 mg/dLHigh Cholesterol: greater than 239 mg/dL LDL Cholesterol Calculated 90 <100 mg/dL [facility] Comment:Desirable LDL: less than 100 mg/dLNear Optimal/Above Optimal LDL: 110- 129 mg/dLBorderline High LDL: 130-159 mg/dLHigh LDL: 160-189 mg/dLVery High LDL: greater than or equal to 190 mg/dL HDL Cholesterol 44 >40 mg/dL [facility] Comment:Desirable HDL: great er than 40 mg/dL Note: This HDL assay may give artificially low results in patients with liver disease. Blood Venous blood specimen / Unknown 09/06/2023 11:33 AM EST 09/06/2023 1:03 PM EST [facility] LAB BLOOD ORDERABLES Final Re sult [facility] [address] [place] [phone] * HPV mRNA E6/E7 w/Reflex to HPV Genotypes 16, 18/45 (05/31/2023 2:20 PM EST) HPV nRNA E6/E7 Not Detected Not Detected [facility] Comment:Methodology: Transcr iption-Mediated AmplificationThis assay detects E6/E7 viral messenger RNA (mRNA) from 14high-risk HPV types (16,18,31,33,35,39,45,51,52,56,58,59,66,68).Cervical sources are required for HPV testing.If a vaginal source from a patient who has had atotal hysterectomy with removal of cervix wassubmitted, please contact the testing laboratoryfor alternative testing options.For additional information, please refer tohttp://education.[employer]/faq/JUF891c2(This link if provided for information/educational purposes only.)THIS TEST WAS PERFORMED AT:[employer] [place] [phone] SOUZA MD HPV mRNA E6/E7 TNP [facility] HPV 16 RNA [facility] HPV 18/45 RNA [facility] 05/31/2023 2:20 PM EST 06/01/2023 8:10 AM EST Duane Gilliam CNM LAB CYTOLOGY ORDERABLES F inal Result Performing Organization Address City/State/[facility] Co de Phone Number [facility] [address] [place] [phone] * Pap Smear (05/31/2023 2:20 PM EST) 05/31/2023 2:20 PM EST 06/01/2023 8:10 AM EST Narrative [facility] - 06/20/2023 4:44 PM EST ----- ------- Name: Janine Keller Age/Sex: 38/F : 1985 Unit#: [id number] Attend Dr: DUANE GILLIAM CNM Re05/31/23 Status: DEP REF Location: [facility] Disch: ----- ------- SPEC : [id number] RECD: 06/01/23 STATUS: DIPTI SEGUNDO NUM: [id number] JUAN JOSÉ: 05/31/[address] [facility] [address]: DUANE GILLIAM Carie ENTERED: 06/01/23 SP TYPE: Pap Smr OTHR DR: ORDERED: [...] 59, 66, 68) HPV testing performed by [employer], [place], [place]. See reference laboratory portion of the EMR for entire report. Clinical Information LMP: Unknown date Previous PAP test: 2019, WNL Other surgery:S/P hyst Other history: Cervix not well seen, pap done as precaution Material Received ThinPrep-Vaginal/Cervical ----- ------- Signed (signature on file) Shannen Oh MD 06/20/23 1644 ----- ------- END OF REPORT Duane Romeropineda [facility] LAB CYTOLOGY ORDERABLES F inal Result [facility] [address] [place] [phone] * Hepatitis C Antibody with Reflex to HCV, RNA, Quantitative, Real-Time PCR (12/21/2022 12:03 PM EDT) Hepatitis C Antibody NON-REACT SETH NON-REACT SETH [employer] [facility] [employer] Index 0.07 <1.00 [employer] Comment: HCV antibody was non-reactive. There is no laboratory evidence of HCV infection. In most cases, no further action is required. However, if recent HCV exposure is suspected, a test for HCV RNA (test code 12719) is suggested. For additional information please refer to http://education.Brightkite/faq/WEZ89j7 (This link is being provided for informational/ educational purposes only.) Blood Venous blood specimen / Unknown 12/21/2022 12:03 PM EDT 12/21/2022 12:04 PM EDT Narrative [facility] - 12/25/2022 1:25 PM EDT FASTING:YES FASTING: YES [facility] LAB BLOOD ORDERABLES Final Re sult Performing Organization Address City/[facility]/ZIP Co de Phone Number [facility] [address], [place] [phone] [employer] [address] [place] [phone] * HIV 1/2 ANTIGEN/ANTIBODY,FOURTH GENERATION W/RFL (04/12/2022 11:21 AM EDT) HIV-1/2 ANTIGEN AND ANTIBODIES, 4TH GENERATION W/ REFLEX NON-REACT SETH NON-REACT SETH [facility] Comment: HIV-1 antigen and HIV-1/HIV-2 [...] purpose. For additional information please refer to http://education.[employer]/faq/QCJ919 (This link is being provided for informational/ educational purposes only.) The performance of this assay has not been clinically validated in patients less than 2 years old. 04/12/2022 11:2 1 AM EDT us Duane DUENAS LAB BLOOD ORDERABLES Neelima wilson Result Performing Organization Address City/State/[facility] Co [facility]ly [facility] Number [facility] [address] from Last 3 Months or Most Recently Relevant to Health Maintenance Insurance [facility] C3 Care Teams Associate Scientist Relationship Specialty Start Date End Date Olivia Long FNP [address] [place] [phone] PCP - General Family Medicine 03/18/22
--- OUTSIDE RECORDS SUMMARY | 2025-05-19 17:15 | XMS_ITS | Encounter Summary ---
Author Organization [employer] Address [address] [place] [address], [place] [address] Care Team Providers Care Fitter/Welder Name Role Phone [facility] Primary Care Provider [phone] Encounter Details Date Type Department Care Team (Late st Contact Info) Description 12/08/2022 Abstract [facility] [address] [place], [place] [phone] [place] [facility] [address] [place], [place] [phone] Social History Tobacco Use Types Packs/Day Years [...] Description 06/03/2025 2:45 PM EST Office Visit [facility] [address] [place], [place] [phone] [place] [facility] [address] [place] [address] documented as of this encounter Procedures Procedure Name Priority Date/Time Associated Diagnosis Comments MAMMOGRAPHY Routine 09/20/2022 documented in this encounter Results * Mammography (09/20/2022) HM Mammogram Bi-rads 3: Probably benign. Diagnostic Mammo due in 6 months Comment:Diagnostic Left [address] st Mammogram Anatomical Region Laterality Modality Other us Historical Provider MD HEALTH MAINTENANCE Final Result documented in this encounter Visit Diagnoses Not on filedocumented in this encounter Additional Health Concerns Assessment Noted Time PHQ-9 Depression Total Score: 4 11/29/19 23 2:25 PM EDT documented as of this encounter Care Teams Fitter/Welder Relationship Specialty Start Date End Date Olivia Long FNP [address] [place] [address] PCP - General Family Medicine 03/18/22 documented as of this encounter
--- OUTSIDE RECORDS SUMMARY | 2025-05-19 17:15 | XMS_ITS | Encounter Summary ---
Author Organization [employer] Address [address] [facility] 7t [place] [address] Care Team Providers Care Plastics And Composites Inspector Name Role Phone Ethan Olivia SPORTS DIRECTOR Primary Care Provider [phone] Encounter Details Date Type Department Care Team ([facility] st Contact Info) Description 2025 Orders Only [facility] [address] [place], [place] [phone] Jennifer Germain MD [address] [place] [address] Social History Tobacco Use Types Packs/Day Years [...] Description 06/03/2025 2:45 PM EST Office Visit [facility] [address] [place] [address] Olivia Long FNP [address] [place] [address] documented as of this encounter Visit Diagnoses Not on filedocumented in this encounter Additional Health Concerns Assessment Noted Time PHQ-9 Depression Total Score: 4 03/09/20 25 11:23 AM EDT documented as of this encounter Care Teams Plastics And Composites Inspector Relationship Specialty Start Date End Date Olivia Long FNP [address] [place] [phone] PCP - General Family Medicine 03/18/22 documented as of this encounter
--- OUTSIDE RECORDS SUMMARY | 2025-05-19 17:15 | XMS_ITS | Encounter Summary ---
Author Organization [employer] Address [address] [place] [address] Care Team Providers Care Plate Printer Name Role Phone [facility] Primary Care Provider [phone] Reason for Visit * Reason Onset Date Comments Appointment Request 07/03/2022 Encounter Details Date Type Department Care Team (Late st Contact Info) Description 07/03/2022 Telephone [facility] [address] [place], [place] [phone] [place] Lucinda [facility] [address] [place], [place] [phone] Appointment Request Social History Tobacco Use Types [...] Description 06/03/2025 2:45 PM EST Office Visit [facility] [address] [place], [place] [phone] [place]inda [facility] [address] [place] [address] documented as of this encounter Visit Diagnoses Not on filedocumented in this encounter Care Teams Plate Printer Relationship Specialty Start Date End Date Olivia Long FNP [address] [place] [address] [place] [address] PCP - General Family Medicine 03/18/22 documented as of this encounter
--- OUTSIDE RECORDS SUMMARY | 2025-05-19 17:15 | XMS_ITS | Encounter Summary ---
Author Organization [employer] Address [address] [facility] 7t [place] [address] Care Team Providers Care Christian Science Reader Name Role Phone Ethan Olivia STREETCAR REPAIRER Primary Care Provider [phone] Encounter Details Date Type Department [facility] Team [facility] Description 05/19/2025 Orders Only [facility] [address] [place], [place] [phone] Jennifer Germain MD [address] [place] [address] Social History Tobacco Use Types Packs/Day Years [...] Description 06/03/2025 2:45 PM EST Office Visit [facility] [address] [place], [place] [phone] [facility] [address] [place], [place] [phone] documented as of this encounter Procedures Procedure Name Priority Date/Time Associated Diagnosis Comments BI MAMMOGRAM DIAGNOSTIC TOMOSYNTHESIS ADDED VIEW LEFT Routine 05/19/2025 2:10 PM EDT documented in this encounter Results * BI Mammogram Diagnostic Tomosynthesis added left (05/19/2025 2:10 PM EDT) Anatomical Region Laterality Modality Breast Left Mammography 05/19/2025 2:10 PM EDT Narrative 05/19/2025 4:53 PM EDT [facility] [address] [place] [address] Mammography Report Signed Patient: Janine Keller MR#: [id number] : 1985 Acct:[id number] Age/Sex: 40 / F ADM Date: 05/19/25 Loc: HO.MAMMO Attending Dr: Jennifer Osullivan MD Ordering Physician: Jennifer Germain MD Results: 3Probably Benign Date of Service: 05/19/25 Follow Up: 6 Month F/U Procedure(s): MM tomosynthesis added views L Accession Number(s): [id number] cc: Jennifer Germain MD Reason For Exam: [...] 05/19/25 1650 DD/ 1410 TD/TT: 05/19/25 1422 Turbine Engine Assembler: Procedure Note Donotuseinterpreter, Image - 05/19/2025 [facility] [address] [place] [address] Mammography Report Signed Patient: Astrid Keller#: [id number] : 1985Acct:[id number] Age/Sex: 40 / FADM Date: 05/19/25 Loc: HO.MAMMO Attending Dr: Jennifer Osullivan MD Ordering Physician: Jennifer Germain MDRramirezults: 3Probably Benign Date of Service: 05/19/25Follow Up: 6 Month F/U Procedure(s): MM tomosynthesis added views L Accession Number(s): [id number] cc: Jennifer Germain MD Reason For Exam: [...] Heather Harvey MD 05/19/2025 04:50 PM EDT RP Workstation: Programeter Dictated By: Heather Harvey MD Signed By: <Electronically signed by Heather Harvey MD in OV> 05/19/25 1650 DD/ 1410 TD/TT: 05/19/25 1422 Turbine Engine Assembler: Jennifer Osullivan MD IMG BI PROCEDURES Fin al Result documented in this encounter Visit Diagnoses Not on filedocumented in this encounter Additional Health Concerns Assessment Noted Time PHQ-9 Depression Total Score: 4 03/09/20 25 11:23 AM EDT documented as of this encounter Care Teams Christian Science Reader Relationship Specialty Start Date End Date Olivia Long FNP [address] [place] [address] PCP - General Family Medicine 03/18/22 documented as of this encounter
--- OUTSIDE RECORDS SUMMARY | 2025-05-19 17:15 | XMS_ITS | Encounter Summary ---
Author Organization [employer] Address [address] [place] [address] Care Team Providers Care In Flight Refueling Manager Name Role Phone [facility] Primary Care Provider [phone] Reason for Visit * Reason Onset Date Comments Appointment Request 01/17/2023 Encounter Details Date Type Department Care Team ([facility] st Contact Info) Description 01/17/2023 Telephone [facility] [address] [place], [place] [phone] [facility] [address] [place], [place] [phone] Appointment Request Social History Tobacco Use Types [...] TP on 01/16/2023. Please contact pt at [phone] Malagasy Speaker documented in this encounter Plan of Treatment Upcoming Encounters Date Type Department Care Team (Late st Contact Info) Description 06/03/2025 2:45 PM EST Office Visit [facility] [address] [place] [address] Olivia Long FNP [address] [place] [address] documented as of this encounter Visit Diagnoses Not on filedocumented in this encounter Additional Health Concerns Assessment Noted Time PHQ-9 Depression Total Score: 4 11/29/19 23 2:25 PM EDT documented as of this encounter Care Teams In Flight Refueling Manager Relationship Specialty Start Date End Date Olivia Long FNP [address] [place] [address] PCP - General Family Medicine 03/18/22 documented as of this encounter
--- OUTSIDE RECORDS SUMMARY | 2025-05-19 17:15 | XMS_ITS | Encounter Summary ---
Author Organization [employer] Address [address] [place] [address] 7 [place] [address] Care Team Providers Care Head Scorer Name Role Phone [facility] Primary Care Provider [phone] Reason for Visit * Reason Onset Date Comments PT-1 04/04/2024 Encounter Details Date Type Department Care Team ([facility] st Contact Info) Description 04/04/2024 Telephone [facility] [address] [place], [place] [phone] [facility] [address] [place], [place] [phone] PT-1 Social History Tobacco Use Types Packs/Day [...] Y/N: Yes Provider name or facility name: [facility] Facility Address: [address] [place] [address] Escort needed: Y/N: Yes Do you have a wheelchair: Y/N: No If yes- Manual or electric: N/A Visits: once a month documented in this encounter Plan of Treatment Upcoming Encounters Date Type Department Care Team (Late st Contact Info) Description 06/03/2025 2:45 PM EST Office Visit [facility] [address] [place] [address] Olivia Long FNP [address] [place] [address] documented as of this encounter Visit Diagnoses Not on filedocumented in this encounter Additional Health Concerns Assessment Noted Time PHQ-9 Depression Total Score: 0 03/14/20 24 3:40 PM EDT documented as of this encounter Care Teams Head Scorer Relationship Specialty Start Date End Date Olivia Long FNP [address] [place] [address] PCP - General Family Medicine 03/18/22 documented as of this encounter
--- OUTSIDE RECORDS SUMMARY | 2025-05-19 17:16 | XMS_ITS | Encounter Summary ---
Author Organization [employer] Address [address] [place] [address] [address] [place] [address] Care Team Providers Care Nurse Monitoring Name Role Phone [facility] Primary Care Provider [phone] Reason for Visit * Reason Onset Date Comments Nurse Triage 09/03/2024 Encounter Details Date Type Department Care Team ([facility] st Contact Info) Description 09/03/2024 Telephone [facility] [address], [place] [id number] [facility] [address] [place] [address] Nurse Triage Social History Tobacco Use Types [...] call with [facility] [place] [id number], [place]. Pt reports right eye twitching constantly [...] uncomfortable. Pt is advised to come to [facility] today for provider to see Pt . Pt agrees with this disposition. Hours of [facility] open till 8pm this evening. Unable to [...] Description 06/03/2025 2:45 PM EST Office Visit [facility] [address] [place] [address] Olivia Long FNP [address] [place] [address] documented as of this encounter Visit Diagnoses Not on filedocumented in this encounter Additional Health Concerns Assessment Noted Time PHQ-9 Depression Total Score: 0 03/14/20 24 3:40 PM EDT documented as of this encounter Care Teams Nurse Monitoring Relationship Specialty Start Date End Date Olivia Long FNP [address] [place] [id number] PCP - General Family Medicine 03/18/22 documented as of this encounter
== END 2025-05-19 13:24 | disposition home or self-care (01) ==
LOC: HO.MAMMO 13:23
PROVIDERS: PCP Internal Medicine; Visit Provider Internal Medicine
DX: R92.1 Mammographic calcification found on diagnostic imaging of breast (principal)
CPT/HCPCS: 77061; 77065

== ENCOUNTER → 2025-05-19 14:30 | Outpatient (BNV) | payer MEDICAID, SELFPAY | PROVIDERS: PCP Internal Medicine; Visit Provider Radiology Body Imaging | DX: R92.1 Mammographic calcification found on diagnostic imaging of breast (principal) | CPT/HCPCS: 77061; 77065 ==

== ENCOUNTER 2025-07-02 10:38 | Outpatient (REF) | payer MEDICAID, SELFPAY ==
[2025-07-02 14:13] LABS: Alanine Aminotransferase 21 U/L (0-31); Albumin Level 4.8 g/dL (3.5-5.0); Alkaline Phosphatase 53 U/L (39-117); Anion Gap 10 (12-20); Aspartate Amino Transferase 20 U/L (5-31); Blood Urea Nitrogen 13 mg/dL (9-16); Calcium 9.3 mg/dL (8.4-10.2); Carbon Dioxide 26 mmol/L (22-29); Chloride 108 mmol/L (96-108); Estimated Glomerular Filt Rate > 60; Potassium 3.9 mmol/L (3.3-5.1); Sodium 140 mmol/L (135-145); Total Protein 7.6 g/dL (6.5-8.0)
[2025-07-02 14:49] LABS: Folate 9.9 ng/mL (> or = 4.0); Vitamin B12 296 pg/mL (200-900)
== END 2025-07-02 10:39 ==
LOC: HO.HHCL 10:38
PROVIDERS: PCP Internal Medicine; Visit Provider Family Medicine
DX: R25.2 Cramp and spasm (principal)
CPT/HCPCS: 36415; 80048; 80076; 82085; 82550; 82607; 82746